=== PATIENT | female | born 1945 | race Caucasian/White ===

== ENCOUNTER 2016-07-23 21:48 | Observation (INO) | payer MEDICARE, MEDICAID ==
--- NOTE | 2016-07-23 22:38 | C.PDOC ---
History Of Present Illness 71F ted after her son called ems. he told them he was speaking with her on the phone and she seemed confused. the pt denies any complaints. Time Seen by Provider: 07/23/16 22:21 Chief Complaint (Nursing): Altered Mental Status Past Medical History Vital Signs: Last Vital Signs Temp 97.8 F 07/24/16 08:48 Pulse 115 H 07/24/16 08:48 Resp 20 07/24/16 08:48 BP 178/70 H 07/24/16 08:48 Pulse Ox 99 07/24/16 08:48 - Medical History PMH: Anxiety, Arthritis, Bronchitis, COPD, Depression, Diabetes, Emphysema, Gastritis, HTN, Hypercholesterolemia, Hypothyroidism, Peripheral Edema, Sleep Apnea Denies: Asthma, Atrial Fibrillation, Cardia Arrhythmia, CHF, Mitral Valve Prolapse, Chronic Kidney Disease Surgical History: Cholecystectomy Denies: Pacemaker - [facility] Procedures APPLIC OF EXTERNAL FIXATOR DEVICE, RADIUS AND ULNA (12/20/12) BELOW KNEE AMPUTAT NEC (06/30/14) CL FX REDUC-RADIUS/ULNA (12/20/12) CONTINUOUS INVASIVE MECHANICAL VENTILATION <96 CONSEC HRS (06/30/14) ENTERAL INFUSION OF CONCENTRATED NUT. SUBSTANCES (06/30/14) OTHER ENDOVASCULAR PROCEDURES ON OTHER VESSELS (06/30/14) OTHER LOCAL DESTRUC SKIN (07/11/13) OTHER MYECTOMY (09/15/14) PHYSICAL THERAPY NEC (02/15/13) Family History: States: Unknown Family Hx - Social History Hx Tobacco Use: Yes Hx Alcohol Use: Yes Hx Substance Use: No - Immunization History Hx Tetanus Toxoid Vaccination: No Hx Influenza Vaccination: Yes Hx Pneumococcal Vaccination: Yes Review Of Systems Review Of Systems: ROS cannot be obtained secondary to pt's inabilty to answer questions. Physical Exam - Physical Exam Appears: Non-toxic, No Acute Distress Skin: Warm, Dry Head: Atraumatic Eye(s): bilateral: PERRL, EOMI Oral Mucosa: Dry Tongue: No Swelling Lips: No Swelling Neck: Normal ROM, Supple Cardiovascular: Rhythm Regular, No Murmur Respiratory: No Decreased Breath Sounds, No Accessory Muscle Use, No Rales, No Rhonchi, No Stridor, No Wheezing Gastrointestinal/Abdominal: Soft, No Tenderness Pulses: Left Radial: Normal, Right Radial: Normal Neurological/Psych: No Oriented x3 (disoriented to time and place), Normal Motor , Normal Sensation, Other (no focal deficits) ED Course And Treatment - Laboratory Results Result Diagrams: 07/23/16 22:49 07/23/16 22:49 O2 Sat by Pulse Oximetry: 100 Medical Decision Making Medical Decision Making: ecg- sinus tach 102, nl axis, baseline artifact due to pt movement, no stemi placed several calls and left message w Dr Soriano without response for 1 hour- patient admitted to hospitalist. CT Head Impression EXAM: CT Head Without Intravenous Contrast. CLINICAL HISTORY: 71 years old, female; Signs and symptoms; Altered mental status/memory loss; Additional info: AMS TECHNIQUE: Axial computed tomography images of the head/brain without intravenous contrast. This CT exam was performed using one or more of the following dose reduction techniques: automated exposure control, adjustment of the mA and/or kV according to patient size, and/or use of iterative reconstruction technique. COMPARISON: CT - HEAD W/WO CONTRAST 07/10/2016 9:00:14 PM FINDINGS: Brain: Chronic small vessel ischemic changes. Motion artifact diminishes sensitivity and subtle subarachnoid hemorrhage could be obscured. Ventricles: Unremarkable. No ventriculomegaly. Bones/joints: Unremarkable. No acute fracture. Soft tissues: Unremarkable. Sinuses: Unremarkable as visualized. No acute sinusitis. Mastoid air cells: Unremarkable as visualized. No mastoid effusion. Other findings: Global involutional changes. IMPRESSION: Motion limits exam, but grossly no acute findings. Disposition - Disposition Disposition: HOME/ ROUTINE Disposition Time: 01:10 Condition: STABLE - Clinical Impression Clinical Impression: Altered mental status
[2016-07-23 22:52] LABS: BASO # 0.1 K/uL (0.0-0.2); BASO % 1.1 % (0.0-2.0); EOS # 0.2 K/uL (0.0-0.7); EOS % 2.2 % (0.0-4.0); HEMATOCRIT 41.1 % (34.0-47.0); LYMPH # 2.6 K/uL (1.0-4.3); LYMPH % 34.2 % (20.0-40.0); MEAN CELL VOLUME 96.3 fL (81.0-99.0); MEAN CORPUSCULAR HGB CONC 33.2 g/dL (33.0-37.0); MEAN PLATELET VOLUME 9.7 fL (7.2-11.7); MONO # 0.4 K/uL (0.0-0.8); MONO % 5.1 % (0.0-10.0); NRBC % 0.2 % (0.0-2.0); RED CELL DISTRIBUTION WIDTH 12.8 % (11.5-14.5); WHITE BLOOD COUNT 7.6 K/uL (4.8-10.8)
[2016-07-23 22:59] LABS: CHLORIDE 100 mmol/L (98-107)
[2016-07-23 23:00] LABS: POTASSIUM 4.5 mmol/L (3.6-5.2); SODIUM 139 mmol/L (132-148)
[2016-07-23 23:02] LABS: ALKALINE PHOSPHATASE 46 U/L (38-126); AST/SGOT 65 U/L (14-36); BILIRUBIN,TOTAL 0.4 mg/dL (0.2-1.3); CARBON DIOXIDE 26 mmol/L (22-30); GFR AFRICAN-AMERICAN > 60; TOTAL PROTEIN 6.7 g/dL (6.3-8.3)
[2016-07-23 23:03] LABS: ALT/SGPT 50 U/L (9-52); BLOOD UREA NITROGEN 9 mg/dL (7-17); CALCIUM 8.3 mg/dl (8.6-10.4); GLUCOSE,RANDOM 214 mg/dL (65-105)
[2016-07-23] MEDS ORDERED: Sodium Chloride 0.9% 1,000 ML IV ONE (23:16)
--- NOTE | 2016-07-24 01:25 | CP.PCM.HP ---
History of Present Illness - History of Present Illness History of Present Illness: HPI: Pt is a 71 year old [place] female with PMHx Alcoholism, DM, PVD, (more below) - brought in by ambulance after her son called ems. He told them he was speaking with her on the phone and she seemed confused. 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 She was recently admitted on 07/07 due to hyponatremia and alcoholism, and seems to be at her baseline since that admission. She complains of chronic SOB and intermittent non-productive cough, which her home nebulizer/albuterol help. She also c/o of chronic urinary frequency, urinating nearly 2x per hour. Otherwise she has no acute complaints. Patient appears mildly intoxicated, with an alcohol level of 129. Denies f/c, headache, dizziness, light headedness, change in vision, chest pain, palpitations, abdominal pain, n/v, hematemesis, constipation, dysuria, back pain , or any additional complaints. PMHx: Anxiety, Arthritis, Asthma, COPD, Depression, Diabetes, possible Gastritis , HTN, Hypercholesterolemia, Hypothyroidism, Edema, PVD PSHx: Cholecystectomy Meds: she is unsure, will see prior admission Allergies: Alexx Inhibitors FamHx: Mom - HTN, of PR SocHx: Tobacco 2PPD x 45yrs; 2-3 glasses of wine/day; Denies drugs; Lives in an apt, does not work. PMD: Dr. Soriano Present on Admission - Present on Admission Any Indicators Present on Admission: Yes History of DVT/PE: Yes Review of Systems - Review of Systems Systems not reviewed;Unavailable: Intoxicated - Constitutional Constitutional: absent: Chills, Fever, Headache, Weakness - EENT Eyes: absent: Blurred Vision, Change in Vision Nose/Mouth/Throat: Dry Mouth. absent: Nasal Congestion, Nasal Discharge - Cardiovascular Cardiovascular: Dyspnea, Leg Edema (mild). absent: Chest Pain - Respiratory Respiratory: Cough, Dyspnea. absent: Chest Congestion - Gastrointestinal Gastrointestinal: Diarrhea (chronic). absent: Abdominal Pain, Constipation, Nausea, Vomiting - Genitourinary Genitourinary: Urinary Frequency. absent: Dysuria - Musculoskeletal Musculoskeletal: absent: Arthralgias, Numbness, Tingling - Neurological Neurological: absent: Dizziness, Numbness, Weakness - Hematologic/Lymphatic Hematologic: absent: Easy Bleeding, Easy Bruising, Lymphadenopathy Past Patient History - Past Medical History & Family History Past Medical History?: Yes - Past Social History Smoking Status: Heavy Smoker > 10 Cigarettes Daily - CARDIAC Hx Atrial Fibrillation: No Hx Cardia Arrhythmia: No Hx Congestive Heart Failure: No Hx Hypercholesterolemia: Yes Hx Hypertension: Yes Hx Mitral Valve Prolapse: No Hx Pacemaker: No Hx Peripheral Edema: Yes - PULMONARY Hx Asthma: No Hx Bronchitis: Yes Hx Chronic Obstructive Pulmonary Disease (COPD): Yes Hx Emphysema: Yes Hx Sleep Apnea: Yes - RENAL Hx Chronic Kidney Disease: No - ENDOCRINE/METABOLIC Hx Hypothyroidism: Yes - HEMATOLOGICAL/ONCOLOGICAL Hx Blood Disorders: No Hx Blood Transfusions: Yes - INTEGUMENTARY Hx Dermatological Problems: Yes Hx Cellulitis: Yes (current) Hx Eczema: Yes - MUSCULOSKELETAL/RHEUMATOLOGICAL Hx Arthritis: Yes - GASTROINTESTINAL Hx Gastritis: Yes - GENITOURINARY/GYNECOLOGICAL Hx Genitourinary Disorders: No - PSYCHIATRIC Hx Anxiety: Yes Hx Depression: Yes Hx Substance Use: No - SURGICAL HISTORY Hx Cholecystectomy: Yes - ANESTHESIA Hx Anesthesia: Yes Hx Anesthesia Reactions: No Hx Malignant Hyperthermia: No Meds Allergies/Adverse Reactions: Allergies Allergy/AdvReac Type Severity Reaction Status Date / Time ALEXX Inhibitors Allergy COUGH Verified 07/08/16 04:57 Physical Exam - Constitutional Appears: Non-toxic, No Acute Distress, Cachectic, Chronically Ill - Head Exam Head Exam: ATRAUMATIC, NORMAL INSPECTION - Eye Exam Eye Exam: EOMI, PERRL - ENT Exam ENT Exam: Mucous Membranes Dry - Neck Exam Neck exam: Negative for: Lymphadenopathy - Respiratory Exam Respiratory Exam: Decreased Breath Sounds, Clear to Auscultation Bilateral. absent: Wheezes Additional comments: tachypnic - Cardiovascular Exam Cardiovascular Exam: REGULAR RHYTHM, +S1, +S2 - GI/Abdominal Exam GI & Abdominal Exam: Hypoactive Bowel Sounds, Soft. absent: Tenderness - Extremities Exam Extremities exam: Positive for: pedal edema (R LE, mild), pedal pulses present ( R LE). Negative for: tenderness Additional comments: Left BKA. b/l lower extremities cool to touch - Neurological Exam Neurological exam: Alert, CN II-XII Intact Additional comments: Oriented to self and place. Not oriented to time (thought it is 1997) - Psychiatric Exam Psychiatric exam: Flat Affect, Normal Mood - Skin Skin Exam: Dry, Normal Color Results - Vital Signs Recent Vital Signs: Last Vital Signs Temp 97.6 F 07/23/16 22:02 Pulse 101 H 07/23/16 22:02 Resp 17 07/23/16 22:02 BP 138/69 07/23/16 22:02 Pulse Ox 100 07/24/16 00:20 - Labs Result Diagrams: 07/23/16 22:49 07/23/16 22:49 Labs: Laboratory Results - last 24 hr 07/23/16 22:49 WBC 7.6 RBC 4.27 Hgb 13.6 Hct 41.1 MCV 96.3 MCH 32.0 H MCHC 33.2 RDW 12.8 Plt Count 282 MPV 9.7 Neut % (Auto) 57.4 Lymph % (Auto) 34.2 Bay % (Auto) 5.1 Eos % (Auto) 2.2 Baso % (Auto) 1.1 Neut # 4.4 Lymph # 2.6 Bay # 0.4 Eos # 0.2 Baso # 0.1 Sodium 139 Potassium 4.5 Chloride 100 Carbon Dioxide 26 Anion Gap 17 BUN 9 Creatinine 0.7 Est GFR ( Amer) > 60 Est GFR (Non-Af Amer) > 60 Random Glucose 214 H Calcium 8.3 L Total Bilirubin 0.4 AST 65 H D ALT 50 Alkaline Phosphatase 46 Troponin I 0.0130 Total Protein 6.7 Albumin 3.4 L Globulin 3.3 Albumin/Globulin Ratio 1.0 Digoxin 1.1 Assessment & Plan - Assessment and Plan (Free Text) Assessment: Alcoholism -seems chronically de-conditioned -CT Head Without Intravenous Contrast - Motion limits exam, but grossly no acute findings. -alcohol level 129 H AST 65 / ALT 56 Thiamine HCl (Vitamin B1 Tab) 100 mg PO DAILY [facility] Folic Acid (Folic Acid) 1 mg PO DAILY [facility] Chlordiazepoxide (Librium) 10 mg PO QID [facility] Neurochecks Atrial Fibrillation with RVR, chronic ecg- sinus tach 102, nl axis Digoxin 0.25mg PO daily Dig level 1.1 Rivaroxaban (Xarelto) 20 mg PO DAILY [facility] Asthma -Hold Albuterol due to elevated heart rate -monitor COPD -not currently treated -monitor PVD (peripheral vascular disease) monitor for complications Aspirin (Ecotrin) 81 mg PO Q24H [facility] Diabetic neuropathy Gabapentin (Neurontin) 800 mg PO Q8 [facility] Hypertension BP on admission 159/76 Losartan Potassium (Cozaar) 12.5 mg PO DAILY [facility] Depression Mirtazapine (Remeron) 15 mg PO HS [facility] Diabetes A1c 8.3 () Insulin Aspart (Novolog) 0 unit SC ACHS [facility] f/u bladder scan for possible urinary retention (c/o urinary freq) Prophylaxis SCDs contraindicated - LLE amputation + RLE edema Heart healthy diet, carb consist. - Date & Time Date: 07/24/16 Time: 01:30
[2016-07-24] MEDS ORDERED: Thiamine 100 mg/ml Inj IV ONE (03:00)
[2016-07-24] MEDS: (Novolog) Insulin Aspart, Recombinant 100 u/ml 10 ml vial SC SCH ×4 (08:34→21:35)
--- NOTE | 2016-07-24 09:09 | CT ---
PROCEDURE: CT HEAD WITHOUT CONTRAST. HISTORY: ams COMPARISON: 07/10/2016 TECHNIQUE: Axial computed tomography images were obtained through the head/brain without intravenous contrast. Radiation dose: Total exam DLP = 1812.77 mGy-cm. FINDINGS: Examination limited due to patient motion artifact. HEMORRHAGE: No intracranial hemorrhage. BRAIN: No mass effect or edema. Mild diffuse age-appropriate cerebral atrophy. Mild chronic periventricular white matter ischemic change. Small old bilateral basal ganglia lacunar infarcts and an old right thalamic lacunar infarct are noted. No evidence of acute infarct. VENTRICLES: Unremarkable. No hydrocephalus. CALVARIUM: Unremarkable. PARANASAL SINUSES: Unremarkable as visualized. No significant inflammatory changes. MASTOID AIR CELLS: Unremarkable as visualized. No inflammatory changes. OTHER FINDINGS: None. IMPRESSION: No intracranial mass, hemorrhage or evidence of acute infarct. 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 Age related atrophy and chronic microvascular white matter ischemic change. Preliminary interpretation of this examination was reported by [employer] at 12:15 a.m. on 07/24/2016.. There is concurrence of this report with the preliminary interpretation.
[2016-07-24] MEDS: Losartan 12.5 MG TAB PO SCH (11:25)
--- NOTE | 2016-07-24 13:44 | RAD ---
HISTORY: ams COMPARISON: 07/06/2016 FINDINGS: LUNGS: No active pulmonary disease. PLEURA: No significant pleural effusion identified, no pneumothorax apparent. CARDIOVASCULAR: Normal. OSSEOUS STRUCTURES: No significant abnormalities. VISUALIZED UPPER ABDOMEN: Normal. OTHER FINDINGS: Bilateral breast prostheses with capsular calcification. IMPRESSION: No active disease.
--- NOTE | 2016-07-24 16:01 | CP.PCM.PN ---
Subjective - Date & Time of Evaluation Date of Evaluation: 07/24/16 Time of Evaluation: 15:00 - Subjective Subjective: BRIEF NOTE, patient was admitted today this morning. We reached out to the patient's PMD however not available to see the patient today. Per review of the medical record the patient the has been to the hospital several times - usually due to extremely low Na levels. Perreview of notes there is concern that the patient was taking excessive amounts of free water. This time the patient was not even sure why she came to the hospital. The notes report that she was speaking with her son over the phone when the son was concerned about confusion and called the ambulance. A private caregiver was in the room with her today and explained she was just discharged from [facility] on Saturday 07/22 and she was walking. She is awake, and conversational - however slow affect. A head CT was done and it did not reveal any acute process at this time. She denied pain when I saw her. An alcohol level was done and it was elevated - the morning team placed patient on librium small doses. She did not appear to have any withdrawal symptoms when I saw and spoke and examined patient. So my suggestion to tomorrow's team is to stop the librium to see if this helps with her confusion. thank you Noel Stephenson Objective - Vital Signs/Intake and Output Vital Signs (last 24 hours): Temp Pulse Resp BP Pulse Ox 97.8 F 95 H 20 140/70 100 07/24/16 08:48 07/24/16 09:30 07/24/16 08:48 07/24/16 09:30 07/24/16 13:30 Intake and Output: 07/24/16 07/24/16 06:59 18:59 Intake Total 200 Balance 200 - Medications Medications: Current Medications Aspirin (Ecotrin) 81 mg PO Q24H [facility] Last Admin: 07/24/16 05:00 Dose: 81 mg Chlordiazepoxide (Librium) 10 mg PO QID [facility] Last Admin: 07/24/16 14:31 Dose: 10 mg Digoxin (Lanoxin) 0.25 mg PO DAILY@1800 [facility] Folic Acid (Folic Acid) 1 mg PO DAILY [facility] Last Admin: 07/24/16 11:22 Dose: 1 mg Gabapentin (Neurontin) 800 mg PO Q8 [facility] Last Admin: 07/24/16 14:31 Dose: 800 mg Insulin Aspart (Novolog) 0 unit SC ACHS [facility] PRN Reason: Protocol Last Admin: 07/24/16 12:34 Dose: 1 unit Losartan Potassium (Cozaar) 12.5 mg PO DAILY [facility] Last Admin: 07/24/16 11:25 Dose: 12.5 mg Mirtazapine (Remeron) 15 mg PO HS [facility] Rivaroxaban (Xarelto) 20 mg PO DAILY [facility] Last Admin: 07/24/16 11:24 Dose: 20 mg Thiamine HCl (Vitamin B1 Tab) 100 mg PO DAILY [facility] Last Admin: 07/24/16 11:22 Dose: 100 mg
[2016-07-24] MEDS: Digoxin 250 mcg (0.25 mg) Tab PO SCH (17:31)
[2016-07-24] MEDS: Albuterol-Ipratrop 3 mg / 0.5 (3 ml) UD INH PRN (20:10)
[2016-07-25 07:16] LABS: CHLORIDE 96 mmol/L (98-107)
[2016-07-25 07:17] LABS: POTASSIUM 4.2 mmol/L (3.6-5.2); SODIUM 137 mmol/L (132-148)
[2016-07-25 07:19] LABS: ALB/GLOB RATIO 1.1 (1.0-2.1); AST/SGOT 47 U/L (14-36); BILIRUBIN,TOTAL 0.3 mg/dL (0.2-1.3); BLOOD UREA NITROGEN 10 mg/dL (7-17); CARBON DIOXIDE 32 mmol/L (22-30); GFR AFRICAN-AMERICAN > 60; GLUCOSE,RANDOM 249 mg/dL (65-105); TOTAL PROTEIN 5.4 g/dL (6.3-8.3)
[2016-07-25 07:20] LABS: ALKALINE PHOSPHATASE 46 U/L (38-126); ALT/SGPT 35 U/L (9-52); CALCIUM 8.2 mg/dl (8.6-10.4)
[2016-07-25 07:22] LABS: BASO # 0.1 K/uL (0.0-0.2); BASO % 1.3 % (0.0-2.0); EOS # 0.3 K/uL (0.0-0.7); EOS % 4.8 % (0.0-4.0); HEMATOCRIT 38.2 % (34.0-47.0); LYMPH # 2.8 K/uL (1.0-4.3); MEAN CELL VOLUME 95.8 fL (81.0-99.0); MEAN CORPUSCULAR HEMOGLOBIN 32.1 pg (27.0-31.0); MEAN CORPUSCULAR HGB CONC 33.6 g/dL (33.0-37.0); MEAN PLATELET VOLUME 9.4 fL (7.2-11.7); MONO # 0.5 K/uL (0.0-0.8); MONO % 7.8 % (0.0-10.0); NRBC % 0.1 % (0.0-2.0); RED CELL DISTRIBUTION WIDTH 12.9 % (11.5-14.5); WHITE BLOOD COUNT 6.3 K/uL (4.8-10.8)
[2016-07-25] MEDS: (Novolog) Insulin Aspart, Recombinant 100 u/ml 10 ml vial SC SCH ×2 (07:59→11:50)
[2016-07-25] MEDS: Albuterol-Ipratrop 3 mg / 0.5 (3 ml) UD INH PRN ×2 (09:02→19:02)
[2016-07-25] MEDS: Losartan 12.5 MG TAB PO SCH (10:40)
[2016-07-25] MEDS ORDERED: (Lantus) Insulin Glargine, Recombinant SC SCH (11:45)
[2016-07-25] MEDS ORDERED: (Novolin 70/30) NPH/Regular 70/30 Units/ml 10 ml vial SC SCH (16:30)
[2016-07-25] MEDS: (Novolin R) Insulin Human Regular 100 units/ml vial SC SCH ×2 (17:00→21:33)
[2016-07-25] MEDS: Digoxin 250 mcg (0.25 mg) Tab PO SCH (18:22)
--- NOTE | 2016-07-25 20:50 | CP.PCM.PN ---
<OlgaNoel - Last Filed: 07/25/16 21:37> Subjective - Date & Time of Evaluation Date of Evaluation: 07/25/16 Time of Evaluation: 07:10 - Subjective Subjective: PGY1 Medicine Note. Patient seen and examined at bedside. No overnight events per nursing. Patient reports she is feeling mildly better, less confused today. She was AAOx3 today, previously she though it was 1997. She reports breathing treatment are helping her SOB. Tolerating diet. Denies f/c, headache, blurry vision, chest pain, palpitations, abdominal pain, n/v, d/c, dysuria, urinary frequency, or any other acute complaints. Objective - Vital Signs/Intake and Output Vital Signs (last 24 hours): Temp Pulse Resp BP Pulse Ox 98.6 F 92 H 20 124/62 96 07/25/16 16:00 07/25/16 16:00 07/25/16 16:00 07/25/16 16:00 07/25/16 16:00 Intake and Output: 07/25/16 07/26/16 18:59 06:59 Intake Total 720 Balance 720 - Medications Medications: Current Medications Albuterol/Ipratropium (Duoneb 3 Mg/0.5 Mg (3 Ml) Ud) 3 ml INH RQ6 PRN PRN Reason: Shortness of Breath Last Admin: 07/25/16 19:02 Dose: 3 ml Aspirin (Ecotrin) 81 mg PO Q24H [facility] Last Admin: 07/25/16 04:15 Dose: 81 mg Chlordiazepoxide (Librium) 10 mg PO QID [facility] Last Admin: 07/25/16 18:20 Dose: 10 mg Digoxin (Lanoxin) 0.25 mg PO DAILY@1800 [facility] Last Admin: 07/25/16 18:22 Dose: 0.25 mg Folic Acid (Folic Acid) 1 mg PO DAILY [facility] Last Admin: 07/25/16 10:40 Dose: 1 mg Gabapentin (Neurontin) 800 mg PO Q8 [facility] Last Admin: 07/25/16 13:09 Dose: 800 mg Insulin Detemir (Levemir) 10 unit SC HS [facility] Insulin Human Isoph/Insulin Regular (Novolin 70/30 (70/30 Units/Ml) 10 Ml) 24 units SC ACB [facility] Insulin Human Isoph/Insulin Regular (Novolin 70/30 (70/30 Units/Ml) 10 Ml) 16 units SC ACD [facility] Last Admin: 07/25/16 17:02 Dose: 16 units Insulin Human Regular (Novolin R) 0 unit SC ACHS [facility] PRN Reason: Protocol Last Admin: 07/25/16 17:00 Dose: 6 unit Losartan Potassium (Cozaar) 12.5 mg PO DAILY [facility] Last Admin: 07/25/16 10:40 Dose: 12.5 mg Mirtazapine (Remeron) 15 mg PO HS [facility] Last Admin: 07/24/16 21:31 Dose: 15 mg Rivaroxaban (Xarelto) 20 mg PO DAILY [facility] Last Admin: 07/25/16 10:40 Dose: 20 mg Thiamine HCl (Vitamin B1 Tab) 100 mg PO DAILY [facility] Last Admin: 07/25/16 10:40 Dose: 100 mg - Labs Labs: 07/25/16 06:56 07/25/16 06:56 - Additional Findings Additional findings: - Constitutional Appears: Non-toxic, No Acute Distress, Cachectic, Chronically Ill - Head Exam Head Exam: ATRAUMATIC, NORMAL INSPECTION - Eye Exam Eye Exam: EOMI, PERRL - ENT Exam ENT Exam: Mucous Membranes Dry - Neck Exam Neck exam: Negative for: Lymphadenopathy - Respiratory Exam Respiratory Exam: Decreased Breath Sounds, Clear to Auscultation Bilateral. absent: Wheezes Additional comments: -improving - Cardiovascular Exam Cardiovascular Exam: REGULAR RHYTHM, +S1, +S2 - GI/Abdominal Exam GI & Abdominal Exam: Hypoactive Bowel Sounds, Soft. absent: Tenderness - Extremities Exam Extremities exam: Positive for: pedal edema (R LE, mild), pedal pulses present ( R LE). Negative for: tenderness Additional comments: Left BKA. b/l lower extremities cool to touch - Neurological Exam Neurological exam: Alert, Oriented x3, CN II-XII Intact Additional comments: - Psychiatric Exam Psychiatric exam: Normal Affect, Normal Mood - Skin Skin Exam: Dry, Normal Color Assessment and Plan - Assessment and Plan (Free Text) Assessment: Alcoholism 07/25: consider decreasing or stopping Librium as patient does not have signs of withdrawal -seems chronically de-conditioned -CT Head Without Intravenous Contrast - Motion limits exam, but grossly no acute findings. -alcohol level 129 H AST 65 / ALT 56 Thiamine HCl (Vitamin B1 Tab) 100 mg PO DAILY [facility] Folic Acid (Folic Acid) 1 mg PO DAILY [facility] Chlordiazepoxide (Librium) 10 mg PO QID [facility] Neurochecks Atrial Fibrillation with RVR, chronic 07/25: vitals WNL ecg- sinus tach 102, nl axis Digoxin 0.25mg PO daily Dig level 1.1 Rivaroxaban (Xarelto) 20 mg PO DAILY [facility] Asthma 07/25: Continue albuterol -Hold Albuterol due to elevated heart rate -monitor COPD -not currently treated -monitor Diabetes 07/25: Glucose elevated - add Lantus 10u daily Endocrinology consult, Dr. Martinez - see patient as an outpatient. A1c 8.3 () Insulin Aspart (Novolog) 0 unit SC ACHS [facility] f/u bladder scan for possible urinary retention (c/o urinary freq) PVD (peripheral vascular disease) monitor for complications Aspirin (Ecotrin) 81 mg PO Q24H [facility] Diabetic neuropathy Gabapentin (Neurontin) 800 mg PO Q8 [facility] Hypertension BP on admission 159/76 Losartan Potassium (Cozaar) 12.5 mg PO DAILY [facility] Depression Mirtazapine (Remeron) 15 mg PO HS [facility] Prophylaxis SCDs contraindicated - LLE amputation + RLE edema Heart healthy diet, carb consist. <Benjamin Onofre - Last Filed: 07/26/16 14:04> Objective - Vital Signs/Intake and Output Vital Signs (last 24 hours): Temp Pulse Resp BP Pulse Ox 98 F 80 20 148/76 98 07/26/16 07:47 07/26/16 08:24 07/26/16 07:47 07/26/16 07:47 07/26/16 07:47 Intake and Output: 07/26/16 07/26/16 06:59 18:59 Intake Total 930 Balance 930 - Medications Medications: Current Medications Albuterol/Ipratropium (Duoneb 3 Mg/0.5 Mg (3 Ml) Ud) 3 ml INH RQ6 PRN PRN Reason: Shortness of Breath Last Admin: 07/26/16 13:23 Dose: 3 ml Aspirin (Ecotrin) 81 mg PO Q24H [facility] Last Admin: 07/26/16 05:00 Dose: 81 mg Chlordiazepoxide (Librium) 10 mg PO BID [facility] Digoxin (Lanoxin) 0.25 mg PO DAILY@1800 [facility] Last Admin: 07/25/16 18:22 Dose: 0.25 mg Docusate Sodium (Colace) 100 mg PO BID [facility] Last Admin: 07/26/16 10:38 Dose: 100 mg Folic Acid (Folic Acid) 1 mg PO DAILY [facility] Last Admin: 07/26/16 10:38 Dose: 1 mg Gabapentin (Neurontin) 800 mg PO Q8 [facility] Last Admin: 07/26/16 13:40 Dose: 800 mg Guaifenesin (Mucinex La) 600 mg PO BID [facility] Last Admin: 07/26/16 10:38 Dose: 600 mg Insulin Detemir (Levemir) 14 unit SC HS [facility] Insulin Human Isoph/Insulin Regular (Novolin 70/30 (70/30 Units/Ml) 10 Ml) 24 units SC ACB [facility] Last Admin: 07/26/16 08:10 Dose: 24 units Insulin Human Isoph/Insulin Regular (Novolin 70/30 (70/30 Units/Ml) 10 Ml) 16 units SC ACD [facility] Last Admin: 07/25/16 17:02 Dose: 16 units Insulin Human Regular (Novolin R) 0 unit SC ACHS [facility] PRN Reason: Protocol Last Admin: 07/26/16 12:06 Dose: Not Given Losartan Potassium (Cozaar) 12.5 mg PO DAILY [facility] Last Admin: 07/26/16 10:05 Dose: 12.5 mg Mirtazapine (Remeron) 15 mg PO HS [facility] Last Admin: 07/25/16 21:40 Dose: 15 mg Rivaroxaban (Xarelto) 20 mg PO DAILY [facility] Last Admin: 07/26/16 10:06 Dose: 20 mg Thiamine HCl (Vitamin B1 Tab) 100 mg PO DAILY [facility] Last Admin: 07/26/16 10:38 Dose: 100 mg - Labs Labs: 07/26/16 07:48 07/26/16 07:48 Attending/Attestation - Attestation I have personally seen and examined this patient.: Yes I have fully participated in the care of the patient.: Yes I have reviewed all pertinent clinical information, including history, physical exam and plan: Yes Notes (Text): 07/26/16 14:04 Patient was seen and examined at bedside Patient awake alert not in any acute distress Patient mental status is at baseline Patient's sugars are uncontrolled accident we will request endocrinology evaluation for the patient I agree with the assessment and plan but the rest
[2016-07-25] MEDS ORDERED: Insulin Detemir 100 units/ml Vial (Levemir) SC SCH (22:00)
[2016-07-26] MEDS: Albuterol-Ipratrop 3 mg / 0.5 (3 ml) UD INH PRN ×3 (01:13→13:23)
--- NOTE | 2016-07-26 05:34 | CON ---
DATE: 07/25/2016 Endocrinology consult. ROOM: 356 HISTORY OF PRESENT ILLNESS: This is a 71-year-old female, very well known to me from outpatient diab etic followup, although has not been seen since 2016 and has now been admitted to [facility] of recent changes in sensorium with confusion, disorientation, and generalized body weakness and was evaluated to have hypovolemic hyponatremia as noted thereof. She is being referred now for diab etic evaluation because of persistent hyperglycemic accelerations as noted thereof. She is currently on a sliding scale coverage with Levemir given as 10 units at bedtime as noted. PAST MEDICAL HISTORY: As mentioned above, history of type 2 insulin-requiring diabetes, currently on a premixed insulin regimen in combination with basal insulin given at bedtime, and she was actually on Novolin 70/30, at 26 units a.c. breakfast and 16 units a.c. dinner and with Levemir given as 12 un its subQ at bedtime daily. Because of financial constraints, she could not use the insulin analogs a nd was placed only on the more affordable Novolin 70/30 that was covered by her insurance. Her glyce torres levels have been fairly optimal in the outpatient as noted, and her A1c levels have been variable ranging from 8-9%. History of diabetic retinopathy and polyneuropathy with diabetic nephropathy and underlying proteinuria. History of coronary artery disease and peripheral arterial disease and vasc ulopathy with a previous left below-knee amputation. History of chronic obstructive lung disease fro m longstanding nicotine dependence with previous admissions for exacerbations of underlying emphysema . History of generalized anxiety and depression and has used alcohol as a coping mechanism and appar ently was admitted here with recent alcoholic intoxication. SOCIAL HISTORY: The patient is and lives alone, but has a home healthcare daily as noted. S he admits to nicotine dependence, consuming 2 packs of cigarettes daily for the last 45 years or more . History of chronic alcoholism and has had recent alcoholic intoxication as noted. No other illici t drug use. FAMILY HISTORY: Positive for hypertension and diabetes. REVIEW OF SYSTEMS: As mentioned above, admits to generalized body weakness with easy fatigability an d tiredness and suboptimal energy level. Also admits to dizziness and lightheadedness, worse on the day of admission. Also, admits to precordial chest pain with progressive shortness of breath, especi ally on exertion, and episodic paroxysmal nocturnal dyspnea. Also, admits to bronchorrhea and occasi onal pleuritic chest pain. Her oral intake has been variable and suboptimal with dyspepsia, nausea, and vague upper abdominal pains. Also, admits to persistent nocturia, polyuria, and habitual constip ation. History of chronic atrial fibrillation and previous admissions for paroxysmal atrial fibrilla tion and flutter. Also, previous history of electrolyte disturbances with hyponatremia and hyperkale cortney as noted. PHYSICAL EXAMINATION: GENERAL: This is a 71-year-old female in no apparent distress. VITAL SIGNS: Blood pressure of 160/100. Pulse of 80 beats per minute, regular. Temperature 99. Re spirations 20. Height is 5 feet 2. Weight is 140 pounds. HEENT: Head normocephalic. Eyes anicteric with pink conjunctivae. Fundoscopy not possible at this time. Ears, nose, and throat otherwise normal. NECK: Supple. Thyroid gland is normal size. No carotid bruits or any cervical adenopathy. CARDIOPULMONARY: Some adynamic precordium. S1, S2 is rapid and regular. LUNGS: Show scattered rhonchi. ABDOMEN: Flat, soft with positive bowel sounds. EXTREMITIES: The left below-knee amputation stump is healed with no active dermatosis or ulcerations . The right leg shows diminished pulses with +1 bipedal edema. LABORATORY DATA: Her chemistries today showed a BUN of 10, sodium 137, potassium 4.2, chloride 96, C O2 32, glucose 249, and creatinine 0.7. Her glucose levels have ranged from 274-283 mg/dL. ASSESSMENT: This is a 71-year-old female with uncontrolled and decompensated type 2 insulin-requirin g diabetes, presenting here with sudden onset of altered mental status and sensorium with behavioral disturbances and had euvolemic hyponatremia on admission. Moreover, she also uncontrolled type 2 ins ulin-requiring diabetes with recent hyperglycemic accelerations related to a subtherapeutic insulin r egimen as given and noted. Moreover, she also has diabetic microvascular complications of retinopath y, polyneuropathy, and nephropathy with overt proteinuria. She has diabetic macrovascular complicati ons of coronary artery disease and peripheral arterial disease and vasculopathy with previous left be low-knee amputation. She also has chronic obstructive lung disease related to nicotine dependence an d also concomitant chronic alcoholism with recent alcoholic intoxication with an underlying generaliz ed anxiety and depression. PLAN OF MANAGEMENT: As discussed with the patient and the staff, we will modify her current insulin regimen and switch her over to her home insulin regimen, whereupon she is using Novolin 70/30 given a s 24 units a.c. breakfast and 16 units a.c. dinner to start today. We will titrate incrementally as her oral intake improves and after glycemic levels continue to fluctuate thereof. We will modify the coverage scale to obviate hypoglycemia and detailed orders have been given. We will also add basal insulin with Levemir given as 10 units subQ at bedtime daily to start tonight. We will obtain a hemo globin A1c to confirm her prior glycemic control and baseline thyroid function studies and lipid pane l will be ordered. We will follow and advise accordingly. We will also recommend a psychiatric eval uation, not only for the polysubstance abuse, but also for the underlying generalized anxiety and dep ression, and she may need psychotropic medications at this time. Nohelia Martinez MD cc: [id number] TT: 07/26/2016 05:33:57 Confirmation # [id number] Dictation # [id number] tn
[2016-07-26] MEDS ORDERED: (Novolin 70/30) NPH/Regular 70/30 Units/ml 10 ml vial SC SCH ×2 (07:30→16:30)
[2016-07-26 07:52] VITALS: RESP 20
--- NOTE | 2016-07-26 07:54 | CP.PCM.PN ---
Subjective - Date & Time of Evaluation Date of Evaluation: 07/26/16 Time of Evaluation: 07:40 - Subjective Subjective: PGY1 Medicine Note. Patient seen and examined at bedside. No overnight events per nursing. Patient reports she is feeling mildly better, less confused today. She was AAOx3 today, previously she though it was 1997. She reports breathing treatment are helping her SOB. Tolerating diet. Denies f/c, headache, blurry vision, chest pain, palpitations, abdominal pain, n/v, d/c, dysuria, urinary frequency, or any other acute complaints. Objective - Vital Signs/Intake and Output Vital Signs (last 24 hours): Temp Pulse Resp BP Pulse Ox 98 F 80 20 148/76 98 07/26/16 07:47 07/26/16 07:47 07/26/16 07:47 07/26/16 07:47 07/26/16 07:47 Intake and Output: 07/26/16 07/26/16 06:59 18:59 Intake Total 930 Balance 930 - Medications Medications: Current Medications Albuterol/Ipratropium (Duoneb 3 Mg/0.5 Mg (3 Ml) Ud) 3 ml INH RQ6 PRN PRN Reason: Shortness of Breath Last Admin: 07/26/16 01:13 Dose: 3 ml Aspirin (Ecotrin) 81 mg PO Q24H [facility] Last Admin: 07/26/16 05:00 Dose: 81 mg Chlordiazepoxide (Librium) 10 mg PO QID [facility] Last Admin: 07/25/16 21:33 Dose: 10 mg Digoxin (Lanoxin) 0.25 mg PO DAILY@1800 [facility] Last Admin: 07/25/16 18:22 Dose: 0.25 mg Docusate Sodium (Colace) 100 mg PO BID [facility] Folic Acid (Folic Acid) 1 mg PO DAILY [facility] Last Admin: 07/25/16 10:40 Dose: 1 mg Gabapentin (Neurontin) 800 mg PO Q8 [facility] Last Admin: 07/26/16 05:42 Dose: 800 mg Guaifenesin (Mucinex La) 600 mg PO BID [facility] Insulin Detemir (Levemir) 10 unit SC HS [facility] Last Admin: 07/25/16 21:32 Dose: 10 unit Insulin Human Isoph/Insulin Regular (Novolin 70/30 (70/30 Units/Ml) 10 Ml) 24 units SC ACB [facility] Insulin Human Isoph/Insulin Regular (Novolin 70/30 (70/30 Units/Ml) 10 Ml) 16 units SC ACD [facility] Last Admin: 07/25/16 17:02 Dose: 16 units Insulin Human Regular (Novolin R) 0 unit SC ACHS [facility] PRN Reason: Protocol Last Admin: 07/25/16 21:33 Dose: Not Given Losartan Potassium (Cozaar) 12.5 mg PO DAILY [facility] Last Admin: 07/25/16 10:40 Dose: 12.5 mg Mirtazapine (Remeron) 15 mg PO HS [facility] Last Admin: 07/25/16 21:40 Dose: 15 mg Rivaroxaban (Xarelto) 20 mg PO DAILY [facility] Last Admin: 07/25/16 10:40 Dose: 20 mg Thiamine HCl (Vitamin B1 Tab) 100 mg PO DAILY [facility] Last Admin: 07/25/16 10:40 Dose: 100 mg - Labs Labs: 07/25/16 06:56 07/25/16 06:56 - Additional Findings Additional findings: - Constitutional Appears: Non-toxic, No Acute Distress, Cachectic, Chronically Ill - Head Exam Head Exam: ATRAUMATIC, NORMAL INSPECTION - Eye Exam Eye Exam: EOMI, PERRL - ENT Exam ENT Exam: Mucous Membranes Dry - Neck Exam Neck exam: Negative for: Lymphadenopathy - Respiratory Exam Respiratory Exam: Decreased Breath Sounds, Clear to Auscultation Bilateral. absent: Wheezes Additional comments: -improving - Cardiovascular Exam Cardiovascular Exam: REGULAR RHYTHM, +S1, +S2 - GI/Abdominal Exam GI & Abdominal Exam: Hypoactive Bowel Sounds, Soft. absent: Tenderness - Extremities Exam Extremities exam: Positive for: pedal edema (R LE, mild), pedal pulses present ( R LE). Negative for: tenderness Additional comments: Left BKA. b/l lower extremities cool to touch - Neurological Exam Neurological exam: Alert, Oriented x3, CN II-XII Intact Additional comments: - Psychiatric Exam Psychiatric exam: Normal Affect, Normal Mood - Skin Skin Exam: Dry, Normal Color Assessment and Plan - Assessment and Plan (Free Text) Assessment: Alcoholism 07/25: consider decreasing or stopping Librium as patient does not have signs of withdrawal -seems chronically de-conditioned -CT Head Without Intravenous Contrast - Motion limits exam, but grossly no acute findings. -alcohol level 129 H AST 65 / ALT 56 Thiamine HCl (Vitamin B1 Tab) 100 mg PO DAILY [facility] Folic Acid (Folic Acid) 1 mg PO DAILY [facility] Chlordiazepoxide (Librium) 10 mg PO QID [facility] Neurochecks Atrial Fibrillation with RVR, chronic 07/25: vitals WNL ecg- sinus tach 102, nl axis Digoxin 0.25mg PO daily Dig level 1.1 Rivaroxaban (Xarelto) 20 mg PO DAILY [facility] Asthma 07/25: Continue albuterol -Hold Albuterol due to elevated heart rate -monitor COPD -not currently treated -monitor Diabetes 07/25: Glucose elevated - add Lantus 10u daily Endocrinology consult, Dr. Martinez - see patient as an outpatient. A1c 8.3 () Insulin Aspart (Novolog) 0 unit SC ACHS [facility] f/u bladder scan for possible urinary retention (c/o urinary freq) PVD (peripheral vascular disease) monitor for complications Aspirin (Ecotrin) 81 mg PO Q24H [facility] Diabetic neuropathy Gabapentin (Neurontin) 800 mg PO Q8 [facility] Hypertension BP on admission 159/76 Losartan Potassium (Cozaar) 12.5 mg PO DAILY [facility] Depression Mirtazapine (Remeron) 15 mg PO HS [facility] Prophylaxis SCDs contraindicated - LLE amputation + RLE edema Heart healthy diet, carb consist.
[2016-07-26 07:58] LABS: BASO # 0.1 K/uL (0.0-0.2); EOS # 0.3 K/uL (0.0-0.7); EOS % 3.8 % (0.0-4.0); LYMPH % 42.2 % (20.0-40.0); MEAN CELL VOLUME 97.5 fL (81.0-99.0); MEAN CORPUSCULAR HEMOGLOBIN 31.7 pg (27.0-31.0); MEAN CORPUSCULAR HGB CONC 32.5 g/dL (33.0-37.0); MEAN PLATELET VOLUME 9.6 fL (7.2-11.7); MONO # 0.6 K/uL (0.0-0.8); MONO % 8.2 % (0.0-10.0); RED CELL DISTRIBUTION WIDTH 13.2 % (11.5-14.5); WHITE BLOOD COUNT 7.1 K/uL (4.8-10.8)
[2016-07-26] MEDS: (Novolin R) Insulin Human Regular 100 units/ml vial SC SCH ×3 (08:10→17:21)
[2016-07-26 08:14] LABS: CHLORIDE 96 mmol/L (98-107); POTASSIUM 4.6 mmol/L (3.6-5.2); SODIUM 139 mmol/L (132-148)
[2016-07-26 08:16] LABS: ALB/GLOB RATIO 1.1 (1.0-2.1); ALKALINE PHOSPHATASE 44 U/L (38-126); ALT/SGPT 32 U/L (9-52); AST/SGOT 32 U/L (14-36); BILIRUBIN,TOTAL 0.2 mg/dL (0.2-1.3); BLOOD UREA NITROGEN 17 mg/dL (7-17); CARBON DIOXIDE 33 mmol/L (22-30); GFR AFRICAN-AMERICAN > 60; TOTAL PROTEIN 5.7 g/dL (6.3-8.3)
[2016-07-26 08:17] LABS: CALCIUM 8.3 mg/dl (8.6-10.4); CHOLESTEROL 121 mg/dL (0-199); GLUCOSE,RANDOM 294 mg/dL (65-105); MAGNESIUM 1.4 mg/dL (1.6-2.3)
[2016-07-26 08:44] LABS: THYROID STIMULATING HORMONE 0.76 mIU/L (0.46-4.68)
[2016-07-26] MEDS: Losartan 12.5 MG TAB PO SCH (10:05)
[2016-07-26] MEDS: guaiFENesin 600 mg ER Tab PO SCH ×2 (10:38→17:24)
--- NOTE | 2016-07-26 14:59 | PN ---
DATE: 07/26/2016 ROOM: 356 This is a 71-year-old female with recent uncontrolled type 2 insulin-requiring diabetes, presenting h ere with altered sensorium and behavioral disturbances related to extremes of glycemic fluctuations a nd is now being followed closely for metabolic management. Her oral intake also remains quite variable at this time and the latest glucose levels have ranged fr om 244-292 mg/dL. Her latest chemistry showed a BUN of 17, sodium 139, potassium 4.6, chloride 96, C O2 33, glucose 294 and creatinine 0.8. Her hemoglobin A1c now is 90.6%, which is quite elevated and indicative of suboptimal metabolic control of her diabetic condition. Because of the variability of her oral intake. The patient has been adjusting and titrating her dose regimen at home even prior to this admission. So at this time, will modify her premixed and basal insulin regimen and increase the Novolin 70/30 to 28 units a.c. breakfast and 18 units a.c. dinner to start today. Will also increase the basal insul in with Levemir to be given as 14 units subQ at bedtime daily to start tonight. Will titrate increme ntally as indicated to optimize metabolic control. Will continue the low-dose correction scale using regular insulin as ordered. Will obtain serial chemistries and supplement accordingly as needed. W ill follow. Nohelia Martinez MD cc: [id number] TT: 07/26/2016 14:58:22 Confirmation # [id number] Dictation # [id number] julia
[2016-07-26 17:07] VITALS: BP 137/72; PULSE 93; TEMP 97.7; O2SAT 90
[2016-07-26] MEDS: Digoxin 250 mcg (0.25 mg) Tab PO SCH (17:24)
[2016-07-26 17:29] VITALS: PULSE 93
--- NOTE | 2016-07-26 21:19 | CP.PCM.DIS ---
<Noel Espinoza - Last Filed: 07/26/16 21:13> Provider - Provider Date of Admission: 07/24/16 01:10 Attending physician: John Romero MD Consults: Endocrinology: Dr. Jennifer Faith Time Spent in preparation of Discharge (in minutes): 40 Hospital Course - Lab Results Lab Results: Most Recent Lab Values WBC 7.1 K/uL (4.8-10.8) 07/26/16 07:48 RBC 3.90 Mil/uL (3.80-5.20) 07/26/16 07:48 Hgb 12.4 g/dL (11.0-16.0) 07/26/16 07:48 Hct 38.0 % (34.0-47.0) 07/26/16 07:48 MCV 97.5 fL (81.0-99.0) 07/26/16 07:48 MCH 31.7 pg (27.0-31.0) H 07/26/16 07:48 MCHC 32.5 g/dL (33.0-37.0) L 07/26/16 07:48 RDW 13.2 % (11.5-14.5) 07/26/16 07:48 Plt Count 248 K/uL (130-400) 07/26/16 07:48 MPV 9.6 fL (7.2-11.7) 07/26/16 07:48 Neut % (Auto) 44.8 % (50.0-75.0) L 07/26/16 07:48 Lymph % (Auto) 42.2 % (20.0-40.0) H 07/26/16 07:48 [place] % (Auto) 8.2 % (0.0-10.0) 07/26/16 07:48 Eos % (Auto) 3.8 % (0.0-4.0) 07/26/16 07:48 Baso % (Auto) 1.0 % (0.0-2.0) 07/26/16 07:48 Neut # 3.2 K/uL (1.8-7.0) 07/26/16 07:48 Lymph # 3.0 K/uL (1.0-4.3) 07/26/16 07:48 [place] # 0.6 K/uL (0.0-0.8) 07/26/16 07:48 Eos # 0.3 K/uL (0.0-0.7) 07/26/16 07:48 Baso # 0.1 K/uL (0.0-0.2) 07/26/16 07:48 Sodium 139 mmol/L (132-148) 07/26/16 07:48 Potassium 4.6 mmol/L (3.6-5.2) 07/26/16 07:48 Chloride 96 mmol/L (98-107) L 07/26/16 07:48 Carbon Dioxide 33 mmol/L (22-30) H 07/26/16 07:48 Anion Gap 15 (10-20) 07/26/16 07:48 BUN 17 mg/dL (7-17) 07/26/16 07:48 Creatinine 0.8 MG/DL (0.7-1.2) 07/26/16 07:48 Est GFR ( Amer) > 60 07/26/16 07:48 Est GFR (Non-Af Amer) > 60 07/26/16 07:48 POC Glucose (mg/dL) 72 mg/dL (65-110) 07/26/16 11:24 Random Glucose 294 mg/dL (65-105) H 07/26/16 07:48 Hemoglobin A1c 9.6 % (4.2-6.5) H 07/26/16 07:48 Calcium 8.3 mg/dl (8.6-10.4) L 07/26/16 07:48 Magnesium 1.4 mg/dL (1.6-2.3) L 07/26/16 07:48 Total Bilirubin 0.2 mg/dL (0.2-1.3) 07/26/16 07:48 AST 32 U/L (14-36) 07/26/16 07:48 ALT 32 U/L (9-52) 07/26/16 07:48 Alkaline Phosphatase 44 U/L (38-126) 07/26/16 07:48 Troponin I 0.0130 ng/mL (0.00-0.120) 07/23/16 22:49 Total Protein 5.7 g/dL (6.3-8.3) L 07/26/16 07:48 Albumin 3.1 g/dL (3.5-5.0) L 07/26/16 07:48 Globulin 2.7 gm/dL (2.2-3.9) 07/26/16 07:48 Albumin/Globulin Ratio 1.1 (1.0-2.1) 07/26/16 07:48 Triglycerides 140 mg/dL (0-149) D 07/26/16 07:48 Cholesterol 121 mg/dL (0-199) 07/26/16 07:48 LDL Cholesterol Direct 55 mg/dL (0-129) 07/26/16 07:48 HDL Cholesterol 49 mg/dL (30-70) 07/26/16 07:48 Lipase < 10 U/L (23-300) L 07/26/16 07:48 TSH 3rd Generation 0.76 mIU/L (0.46-4.68) 07/26/16 07:48 Digoxin 1.1 ng/mL (0.8-2.0) 07/23/16 22:49 Alcohol, Quantitative 129 mg/dl (0-10) H 07/24/16 01:00 - Hospital Course Hospital Course: Upon hospital admission: Pt is a 71 year old [facility] female with PMHx Alcoholism, DM, PVD, (more below) - brought in by ambulance after her son called ems. He told them he was speaking with her on the phone and she seemed confused. She has an extensive history of uncontrolled diabetes which contributed to lower extremity arterial thrombosis culminating in a BKA in 2014. She was recently admitted on 07/07 due to hyponatremia and alcoholism, and seems to be at her baseline since that admission. She complains of chronic SOB and intermittent non-productive cough, which her home nebulizer/albuterol help. She also c/o of chronic urinary frequency, urinating nearly 2x per hour. Otherwise she has no acute complaints. Patient appears mildly intoxicated, with an alcohol level of 129. Denies f/c, headache, dizziness, light headedness, change in vision, chest pain, palpitations, abdominal pain, n/v, hematemesis, constipation, dysuria, back pain, or any additional complaints. PMHx: Anxiety, Arthritis, Asthma, COPD, Depression, Diabetes, possible Gastritis , HTN, Hypercholesterolemia, Hypothyroidism, Edema, PVD PSHx: Cholecystectomy Meds: she is unsure, will see prior admission Allergies: Alexx Inhibitors FamHx: Mom - HTN, of [place] SocHx: Tobacco 2PPD x 45yrs; 2-3 glasses of wine/day; Denies drugs; Lives in an apt, does not work. PMD: Dr. Soriano During hospital course, the patient was evaluated and treated for the following : (1) Alcoholism patient seems chronically de-conditioned. CT Head Without Intravenous Contrast - Motion limits exam, but grossly no acute findings. Alcohol level 129 H. Patient tx with Thiamine HCl (Vitamin B1 Tab) 100 mg PO DAILY NITISH; Folic Acid (Folic Acid) 1 mg PO DAILY NITISH; Chlordiazepoxide (Librium ) 10 mg PO QID NITISH (tapered down). (2) Atrial Fibrillation with RVR, chronic for which ecg- sinus tach 102, nl axis; Tx with Digoxin 0.25mg PO daily; Dig level 1.1; Rivaroxaban (Xarelto) 20 mg PO DAILY NITISH. (3) Asthma tx with Albuterol (held initially due to elevated heart rate). (4) Diabetes for which her Endocrinology consult, Dr. Martinez - see patient as an outpatient. A1c 8.3 (). Insulin Aspart (Novolog) 0 unit SC ACHS NITISH. (5) PVD (peripheral vascular disease) tx with Aspirin (Ecotrin) 81 mg PO Q24H NITISH. Patient with L BKA due to PVD history. (6) Diabetic neuropathy tx with Gabapentin (Neurontin) 800 mg PO Q8 NITISH; (7) Hypertension BP on admission 159/76; treated with Losartan Potassium (Cozaar) 12.5 mg PO DAILY NITISH. (8) Depression tx with Mirtazapine ( Remeron) 15 mg PO HS NITISH. Upon hospital discharge, the patient was provided with the following instructions: Patient is stable for discharge per Dr. Onofre. Patient should resume all medications as outlined in this document. Additionally, patient should take the new medications listed below (scripts provided). 1. Please make an appointment and follow up with Primary Doctor- Dr. Soriano within one week of discharge. 2. Please make an appointment and follow up with Dr. Nohelia Faith (Endocrinology) within one week of discharge. She will work with you to adjust your diabetes medications. 3. You are recommended to receive home services for physical therapy. A script will be provided and case management will help establish this service. Patient should return to ED immediately if symptoms return or worsen. Instructions discussed with patient who understood and agreed. Newly prescribed medications: -Novolin 70/30 18units SC ACD (before dinner) -Novolin 70/30 28units SC ACB (before breakfast) -Mirtazapine 15mg PO HS #30 (at night) -Resume all other home medications as outlined in this document. This is a summary of the patient's hospital admission, see chart for comprehensive detail. - Date & Time of H&P Date of H&P: 07/24/16 Time of H&P: 01:20 Discharge Exam - Additional Findings Additional findings: - Constitutional Appears: Non-toxic, No Acute Distress, Cachectic, Chronically Ill - Head Exam Head Exam: ATRAUMATIC, NORMAL INSPECTION - Eye Exam Eye Exam: EOMI, PERRL - ENT Exam ENT Exam: Mucous Membranes Dry - Neck Exam Neck exam: Negative for: Lymphadenopathy - Respiratory Exam Respiratory Exam: Decreased Breath Sounds, Clear to Auscultation Bilateral. absent: Wheezes Additional comments: -Respiratory status improved with tx - Cardiovascular Exam Cardiovascular Exam: REGULAR RHYTHM, +S1, +S2 - GI/Abdominal Exam GI & Abdominal Exam: Normal Bowel Sounds (+BM), Soft. absent: Tenderness - Extremities Exam Extremities exam: Positive for: pedal edema (R LE, mild), pedal pulses present ( R LE). Negative for: tenderness Additional comments: Left BKA. b/l lower extremities cool to touch - Neurological Exam Neurological exam: Alert, Oriented x3, CN II-XII Intact Additional comments: - Psychiatric Exam Psychiatric exam: Normal Affect, Normal Mood - Skin Skin Exam: Dry, Normal Color Discharge Plan - Discharge Medications Prescriptions: Insulin Human (NPH)/Regular [Novolin 70/30 (70/30 units/ml) 10 ml] 18 units SC ACD 30 Days Insulin Human (NPH)/Regular [Novolin 70/30 (70/30 units/ml) 10 ml] 28 units SC ACB 30 Days Mirtazapine [Remeron] 15 mg PO HS 30 Days - Follow Up Plan Condition: STABLE Disposition: HOME/ ROUTINE Instructions: Mirtazapine (By mouth), Insulin NPH/Regular (By injection), Diabetic Foot Care (DC), Meal Planning with Diabetes Exchanges (DC), Altered Mental Status (GEN) Additional Instructions: Patient is stable for discharge per Dr. Onofre. Patient should resume all medications as outlined in this document. Additionally, patient should take the new medications listed below (scripts provided). 1. Please make an appointment and follow up with Primary Doctor- Dr. Soriano within one week of discharge. 2. Please make an appointment and follow up with Dr. Nohelia Faith (Endocrinology) within one week of discharge. She will work with you to adjust your diabetes medications. 3. You are recommended to receive home services for physical therapy. A script will be provided and case management will help establish this service. Patient should return to ED immediately if symptoms return or worsen. Instructions discussed with patient who understood and agreed. Newly prescribed medications: -Novolin 70/30 18units SC ACD (before dinner) -Novolin 70/30 28units SC ACB (before breakfast) -Mirtazapine 15mg PO HS #30 (at night) -Resume all other home medications as outlined in this document. Referrals: Nohelia Martinez MD [Medical Doctor] - Bo-Lillian Peters MD [Staff Provider] - <Benjamin Onofre - Last Filed: 07/27/16 15:03> Provider - Provider Date of Admission: 07/24/16 01:10 Attending physician: John Romero MD Hospital Course - Lab Results Lab Results: Most Recent Lab Values WBC 7.1 K/uL (4.8-10.8) 07/26/16 07:48 RBC 3.90 Mil/uL (3.80-5.20) 07/26/16 07:48 Hgb 12.4 g/dL (11.0-16.0) 07/26/16 07:48 Hct 38.0 % (34.0-47.0) 07/26/16 07:48 MCV 97.5 fL (81.0-99.0) 07/26/16 07:48 MCH 31.7 pg (27.0-31.0) H 07/26/16 07:48 MCHC 32.5 g/dL (33.0-37.0) L 07/26/16 07:48 RDW 13.2 % (11.5-14.5) 07/26/16 07:48 Plt Count 248 K/uL (130-400) 07/26/16 07:48 MPV 9.6 fL (7.2-11.7) 07/26/16 07:48 Neut % (Auto) 44.8 % (50.0-75.0) L 07/26/16 07:48 Lymph % (Auto) 42.2 % (20.0-40.0) H 07/26/16 07:48 [place] % (Auto) 8.2 % (0.0-10.0) 07/26/16 07:48 Eos % (Auto) 3.8 % (0.0-4.0) 07/26/16 07:48 Baso % (Auto) 1.0 % (0.0-2.0) 07/26/16 07:48 Neut # 3.2 K/uL (1.8-7.0) 07/26/16 07:48 Lymph # 3.0 K/uL (1.0-4.3) 07/26/16 07:48 [place] # 0.6 K/uL (0.0-0.8) 07/26/16 07:48 Eos # 0.3 K/uL (0.0-0.7) 07/26/16 07:48 Baso # 0.1 K/uL (0.0-0.2) 07/26/16 07:48 Sodium 139 mmol/L (132-148) 07/26/16 07:48 Potassium 4.6 mmol/L (3.6-5.2) 07/26/16 07:48 Chloride 96 mmol/L (98-107) L 07/26/16 07:48 Carbon Dioxide 33 mmol/L (22-30) H 07/26/16 07:48 Anion Gap 15 (10-20) 07/26/16 07:48 BUN 17 mg/dL (7-17) 07/26/16 07:48 Creatinine 0.8 MG/DL (0.7-1.2) 07/26/16 07:48 Est GFR ( Amer) > 60 07/26/16 07:48 Est GFR (Non-Af Amer) > 60 07/26/16 07:48 POC Glucose (mg/dL) 72 mg/dL (65-110) 07/26/16 11:24 Random Glucose 294 mg/dL (65-105) H 07/26/16 07:48 Hemoglobin A1c 9.6 % (4.2-6.5) H 07/26/16 07:48 Calcium 8.3 mg/dl (8.6-10.4) L 07/26/16 07:48 Magnesium 1.4 mg/dL (1.6-2.3) L 07/26/16 07:48 Total Bilirubin 0.2 mg/dL (0.2-1.3) 07/26/16 07:48 AST 32 U/L (14-36) 07/26/16 07:48 ALT 32 U/L (9-52) 07/26/16 07:48 Alkaline Phosphatase 44 U/L (38-126) 07/26/16 07:48 Troponin I 0.0130 ng/mL (0.00-0.120) 07/23/16 22:49 Total Protein 5.7 g/dL (6.3-8.3) L 07/26/16 07:48 Albumin 3.1 g/dL (3.5-5.0) L 07/26/16 07:48 Globulin 2.7 gm/dL (2.2-3.9) 07/26/16 07:48 Albumin/Globulin Ratio 1.1 (1.0-2.1) 07/26/16 07:48 Triglycerides 140 mg/dL (0-149) D 07/26/16 07:48 Cholesterol 121 mg/dL (0-199) 07/26/16 07:48 LDL Cholesterol Direct 55 mg/dL (0-129) 07/26/16 07:48 HDL Cholesterol 49 mg/dL (30-70) 07/26/16 07:48 Lipase < 10 U/L (23-300) L 07/26/16 07:48 TSH 3rd Generation 0.76 mIU/L (0.46-4.68) 07/26/16 07:48 Digoxin 1.1 ng/mL (0.8-2.0) 07/23/16 22:49 Alcohol, Quantitative 129 mg/dl (0-10) H 07/24/16 01:00 Attending/Attestation - Attestation I have personally seen and examined this patient.: Yes I have fully participated in the care of the patient.: Yes I have reviewed all pertinent clinical information, including history, physical exam and plan: Yes Notes (Text): 07/27/16 15:02 Patient was seen and examined at bedside with the resident Patient is comfortable with no acute distress Patient mental status is back to baseline Discussed with the patient and patient's aboriginal home school liaison officer who was present at bedside Patient wants to be discharged to home. I discussed the discharge plan in detail with the patient to and she verbalized understanding. I agree with the above discharge note by the resident
[2016-07-26] MEDS ORDERED: Insulin Detemir 100 units/ml Vial (Levemir) SC SCH (22:00)
[2016-07-27] MEDS ORDERED: (Novolin 70/30) NPH/Regular 70/30 Units/ml 10 ml vial SC SCH (07:30)
== END 2016-07-26 17:45 | disposition home or self-care (01) ==
LOC: C.ER 21:48 → C.9E 07-24 01:10 → C.3T 07-24 02:23
PROVIDERS: ADMIT Internal Medicine; ATTEND Internal Medicine
DX: E87.1 Hypo-osmolality and hyponatremia (principal); E11.69 Type 2 diabetes mellitus with other specified complication; Z79.4 Long term (current) use of insulin; I10 Essential (primary) hypertension; F10.229 Alcohol dependence with intoxication, unspecified; J44.9 Chronic obstructive pulmonary disease, unspecified; F17.210 Nicotine dependence, cigarettes, uncomplicated
CPT/HCPCS: 36415; 70450; 71010; 80053; 80061; 80162; 82948; 83036; 83690; 83735; 84311; 84443; 84484; 85025; 93005; 94640; 94760; 96360; 97162; 97530; 99285; G0378; G0480; G8978; G8979; J3411; J3475; J7040

== ENCOUNTER 2016-07-29 13:34 | Emergency (ER) | payer MEDICARE, MEDICAID ==
[2016-07-29 13:35] VITALS: PULSE 93
[2016-07-29 13:48] VITALS: BP 121/75; PULSE 74; RESP 20; TEMP 97.5; O2SAT 98
--- NOTE | 2016-07-29 14:51 | RAD ---
PROCEDURE: Right Ankle Radiographs. HISTORY: mild sprain this AM COMPARISON: None FINDINGS: BONES: There is diffuse bone demineralization. There is no acute fracture or bone destruction. Bone alignment is normal. JOINTS: Normal. Ankle mortise maintained. Talar dome intact SOFT TISSUES: Normal. OTHER FINDINGS: There atherosclerotic vascular calcifications. IMPRESSION: No acute fracture or bone destruction.
--- NOTE | 2016-07-29 15:15 | C.PDOC ---
History Of Present Illness 71 year old female presents to the ED with complaints of right ankle pain s/p twisting it while going to use the bathroom at 03:00. Patient states she did not apply ice or take anything for the pain and denies change in sensation or any other injury. Time Seen by Provider: 07/29/16 13:49 Chief Complaint (Nursing): Lower Extremity Problem/Injury History Per: Patient History/Exam Limitations: no limitations Onset/Duration Of Symptoms: Hrs Current Symptoms Are (Timing): Still Present Severity: Mild - Ankle/Foot Description Of Injury: Twisted Past Medical History Reviewed: Historical Data, Nursing Documentation, Vital Signs Vital Signs: Last Vital Signs Temp 97.5 F L 07/29/16 13:43 Pulse 74 07/29/16 13:43 Resp 20 07/29/16 13:43 BP 121/75 07/29/16 13:43 Pulse Ox 98 07/29/16 15:15 - Medical History PMH: Anxiety, Arthritis, Bronchitis, COPD, Depression, Diabetes, Emphysema, Gastritis, HTN, Hypercholesterolemia, Hypothyroidism, Peripheral Edema, Sleep Apnea Surgical History: Cholecystectomy - [facility] Procedures APPLIC OF EXTERNAL FIXATOR DEVICE, RADIUS AND ULNA (12/20/12) BELOW KNEE AMPUTAT NEC (06/30/14) CL FX REDUC-RADIUS/ULNA (12/20/12) CONTINUOUS INVASIVE MECHANICAL VENTILATION <96 CONSEC HRS (06/30/14) ENTERAL INFUSION OF CONCENTRATED NUT. SUBSTANCES (06/30/14) OTHER ENDOVASCULAR PROCEDURES ON OTHER VESSELS (06/30/14) OTHER LOCAL DESTRUC SKIN (07/11/13) OTHER MYECTOMY (09/15/14) PHYSICAL THERAPY NEC (02/15/13) Family History: States: Unknown Family Hx - Social History Hx Tobacco Use: Yes Hx Alcohol Use: Yes Hx Substance Use: No - Immunization History Hx Tetanus Toxoid Vaccination: No Hx Influenza Vaccination: Yes Hx Pneumococcal Vaccination: Yes Review Of Systems Except As Marked, All Systems Reviewed And Found Negative. Constitutional: Negative for: Fever, Chills Musculoskeletal: Positive for: Other (+right ankle pain) Neurological: Negative for: Weakness, Numbness Physical Exam - Physical Exam Appears: Non-toxic, No Acute Distress Skin: Normal Color, Warm, Dry Head: Atraumatic, Normacephalic Eye(s): bilateral: Normal Inspection Oral Mucosa: Moist Chest: Symmetrical Respiratory: No Accessory Muscle Use Extremity: Normal ROM, No Tenderness, No Calf Tenderness, Capillary Refill (< 2 seconds), No Deformity, No Swelling, Other (+Left leg BKA with titanium prosthesis) Pulses: Right Dorsalis Pedis: Normal Neurological/Psych: Oriented x3, Normal Speech, Normal Cognition ED Course And Treatment O2 Sat by Pulse Oximetry: 98 (Room air) Pulse Ox Interpretation: Normal - Other Rad R ankle X-Ray: Interpreted by Me (neg) Progress Note: Right Ankle X-ray ordered and reviewed. Patient treated with Motrin. Medical Decision Making Medical Decision Making: R ankle, mild ankle sprain, eval normal and x-ray neg L leg BKA Disposition Doctor Will See Patient In The: Office Counseled Patient/Family Regarding: Studies Performed, Diagnosis - Disposition Referrals: Homer Soriano MD [Staff Provider] - Disposition: HOME/ ROUTINE Disposition Time: 15:15 Condition: GOOD Additional Instructions: ice packs 1/2 hour per hour, nothing hot. Motrin 400-600 mg every 6 hours as needed Follow-up with Dr. Soriano as needed. Instructions: Ankle Sprain (ED) - Clinical Impression Clinical Impression: Ankle sprain - Scribe Statement The provider has reviewed the documentation as recorded by the Scribe Marian eLary. Provider Attestation: All medical record entries made by the Scribe were at my direction and personally dictated by me. I have reviewed the chart and agree that the record accurately reflects my personal performance of the history, physical exam, medical decision making, and the department course for this patient. I have also personally directed, reviewed, and agree with the discharge instructions and disposition.
== END 2016-07-29 15:30 | disposition home or self-care (01) ==
LOC: C.ER 13:34
DX: S93.401A Sprain of unspecified ligament of right ankle, initial encounter (principal); X50.9XXA Other and unspecified overexertion or strenuous movements or postures, initial encounter; Y92.008 Other place in unspecified non-institutional (private) residence as the place of occurrence of the external cause

== ENCOUNTER 2016-10-09 10:36 | Emergency (ER) | payer MEDICARE, MEDICAID ==
[2016-10-09 10:36] VITALS: PULSE 93
[2016-10-09 10:41] VITALS: RESP 20; O2SAT 95
[2016-10-09] MEDS ORDERED: Albuterol-Ipratrop 3 mg / 0.5 (3 ml) UD INH STA (10:55)
[2016-10-09] MEDS ORDERED: Albuterol-Ipratrop 3 mg / 0.5 (3 ml) UD ONE (11:01)
[2016-10-09 11:05] LABS: BASO # 0.1 K/uL (0.0-0.2); BASO % 0.7 % (0.0-2.0); EOS # 0.1 K/uL (0.0-0.7); EOS % 1.3 % (0.0-4.0); HEMATOCRIT 42.9 % (34.0-47.0); LYMPH # 4.1 K/uL (1.0-4.3); LYMPH % 45.6 % (20.0-40.0); MEAN CELL VOLUME 95.2 fL (81.0-99.0); MEAN CORPUSCULAR HEMOGLOBIN 31.6 pg (27.0-31.0); MEAN CORPUSCULAR HGB CONC 33.2 g/dL (33.0-37.0); MEAN PLATELET VOLUME 9.3 fL (7.2-11.7); MONO # 0.6 K/uL (0.0-0.8); MONO % 6.3 % (0.0-10.0); NRBC % 0.1 % (0.0-2.0); RED CELL DISTRIBUTION WIDTH 12.9 % (11.5-14.5); WHITE BLOOD COUNT 9.1 K/uL (4.8-10.8)
[2016-10-09 11:12] LABS: CHLORIDE 100 mmol/L (98-107); SODIUM 133 mmol/L (132-148)
[2016-10-09 11:14] LABS: GFR AFRICAN-AMERICAN > 60; POTASSIUM 5.6 mmol/L (3.6-5.2)
[2016-10-09 11:15] LABS: ALB/GLOB RATIO 1.2 (1.0-2.1); ALKALINE PHOSPHATASE 49 U/L (38-126); ALT/SGPT 21 U/L (9-52); AST/SGOT 34 U/L (14-36); BILIRUBIN,TOTAL 0.7 mg/dL (0.2-1.3); BLOOD UREA NITROGEN 21 mg/dL (7-17); CARBON DIOXIDE 26 mmol/L (22-30); GLUCOSE,RANDOM 200 mg/dL (65-105); TOTAL PROTEIN 7.2 g/dL (6.3-8.3)
[2016-10-09 11:17] LABS: CALCIUM 9.2 mg/dl (8.6-10.4)
--- NOTE | 2016-10-09 11:18 | C.PDOC ---
History Of Present Illness 71 yr old female with PMHx of asthma, brought in via BLS, presents to the ER with complaints of SOB and wheezing since morning. Patient states she used her albuterol at home with some relief. Denies fever, chest pain, cough, nausea, vomiting, abdominal pain, diarrhea, weakness or numbness. Time Seen by Provider: 10/09/16 10:38 Chief Complaint (Nursing): Shortness Of Breath History Per: Patient History/Exam Limitations: no limitations Onset/Duration Of Symptoms: Hrs (Since morning ) Initiating Event: Upper Respiratory Illness Current Respiratory Medications: See Home Med List Past Medical History Reviewed: Historical Data, Nursing Documentation, Vital Signs Vital Signs: Last Vital Signs Temp 97.6 F 10/09/16 10:37 Pulse 110 H 10/09/16 10:37 Resp 20 10/09/16 11:03 BP 133/34 L 10/09/16 10:37 Pulse Ox 95 10/09/16 12:53 - Medical History PMH: Anxiety, Arthritis, Asthma, Bronchitis, COPD, Depression, Diabetes, Emphysema, Gastritis, HTN, Hypercholesterolemia, Hypothyroidism, Peripheral Edema, Sleep Apnea Surgical History: Cholecystectomy - [facility] Procedures APPLIC OF EXTERNAL FIXATOR DEVICE, RADIUS AND ULNA (12/20/12) BELOW KNEE AMPUTAT NEC (06/30/14) CL FX REDUC-RADIUS/ULNA (12/20/12) CONTINUOUS INVASIVE MECHANICAL VENTILATION <96 CONSEC HRS (06/30/14) ENTERAL INFUSION OF CONCENTRATED NUT. SUBSTANCES (06/30/14) OTHER ENDOVASCULAR PROCEDURES ON OTHER VESSELS (06/30/14) OTHER LOCAL DESTRUC SKIN (07/11/13) OTHER MYECTOMY (09/15/14) PHYSICAL THERAPY NEC (02/15/13) Family History: States: No Known Family Hx - Social History Hx Tobacco Use: Yes Hx Alcohol Use: Yes Hx Substance Use: No - Immunization History Hx Tetanus Toxoid Vaccination: No Hx Influenza Vaccination: Yes Hx Pneumococcal Vaccination: Yes Review Of Systems Except As Marked, All Systems Reviewed And Found Negative. Constitutional: Negative for: Fever Cardiovascular: Negative for: Chest Pain Respiratory: Positive for: Shortness of Breath, Wheezing Gastrointestinal: Negative for: Nausea, Vomiting, Abdominal Pain, Diarrhea Neurological: Negative for: Weakness, Numbness Physical Exam - Physical Exam Appears: Well, Non-toxic, No Acute Distress Skin: Warm, Dry, No Rash Head: Atraumatic, Normacephalic Oral Mucosa: Moist Throat: Normal, No Erythema, No Exudate, No Drooling Chest: Symmetrical, No Tenderness Cardiovascular: Rhythm Regular, Other (Tachycardic) Respiratory: No Accessory Muscle Use, No Rales, No Rhonchi, Wheezing (Mild expiratory wheezing.) Gastrointestinal/Abdominal: Normal Exam, Soft, No Tenderness, No Guarding, No Rebound Extremity: No Calf Tenderness, Other (Left Leg - BKA. Right Leg - No edema. ) Neurological/Psych: Oriented x3, Normal Speech, Normal Motor ED Course And Treatment - Laboratory Results Result Diagrams: 10/09/16 10:59 10/09/16 10:59 ECG: Interpreted By Me, Viewed By Me ECG Rhythm: Sinus Tachycardia ECG Interpretation: No Acute Changes Interpretation Of ECG: Normal axis. ST depressions l, ll, V4-V6. Unchanged from prior EKG 07/23/2016. Rate From EC (BPM) O2 Sat by Pulse Oximetry: 95 (RA) Pulse Ox Interpretation: Normal - Radiology CXR: Interpreted by Me, Viewed By Me CXR Interpretation: Yes: Other (No Effusions. ). No: Infiltrates Medical Decision Making Medical Decision Making: PLAN: * CXR * EKG * CBC * CMP * Troponin * Albuterol INH * Solumedrol IVP Disposition Counseled Patient/Family Regarding: Studies Performed, Diagnosis, Need For Followup, Rx Given - Disposition Referrals: Homer Soriano MD [Staff Provider] - Disposition: HOME/ ROUTINE Disposition Time: 12:40 Condition: STABLE Additional Instructions: FOLLOW UP WITH DR SORIANO IN 1-2 DAYS USE MEDICATION DIRECTED RETURN TO ER IF SYMPTOMS WORSEN Prescriptions: predniSONE [predniSONE Tab] 40 mg PO DAILY #6 tab Instructions: COPD (Chronic Obstructive Pulmonary Disease) (ED) Print Language: YORUBA - POA Present On Arrival: None - Clinical Impression Clinical Impression: COPD exacerbation - Scribe Statement The provider has reviewed the documentation as recorded by the Tomasibbrianna Ward Provider Attestation: All medical record entries made by the Tomasibbrianna were at my direction and personally dictated by me. I have reviewed the chart and agree that the record accurately reflects my personal performance of the history, physical exam, medical decision making, and the department course for this patient. I have also personally directed, reviewed, and agree with the discharge instructions and disposition.
--- NOTE | 2016-10-09 11:57 | RAD ---
PROCEDURE: CHEST RADIOGRAPH, 1 VIEW HISTORY: SOB COMPARISON: 07/23/2016 FINDINGS: LUNGS: Bilateral breast prostheses. Mild venous congestion. Biapical pleural thickening with upper lobe granulomatous changes. PLEURA: As above. CARDIOVASCULAR: Calcification at the aortic knob. OSSEOUS STRUCTURES: No significant abnormalities. VISUALIZED UPPER ABDOMEN: Normal. OTHER FINDINGS: None. IMPRESSION: Bilateral breast prostheses. Mild venous congestion. Biapical pleural thickening with upper lobe granulomatous changes.
[2016-10-09 12:55] VITALS: BP 145/49; PULSE 115; TEMP 98.1
--- NOTE | 2016-10-10 18:30 | CARD ---
APPROVED REPORT EKG Measurement Heart [id number] <Conclusion> Sinus tachycardia Nonspecific ST abnormality Abnormal ECG
== END 2016-10-09 12:55 | disposition home or self-care (01) ==
LOC: C.ER 10:36
DX: J44.1 Chronic obstructive pulmonary disease with (acute) exacerbation (principal); Z72.0 Tobacco use
CPT/HCPCS: 71010; 80053; 82550; 82553; 82948; 83880; 84484; 85025; 93005; 96374; 99284; J2930

== ENCOUNTER 2016-12-13 05:18 | Emergency (ER) | payer MEDICARE, MEDICAID ==
[2016-12-13 05:18] VITALS: PULSE 93
[2016-12-13] MEDS ORDERED: Albuterol-Ipratrop 3 mg / 0.5 (3 ml) UD ONE (05:45)
[2016-12-13] MEDS ORDERED: Albuterol-Ipratrop 3 mg / 0.5 (3 ml) UD INH STA (05:48)
--- NOTE | 2016-12-13 05:56 | C.PDOC ---
History Of Present Illness <Dominic Miranda R - Last Filed: 12/13/16 05:56> <Miguel AFrancesco Ricarda - Last Filed: 12/13/16 11:32> 71 year old female with a Hx of COPD and cardiac arrhythmia who presents to the ER with a complaint of SOB that began today. Denies chest pain, nausea, or vomiting. (RubenDominic R) History Per: Patient History/Exam Limitations: no limitations Onset/Duration Of Symptoms: Hrs Current Symptoms Are (Timing): Still Present Initiating Event: Other (Not known) Current Respiratory Medications: None Associated Symptoms: denies: Fever, Chills, Chest Pain, Dizziness, Light- headedness Recent travel outside of the [place]: No <MirandaShannenDominic R - Last Filed: 12/13/16 05:56> <Francesco Grady - Last Filed: 12/13/16 11:32> Chief Complaint (Nursing): Shortness Of Breath Past Medical History Reviewed: Historical Data, Nursing Documentation, Vital Signs - Medical History PMH: Anxiety, Arthritis, Asthma, Bronchitis, COPD, Depression, Diabetes, Emphysema, Gastritis, HTN, Hypercholesterolemia, Hypothyroidism, Peripheral Edema, Sleep Apnea Surgical History: Cholecystectomy Family History: States: Unknown Family Hx - Social History Hx Tobacco Use: Yes Hx Alcohol Use: Yes Hx Substance Use: No - Immunization History Hx Tetanus Toxoid Vaccination: No Hx Influenza Vaccination: Yes Hx Pneumococcal Vaccination: Yes <Dominic Miranda - Last Filed: 12/13/16 05:56> Review Of Systems Constitutional: Negative for: Fever, Chills Cardiovascular: Negative for: Chest Pain, Palpitations Respiratory: Positive for: Shortness of Breath Gastrointestinal: Negative for: Nausea, Vomiting <MirandaDominic R - Last Filed: 12/13/16 05:56> Physical Exam - Physical Exam Appears: Non-toxic, Other (Dyspenic) Skin: Normal Color, Warm, Dry Head: Atraumatic, Normacephalic Oral Mucosa: Moist Chest: Symmetrical, No Tenderness Cardiovascular: Rhythm Regular, No Murmur Respiratory: No Rales, Rhonchi (Occasional), No Wheezing, Other (Diminished breath sounds) Gastrointestinal/Abdominal: Soft, No Tenderness Neurological/Psych: Oriented x3, Normal Speech, Normal Cognition <RubenDominic Trammell - Last Filed: 12/13/16 05:56> ED Course And Treatment O2 Sat by Pulse Oximetry: 100 (Room air) Pulse Ox Interpretation: Normal Progress Note: EKG, blood work, and CXR. Nebulizer treatment and solumedrol administered. <Dominic Miranda - Last Filed: 12/13/16 05:56> - Laboratory Results Result Diagrams: 12/13/16 06:50 12/13/16 06:50 <Miguel AFrancesco Ricarda - Last Filed: 12/13/16 11:32> Medical Decision Making <Dominic Miranda - Last Filed: 12/13/16 05:56> <Miguel AFrancesco Ricarda - Last Filed: 12/13/16 11:32> Medical Decision Makin71 y/o F signed out to me at change of shift pending EKG and labs. She present with dyspnea that she states is the same as her typical COPD exacerbations. CXR no active disease. EKG NSR 99 bpm, no ST/T wave changes. No peaked T waves. Normal intervals. ABG unable to be obtained after 2 attempts. Chemistry shows hyperkalemia, hyponatremia. Dr. Soriano recommends patient be trialed on room air as her dyspnea and wheezing have resolved and he will see her in the office tomorrow to further manage her COPD and eletrolyte abnormalities. Patient remained 96% on room air and in no respiratory distress. Will discharge home, f/u Dr. Soriano tomorrow, instructed to return to the ER for worsening dyspnea, altered mental status, vomiting, seizure , or any other problem. (Francesco Grady) Disposition <Dominic Miranda - Last Filed: 12/13/16 05:56> Discussed With : Homer Soriano Doctor Will See Patient In The: Office - Disposition Disposition Time: : <Francesco Grady - Last Filed: 12/13/16 11:32> - Disposition Referrals: Homer Soriano MD [Staff Provider] - Disposition: HOME/ ROUTINE Condition: STABLE Prescriptions: Prednisone [Deltasone] 3 tab PO DAILY #12 tablet Instructions: COPD (Chronic Obstructive Pulmonary Disease) (ED), Hyponatremia ( ED) Forms: [employer] [facility] ([place]) - Clinical Impression Clinical Impression: COPD exacerbation - Scribe Statement The provider has reviewed the documentation as recorded by the Scribe <Dominic Miranda - Last Filed: 12/13/16 05:56> <Francesco Grady - Last Filed: 12/13/16 11:32> - Scribe Statement Faraz Quezada All medical record entries made by the Scribe were at my direction and personally dictated by me. I have reviewed the chart and agree that the record accurately reflects my personal performance of the history, physical exam, medical decision making, and the department course for this patient. I have also personally directed, reviewed, and agree with the discharge instructions and disposition. (Dominic Miranda)
[2016-12-13 06:56] LABS: BASO # 0.1 K/uL (0.0-0.2); BASO % 0.7 % (0.0-2.0); EOS # 0.1 K/uL (0.0-0.7); EOS % 1.3 % (0.0-4.0); HEMATOCRIT 38.8 % (34.0-47.0); LYMPH # 2.3 K/uL (1.0-4.3); LYMPH % 29.7 % (20.0-40.0); MEAN CELL VOLUME 93.2 fL (81.0-99.0); MEAN CORPUSCULAR HEMOGLOBIN 31.5 pg (27.0-31.0); MEAN CORPUSCULAR HGB CONC 33.8 g/dL (33.0-37.0); MEAN PLATELET VOLUME 8.8 fL (7.2-11.7); MONO # 0.9 K/uL (0.0-0.8); MONO % 11.2 % (0.0-10.0); RED CELL DISTRIBUTION WIDTH 13.1 % (11.5-14.5); WHITE BLOOD COUNT 7.8 K/uL (4.8-10.8)
[2016-12-13 07:03] LABS: CHLORIDE 91 mmol/L (98-107)
[2016-12-13 07:04] LABS: POTASSIUM 5.8 mmol/L (3.6-5.2); SODIUM 123 mmol/L (132-148)
[2016-12-13 07:07] LABS: ALB/GLOB RATIO 1.3 (1.0-2.1); ALKALINE PHOSPHATASE 55 U/L (38-126); ALT/SGPT 30 U/L (9-52); AST/SGOT 38 U/L (14-36); BILIRUBIN,TOTAL 0.8 mg/dL (0.2-1.3); BLOOD UREA NITROGEN 14 mg/dL (7-17); CARBON DIOXIDE 24 mmol/L (22-30); GFR AFRICAN-AMERICAN > 60; GLUCOSE,RANDOM 214 mg/dL (65-105); TOTAL PROTEIN 6.6 g/dL (6.3-8.3)
--- NOTE | 2016-12-13 07:58 | RAD ---
PROCEDURE: CHEST RADIOGRAPH, 1 VIEW HISTORY: SOB COMPARISON: 10/09/2016 FINDINGS: LUNGS: Clear. PLEURA: No pneumothorax or pleural fluid seen. CARDIOVASCULAR: Normal heart size -atherosclerotic calcified aortic knob central pulmonary vasculature appears within normal limits OSSEOUS STRUCTURES: Inferior thoracic spondylosis VISUALIZED UPPER ABDOMEN: Normal. OTHER FINDINGS: Bilateral calcified breast implants IMPRESSION: No active disease.
[2016-12-13 11:26] VITALS: BP 119/68; PULSE 93; RESP 14; TEMP 97.8; O2SAT 95
--- NOTE | 2016-12-13 18:27 | CARD ---
APPROVED REPORT EKG Measurement Heart [id number] <Conclusion> Normal sinus rhythm Anteroseptal infarct, age undetermined Abnormal ECG
== END 2016-12-13 12:03 | disposition home or self-care (01) ==
LOC: C.ER 05:18
DX: J44.1 Chronic obstructive pulmonary disease with (acute) exacerbation (principal); Z72.0 Tobacco use
CPT/HCPCS: 71010; 80053; 83880; 84484; 85025; 93005; 96374; 99285; J2930

== ENCOUNTER 2017-02-07 02:06 | Inpatient (IN) | payer MEDICARE, MEDICAID ==
--- NOTE | 2017-02-07 02:27 | C.PDOC ---
History Of Present Illness Patient with PMHx of COPD and DM presents to ED with complaints of acid reflux for 2 days with associated abdominal pain and vomiting. Patient states she took Maalox with no relief which prompted visit to ED. Patient is a smoker and is compliant with Nebulizer at home. No other complaints at this time. Time Seen by Provider: 02/07/17 02:27 Chief Complaint (Nursing): GI Problem History Per: Patient History/Exam Limitations: no limitations Onset/Duration Of Symptoms: Days Current Symptoms Are (Timing): Still Present Severity: None Location Of Pain/Discomfort: Epigastric Radiation Of Pain To:: None Quality Of Discomfort: "Pain" Associated Symptoms: Vomiting. denies: Fever, Chills Exacerbating Factors: None Alleviating Factors: None Past Medical History Reviewed: Historical Data, Nursing Documentation, Vital Signs Vital Signs: Last Vital Signs Temp 98 F 02/07/17 02:23 Pulse 94 H 02/07/17 02:23 Resp 22 02/07/17 02:23 BP 100/68 02/07/17 02:23 Pulse Ox 96 02/07/17 03:17 - Medical History PMH: Anxiety, Arthritis, Asthma, Bronchitis, COPD, Depression, Diabetes, Emphysema, Gastritis, HTN, Hypercholesterolemia, Hyperthyroidism, Hypothyroidism , Peripheral Edema, Sleep Apnea Surgical History: Cholecystectomy - [facility] Procedures APPLIC OF EXTERNAL FIXATOR DEVICE, RADIUS AND ULNA (12/20/12) BELOW KNEE AMPUTAT NEC (06/30/14) CL FX REDUC-RADIUS/ULNA (12/20/12) CONTINUOUS INVASIVE MECHANICAL VENTILATION <96 CONSEC HRS (06/30/14) ENTERAL INFUSION OF CONCENTRATED NUT. SUBSTANCES (06/30/14) OTHER ENDOVASCULAR PROCEDURES ON OTHER VESSELS (06/30/14) OTHER LOCAL DESTRUC SKIN (07/11/13) OTHER MYECTOMY (09/15/14) PHYSICAL THERAPY NEC (02/15/13) Family History: States: No Known Family Hx - Social History Hx Tobacco Use: Yes Hx Alcohol Use: Yes Hx Substance Use: No - Immunization History Hx Tetanus Toxoid Vaccination: No Hx Influenza Vaccination: Yes Hx Pneumococcal Vaccination: Yes Review Of Systems Constitutional: Negative for: Fever, Chills Cardiovascular: Negative for: Chest Pain Respiratory: Negative for: Shortness of Breath Gastrointestinal: Positive for: Vomiting, Abdominal Pain. Negative for: Diarrhea, Constipation Genitourinary: Negative for: Dysuria Musculoskeletal: Negative for: Back Pain Skin: Negative for: Rash Neurological: Negative for: Weakness Psych: Negative for: Anxiety Physical Exam - Physical Exam Appears: Non-toxic Skin: Warm, Dry, No Rash Head: Normacephalic Eye(s): bilateral: Normal Inspection Oral Mucosa: Moist Neck: Supple Cardiovascular: Rhythm Regular Respiratory: No Rales, No Rhonchi, Wheezing (at bases bilaterally) Gastrointestinal/Abdominal: Soft, Tenderness (Mid epigastric), No Guarding, No Rebound Back: No CVA Tenderness Extremity: No Pedal Edema, Other (Left leg BKA) Pulses: Right Dorsalis Pedis: Normal Neurological/Psych: Oriented x3, Normal Speech, Normal Cognition Gait: Steady ED Course And Treatment - Laboratory Results Result Diagrams: 02/07/17 02:51 02/07/17 02:51 ECG: Interpreted By Me, Viewed By Me ECG Rhythm: Sinus Rhythm (91), Nonspecific Changes O2 Sat by Pulse Oximetry: 96 (RA) Pulse Ox Interpretation: Normal - Radiology CXR: Interpreted by Me, Viewed By Me Disposition Discussed With Dr.: Homer Soriano Comment: accepted the pt on his service and took over the care at 4 AM Doctor Will See Patient In The: Hospital Counseled Patient/Family Regarding: Studies Performed, Diagnosis - Disposition Referrals: Homer Soriano MD [Primary Care Provider] - Disposition: HOSPITALIZED Disposition Time: 02:27 Condition: FAIR Forms: [facility] (Greek) - POA Present On Arrival: Poor Glycemic Control - Clinical Impression Clinical Impression: COPD exacerbation, Hyponatremia, Alcohol abuse - Scribe Statement The provider has reviewed the documentation as recorded by the Megha Glaser All medical record entries made by the Tomasibbrianna were at my direction and personally dictated by me. I have reviewed the chart and agree that the record accurately reflects my personal performance of the history, physical exam, medical decision making, and the department course for this patient. I have also personally directed, reviewed, and agree with the discharge instructions and disposition. Decision To Admit - Pt Status Changed To: Hospital Disposition Of: Inpatient - Admit Certification Admit to Inpatient:: After my assessment, the patient will require hospitalization for at least two midnights. This is because of the severity of symptoms shown, intensity of services needed, and/or the medical risk in this patient being treated as an outpatient. - InPatient: Physician Admission Certification:: After my assessment, the patient will require hospitalization for at least two midnights. This is because of the severity of symptoms shown, intensity of services needed, and/or the medical risk in this patient being treated as an outpatient. - . Bed Request Type: Regular Admitting Physician: Homer Soriano Patient Diagnosis: COPD exacerbation, Hyponatremia, Alcohol abuse
[2017-02-07 02:56] LABS: BASO # 0.1 K/uL (0.0-0.2); BASO % 1.3 % (0.0-2.0); EOS % 0.6 % (0.0-4.0); LYMPH # 2.3 K/uL (1.0-4.3); LYMPH % 37.8 % (20.0-40.0); MEAN CELL VOLUME 94.3 fL (81.0-99.0); MEAN CORPUSCULAR HEMOGLOBIN 32.8 pg (27.0-31.0); MEAN CORPUSCULAR HGB CONC 34.8 g/dL (33.0-37.0); MEAN PLATELET VOLUME 8.8 fL (7.2-11.7); MONO # 0.4 K/uL (0.0-0.8); MONO % 6.9 % (0.0-10.0); RED CELL DISTRIBUTION WIDTH 13.3 % (11.5-14.5); WHITE BLOOD COUNT 6.1 K/uL (4.8-10.8)
[2017-02-07 03:01] LABS: INR 1.1
[2017-02-07 03:11] LABS: CHLORIDE 84 mmol/L (98-107)
[2017-02-07 03:12] LABS: POTASSIUM 5.1 mmol/L (3.6-5.2)
[2017-02-07 03:15] LABS: ALB/GLOB RATIO 1.4 (1.0-2.1); ALKALINE PHOSPHATASE 61 U/L (38-126); ALT/SGPT 33 U/L (9-52); AST/SGOT 31 U/L (14-36); BILIRUBIN,TOTAL 0.5 mg/dL (0.2-1.3); BLOOD UREA NITROGEN 9 mg/dL (7-17); CALCIUM 9.4 mg/dl (8.6-10.4); CARBON DIOXIDE 25 mmol/L (22-30); GFR AFRICAN-AMERICAN > 60; GLUCOSE,RANDOM 272 mg/dL (65-105); TOTAL PROTEIN 7.6 g/dL (6.3-8.3)
[2017-02-07 03:16] LABS: ALCOHOL SERUM 101 mg/dl (0-10)
[2017-02-07 03:31] LABS: SODIUM 120 mmol/L (132-148)
[2017-02-07] MEDS ORDERED: Sodium Chloride 0.9% 1,000 ML ONE (03:35)
[2017-02-07] MEDS: Sodium Chloride 0.9% 1,000 ML IV ONE ×2 (03:36→04:39)
[2017-02-07] MEDS ORDERED: Sodium Chloride 0.9% 1,000 ML IV ONE (03:38)
[2017-02-07 04:00] LABS: RBC URINE 1 /hpf (0-3); URINE BACTERIA RARE (<OCC); URINE BILIRUBIN NEGATIVE (NEGATIVE); URINE BLOOD NEGATIVE (NEGATIVE); URINE COLOR Yellow (YELLOW); URINE GLUCOSE (UA) 3+ mg/dL (Normal); URINE KETONE NEGATIVE (NEGATIVE); URINE LEUKOCYTE ESTERASE NEG Leu/uL (Negative); URINE PROTEIN 1+ mg/dL (NEGATIVE); URINE UROBILINOGEN NORMAL mg/dL (0.2-1.0); WBC URINE < 1 /hpf (0-5)
[2017-02-07] MEDS: Albuterol-Ipratrop 3 mg / 0.5 (3 ml) UD IH SCH ×3 (04:15→04:40)
[2017-02-07] MEDS ORDERED: Albuterol-Ipratrop 3 mg / 0.5 (3 ml) UD ONE ×3 (04:34→04:35)
[2017-02-07 06:12] VITALS: RESP 20
[2017-02-07] MEDS: Budesonide 0.25 mg/2 ml Inhal Susp UD INH SCH ×2 (07:53→20:00)
[2017-02-07] MEDS: Albuterol 0.083% Inhal Sol (2.5 mg/3 mL) UD INH SCH ×3 (07:53→20:00)
[2017-02-07] MEDS: (Novolin 70/30) NPH/Regular 70/30 Units/ml 10 ml vial SC SCH ×2 (08:07→12:01)
--- NOTE | 2017-02-07 08:14 | RAD ---
PROCEDURE: CHEST RADIOGRAPH, 1 VIEW HISTORY: abd pain COMPARISON: 12/13/2016 FINDINGS: LUNGS: No cough Perihilar faint radiolucencies possibly emphysematous changes PLEURA: No pneumothorax or pleural fluid seen. CARDIOVASCULAR: Normal heart size -atherosclerotic calcified aortic knob central pulmonary vasculature appears within normal limits OSSEOUS STRUCTURES: No significant abnormalities. VISUALIZED UPPER ABDOMEN: Normal. OTHER FINDINGS: Bilateral calcified breast implants IMPRESSION: No active disease.
[2017-02-07] MEDS ORDERED: FENOFIBRATE 160 MG PO SCH (10:00)
[2017-02-07] MEDS ORDERED: buPROPion 150 mg/24 Hours XL Tab PO SCH (10:00)
[2017-02-07] MEDS: Magnesium Oxide 400 mg Tab UD PO SCH ×2 (10:10→18:17)
[2017-02-07] MEDS: buPROPion 150 mg/24 Hours XL Tab PO SCH (13:33)
[2017-02-07] MEDS ORDERED: (Novolin 70/30) NPH/Regular 70/30 Units/ml 10 ml vial SC SCH (18:00)
[2017-02-07] MEDS: Digoxin 250 mcg (0.25 mg) Tab PO SCH (18:17)
--- NOTE | 2017-02-07 18:34 | CP.PCM.HP ---
History of Present Illness - History of Present Illness History of Present Illness: cc: abdominal pain HPI: Pt is a 71 yo female of [facility] descent, who went to the ER early this morning after she developed abdominal pain. Pt had just been seen at the office last week and had no stomach related symptoms. Pt admits that she didn't eat for 2 days, and considering her blood alcohol level, apparently had been "drinking her meals" the preceding 2 days. This AM, she developed the severe abdominal pain mentioned previously and took a cab to the hospital because she couldn't stand the pain anymore. > Evaluation at the ER also revealed hyponatremia at 120, alcohol intoxication with a BAL of 101 mg/dL. Pt was also having difficulty breathing, and displayed intractable coughing.. Becuase of the preceding problems, ER doctor recommended admission for acute inpatient management and possible detoxification. Present on Admission - Present on Admission Any Indicators Present on Admission: Yes History of DVT/PE: Yes History of Uncontrolled Diabetes: Yes Urinary Catheter: No Decubitus Ulcer Present: Yes Decubitus Ulcer Stage: II History Surgical Site Infection Following: Orthopedic Procedures (lumbar fusion) Review of Systems - Review of Systems All systems: reviewed and no additional remarkable complaints except - Constitutional Constitutional: Anorexia, Fatigue, Headache, Weight Loss, Weakness - EENT Eyes: As Per HPI, Other Ears: Decreased Hearing. absent: As Per HPI, Ear Discharge, Ear Pain, Tinnitus , Abnormal Hearing, Disequilibrium, Dizziness, Other Nose/Mouth/Throat: As Per HPI. absent: Epistaxis, Nasal Congestion, Nasal Discharge, Nasal Obstruction, Nasal Trauma, Nose Pain, Post Nasal Drip, Sinus Pain, Sinus Pressure, Bleeding Gums, Change in Voice, Dental Pain, Dry Mouth, Dysphagia, Halitosis, Hoarsness, Lip Swelling, Mouth Lesions, Mouth Pain, Odynophagia, Sore Throat, Throat Swelling, Tongue Swelling, Facial Pain, Neck Pain, Neck Mass, Other - Breasts Breasts: absent: As Per HPI, Change in Shape, Mass, Pain, Nipple Discharge, Nipple Inversion, Skin Changes, Swelling, Other - Cardiovascular Cardiovascular: absent: As Per HPI, Acrocyanosis, Chest Pain, Chest Pain at Rest , Chest Pain with Activity, Claudication, Diaphoresis, Dyspnea, Dyspnea on Exertion, Edema, Irregular Heart Rhythm, Pain Radiating to Arm/Neck/Jaw, Leg Edema, Leg Ulcers, Lightheadedness, Orthopnea, Palpitations, Paroxysmal Nocturnal Dyspnea, Pedal Edema, Radiating Pain, Rapid Heart Rate, Slow Heart Rate, Syncope, Other - Respiratory Respiratory: absent: As Per HPI, Cough, Dyspnea, Hemoptysis, Dyspnea on Exertion , Wheezing, Snoring, Stridor, Pain on Inspiration, Chest Congestion, Excessive Mucous Production, Change in Mucous Color, Pain with Coughing, Other - Gastrointestinal Gastrointestinal: absent: As Per HPI, Abdominal Pain, Belching, Bloating, Change in Bowel Habits, Change in Stool Character, Coffee Ground Emesis, Constipation, Cramping, Diarrhea, Dyspepsia, Dysphagia, Early Satiety, Excessive Flatus, Fecal Incontinence, Heartburn, Hematemesis, Hematochezia, Loose Stools, Melena, Nausea, Odynophagia, Temesmus, Vomiting, Other - Musculoskeletal Musculoskeletal: Muscle Weakness - Integumentary Integumentary: absent: As Per HPI, Acne, Alopecia, Bleeding Lesions, Change in Hair, Change in Nails, Change in Pigmentation, Changing Lesions, Dry Skin, Erythema, Furuncle, Hirsutism, Lesions, New Lesions, Non-Healing Lesions, Photosensitivity, Pruritus, Rash, Skin Pain, Skin Ulcer, Sores, Striae, Swelling , Unusual Bruising, Wounds, Jaundice, Other - Neurological Additional comments: paresthesia and paraplegia 2ndry to MS - Psychiatric Psychiatric: Depression - Endocrine Endocrine: absent: As Per HPI, Change in Body Appearance, Change in Libido, Cold Intolorance, Deepening of Voice, Excessive Sweating, Fatigue, Flushing, Heat Intolorance, Increase in Ring/Shoe/Hat Size, Palpitations, Polydipsia, Polyphagia, Polyuria, Other - Hematologic/Lymphatic Additional comments: + GI bleeding Past Patient History - Infectious Disease Hx of Infectious Diseases: None - Past Medical History & Family History Past Medical History?: Yes - Past Social History Smoking Status: Heavy Smoker > 10 Cigarettes Daily Chewing Tobacco Use: No Cigar Use: No Occupation: disabled Alcohol: > 2 Drinks/Day Drugs: Denies Home Situation {Lives}: Alone Domestic Violence: Negative - CARDIAC Hx Cardiac Disorders: No Hx Angina: No Hx Atrial Fibrillation: Yes Hx Cardia Arrhythmia: Yes Hx Circulatory Problems: Yes (+ dry gangrene of L leg) Hx Congestive Heart Failure: No Hx Heart Attack: No Hx Heart Murmur: No Hx Heart Transplant: No Hx Hypercholesterolemia: Yes Hx Hypertension: Yes Hx Peripheral Edema: Yes - PULMONARY Hx Asthma: Yes Hx Bronchitis: Yes Hx Chronic Obstructive Pulmonary Disease (COPD): Yes Hx Emphysema: Yes Hx Sleep Apnea: Yes - NEUROLOGICAL Hx Alzheimer's Disease: Yes Hx Vertigo: Yes - HEENT Hx Difficulty Chewing: Yes - RENAL Hx Chronic Kidney Disease: No - ENDOCRINE/METABOLIC Hx Hyperthyroidism: Yes Hx Hypothyroidism: Yes - HEMATOLOGICAL/ONCOLOGICAL Hx Blood Disorders: No Hx Blood Transfusions: Yes - INTEGUMENTARY Hx Dermatological Problems: Yes Hx Cellulitis: Yes (current) Hx Eczema: Yes - MUSCULOSKELETAL/RHEUMATOLOGICAL Hx Arthritis: Yes Hx Falls: Yes - GASTROINTESTINAL Hx Gastritis: Yes - GENITOURINARY/GYNECOLOGICAL Hx Genitourinary Disorders: No - PSYCHIATRIC Hx Anxiety: Yes Hx Depression: Yes Hx Substance Use: No - SURGICAL HISTORY Hx Cholecystectomy: Yes - ANESTHESIA Hx Anesthesia: Yes Hx Anesthesia Reactions: No Hx Malignant Hyperthermia: No Meds Allergies/Adverse Reactions: Allergies Allergy/AdvReac Type Severity Reaction Status Date / Time MIRIAM Inhibitors Allergy COUGH Verified 02/07/17 02:17 Physical Exam - Constitutional Appears: No Acute Distress Additional comments: attempting to eat dinner - Head Exam Head Exam: ATRAUMATIC, NORMAL INSPECTION, NORMOCEPHALIC - Eye Exam Eye Exam: Normal appearance, PERRL Pupil Exam: NORMAL ACCOMODATION - ENT Exam ENT Exam: Mucous Membranes Moist, Normal Exam - Neck Exam Neck exam: Positive for: Normal Inspection - Respiratory Exam Respiratory Exam: Decreased Breath Sounds, NORMAL BREATHING PATTERN - Cardiovascular Exam Cardiovascular Exam: REGULAR RHYTHM - GI/Abdominal Exam GI & Abdominal Exam: Hyperactive Bowel Sounds, Tenderness Additional comments: at epigastric area from LUQ to RUQ Results - Vital Signs Recent Vital Signs: Last Vital Signs Temp 97.1 F L 02/07/17 15:00 Pulse 89 02/07/17 15:00 Resp 20 02/07/17 15:00 BP 125/62 02/07/17 15:00 Pulse Ox 98 02/07/17 15:00 - Labs Result Diagrams: 02/07/17 02:51 02/07/17 02:51 Labs: Laboratory Results - last 24 hr 02/07/17 02/07/17 02/07/17 02:28 02:51 02:51 WBC 6.1 RBC 4.35 Hgb 14.3 Hct 41.0 MCV 94.3 MCH 32.8 H MCHC 34.8 RDW 13.3 Plt Count 276 MPV 8.8 Neut % (Auto) 53.4 Lymph % (Auto) 37.8 [place] % (Auto) 6.9 Eos % (Auto) 0.6 Baso % (Auto) 1.3 Neut # 3.3 Lymph # 2.3 [place] # 0.4 Eos # 0.0 Baso # 0.1 PT INR APTT Sodium 120 L* Potassium 5.1 Chloride 84 L Carbon Dioxide 25 Anion Gap 16 BUN 9 Creatinine 0.8 Est GFR ( Amer) > 60 Est GFR (Non-Af Amer) > 60 POC Glucose (mg/dL) 253 H Random Glucose 272 H Calcium 9.4 Total Bilirubin 0.5 AST 31 ALT 33 Alkaline Phosphatase 61 Troponin I Total Protein 7.6 Albumin 4.4 Globulin 3.2 Albumin/Globulin Ratio 1.4 Lipase < 10 L Urine Color Urine Clarity Urine pH Ur Specific [place] Urine Protein Urine Glucose (UA) Urine Ketones Urine Blood Urine Nitrate Urine Bilirubin Urine Urobilinogen Ur Leukocyte Esterase Urine WBC (Auto) Urine RBC (Auto) Ur Squamous Epith Cells Urine Bacteria Alcohol, Quantitative 101 H 02/07/17 02/07/17 02/07/17 02:51 03:51 05:03 WBC RBC Hgb Hct MCV MCH MCHC RDW Plt Count MPV Neut % (Auto) Lymph % (Auto) [place] % (Auto) Eos % (Auto) Baso % (Auto) Neut # Lymph # [place] # Eos # Baso # PT 12.8 H INR 1.1 APTT 39 H Sodium Potassium Chloride Carbon Dioxide Anion Gap BUN Creatinine Est GFR ( Amer) Est GFR (Non-Af Amer) POC Glucose (mg/dL) Random Glucose Calcium Total Bilirubin AST ALT Alkaline Phosphatase Troponin I < 0.0120 Total Protein Albumin Globulin Albumin/Globulin Ratio Lipase Urine Color Yellow Urine Clarity Clear Urine pH 7.0 Ur Specific [place] 1.012 Urine Protein 1+ H Urine Glucose (UA) 3+ H Urine Ketones Negative Urine Blood Negative Urine Nitrate Negative Urine Bilirubin Negative Urine Urobilinogen Normal Ur Leukocyte Esterase Neg Urine WBC (Auto) < 1 Urine RBC (Auto) 1 Ur Squamous Epith Cells < 1 Urine Bacteria Rare Alcohol, Quantitative 02/07/17 02/07/17 02/07/17 06:01 10:00 11:28 WBC RBC Hgb Hct MCV MCH MCHC RDW Plt Count MPV Neut % (Auto) Lymph % (Auto) [place] % (Auto) Eos % (Auto) Baso % (Auto) Neut # Lymph # [place] # Eos # Baso # PT INR APTT Sodium Potassium Chloride Carbon Dioxide Anion Gap BUN Creatinine Est GFR ( Amer) Est GFR (Non-Af Amer) POC Glucose (mg/dL) 288 H 306 H 315 H Random Glucose Calcium Total Bilirubin AST ALT Alkaline Phosphatase Troponin I Total Protein Albumin Globulin Albumin/Globulin Ratio Lipase Urine Color Urine Clarity Urine pH Ur Specific [place] Urine Protein Urine Glucose (UA) Urine Ketones Urine Blood Urine Nitrate Urine Bilirubin Urine Urobilinogen Ur Leukocyte Esterase Urine WBC (Auto) Urine RBC (Auto) Ur Squamous Epith Cells Urine Bacteria Alcohol, Quantitative 02/07/17 16:33 WBC RBC Hgb Hct MCV MCH MCHC RDW Plt Count MPV Neut % (Auto) Lymph % (Auto) [place] % (Auto) Eos % (Auto) Baso % (Auto) Neut # Lymph # [place] # Eos # Baso # PT INR APTT Sodium Potassium Chloride Carbon Dioxide Anion Gap BUN Creatinine Est GFR ( Amer) Est GFR (Non-Af Amer) POC Glucose (mg/dL) 298 H Random Glucose Calcium Total Bilirubin AST ALT Alkaline Phosphatase Troponin I Total Protein Albumin Globulin Albumin/Globulin Ratio Lipase Urine Color Urine Clarity Urine pH Ur Specific [place] Urine Protein Urine Glucose (UA) Urine Ketones Urine Blood Urine Nitrate Urine Bilirubin Urine Urobilinogen Ur Leukocyte Esterase Urine WBC (Auto) Urine RBC (Auto) Ur Squamous Epith Cells Urine Bacteria Alcohol, Quantitative Assessment & Plan (1) Acute epigastric pain Assessment and Plan: + pain, started with borborygmi, then pain relieved by food, thenno relief even with food; pt has irregular meals and oftend drinks alcohol instead Status: Acute (2) GERD (gastroesophageal reflux disease) Assessment and Plan: intermittent gastric outlet obstrction produces intermittent GERD bec of relative GOO weeee;;;;;;;;;;;;;;;;;;;;;;;;;;;;;;;;;;;;;;;;;;;;;;;;;;;;;;;;;;;;;; ;;;;;;;;;;;;;;;;;;;;;;;;;;;;;;;;;;;;;;;;;;;;;;;;;;;;;;;;;;;;;;;;;;;;;;;;;;;;;;;; ;;;;;;;;;;;;;;;;;;;;;;;;;;;;;;;;;;;;;;;;;;;;;;;;;;;;;;;;;;;;;;;;;;;;;;;;;;;;;;;; ;;;;;;;;;;;;;;;;;;;;;;;;;;;;;;;;;;;;;;;;;;;;;;;;;;;;;;;;;;;;;;;;;;;;;;;;;;;;;;;; ;;;;;;;;;;;;;;;;;;;;;;;;;;;;;;;;;;;;;;;;;;;;;;;;;;;;;;;;;;;;;;;;;;;;;;;;;;;;;;;; ;;;;;;;;;;;;;;;;;;;;;;;;;;;;;;;;;;;;;;;;;;;;;;;;;;;;;;;;;;;;;;;;;;;;;;;;;;;;;;;; ;;;;;;;;;;;;;;;;;;;;;;;;;;;;;;;;;;;;;;;;;;;;;;;;;;;;;;;;;;;;;;;;;;;;;;;;;;;;;;;; ;;;;;;;;;;;;;;;;;;;;;;;;;;;;;;;;;;;;;;;;;;;;;;;;;;;;;;;;;;;;;;;;;;;;;;;;;;;;;;;; ;;;;;;;;;;;;;;;;;;;;;;;;;;;;;;;;;;;;;;;;;;;;;;;;;;;;;;;;;;;;;;;;;;;;;;;;;;;;;;;; ;;;;;;;;;;;;;;;;;;;;;;;;;;;;;;;;;;;;;;;;;;;;;;;;;;;;;;;;;;;;;;;;;;;;;;;;;;;;;;;; ;;;;;;;;;;;;;;;;;;;;;;;;;;;;;;;;;;;;;;;;;;;;;;;;;;;;;;;;;;;;;;;;;;;;;;;;;;;;;;;; ;;;;;;;;;;;;;;;;;;;;;;;;;;;;;;;;;;;;;;;;;;;;;;;;;;;;;;;;;;;;;;;;;;;;;;;;;;;;;;;; ;;;;;;;;;;;;;;;;;;;;;;;;;;;;;;;;;;;;;;;;;;;;;;;;;;;;;;;;;;;;;;;;;;;;;;;;;;;;;;;; ;;;;;;;;;;;;;;;;;;; Status: Acute (3) Anxiety disorder Status: Acute (4) Hyponatremia Assessment and Plan: electrolyte imabalance 2ndry excessive alcohol intake Status: Chronic Priority: High (5) Diabetes mellitus type 2, uncontrolled Assessment and Plan: adjust longacting and combination intermaite and raoud actubg ubsykub oer custom sliding scale. Status: Chronic Priority: Medium (6) Diabetic neuropathy Assessment and Plan: on gabapentin Status: Chronic Priority: High (7) Depression Assessment and Plan: together with anxeity disorder, causing pt fear and driving her to drink. 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 This is because of the severity of symptoms shown, intensity of services needed, and/or the medical risk in this patient being treated as an outpatient. - InPatient: Physician Admission Certification:: After my assessment, the patient will require hospitalization for at least two midnights. This is because of the severity of symptoms shown, intensity of services needed, and/or the medical risk in this patient being treated as an outpatient. - . Bed Request Type: Regular
[2017-02-07] MEDS ORDERED: Sodium Chloride 3% 500 ML IV ONE ×2 (20:00→20:15)
[2017-02-07] MEDS: Pantoprazole 80 MG in Sodium Chloride 0.9% 100 ML IVP SCH (20:42)
[2017-02-07] MEDS ORDERED: Insulin Detemir 100 units/ml Vial (Levemir) SC SCH ×2 (22:00)
[2017-02-07] MEDS: Sucralfate 1 gm/10 ml Oral Susp UD PO SCH (22:59)
--- NOTE | 2017-02-07 23:12 | CARD ---
APPROVED REPORT EKG Measurement Heart [id number] <Conclusion> Normal sinus rhythm Normal ECG
[2017-02-08] MEDS: Albuterol 0.083% Inhal Sol (2.5 mg/3 mL) UD INH SCH ×3 (01:12→13:36)
[2017-02-08] MEDS: Pantoprazole 80 MG in Sodium Chloride 0.9% 100 ML IVP SCH ×2 (06:58→14:48)
[2017-02-08] MEDS: Sucralfate 1 gm/10 ml Oral Susp UD PO SCH ×4 (06:58→21:32)
[2017-02-08] MEDS: Tiotropium 18 mcg Cap For Inhalation INH SCH (08:08)
[2017-02-08] MEDS: Budesonide 0.25 mg/2 ml Inhal Susp UD INH SCH ×2 (08:09→20:52)
[2017-02-08 08:47] LABS: BASO % 0.8 % (0.0-2.0); EOS # 0.1 K/uL (0.0-0.7); EOS % 1.6 % (0.0-4.0); HEMATOCRIT 39.2 % (34.0-47.0); MEAN CELL VOLUME 94.6 fL (81.0-99.0); MEAN CORPUSCULAR HEMOGLOBIN 32.7 pg (27.0-31.0); MEAN CORPUSCULAR HGB CONC 34.6 g/dL (33.0-37.0); MEAN PLATELET VOLUME 8.7 fL (7.2-11.7); MONO # 0.7 K/uL (0.0-0.8); MONO % 10.7 % (0.0-10.0); RED CELL DISTRIBUTION WIDTH 13.1 % (11.5-14.5); WHITE BLOOD COUNT 6.2 K/uL (4.8-10.8)
[2017-02-08 09:06] LABS: CHLORIDE 95 mmol/L (98-107); POTASSIUM 5.5 mmol/L (3.6-5.2); SODIUM 131 mmol/L (132-148)
[2017-02-08 09:08] LABS: CARBON DIOXIDE 28 mmol/L (22-30); GFR AFRICAN-AMERICAN > 60
[2017-02-08 09:09] LABS: ALKALINE PHOSPHATASE 49 U/L (38-126); ALT/SGPT 27 U/L (9-52); AST/SGOT 24 U/L (14-36); BILIRUBIN,DIRECT 0.3 mg/dL (0.0-0.4); BILIRUBIN,TOTAL 0.5 mg/dL (0.2-1.3); BLOOD UREA NITROGEN 9 mg/dL (7-17); CALCIUM 9.6 mg/dl (8.6-10.4); GLUCOSE,RANDOM 77 mg/dL (65-105); TOTAL PROTEIN 6.9 g/dL (6.3-8.3)
[2017-02-08] MEDS: (Novolin 70/30) NPH/Regular 70/30 Units/ml 10 ml vial SC SCH ×2 (09:09→17:57)
[2017-02-08] MEDS: Magnesium Oxide 400 mg Tab UD PO SCH ×2 (11:00→17:58)
--- NOTE | 2017-02-08 11:06 | US ---
HISTORY: abdominal pain, chronic alcoho use, t/c fatty >> COMPARISON: None available. TECHNIQUE: Sonographic evaluation of the abdomen. FINDINGS: LIVER: Measures 11.8 cm in sagittal dimension. Echogenic liver may be seen in setting of hepatic parenchymal disease or fatty infiltration. No focal hepatic mass identified. The main portal vein appears patent with normal directional flow. No intrahepatic bile duct dilatation. GALLBLADDER: Cholecystectomy. COMMON BILE DUCT: Measures 6 mm. PANCREAS: Not well visualized. RIGHT KIDNEY: Measures 11.1 x 4.7 x 5.3cm. No obstructing calculus or hydronephrosis identified. LEFT KIDNEY: Measures 10.1 x 5.5 x 4.6cm. No obstructing calculus or hydronephrosis identified. SPLEEN: Measures approximately 7.0 cm. AORTA: Limited views appear unremarkable. IVC: Limited views appear unremarkable. OTHER FINDINGS: None. IMPRESSION: Echogenic liver may be seen in setting of hepatic parenchymal disease or fatty infiltration. Cholecystectomy.
[2017-02-08] MEDS: buPROPion 150 mg/24 Hours XL Tab PO SCH (14:48)
--- NOTE | 2017-02-08 15:27 | CON ---
ADDENDUM: The patient's last sodium level is 131, the level on admission was 120; potassium level is elevated at 5.5. Her last blood sugar is 142. The liver function test, AST and ALT were within normal limits. The UA, the patient is +1 for protein and +3 for glucose. The patient's blood alcohol level on admission was 101. Mika Cobb MD MTDD
[2017-02-08] MEDS: Digoxin 250 mcg (0.25 mg) Tab PO SCH (17:58)
[2017-02-08] MEDS: Albuterol-Ipratrop 3 mg / 0.5 (3 ml) UD INH PRN (20:52)
[2017-02-08] MEDS: Insulin Detemir 100 units/ml Vial (Levemir) SC SCH (21:33)
--- NOTE | 2017-02-08 21:41 | CON ---
PSYCHIATRY CONSULTATION DATE: 02/08/2017 CHIEF COMPLAINT AND REASON FOR CONSULTATION: The patient is referred by Dr. Homer Soriano for evaluation, co-management of the patient's history of alcohol dependence, anxiety, and the patient continues to drink despite having medical problems. HISTORY OF PRESENT ILLNESS: The patient is a 71-year-old female of [place] descent, who is well known to me from previous consult here in the hospital as well as in the prison. The patient has history of anxiety as well as history of alcohol dependence. The patient was admitted here complaining of abdominal pain. The patient is a patient of Dr. Soriano. The patient has been bleeding for the last 2 days, but continues to drink 1-2 glasses of red wine stating that she has anxiety and she needs something to sleep apparently. She developed abdominal pain and came to the hospital for treatment. In the ER, she was noted to be hyponatremic and her blood alcohol level was elevated to 101. The patient also was exhibiting some respiratory problems and admitted for exacerbation of COPD and kindly referred for co-management. The patient was last seen by me in 06/2016 for similar complaints. She continues to drink alcohol at night about 1 to 2 glasses of red wine stating that she is anxious and she cannot sleep. She said she was offered by Dr. Bo Aranda but she states she does not take it because she drinks alcohol. She also is an active smoker and was given Wellbutrin by Dr. Soriano for anxiety as well as to hopefully curb her smoking. The patient states that she will try to stop drinking but states that she will not mix her psych medication with alcohol. Today, when seen, she was complaining about her fluctuation of her blood sugars. She said she was hypoglycemic earlier, but now her last blood sugar was 142. PAST PSYCHIATRIC HISTORY: History of depression and anxiety secondary to her medical problems as well as history of alcohol dependence. MEDICAL HISTORY: The patient has history of COPD, diabetes, history of hypertension, PVD status post left BKA, UTI, history of generalized weakness, history of GERD, history of anxiety, hiatal hernia. DRUG AND ALCOHOL HISTORY: The patient has history of alcohol dependence. No illicit drug use. ALLERGIES: THE PATIENT IS ALLERGIC TO [employer]. PSYCHOSOCIAL HISTORY: The patient lives alone. She is disabled. 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 CURRENT MEDICATIONS: List of current medications includes albuterol, Carafate, Cozaar, Duoneb, Lanoxin, mag oxide, Neurontin 800 mg 3 times a day p.r.n. and Neurontin 300 mg q.i.d., Spiriva, Tapazole, Wellbutrin 150 mg daily, Xarelto. PHYSICAL EXAMINATION: VITAL SIGNS: Temperature is 98, pulse is 90, blood pressure is 116/66, respiration is 20, oxygen saturation is 98%. REVIEW OF SYSTEMS: GENERAL: The patient is alert and oriented x3, conversing with this MD in [facility]. The patient states that she continues to drink despite advise. The patient was advised to stop drinking, but the patient has not maintained any long period sobriety. I did discuss with her about taking her medications to stop her cravings for alcohol, but the patient is still actively drinking. The patient is still also medically stable at this time. SKIN: No diaphoresis. HEENT: No headache or dizziness. NECK: Supple. RESPIRATORY: No dyspnea. CARDIOVASCULAR: No chest pain. GASTROINTESTINAL: No nausea. No vomiting. No abdominal pain. EXTREMITIES: Complaining of pain, but is status post left BKA. MUSCULOSKELETAL: Feels weak. NEUROLOGIC: Alert and oriented x3. GENITOURINARY: No dysuria. MENTAL STATUS EXAMINATION: Elderly female of [place] descent, is about 5 feet and 4 inches, 106 pounds, alert and oriented x3. Mood is anxious at times. Affect is reactive. Speech is spontaneous. Thought process coherent. Thought content, no psychosis. No suicidal ideations. The patient reports she has anxiety all the time. Attention and memory seems to be fair. Insight and judgment limited. Impulse control is fair at this time. IMPRESSION: History of depression and anxiety as well as history of alcohol dependence as well as nicotine dependence, the patient is a smoker, exacerbation of chronic obstructive pulmonary disease, diabetes, hypertension. PLAN AND RECOMMENDATIONS: The patient is seen. Medications reviewed. Continue present management. The patient is currently on Wellbutrin 150 mg daily. We will add Ativan 1 mg q. 6 hours p.r.n. for anxiety as well as possible alcohol withdrawal as the patient has been drinking alcohol. We will give thiamine 100 mg daily as well as MVI one tablet daily. The patient advised to stop drinking alcohol, especially since she is taking multiple psych meds. The patient also states that she is willing to go for subacute rehab at [facility] which she was at before. I did tell her that if she is able to maintain at least adequate days of being sober, we will try to give her Revia hopefully to curb her craving for alcohol and also help her with anxiety, but for now, the patient is actively drinking, we will hold off addition of Revia at this time and she may continue the Wellbutrin, which is for depression, anxiety as well as to help her with her nicotine dependence. Mika Cobb MD MTDAme
[2017-02-09] MEDS: Sucralfate 1 gm/10 ml Oral Susp UD PO SCH ×4 (08:30→21:56)
[2017-02-09] MEDS: (Novolin 70/30) NPH/Regular 70/30 Units/ml 10 ml vial SC SCH ×2 (08:41→18:25)
[2017-02-09] MEDS: Tiotropium 18 mcg Cap For Inhalation INH SCH (10:07)
[2017-02-09] MEDS: Budesonide 0.25 mg/2 ml Inhal Susp UD INH SCH ×2 (10:08→20:19)
[2017-02-09] MEDS: Multiple Vitamins Tab PO SCH (10:50)
[2017-02-09] MEDS: Magnesium Oxide 400 mg Tab UD PO SCH ×2 (12:10→18:28)
[2017-02-09] MEDS: buPROPion 150 mg/24 Hours XL Tab PO SCH (14:28)
[2017-02-09] MEDS: Digoxin 250 mcg (0.25 mg) Tab PO SCH (18:28)
--- NOTE | 2017-02-09 20:36 | PN ---
SUBJECTIVE: The patient is seen. The patient took Ativan last night for anxiety and slept well. The patient is doing much better. She states she will be going for subacute rehab in the morning. The patient states she will go over to Dr. Soriano and her choice would be either [facility] or [facility]. The patient has been cooperative with staff. PHYSICAL EXAMINATION: VITAL SIGNS: Temperature is 98.5, pulse rate is 80, blood pressure 120/68, respiration is 20, oxygen sat is 98. The patient is not exhibiting any symptoms of withdrawal. REVIEW OF SYSTEMS: GENERAL: The patient is alert and oriented x3, sitting in her room, conversing with a girl. SKIN: No diaphoresis. HEENT: No headaches, no dizziness. NECK: Supple. RESPIRATORY: No dyspnea. CARDIOVASCULAR: No chest pain. GASTROINTESTINAL: She is eating well. EXTREMITIES: Complaining of pain, the patient is status post left BKA. MUSCULOSKELETAL: Feels weak. NEUROLOGIC: Alert and oriented x3. MENTAL STATUS EXAMINATION: Elderly female looks her stated age, alert and oriented x3. Mood is calmer, affect is reactive, speech is spontaneous. Thought process coherent. Thought content, no overt psychosis. No suicidal or homicidal ideations. Attention and memory seems to be fair. Insight and judgment limited. Impulse control is fair at this time. IMPRESSION: History of alcohol dependence and anxiety disorder, exacerbation of chronic obstructive pulmonary disease. PLAN AND RECOMMENDATIONS: The patient is seen. Medications reviewed. Continue Ativan p.r.n. as ordered. Continue treatment plan as outlined. The patient to go for subacute rehab once medically cleared. Mika Cobb MD MTDD
--- NOTE | 2017-02-09 21:00 | CP.PCM.PN ---
Subjective - Date & Time of Evaluation Date of Evaluation: 02/08/17 Time of Evaluation: 17:15 - Subjective Subjective: LATE ENTRY FOR 02/08/2017 VISIT: > Pt seen and examined at bedside while son and daughter in law at bedside. Had been informed by nurse that the patient was contesting the BS readings obtained by the floor, since pt had brought her own glucometer and was testing her sugar as frequently as she desired. There was a discrepancy of about 90 units between hospital's and her machine. Inquired with patient when she had last calibrated her machine, and pt did not know that she had to calibrate her instrument. Instructed pt on proper maintenance of her machine so that she will get accurate results. Also informed her that she should check her BS at the same time as the nurses, that way she can add or subtract # units as appropriate. > Discussed with pt also her need to go to [facility] to allow her to regain her strength and get away from her alcohol. Pt will call the [employer] store for deliveries, and this starts the vicious cycle of her decline. Pt's family agrees with [facility] placement. Though pt really wants to go home, she did not put up too much of a fight since she was overruled by both her family and doctors. Objective - Vital Signs/Intake and Output Vital Signs (last 24 hours): Temp Pulse Resp BP Pulse Ox 97.9 F 85 20 159/77 H 98 02/09/17 15:00 02/09/17 20:42 02/09/17 15:00 02/09/17 20:42 02/09/17 20:42 Intake and Output: 02/09/17 02/10/17 18:59 06:59 Intake Total 450 Balance 450 - Medications Medications: Current Medications Albuterol/Ipratropium (Duoneb 3 Mg/0.5 Mg (3 Ml) Ud) 3 ml INH RQ6 PRN PRN Reason: Shortness of Breath Last Admin: 02/08/17 20:52 Dose: 3 ml Budesonide (Pulmicort Respules) 0.25 mg INH RQ12 [facility] Last Admin: 02/09/17 20:19 Dose: 0.25 mg Bupropion HCl (Wellbutrin Xl) 150 mg PO DAILY@1400 [facility] Last Admin: 02/09/17 14:28 Dose: 150 mg Digoxin (Lanoxin) 0.25 mg PO DAILY@1800 [facility] Last Admin: 02/09/17 18:28 Dose: 0.25 mg Famotidine (Pepcid) 20 mg PO DAILY [facility] Last Admin: 02/09/17 10:50 Dose: 20 mg Fenofibrate (Tricor) 145 mg PO DAILY [facility] Last Admin: 02/09/17 12:10 Dose: 145 mg Gabapentin (Neurontin) 800 mg PO TID [facility] Last Admin: 02/09/17 18:28 Dose: 800 mg Ibuprofen (Motrin Tab) 400 mg PO Q6H PRN PRN Reason: Pain, Mild (1-3) Last Admin: 02/08/17 22:56 Dose: 400 mg Insulin Detemir (Levemir) 8 unit SC HS [facility] Last Admin: 02/08/17 21:33 Dose: 8 unit Insulin Human Isoph/Insulin Regular (Novolin 70/30 (70/30 Units/Ml) 10 Ml) 0 units SC BIDPC [facility] PRN Reason: Protocol Last Admin: 02/09/17 18:25 Dose: 3 units Lorazepam (Ativan) 1 mg PO Q6H PRN PRN Reason: Anxiety Last Admin: 02/09/17 01:49 Dose: 1 mg Losartan Potassium (Cozaar) 50 mg PO DAILY [facility] Last Admin: 02/09/17 10:50 Dose: 50 mg Magnesium Oxide (Mag-Ox) 400 mg PO BID [facility] Last Admin: 02/09/17 18:28 Dose: 400 mg Methimazole (Tapazole) 10 mg PO BID [facility] Last Admin: 02/09/17 18:28 Dose: 10 mg Metoclopramide HCl (Reglan) 5 mg IVP ACLD [facility] Last Admin: 02/09/17 16:31 Dose: 5 mg Multivitamins (Hexavitamin) 1 tab PO DAILY [facility] Last Admin: 02/09/17 10:50 Dose: 1 tab Rivaroxaban (Xarelto) 20 mg PO DAILY [facility] Last Admin: 02/09/17 12:11 Dose: 20 mg Sucralfate (Carafate Oral Susp) 1 gm PO ACHS [facility] Last Admin: 02/09/17 16:32 Dose: 1 gm Thiamine HCl (Vitamin B1 Tab) 100 mg PO DAILY [facility] Last Admin: 02/09/17 10:50 Dose: 100 mg Tiotropium Eastern (Spiriva) 18 mcg INH RQ24 [facility] Last Admin: 02/09/17 10:07 Dose: Not Given - Labs Labs: 02/08/17 08:31 02/08/17 08:31 PT 12.8 SECONDS (9.7-12.2) H 02/07/17 02:51 INR 1.1 02/07/17 02:51 APTT 39 SECONDS (21-34) H 02/07/17 02:51 - Constitutional Appears: In Acute Distress (though mild only, 2ndry to diaper NOT being charnged quickly enough and thus sitting on her own liquid waste. ) - Head Exam Head Exam: ATRAUMATIC, NORMAL INSPECTION, NORMOCEPHALIC - Eye Exam Eye Exam: Conjunctival injection, EOMI, Normal appearance, Nystagmus - ENT Exam ENT Exam: Mucous Membranes Dry, Mucous Membranes Moist, Normal Exam, Normal External Ear Exam, Normal Oropharynx, TM's Normal Bilaterally - Respiratory Exam Respiratory Exam: Decreased Breath Sounds, Rales, Rhonchi Additional comments: present in between - Cardiovascular Exam Cardiovascular Exam: REGULAR RHYTHM - GI/Abdominal Exam GI & Abdominal Exam: Hypoactive Bowel Sounds - Rectal Exam Rectal Exam: Deferred - Exam Speculum exam: NORMAL SPECULUM EXAM - Extremities Exam Extremities Exam: Normal Inspection - Back Exam Back Exam: NORMAL INSPECTION Additional comments: + stage III pressure ulcer at buttocks - Neurological Exam Neuro motor strength exam: Left Upper Extremity: 3, Right Upper Extremity: 3, Left Lower Extremity: 2/1, Right Lower Extremity: 2/1 - Psychiatric Exam Psychiatric exam: Anxious, Normal Affect, Normal Mood Additional comments: headed towards depression and despair, hence the anxiety - Skin Skin Exam: Dry, Intact, Pallor, Warm Assessment and Plan (1) Acute epigastric pain Assessment & Plan: angel for pt has not yet become an ulcer and eroded over a blood vessel. finished 3 day course of high dose PPI. Will continue at max strength (4o mg daily) , then decrease to 20 mg in 1 week if pain resolves. Status: Acute (2) GERD (gastroesophageal reflux disease) Assessment & Plan: goes with 1, started on metoclopramide; observe if phlegm production decreases as well. Status: Acute (3) Anxiety disorder Assessment & Plan: started pt on Wellbutrin so encompass depression, anxiety, and stabilize mood Status: Acute (4) Hyponatremia Assessment & Plan: 2ndry to excessive alcohol intake and not enough real food Status: Chronic (5) Diabetes mellitus type 2, uncontrolled Assessment & Plan: new regimen of long-acting and combo insulin appears to be working. 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
[2017-02-09] MEDS: Insulin Detemir 100 units/ml Vial (Levemir) SC SCH (21:58)
--- NOTE | 2017-02-10 00:02 | CP.PCM.PN ---
Subjective - Date & Time of Evaluation Date of Evaluation: 02/09/17 Time of Evaluation: 17:10 - Subjective Subjective: Pt transferred to [facility] overnight. Doing ok and no complaints compared to the previoius day. Pt more drowsy and shaky today as well. Had started eating yesterday though intake less so in the morning than in the evening. Pt on high dose PPI as danger of PUD and GI bleeding very real. Pt on Xarelto as well. Objective - Vital Signs/Intake and Output Vital Signs (last 24 hours): Temp Pulse Resp BP Pulse Ox 97.9 F 85 20 159/77 H 98 02/09/17 15:00 02/09/17 20:42 02/09/17 15:00 02/09/17 20:42 02/09/17 20:42 Intake and Output: 02/09/17 02/10/17 18:59 06:59 Intake Total 450 Balance 450 - Medications Medications: Current Medications Albuterol/Ipratropium (Duoneb 3 Mg/0.5 Mg (3 Ml) Ud) 3 ml INH RQ6 PRN PRN Reason: Shortness of Breath Last Admin: 02/08/17 20:52 Dose: 3 ml Budesonide (Pulmicort Respules) 0.25 mg INH RQ12 [facility] Last Admin: 02/09/17 20:19 Dose: 0.25 mg Bupropion HCl (Wellbutrin Xl) 150 mg PO DAILY@1400 [facility] Last Admin: 02/09/17 14:28 Dose: 150 mg Digoxin (Lanoxin) 0.25 mg PO DAILY@1800 [facility] Last Admin: 02/09/17 18:28 Dose: 0.25 mg Docusate Sodium (Colace) 200 mg PO BID [facility] Last Admin: 02/09/17 21:51 Dose: 200 mg Famotidine (Pepcid) 20 mg PO DAILY [facility] Last Admin: 02/09/17 10:50 Dose: 20 mg Fenofibrate (Tricor) 145 mg PO DAILY [facility] Last Admin: 02/09/17 12:10 Dose: 145 mg Gabapentin (Neurontin) 800 mg PO TID [facility] Last Admin: 02/09/17 18:28 Dose: 800 mg Ibuprofen (Motrin Tab) 400 mg PO Q6H PRN PRN Reason: Pain, Mild (1-3) Last Admin: 02/08/17 22:56 Dose: 400 mg Insulin Detemir (Levemir) 8 unit SC HS [facility] Last Admin: 02/09/17 21:58 Dose: 8 unit Insulin Human Isoph/Insulin Regular (Novolin 70/30 (70/30 Units/Ml) 10 Ml) 0 units SC BIDPC [facility] PRN Reason: Protocol Last Admin: 02/09/17 18:25 Dose: 3 units Lorazepam (Ativan) 1 mg PO Q6H PRN PRN Reason: Anxiety Last Admin: 02/09/17 21:50 Dose: 1 mg Losartan Potassium (Cozaar) 50 mg PO DAILY [facility] Last Admin: 02/09/17 10:50 Dose: 50 mg Magnesium Oxide (Mag-Ox) 400 mg PO BID [facility] Last Admin: 02/09/17 18:28 Dose: 400 mg Methimazole (Tapazole) 10 mg PO BID [facility] Last Admin: 02/09/17 18:28 Dose: 10 mg Metoclopramide HCl (Reglan) 5 mg IVP ACLD [facility] Last Admin: 02/09/17 16:31 Dose: 5 mg Multivitamins (Hexavitamin) 1 tab PO DAILY [facility] Last Admin: 02/09/17 10:50 Dose: 1 tab Rivaroxaban (Xarelto) 20 mg PO DAILY [facility] Last Admin: 02/09/17 12:11 Dose: 20 mg Sucralfate (Carafate Oral Susp) 1 gm PO ACHS [facility] Last Admin: 02/09/17 21:56 Dose: 1 gm Thiamine HCl (Vitamin B1 Tab) 100 mg PO DAILY [facility] Last Admin: 02/09/17 10:50 Dose: 100 mg Tiotropium Melvin (Spiriva) 18 mcg INH RQ24 [facility] Last Admin: 02/09/17 10:07 Dose: Not Given - Labs Labs: 02/08/17 08:31 02/08/17 08:31 PT 12.8 SECONDS (9.7-12.2) H 02/07/17 02:51 INR 1.1 02/07/17 02:51 APTT 39 SECONDS (21-34) H 02/07/17 02:51 - Constitutional Appears: No Acute Distress - Head Exam Head Exam: NORMAL INSPECTION - Eye Exam Eye Exam: Normal appearance Pupil Exam: NORMAL ACCOMODATION - ENT Exam ENT Exam: Normal Exam - Neck Exam Neck Exam: Normal Inspection - Respiratory Exam Respiratory Exam: Clear to Ausculation Bilateral, NORMAL BREATHING PATTERN Additional comments: + cough with prolonged speech or deep breaths - Cardiovascular Exam Cardiovascular Exam: REGULAR RHYTHM - GI/Abdominal Exam GI & Abdominal Exam: Soft, Tenderness (largely decreased pain at the epigastric area unlike on admission), Normal Bowel Sounds - Rectal Exam Rectal Exam: Deferred - Extremities Exam Extremities Exam: Normal Inspection (+ stage III pressure ulcers on buttocks) - Back Exam Back Exam: NORMAL INSPECTION - Neurological Exam Neurological Exam: Alert, Awake, CN II-XII Intact Neuro motor strength exam: Left Upper Extremity: 3, Right Upper Extremity: 3, Left Lower Extremity: 2/1, Right Lower Extremity: 2/1 - Psychiatric Exam Psychiatric exam: Depressed, Normal Affect, Normal Mood - Skin Skin Exam: Dry, Intact Assessment and Plan (1) Acute epigastric pain Assessment & Plan: improved. 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
[2017-02-10] MEDS: Tiotropium 18 mcg Cap For Inhalation INH SCH (07:42)
[2017-02-10] MEDS: Budesonide 0.25 mg/2 ml Inhal Susp UD INH SCH ×2 (07:43→20:00)
[2017-02-10] MEDS: (Novolin 70/30) NPH/Regular 70/30 Units/ml 10 ml vial SC SCH ×2 (08:02→17:50)
[2017-02-10] MEDS: Sucralfate 1 gm/10 ml Oral Susp UD PO SCH ×4 (08:15→21:48)
[2017-02-10 08:35] LABS: BASO # 0.1 K/uL (0.0-0.2); EOS # 0.1 K/uL (0.0-0.7); HEMATOCRIT 41.4 % (34.0-47.0); LYMPH # 2.3 K/uL (1.0-4.3); LYMPH % 31.9 % (20.0-40.0); MEAN CELL VOLUME 94.5 fL (81.0-99.0); MEAN CORPUSCULAR HGB CONC 33.8 g/dL (33.0-37.0); MEAN PLATELET VOLUME 8.8 fL (7.2-11.7); MONO # 0.8 K/uL (0.0-0.8); RED CELL DISTRIBUTION WIDTH 13.1 % (11.5-14.5); WHITE BLOOD COUNT 7.3 K/uL (4.8-10.8)
[2017-02-10 08:50] LABS: CHLORIDE 89 mmol/L (98-107); SODIUM 125 mmol/L (132-148)
[2017-02-10 08:51] LABS: POTASSIUM 4.4 mmol/L (3.6-5.2)
[2017-02-10 08:53] LABS: CARBON DIOXIDE 29 mmol/L (22-30); GFR AFRICAN-AMERICAN > 60
[2017-02-10 08:54] LABS: BLOOD UREA NITROGEN 13 mg/dL (7-17); CALCIUM 9.1 mg/dl (8.6-10.4); GLUCOSE,RANDOM 167 mg/dL (65-105)
[2017-02-10] MEDS: Multiple Vitamins Tab PO SCH (09:49)
[2017-02-10] MEDS: Magnesium Oxide 400 mg Tab UD PO SCH ×3 (09:50→17:44)
[2017-02-10 11:47] LABS: MAGNESIUM 1.4 mg/dL (1.6-2.3)
--- NOTE | 2017-02-10 11:47 | CP.PCM.PN ---
Subjective - Date & Time of Evaluation Date of Evaluation: 02/10/17 Time of Evaluation: 11:47 - Subjective Subjective: PATIENT AAO IN BED DENIES ANY PAIN, OR HEADACHE; Objective - Vital Signs/Intake and Output Vital Signs (last 24 hours): Temp Pulse Resp BP Pulse Ox 98.1 F 102 H 20 138/74 96 02/10/17 07:37 02/10/17 07:37 02/10/17 07:37 02/10/17 07:37 02/10/17 07:37 Intake and Output: 02/10/17 02/10/17 06:59 18:59 Intake Total 360 Balance 360 - Medications Medications: Current Medications Albuterol/Ipratropium (Duoneb 3 Mg/0.5 Mg (3 Ml) Ud) 3 ml INH RQ6 PRN PRN Reason: Shortness of Breath Last Admin: 02/08/17 20:52 Dose: 3 ml Budesonide (Pulmicort Respules) 0.25 mg INH RQ12 [facility] Last Admin: 02/10/17 07:43 Dose: 0.25 mg Bupropion HCl (Wellbutrin Xl) 150 mg PO DAILY@1400 [facility] Last Admin: 02/09/17 14:28 Dose: 150 mg Digoxin (Lanoxin) 0.25 mg PO DAILY@1800 [facility] Last Admin: 02/09/17 18:28 Dose: 0.25 mg Docusate Sodium (Colace) 200 mg PO BID [facility] Last Admin: 02/10/17 09:49 Dose: 200 mg Famotidine (Pepcid) 20 mg PO DAILY [facility] Last Admin: 02/10/17 09:49 Dose: 20 mg Fenofibrate (Tricor) 145 mg PO DAILY [facility] Last Admin: 02/10/17 09:50 Dose: 145 mg Gabapentin (Neurontin) 800 mg PO TID [facility] Last Admin: 02/10/17 09:53 Dose: 800 mg Ibuprofen (Motrin Tab) 400 mg PO Q6H PRN PRN Reason: Pain, Mild (1-3) Last Admin: 02/08/17 22:56 Dose: 400 mg Insulin Detemir (Levemir) 8 unit SC HS [facility] Last Admin: 02/09/17 21:58 Dose: 8 unit Insulin Human Isoph/Insulin Regular (Novolin 70/30 (70/30 Units/Ml) 10 Ml) 0 units SC BIDPC [facility] PRN Reason: Protocol Last Admin: 02/10/17 08:02 Dose: Not Given Lorazepam (Ativan) 1 mg PO Q6H PRN PRN Reason: Anxiety Last Admin: 02/09/17 21:50 Dose: 1 mg Losartan Potassium (Cozaar) 50 mg PO DAILY [facility] Last Admin: 02/10/17 09:50 Dose: 50 mg Magnesium Oxide (Mag-Ox) 400 mg PO BID [facility] Last Admin: 02/10/17 09:50 Dose: 400 mg Methimazole (Tapazole) 10 mg PO BID [facility] Last Admin: 02/10/17 09:50 Dose: 10 mg Metoclopramide HCl (Reglan) 5 mg IVP ACLD [facility] Last Admin: 02/09/17 16:31 Dose: 5 mg Multivitamins (Hexavitamin) 1 tab PO DAILY [facility] Last Admin: 02/10/17 09:49 Dose: 1 tab Rivaroxaban (Xarelto) 20 mg PO DAILY [facility] Last Admin: 02/10/17 09:49 Dose: 20 mg Sucralfate (Carafate Oral Susp) 1 gm PO ACHS [facility] Last Admin: 02/10/17 08:15 Dose: 1 gm Thiamine HCl (Vitamin B1 Tab) 100 mg PO DAILY [facility] Last Admin: 02/10/17 09:49 Dose: 100 mg Tiotropium [place] (Spiriva) 18 mcg INH RQ24 [facility] Last Admin: 02/10/17 07:42 Dose: Not Given - Labs Labs: 02/10/17 08:29 02/10/17 08:29 PT 12.8 SECONDS (9.7-12.2) H 02/07/17 02:51 INR 1.1 02/07/17 02:51 APTT 39 SECONDS (21-34) H 02/07/17 02:51 Assessment and Plan - Assessment and Plan (Free Text) Assessment: DISCHARGE PLAN DISCUSS WITH DR PETERSON ---CLEARED FOR DC IN [facility] ---DR PARSON WAS NOTIFIED OF THE LASTEST TSH LEVEL IN THE CHART AND RECENT BLOOD WORK WAS DRAWN TODAY AND TSH WAS 15.8 ----DR PARSON MADE AWARE ON THE PATIENT MED : METHIMAZOLE 10 MG PO BID --MAG WAS 1.4 AND 1 G MG SULFATE GIVEN ---DC PLANNING FOR TOMORROW PER DR RICHMOND
[2017-02-10] MEDS ORDERED: Magnesium Sulfate 1 gm in D5W 1 GM/100 ML BAG IVPB ONE (12:15)
[2017-02-10] MEDS: buPROPion 150 mg/24 Hours XL Tab PO SCH (15:00)
[2017-02-10] MEDS ORDERED: Sodium Chloride 3% 250 ML IV SCH (16:00)
[2017-02-10 16:42] LABS: CHLORIDE 86 mmol/L (98-107); POTASSIUM 5.3 mmol/L (3.6-5.2)
[2017-02-10 16:44] LABS: GFR AFRICAN-AMERICAN > 60
[2017-02-10 16:45] LABS: BLOOD UREA NITROGEN 16 mg/dL (7-17); CARBON DIOXIDE 26 mmol/L (22-30)
[2017-02-10 16:47] LABS: SODIUM 119 mmol/L (132-148)
[2017-02-10 16:48] LABS: GLUCOSE,RANDOM 405 mg/dL (65-105)
--- NOTE | 2017-02-10 16:53 | PN ---
DATE: 02/10/2017 SUBJECTIVE: Patient is seen. Patient is alert, verbal and exhibiting signs and symptoms of alcohol withdrawal, but states that she has been taking Ativan at night. The patient also noted her last sodium level went down again, it is 125, but the patient report she has been going to the bathroom 10 times a day and was noted also to be drinking a lot of water and she has some regular soda at bedside. The patient advised to limit drinking of coke, especially the patient is diabetic. PHYSICAL EXAMINATION: VITAL SIGNS: Temperature is 98.1, pulse is 102, blood pressure is 138/74, respiration 20, oxygen sat is 96. REVIEW OF SYSTEMS: GENERAL: The patient is alert and oriented x3, conversing in Tagalog with this MD in her room. SKIN: No diaphoresis. HEENT: No headaches, no dizziness. NECK: Supple. RESPIRATORY: No dyspnea. CARDIOVASCULAR: No chest pain. GASTROINTESTINAL: The patient is eating well. EXTREMITIES: The patient is status post left BKA. Not complaining of pain. MUSCULOSKELETAL: Feels weak. NEUROLOGIC: Alert and oriented x3. GENITOURINARY: The patient complaining of polyuria. MENTAL STATUS EXAMINATION: Elderly female, [place] descent, oriented x3. Speech is spontaneous, conversing in Tagalog. Her affect is reactive, mood is calm. Thought process coherent. Thought content, no overt psychosis. No suicidal or homicidal ideations. The patient has agreed to go for subacute rehab. Attention and memory seems to be fair. Insight and judgement is fair. Impulse control is fair. LABORATORY DATA: Lab fong, her last blood sugar is 167. Patient's TSH 3rd generation is a little elevated, it is 8.99. The patient is currently on methimazole 10 mg b.i.d. but her dose may need to be readjusted as the patient's TSH is elevated. We will discuss with Dr. Soriano. IMPRESSION: History of anxiety as well as alcohol dependence, exacerbation of chronic obstructive pulmonary disease. PLAN AND RECOMMENDATIONS: The patient is seen. Medications reviewed. Continue Ativan p.r.n. The patient is stable to go for subacute rehab. The patient will be going possibly to [facility] for subacute rehab once medically cleared by Dr. Homer Soriano. Also monitor her electrolytes, especially her sodium. MTDD
[2017-02-10] MEDS: Digoxin 250 mcg (0.25 mg) Tab PO SCH (17:46)
--- NOTE | 2017-02-10 18:56 | CP.PCM.PN ---
Subjective - Date & Time of Evaluation Date of Evaluation: 02/10/17 Time of Evaluation: 13:15 - Subjective Subjective: Was preparing to discharge pt to [facility] today and did last minute checking of electrolytes. Pt found to have Na 125 at the time, with 14+ TSH. Advised nursing to hold d/c and started repleting Na with pharmacy help. Asked to schedule for transfer tomorrow late afternoon after infusion s are completed. Fluid restriction also put in place. Objective - Vital Signs/Intake and Output Vital Signs (last 24 hours): Temp Pulse Resp BP Pulse Ox 98.3 F 94 H 20 121/66 99 02/10/17 16:00 02/10/17 16:00 02/10/17 16:00 02/10/17 16:00 02/10/17 16:00 Intake and Output: 02/10/17 02/10/17 06:59 18:59 Intake Total 360 500 Balance 360 500 - Medications Medications: Current Medications Albuterol/Ipratropium (Duoneb 3 Mg/0.5 Mg (3 Ml) Ud) 3 ml INH RQ6 PRN PRN Reason: Shortness of Breath Last Admin: 02/08/17 20:52 Dose: 3 ml Budesonide (Pulmicort Respules) 0.25 mg INH RQ12 [facility] Last Admin: 02/10/17 07:43 Dose: 0.25 mg Bupropion HCl (Wellbutrin Xl) 150 mg PO DAILY@1400 [facility] Last Admin: 02/10/17 15:00 Dose: 150 mg Digoxin (Lanoxin) 0.25 mg PO DAILY@1800 [facility] Last Admin: 02/10/17 17:46 Dose: 0.25 mg Docusate Sodium (Colace) 200 mg PO BID [facility] Last Admin: 02/10/17 17:44 Dose: 200 mg Famotidine (Pepcid) 20 mg PO DAILY [facility] Last Admin: 02/10/17 09:49 Dose: 20 mg Fenofibrate (Tricor) 145 mg PO DAILY [facility] Last Admin: 02/10/17 09:50 Dose: 145 mg Gabapentin (Neurontin) 800 mg PO TID [facility] Last Admin: 02/10/17 17:47 Dose: 800 mg Sodium Chloride (Hypertonic Saline 3%) 250 mls @ 23.5 mls/hr IV .[id number] [facility] Stop: 02/11/17 02:38 Ibuprofen (Motrin Tab) 400 mg PO Q6H PRN PRN Reason: Pain, Mild (1-3) Last Admin: 02/08/17 22:56 Dose: 400 mg Insulin Detemir (Levemir) 8 unit SC HS [facility] Last Admin: 02/09/17 21:58 Dose: 8 unit Insulin Human Isoph/Insulin Regular (Novolin 70/30 (70/30 Units/Ml) 10 Ml) 0 units SC BIDPC [facility] PRN Reason: Protocol Last Admin: 02/10/17 17:50 Dose: 4 units Lorazepam (Ativan) 1 mg PO Q6H PRN PRN Reason: Anxiety Last Admin: 02/09/17 21:50 Dose: 1 mg Losartan Potassium (Cozaar) 50 mg PO DAILY [facility] Last Admin: 02/10/17 09:50 Dose: 50 mg Magnesium Oxide (Mag-Ox) 400 mg PO TID [facility] Last Admin: 02/10/17 17:44 Dose: 400 mg Metoclopramide HCl (Reglan) 5 mg IVP ACLD [facility] Last Admin: 02/10/17 16:40 Dose: 5 mg Multivitamins (Hexavitamin) 1 tab PO DAILY [facility] Last Admin: 02/10/17 09:49 Dose: 1 tab Pantoprazole Sodium (Protonix Ec Tab) 40 mg PO DAILY [facility] Rivaroxaban (Xarelto) 20 mg PO DAILY [facility] Last Admin: 02/10/17 09:49 Dose: 20 mg Sucralfate (Carafate Oral Susp) 1 gm PO ACHS [facility] Last Admin: 02/10/17 16:40 Dose: 1 gm Thiamine HCl (Vitamin B1 Tab) 100 mg PO DAILY [facility] Last Admin: 02/10/17 09:49 Dose: 100 mg Tiotropium [place] (Spiriva) 18 mcg INH RQ24 [facility] Last Admin: 02/10/17 07:42 Dose: Not Given - Labs Labs: 02/10/17 08:29 02/10/17 16:30 PT 12.8 SECONDS (9.7-12.2) H 02/07/17 02:51 INR 1.1 02/07/17 02:51 APTT 39 SECONDS (21-34) H 02/07/17 02:51 - Constitutional Appears: No Acute Distress - Head Exam Head Exam: ATRAUMATIC, NORMAL INSPECTION, NORMOCEPHALIC - Eye Exam Eye Exam: Normal appearance Pupil Exam: NORMAL ACCOMODATION - ENT Exam ENT Exam: Mucous Membranes Moist, Normal Exam - Neck Exam Neck Exam: Full ROM, Normal Inspection - Respiratory Exam Respiratory Exam: Clear to Ausculation Bilateral, Prolonged Expiratory Phase Additional comments: 2ndry to copd - Cardiovascular Exam Cardiovascular Exam: RRR - GI/Abdominal Exam GI & Abdominal Exam: Diminished Bowel Sounds - Rectal Exam Rectal Exam: Deferred - Extremities Exam Extremities Exam: Full ROM, Normal Inspection - Back Exam Back Exam: vertebral tenderness - Neurological Exam Neurological Exam: Alert, Awake Neuro motor strength exam: Left Upper Extremity: 3, Right Upper Extremity: 3, Left Lower Extremity: 2/1, Right Lower Extremity: 2/1 - Psychiatric Exam Psychiatric exam: Depressed, Normal Affect - Skin Skin Exam: Dry, Intact, Normal Color, Warm Assessment and Plan (1) Acute epigastric pain Assessment & Plan: on PPI and [id number] for faster resolution of symptoms Status: Acute (2) GERD (gastroesophageal reflux disease) Assessment & Plan: started on metoclopramide as promotility agentto prevent reflux Status: Acute (3) Anxiety disorder Assessment & Plan: on lorazepam and started on SSRI wellbutrin Status: Acute (4) Hyponatremia Assessment & Plan: heretofore to be called electrolyte imbalance; may be hallmark of pancreatic insufficiency in this patient with malabsorption and deranged production of pancreatic enzymes, primariily insulin Status: Chronic (5) Diabetes mellitus type 2, uncontrolled Assessment & Plan: pt's diet changed to regular diet when pt was supposed to be diabetic diet. Status: Chronic (6) Diabetic neuropathy Assessment & Plan: for surgery in the next few weeks Status: Chronic (7) Depression Assessment & Plan: pt becoming depressed and grasping at straws, so to speak. 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
[2017-02-10] MEDS: Insulin Detemir 100 units/ml Vial (Levemir) SC SCH (21:49)
[2017-02-11 07:12] LABS: CHLORIDE 96 mmol/L (98-107)
[2017-02-11 07:13] LABS: POTASSIUM 4.7 mmol/L (3.6-5.2); SODIUM 130 mmol/L (132-148)
[2017-02-11 07:15] LABS: ALB/GLOB RATIO 1.1 (1.0-2.1); AST/SGOT 15 U/L (14-36); BILIRUBIN,TOTAL 0.3 mg/dL (0.2-1.3); BLOOD UREA NITROGEN 18 mg/dL (7-17); CARBON DIOXIDE 26 mmol/L (22-30); GFR AFRICAN-AMERICAN > 60; TOTAL PROTEIN 6.2 g/dL (6.3-8.3)
[2017-02-11 07:16] LABS: ALKALINE PHOSPHATASE 48 U/L (38-126); ALT/SGPT 31 U/L (9-52); CALCIUM 9.2 mg/dl (8.6-10.4); GLUCOSE,RANDOM 360 mg/dL (65-105); MAGNESIUM 1.6 mg/dL (1.6-2.3); PHOSPHOROUS 3.7 mg/dL (2.5-4.5)
[2017-02-11] MEDS: Albuterol-Ipratrop 3 mg / 0.5 (3 ml) UD INH PRN ×2 (07:30→13:33)
[2017-02-11] MEDS: Budesonide 0.25 mg/2 ml Inhal Susp UD INH SCH ×2 (07:30→19:43)
[2017-02-11] MEDS: Tiotropium 18 mcg Cap For Inhalation INH SCH (07:42)
[2017-02-11] MEDS: Sucralfate 1 gm/10 ml Oral Susp UD PO SCH ×4 (08:11→22:25)
[2017-02-11] MEDS: Multiple Vitamins Tab PO SCH (11:01)
[2017-02-11] MEDS: Pantoprazole 40 mg EC Tab PO SCH (11:07)
[2017-02-11] MEDS: Magnesium Oxide 400 mg Tab UD PO SCH ×3 (11:12→18:00)
[2017-02-11] MEDS: (Novolin 70/30) NPH/Regular 70/30 Units/ml 10 ml vial SC SCH ×2 (11:15→17:56)
[2017-02-11] MEDS: buPROPion 150 mg/24 Hours XL Tab PO SCH (13:14)
--- NOTE | 2017-02-11 15:07 | CP.PCM.PN ---
Subjective - Date & Time of Evaluation Date of Evaluation: 02/11/17 Time of Evaluation: 15:05 - Subjective Subjective: Pt examined and pt responded well to repletion of sodium overenight. However, her sugar started running in the high 300s to 400s whereas in the previous days , her sugar would come down nicely after her meals. Suspecting occult infection , UA and culture ordered for pt via straight cath. In the meantime, quizzed pt on the presence of carbonated sharla at her bedside. Pt denied it was hers, that it was her home health aide's drinks. Pt's [employer] not present on weekends though, but I let it pass. Reiterated to pt that I am watching everything, and if she wants to continue living, she should follow my advice. Objective - Vital Signs/Intake and Output Vital Signs (last 24 hours): Temp Pulse Resp BP Pulse Ox 98.3 F 94 H 20 124/72 100 02/11/17 08:06 02/11/17 08:06 02/11/17 08:06 02/11/17 08:06 02/11/17 08:06 Intake and Output: 02/11/17 02/11/17 06:59 18:59 Intake Total 350 Balance 350 - Medications Medications: Current Medications Albuterol/Ipratropium (Duoneb 3 Mg/0.5 Mg (3 Ml) Ud) 3 ml INH RQ6 PRN PRN Reason: Shortness of Breath Last Admin: 02/11/17 13:33 Dose: 3 ml Budesonide (Pulmicort Respules) 0.25 mg INH RQ12 [facility] Last Admin: 02/11/17 07:30 Dose: 0.25 mg Bupropion HCl (Wellbutrin Xl) 150 mg PO DAILY@1400 [facility] Last Admin: 02/11/17 13:14 Dose: 150 mg Digoxin (Lanoxin) 0.25 mg PO DAILY@1800 [facility] Last Admin: 02/10/17 17:46 Dose: 0.25 mg Docusate Sodium (Colace) 200 mg PO BID [facility] Last Admin: 02/11/17 11:11 Dose: 200 mg Famotidine (Pepcid) 20 mg PO DAILY [facility] Last Admin: 02/11/17 11:01 Dose: 20 mg Fenofibrate (Tricor) 145 mg PO DAILY [facility] Last Admin: 02/11/17 11:05 Dose: 145 mg Gabapentin (Neurontin) 800 mg PO TID [facility] Last Admin: 02/11/17 13:35 Dose: 800 mg Ibuprofen (Motrin Tab) 400 mg PO Q6H PRN PRN Reason: Pain, Mild (1-3) Last Admin: 02/11/17 11:01 Dose: 400 mg Insulin Detemir (Levemir) 8 unit SC HS [facility] Last Admin: 02/10/17 21:49 Dose: 8 unit Insulin Human Isoph/Insulin Regular (Novolin 70/30 (70/30 Units/Ml) 10 Ml) 0 units SC BIDPC [facility] PRN Reason: Protocol Last Admin: 02/11/17 11:15 Dose: 3 units Lorazepam (Ativan) 1 mg PO Q6H PRN PRN Reason: Anxiety Last Admin: 02/10/17 22:29 Dose: 1 mg Losartan Potassium (Cozaar) 50 mg PO DAILY [facility] Last Admin: 02/11/17 11:01 Dose: 50 mg Magnesium Oxide (Mag-Ox) 400 mg PO TID [facility] Last Admin: 02/11/17 13:14 Dose: 400 mg Metoclopramide HCl (Reglan) 5 mg IVP ACLD [facility] Last Admin: 02/11/17 12:35 Dose: 5 mg Multivitamins (Hexavitamin) 1 tab PO DAILY [facility] Last Admin: 02/11/17 11:01 Dose: 1 tab Pantoprazole Sodium (Protonix Ec Tab) 40 mg PO DAILY [facility] Last Admin: 02/11/17 11:07 Dose: 40 mg Rivaroxaban (Xarelto) 20 mg PO DAILY [facility] Last Admin: 02/11/17 11:05 Dose: 20 mg Sucralfate (Carafate Oral Susp) 1 gm PO ACHS [facility] Last Admin: 02/11/17 12:35 Dose: 1 gm Thiamine HCl (Vitamin B1 Tab) 100 mg PO DAILY [facility] Last Admin: 02/11/17 11:01 Dose: 100 mg Tiotropium [place] (Spiriva) 18 mcg INH RQ24 [facility] Last Admin: 02/10/17 07:42 Dose: Not Given - Labs Labs: 02/10/17 08:29 02/11/17 06:55 PT 12.8 SECONDS (9.7-12.2) H 02/07/17 02:51 INR 1.1 02/07/17 02:51 APTT 39 SECONDS (21-34) H 02/07/17 02:51 - Constitutional Appears: No Acute Distress - Head Exam Head Exam: NORMAL INSPECTION, NORMOCEPHALIC - Eye Exam Eye Exam: Normal appearance Pupil Exam: NORMAL ACCOMODATION - ENT Exam ENT Exam: Mucous Membranes Moist, Normal Exam - Neck Exam Neck Exam: Full ROM, Normal Inspection - Respiratory Exam Respiratory Exam: Clear to Ausculation Bilateral, NORMAL BREATHING PATTERN - Cardiovascular Exam Cardiovascular Exam: REGULAR RHYTHM - GI/Abdominal Exam GI & Abdominal Exam: Soft, Normal Bowel Sounds - Rectal Exam Rectal Exam: Deferred - Extremities Exam Extremities Exam: Normal Inspection Additional comments: L: BKA - Back Exam Back Exam: NORMAL INSPECTION - Neurological Exam Neurological Exam: Alert, Awake, CN II-XII Intact, Normal Gait, Oriented x3 Neuro motor strength exam: Left Upper Extremity: 3, Right Upper Extremity: 3, Left Lower Extremity: 3, Right Lower Extremity: 3 - Psychiatric Exam Psychiatric exam: Anxious, Normal Affect - Skin Skin Exam: Dry, Intact, Normal Color, Warm Assessment and Plan (1) Acute epigastric pain Assessment & Plan: improving, no more wincing with epigastric palpation Status: Acute (2) GERD (gastroesophageal reflux disease) Assessment & Plan: promotility agent in place. will add regiment to prevent tardive dyskinesia Status: Acute (3) Anxiety disorder Assessment & Plan: on losartan and wellbutrin Status: Acute (4) Hyponatremia Assessment & Plan: repleted calcium as well as magnesium and phosphorous. 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 Pt has scheduled nuclear stress test and pts wants tstay.
[2017-02-11 16:31] LABS: RBC URINE 11 /hpf (0-3); URINE BACTERIA OCC (<OCC); URINE BILIRUBIN NEGATIVE (NEGATIVE); URINE BLOOD 2+ (NEGATIVE); URINE COLOR Yellow (YELLOW); URINE GLUCOSE (UA) 3+ mg/dL (Normal); URINE KETONE NEGATIVE (NEGATIVE); URINE LEUKOCYTE ESTERASE NEG Leu/uL (Negative); URINE PROTEIN NEGATIVE (NEGATIVE); URINE UROBILINOGEN NORMAL mg/dL (0.2-1.0); WBC URINE 5 /hpf (0-5)
[2017-02-11 16:36] LABS: CHLORIDE 95 mmol/L (98-107); POTASSIUM 5.2 mmol/L (3.6-5.2); SODIUM 131 mmol/L (132-148)
[2017-02-11 16:38] LABS: GFR AFRICAN-AMERICAN > 60
[2017-02-11 16:39] LABS: BLOOD UREA NITROGEN 20 mg/dL (7-17); CALCIUM 9.5 mg/dl (8.6-10.4); CARBON DIOXIDE 29 mmol/L (22-30)
[2017-02-11 16:44] LABS: GLUCOSE,RANDOM 414 mg/dL (65-105)
[2017-02-11] MEDS: Digoxin 250 mcg (0.25 mg) Tab PO SCH (17:53)
[2017-02-11] MEDS: Insulin Detemir 100 units/ml Vial (Levemir) SC SCH (22:00)
[2017-02-12] MEDS: Tiotropium 18 mcg Cap For Inhalation INH SCH (07:41)
[2017-02-12] MEDS: Albuterol-Ipratrop 3 mg / 0.5 (3 ml) UD INH PRN ×2 (07:41→13:32)
[2017-02-12] MEDS: Budesonide 0.25 mg/2 ml Inhal Susp UD INH SCH ×2 (07:41→19:30)
[2017-02-12] MEDS: Sucralfate 1 gm/10 ml Oral Susp UD PO SCH ×4 (07:57→21:27)
[2017-02-12] MEDS: (Novolin 70/30) NPH/Regular 70/30 Units/ml 10 ml vial SC SCH ×2 (09:29→17:53)
[2017-02-12] MEDS: Pantoprazole 40 mg EC Tab PO SCH (09:32)
[2017-02-12] MEDS: Multiple Vitamins Tab PO SCH (09:32)
[2017-02-12] MEDS: Magnesium Oxide 400 mg Tab UD PO SCH ×3 (09:34→17:54)
[2017-02-12] MEDS: buPROPion 150 mg/24 Hours XL Tab PO SCH (13:53)
[2017-02-12] MEDS: Digoxin 250 mcg (0.25 mg) Tab PO SCH (17:54)
[2017-02-12] MEDS ORDERED: cefTRIAXone (Rocephin) 500 mg Inj IVPB SCH (21:00)
[2017-02-12] MEDS ORDERED: Insulin Detemir 100 units/ml Vial (Levemir) SC ONE (21:29)
[2017-02-12] MEDS: Insulin Detemir 100 units/ml Vial (Levemir) SC SCH (21:30)
[2017-02-12] MEDS ORDERED: SODIUM CHLORIDE 0.9% IVPB SCH (22:00)
[2017-02-12] MEDS ORDERED: CEFTRIAXONE IVPB SCH (22:00)
--- NOTE | 2017-02-12 22:04 | CP.PCM.PN ---
Subjective - Date & Time of Evaluation Date of Evaluation: 02/12/17 Time of Evaluation: 18:10 - Subjective Subjective: Pt had been doing well today, and blood sugars had stabilized since last night. Per our conversation yesterday, pt said that she was undergoing treatment for UTI initiated by me at the office after her urinalysis came back + for UTI. Treatment was aborted on day 7 since she had to go to the hospital for her abdominal pain. Pt did not mention about the abx that needed to be continued until almost 1 week later. > UA and ctx came back + for G (-) rods, which would mostly likely be E. coli with some resistance pattern bec of pt's frequency in getting UTI. Hence, empiric treatment for MDR E. coli will be initiated, with culture results to determine final abx to complete the treatment. This hopefully, will prevent deterioration of pt's medical condition, and stabilize her blood sugar readings. Objective - Vital Signs/Intake and Output Vital Signs (last 24 hours): Temp Pulse Resp BP Pulse Ox 98.1 F 93 H 20 123/64 99 02/12/17 15:05 02/12/17 15:05 02/12/17 15:05 02/12/17 15:05 02/12/17 15:05 Intake and Output: 02/12/17 02/13/17 18:59 06:59 Intake Total 300 Balance 300 - Medications Medications: Current Medications Bisacodyl (Dulcolax) 10 mg ME HS PRN PRN Reason: Constipation Last Admin: 02/11/17 21:30 Dose: 10 mg Budesonide (Pulmicort Respules) 0.25 mg INH RQ12 [facility] Last Admin: 02/12/17 19:30 Dose: 0.25 mg Bupropion HCl (Wellbutrin Xl) 150 mg PO DAILY@1400 [facility] Last Admin: 02/12/17 13:53 Dose: 150 mg Digoxin (Lanoxin) 0.25 mg PO DAILY@1800 [facility] Last Admin: 02/12/17 17:54 Dose: 0.25 mg Docusate Sodium (Colace) 200 mg PO BID [facility] Last Admin: 02/12/17 17:56 Dose: 200 mg Famotidine (Pepcid) 20 mg PO DAILY [facility] Last Admin: 02/12/17 09:33 Dose: 20 mg Fenofibrate (Tricor) 145 mg PO DAILY [facility] Last Admin: 02/12/17 09:34 Dose: 145 mg Gabapentin (Neurontin) 800 mg PO TID [facility] Last Admin: 02/12/17 17:55 Dose: 800 mg Ceftriaxone Sodium 2.4 gm/ (Sodium Chloride) 100 mls @ 100 mls/hr IVPB Q24H [facility] Last Admin: 02/12/17 21:44 Dose: 100 mls/hr Insulin Detemir (Levemir) 8 unit SC HS [facility] Last Admin: 02/12/17 21:30 Dose: Not Given Insulin Human Isoph/Insulin Regular (Novolin 70/30 (70/30 Units/Ml) 10 Ml) 0 units SC BIDPC [facility] PRN Reason: Protocol Last Admin: 02/12/17 17:53 Dose: 3 units Lorazepam (Ativan) 1 mg PO Q6H PRN PRN Reason: Anxiety Last Admin: 02/12/17 11:39 Dose: 1 mg Losartan Potassium (Cozaar) 50 mg PO DAILY [facility] Last Admin: 02/12/17 09:32 Dose: 50 mg Magnesium Oxide (Mag-Ox) 400 mg PO TID [facility] Last Admin: 02/12/17 17:54 Dose: 400 mg Metoclopramide HCl (Reglan) 5 mg IVP ACLD [facility] Last Admin: 02/12/17 16:30 Dose: 5 mg Multivitamins (Hexavitamin) 1 tab PO DAILY [facility] Last Admin: 02/12/17 09:32 Dose: 1 tab Pantoprazole Sodium (Protonix Ec Tab) 40 mg PO DAILY [facility] Last Admin: 02/12/17 09:32 Dose: 40 mg Rivaroxaban (Xarelto) 20 mg PO DAILY [facility] Last Admin: 02/12/17 09:35 Dose: 20 mg Sucralfate (Carafate Oral Susp) 1 gm PO ACHS [facility] Last Admin: 02/12/17 21:27 Dose: 1 gm Thiamine HCl (Vitamin B1 Tab) 100 mg PO DAILY [facility] Last Admin: 02/12/17 09:33 Dose: 100 mg Tiotropium [place] (Spiriva) 18 mcg INH RQ24 [facility] Last Admin: 02/12/17 07:41 Dose: 18 mcg - Labs Labs: 02/10/17 08:29 02/11/17 16:19 PT 12.8 SECONDS (9.7-12.2) H 02/07/17 02:51 INR 1.1 02/07/17 02:51 APTT 39 SECONDS (21-34) H 02/07/17 02:51 - Constitutional Appears: No Acute Distress - Head Exam Head Exam: NORMAL INSPECTION, NORMOCEPHALIC - Eye Exam Eye Exam: Normal appearance Pupil Exam: NORMAL ACCOMODATION - ENT Exam ENT Exam: Mucous Membranes Moist, Normal Exam - Neck Exam Neck Exam: Normal Inspection - Respiratory Exam Respiratory Exam: Clear to Ausculation Bilateral, NORMAL BREATHING PATTERN - Cardiovascular Exam Cardiovascular Exam: REGULAR RHYTHM - GI/Abdominal Exam GI & Abdominal Exam: Normal Bowel Sounds Additional comments: no epigastric tenderness - Rectal Exam Rectal Exam: Deferred - Extremities Exam Extremities Exam: Full ROM, Normal Inspection - Neurological Exam Neurological Exam: Alert, Awake, CN II-XII Intact Neuro motor strength exam: Left Upper Extremity: 4, Right Upper Extremity: 4, Left Lower Extremity: 3, Right Lower Extremity: 3 - Psychiatric Exam Psychiatric exam: Anxious, Normal Affect, Normal Mood - Skin Skin Exam: Dry, Intact, Normal Color, Warm Assessment and Plan (1) Acute epigastric pain Assessment & Plan: no more pain when she eats, able to eat a good meal. Status: Resolved (2) GERD (gastroesophageal reflux disease) Assessment & Plan: explained to patient that part of her coughing and throat burning is from GERD and how this happens. Status: Acute (3) Hyponatremia Assessment & Plan: improved with hypertonic saline repletion. will check aldosterone and cortisol levels for the am Status: Chronic (4) Diabetes mellitus type 2, uncontrolled Assessment & Plan: will remain uncontrolled if pt's diet continues to be non-compliant. Was advised by NOD that pt just had sushi and rice for dinner. 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 Lillian Soriano on Feb 14. Will check with cardio
[2017-02-13] MEDS: Sucralfate 1 gm/10 ml Oral Susp UD PO SCH ×5 (06:36→22:07)
[2017-02-13 07:17] LABS: BASO # 0.1 K/uL (0.0-0.2); BASO % 0.6 % (0.0-2.0); EOS # 0.2 K/uL (0.0-0.7); EOS % 1.6 % (0.0-4.0); HEMATOCRIT 37.4 % (34.0-47.0); LYMPH # 2.4 K/uL (1.0-4.3); LYMPH % 21.8 % (20.0-40.0); MEAN CORPUSCULAR HEMOGLOBIN 32.5 pg (27.0-31.0); MEAN CORPUSCULAR HGB CONC 33.7 g/dL (33.0-37.0); MEAN PLATELET VOLUME 9.2 fL (7.2-11.7); MONO # 1.2 K/uL (0.0-0.8); MONO % 10.8 % (0.0-10.0); NRBC % 0.1 % (0.0-2.0); RED CELL DISTRIBUTION WIDTH 13.3 % (11.5-14.5)
[2017-02-13 07:28] LABS: MEAN CELL VOLUME 95.9 fL (81.0-99.0); WHITE BLOOD COUNT 11.1 K/uL (4.8-10.8)
[2017-02-13 07:54] LABS: POTASSIUM 4.6 mmol/L (3.6-5.2)
[2017-02-13 07:56] LABS: ALB/GLOB RATIO 1.2 (1.0-2.1); BILIRUBIN,TOTAL 0.5 mg/dL (0.2-1.3); TOTAL PROTEIN 6.5 g/dL (6.3-8.3)
[2017-02-13 07:57] LABS: CALCIUM 9.2 mg/dl (8.6-10.4); MAGNESIUM 1.2 mg/dL (1.6-2.3); PHOSPHOROUS 3.2 mg/dL (2.5-4.5)
[2017-02-13] MEDS: Budesonide 0.25 mg/2 ml Inhal Susp UD INH SCH ×2 (08:14→19:42)
[2017-02-13] MEDS: Tiotropium 18 mcg Cap For Inhalation INH SCH (08:15)
[2017-02-13] MEDS: (Novolin 70/30) NPH/Regular 70/30 Units/ml 10 ml vial SC SCH ×2 (09:00→17:12)
[2017-02-13] MEDS: Multiple Vitamins Tab PO SCH (09:16)
[2017-02-13] MEDS: Magnesium Oxide 400 mg Tab UD PO SCH ×3 (09:16→17:12)
[2017-02-13] MEDS: Pantoprazole 40 mg EC Tab PO SCH (09:21)
[2017-02-13] MEDS: buPROPion 150 mg/24 Hours XL Tab PO SCH (13:32)
[2017-02-13] MEDS: Digoxin 250 mcg (0.25 mg) Tab PO SCH (17:10)
[2017-02-13 17:13] VITALS: PULSE 94
--- NOTE | 2017-02-13 18:27 | CP.PCM.PN ---
Subjective - Date & Time of Evaluation Date of Evaluation: 02/13/17 Time of Evaluation: 18:19 - Subjective Subjective: Pt donig ok, and sugars are good when she behaves and watches her diet. Patient has been afebrile, with no shortness of breath, and cough has disappeared. Pt started on IV abx after pt noted to have spiking BS readings, and suspected a new UTI bec pt had no other symptoms. Culture results back today with + Klebsiella in urine and sensitive to various classes of abx. > Discussed outcome of tests, and pt much more wlling to go to [facility] now than before. Objective - Vital Signs/Intake and Output Vital Signs (last 24 hours): Temp Pulse Resp BP Pulse Ox 98.3 F 106 H 20 172/74 H 96 02/13/17 15:00 02/13/17 15:00 02/13/17 15:00 02/13/17 15:00 02/13/17 15:00 Intake and Output: 02/13/17 02/13/17 06:59 18:59 Intake Total 740 680 Output Total 0 Balance 740 680 - Medications Medications: Current Medications Bisacodyl (Dulcolax) 10 mg MT HS PRN PRN Reason: Constipation Last Admin: 02/11/17 21:30 Dose: 10 mg Budesonide (Pulmicort Respules) 0.25 mg INH RQ12 [facility] Last Admin: 02/13/17 08:14 Dose: 0.25 mg Bupropion HCl (Wellbutrin Xl) 150 mg PO DAILY@1400 [facility] Last Admin: 02/13/17 13:32 Dose: 150 mg Digoxin (Lanoxin) 0.25 mg PO DAILY@1800 [facility] Last Admin: 02/13/17 17:10 Dose: 0.25 mg Docusate Sodium (Colace) 200 mg PO BID [facility] Last Admin: 02/13/17 17:15 Dose: Not Given Famotidine (Pepcid) 20 mg PO DAILY [facility] Last Admin: 02/13/17 09:21 Dose: 20 mg Fenofibrate (Tricor) 145 mg PO DAILY [facility] Last Admin: 02/13/17 09:22 Dose: 145 mg Gabapentin (Neurontin) 800 mg PO TID [facility] Last Admin: 02/13/17 17:10 Dose: 800 mg Ceftriaxone Sodium 2.4 gm/ (Sodium Chloride) 100 mls @ 100 mls/hr IVPB Q24H [facility] Last Admin: 02/12/17 21:44 Dose: 100 mls/hr Insulin Detemir (Levemir) 8 unit SC HS [facility] Last Admin: 02/12/17 21:30 Dose: Not Given Insulin Human Isoph/Insulin Regular (Novolin 70/30 (70/30 Units/Ml) 10 Ml) 0 units SC BIDPC NITISH PRN Reason: Protocol Last Admin: 02/13/17 17:12 Dose: 4 units Lorazepam (Ativan) 1 mg PO Q6H PRN PRN Reason: Anxiety Last Admin: 02/13/17 13:35 Dose: 1 mg Losartan Potassium (Cozaar) 50 mg PO DAILY [facility] Last Admin: 02/13/17 09:15 Dose: 50 mg Magnesium Oxide (Mag-Ox) 400 mg PO TID [facility] Last Admin: 02/13/17 17:12 Dose: 400 mg Metoclopramide HCl (Reglan) 5 mg IVP ACLD [facility] Last Admin: 02/13/17 17:15 Dose: 5 mg Multivitamins (Hexavitamin) 1 tab PO DAILY [facility] Last Admin: 02/13/17 09:16 Dose: 1 tab Pantoprazole Sodium (Protonix Ec Tab) 40 mg PO DAILY [facility] Last Admin: 02/13/17 09:21 Dose: 40 mg Rivaroxaban (Xarelto) 20 mg PO DAILY [facility] Last Admin: 02/13/17 09:23 Dose: 20 mg Sucralfate (Carafate Oral Susp) 1 gm PO ACHS [facility] Last Admin: 02/13/17 17:15 Dose: Not Given Thiamine HCl (Vitamin B1 Tab) 100 mg PO DAILY [facility] Last Admin: 02/13/17 09:22 Dose: 100 mg Tiotropium [place] (Spiriva) 18 mcg INH RQ24 [facility] Last Admin: 02/13/17 08:15 Dose: Not Given - Labs Labs: 02/13/17 07:04 02/13/17 07:04 PT 12.8 SECONDS (9.7-12.2) H 02/07/17 02:51 INR 1.1 02/07/17 02:51 APTT 39 SECONDS (21-34) H 02/07/17 02:51 - Constitutional Appears: No Acute Distress, In Acute Distress - Head Exam Head Exam: NORMAL INSPECTION, NORMOCEPHALIC - Eye Exam Eye Exam: EOMI, Normal appearance - ENT Exam ENT Exam: Mucous Membranes Moist, Normal Exam - Neck Exam Neck Exam: Lymphadenopathy - Respiratory Exam Respiratory Exam: Chest Wall Tenderness, NORMAL BREATHING PATTERN - Cardiovascular Exam Cardiovascular Exam: REGULAR RHYTHM - GI/Abdominal Exam GI & Abdominal Exam: Hypoactive Bowel Sounds - Rectal Exam Rectal Exam: Deferred - Extremities Exam Additional comments: s/p L bka - Back Exam Back Exam: tenderness Additional comments: + gluteal pressure ulcers - Neurological Exam Neuro motor strength exam: Left Upper Extremity: 3, Right Upper Extremity: 3, Left Lower Extremity: 2/1, Right Lower Extremity: 2/1 - Skin Skin Exam: Mottled, Normal Color Assessment and Plan (1) Acute epigastric pain Status: Resolved (2) GERD (gastroesophageal reflux disease) Assessment & Plan: will put on regular regimen of GI prophylaxis Status: Chronic (3) Hyponatremia Status: Chronic (4) Diabetes mellitus type 2, uncontrolled Status: Chronic (5) Diabetic neuropathy Status: Chronic (6) Depression Status: Chronic (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
[2017-02-13] MEDS: Tmp-Smz 800 mg-160 mg DS Tab PO SCH (19:30)
[2017-02-13] MEDS: Insulin Detemir 100 units/ml Vial (Levemir) SC SCH (22:06)
[2017-02-13] MEDS: Saccharomyces Boulardi 250 mg Cap PO SCH (22:06)
[2017-02-14] MEDS: Tmp-Smz 800 mg-160 mg DS Tab PO SCH ×2 (05:47→17:45)
[2017-02-14] MEDS: Sucralfate 1 gm/10 ml Oral Susp UD PO SCH ×3 (06:44→16:30)
[2017-02-14] MEDS: Budesonide 0.25 mg/2 ml Inhal Susp UD INH SCH (07:46)
[2017-02-14] MEDS: Tiotropium 18 mcg Cap For Inhalation INH SCH (07:46)
[2017-02-14] MEDS: Pantoprazole 40 mg EC Tab PO SCH (09:19)
[2017-02-14] MEDS: Saccharomyces Boulardi 250 mg Cap PO SCH (09:20)
[2017-02-14] MEDS: Multiple Vitamins Tab PO SCH (09:20)
[2017-02-14] MEDS: (Novolin 70/30) NPH/Regular 70/30 Units/ml 10 ml vial SC SCH ×2 (09:21→17:47)
[2017-02-14] MEDS: Magnesium Oxide 400 mg Tab UD PO SCH ×3 (09:21→17:46)
--- NOTE | 2017-02-14 15:15 | CP.PCM.PN ---
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 , states feels better, denies any chest pain, sob, abdominal pain , N/V/D , dysuria, hematuria tolerating diet BS - better between 200- 300 Objective - Vital Signs/Intake and Output Vital Signs (last 24 hours): Temp Pulse Resp BP Pulse Ox 98.2 F 80 20 125/71 96 02/14/17 07:45 02/14/17 09:58 02/14/17 07:45 02/14/17 07:45 02/14/17 09:58 Intake and Output: 02/14/17 02/14/17 06:59 18:59 Intake Total 600 Balance 600 - Medications Medications: Current Medications Bisacodyl (Dulcolax) 10 mg MA HS PRN PRN Reason: Constipation Last Admin: 02/11/17 21:30 Dose: 10 mg Budesonide (Pulmicort Respules) 0.25 mg INH RQ12 [facility] Last Admin: 02/14/17 07:46 Dose: 0.25 mg Bupropion HCl (Wellbutrin) 100 mg PO Q12 [facility] Last Admin: 02/14/17 09:20 Dose: 100 mg Digoxin (Lanoxin) 0.25 mg PO DAILY@1800 [facility] Last Admin: 02/13/17 17:10 Dose: 0.25 mg Docusate Sodium (Colace) 200 mg PO HS PRN PRN Reason: Constipation Famotidine (Pepcid) 20 mg PO DAILY [facility] Last Admin: 02/14/17 09:19 Dose: 20 mg Fenofibrate (Tricor) 145 mg PO DAILY [facility] Last Admin: 02/14/17 09:20 Dose: 145 mg Gabapentin (Neurontin) 800 mg PO TID [facility] Last Admin: 02/14/17 13:26 Dose: 800 mg Insulin Detemir (Levemir) 8 unit SC HS [facility] Last Admin: 02/13/17 22:06 Dose: 8 unit Insulin Human Isoph/Insulin Regular (Novolin 70/30 (70/30 Units/Ml) 10 Ml) 0 units SC BIDPC NITISH PRN Reason: Protocol Last Admin: 02/14/17 09:21 Dose: 3 units Lorazepam (Ativan) 1 mg PO Q6H PRN PRN Reason: Anxiety Last Admin: 02/13/17 22:35 Dose: 1 mg Losartan Potassium (Cozaar) 50 mg PO DAILY [facility] Last Admin: 02/14/17 09:19 Dose: 50 mg Magnesium Oxide (Mag-Ox) 400 mg PO TID [facility] Last Admin: 02/14/17 13:26 Dose: 400 mg Multivitamins (Hexavitamin) 1 tab PO DAILY [facility] Last Admin: 02/14/17 09:20 Dose: 1 tab Pantoprazole Sodium (Protonix Ec Tab) 40 mg PO DAILY [facility] Last Admin: 02/14/17 09:19 Dose: 40 mg Rivaroxaban (Xarelto) 20 mg PO DAILY [facility] Last Admin: 02/14/17 09:20 Dose: 20 mg Saccharomyces Boulardii (Florastor) 250 mg PO Q12 [facility] Last Admin: 02/14/17 09:20 Dose: 250 mg Sucralfate (Carafate Oral Susp) 1 gm PO ACHS [facility] Last Admin: 02/14/17 11:38 Dose: 1 gm Thiamine HCl (Vitamin B1 Tab) 100 mg PO DAILY [facility] Last Admin: 02/14/17 09:20 Dose: 100 mg Tiotropium [place] (Spiriva) 18 mcg INH RQ24 [facility] Last Admin: 02/14/17 07:46 Dose: 18 mcg Trimethoprim/Sulfamethoxazole (Bactrim Ds Tab) 1 tab PO Q12H [facility] Last Admin: 02/14/17 05:47 Dose: 1 tab - Labs Labs: 02/13/17 07:04 02/13/17 07:04 PT 12.8 SECONDS (9.7-12.2) H 02/07/17 02:51 INR 1.1 02/07/17 02:51 APTT 39 SECONDS (21-34) H 02/07/17 02:51 - Constitutional Appears: Well, No Acute Distress - Respiratory Exam Respiratory Exam: Decreased Breath Sounds, Rhonchi, NORMAL BREATHING PATTERN - Cardiovascular Exam Cardiovascular Exam: REGULAR RHYTHM, +S1, +S2 - GI/Abdominal Exam GI & Abdominal Exam: Soft, Normal Bowel Sounds Assessment and Plan - Assessment and Plan (Free Text) Assessment: A/P 71 yr old female admitted for hyponatremia / UTI na- improved AND STABLE - 133> 131> 130>119 Patient accepted at [facility] for PRINCESS D/W deborah Higginbotham for discharge to [facility] today and Dr. Soriano will follow the patient at [facility] discharge plan discussed with patient, who understand and agrees with plan
[2017-02-14 16:18] VITALS: BP 156/71; PULSE 91; TEMP 98; O2SAT 98
--- NOTE | 2017-02-14 18:23 | CP.PCM.DIS ---
Provider - Provider Date of Admission: 02/07/17 03:51 Attending physician: Homer Soriano MD Primary care physician: Homer Soriano MD Consults: none Time Spent in preparation of Discharge (in minutes): 60 Diagnosis - Discharge Diagnosis (1) Acute epigastric pain Status: Resolved Comment: This issue appears to be mainly solved and explained the pathogenesis of the disease to pt multiple times. Linked pt's behavor (alcohol intoxication) with her diabetes as well as electrolyte abnormalities. Though explained to pt multiple times, pt is in denial about her drinking problem and keeps trying to steer away conversation from the actual problem. (2) GERD (gastroesophageal reflux disease) Status: Chronic Priority: Medium Comment: improved with PPI and H2 jazlyn (3) Hyponatremia Status: Acute Priority: High Comment: pptd by excessive alcohol drinking when unsupervised (4) Diabetes mellitus type 2, uncontrolled Status: Chronic Priority: Medium Comment: has little self control with her diet and continues to eat heavily carb laden foods (5) Diabetic neuropathy Status: Chronic Priority: High Comment: manifests as burning and pain of feet and of amputated L leg, yet continues to smoke (6) Depression Status: Chronic Priority: Medium Comment: started pt on bupropion and appears to be doing better, no adverse effects noted (7) 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 Comment: bupropion appears to be effective in controlling her anxiety; appears more reasonable and malleable to intervention (8) UTI (urinary tract infection) Status: Acute Comment: recent discovery 2ndry to high , started on BActrim DS Hospital Course - Lab Results Lab Results: Micro Results 02/11/17 15:01 Urine,Catheterized Urine Culture - Final Klebsiella Pneumoniae Ssp Pneu 02/08/17 Unknown Urine Urine Culture - Final No Growth (<1,000 CFU/ML) Most Recent Lab Values WBC 11.1 K/uL (4.8-10.8) H D 02/13/17 07:04 RBC 3.87 Mil/uL (3.80-5.20) 02/13/17 07:04 Hgb 12.6 g/dL (11.0-16.0) 02/13/17 07:04 Hct 37.4 % (34.0-47.0) 02/13/17 07:04 MCV 95.9 fL (81.0-99.0) 02/13/17 07:04 MCH 32.5 pg (27.0-31.0) H 02/13/17 07:04 MCHC 33.7 g/dL (33.0-37.0) 02/13/17 07:04 RDW 13.3 % (11.5-14.5) 02/13/17 07:04 Plt Count 246 K/uL (130-400) 02/13/17 07:04 MPV 9.2 fL (7.2-11.7) 02/13/17 07:04 Neut % (Auto) 65.2 % (50.0-75.0) 02/13/17 07:04 Lymph % (Auto) 21.8 % (20.0-40.0) 02/13/17 07:04 [place] % (Auto) 10.8 % (0.0-10.0) H 02/13/17 07:04 Eos % (Auto) 1.6 % (0.0-4.0) 02/13/17 07:04 Baso % (Auto) 0.6 % (0.0-2.0) 02/13/17 07:04 Neut # 7.2 K/uL (1.8-7.0) H 02/13/17 07:04 Lymph # 2.4 K/uL (1.0-4.3) 02/13/17 07:04 [place] # 1.2 K/uL (0.0-0.8) H 02/13/17 07:04 Eos # 0.2 K/uL (0.0-0.7) 02/13/17 07:04 Baso # 0.1 K/uL (0.0-0.2) 02/13/17 07:04 PT 12.8 SECONDS (9.7-12.2) H 02/07/17 02:51 INR 1.1 02/07/17 02:51 APTT 39 SECONDS (21-34) H 02/07/17 02:51 Sodium 133 mmol/L (132-148) 02/13/17 07:04 Potassium 4.6 mmol/L (3.6-5.2) 02/13/17 07:04 Chloride 98 mmol/L (98-107) 02/13/17 07:04 Carbon Dioxide 28 mmol/L (22-30) 02/13/17 07:04 Anion Gap 12 (10-20) 02/13/17 07:04 BUN 20 mg/dL (7-17) H 02/13/17 07:04 Creatinine 1.1 mg/dL (0.7-1.2) 02/13/17 07:04 Est GFR ( Amer) 60 02/13/17 07:04 Est GFR (Non-Af Amer) 49 02/13/17 07:04 POC Glucose (mg/dL) 260 mg/dL (65-110) H 02/14/17 16:23 Random Glucose 170 mg/dL (65-105) H 02/13/17 07:04 Calcium 9.2 mg/dl (8.6-10.4) 02/13/17 07:04 Phosphorus 3.2 mg/dL (2.5-4.5) 02/13/17 07:04 Magnesium 1.2 mg/dL (1.6-2.3) L 02/13/17 07:04 Total Bilirubin 0.5 mg/dL (0.2-1.3) 02/13/17 07:04 Direct Bilirubin 0.3 mg/dL (0.0-0.4) 02/08/17 08:31 AST 17 U/L (14-36) 02/13/17 07:04 ALT 28 U/L (9-52) 02/13/17 07:04 Alkaline Phosphatase 45 U/L (38-126) 02/13/17 07:04 Troponin I < 0.0120 ng/mL (0.00-0.120) 02/07/17 05:03 Total Protein 6.5 g/dL (6.3-8.3) 02/13/17 07:04 Albumin 3.5 g/dL (3.5-5.0) 02/13/17 07:04 Globulin 3.0 gm/dL (2.2-3.9) 02/13/17 07:04 Albumin/Globulin Ratio 1.2 (1.0-2.1) 02/13/17 07:04 Lipase < 10 U/L (23-300) L 02/07/17 02:51 Free T4 1.11 ng/dL (0.78-2.19) 10/13/17 12:17 TSH 3rd Generation 15.80 mIU/L (0.46-4.68) H 02/10/17 08:29 Urine Color Yellow (YELLOW) 02/11/17 16:19 Urine Clarity Hazy (Clear) 02/11/17 16:19 Urine pH 5.0 (5.0-8.0) 02/11/17 16:19 Ur Specific [place] 1.023 (1.003-1.030) 02/11/17 16:19 Urine Protein Negative mg/dL (NEGATIVE) 02/11/17 16:19 Urine Glucose (UA) 3+ mg/dL (Normal) H 02/11/17 16:19 Urine Ketones Negative mg/dL (NEGATIVE) 02/11/17 16:19 Urine Blood 2+ (NEGATIVE) H 02/11/17 16:19 Urine Nitrate Positive (NEGATIVE) H 02/11/17 16:19 Urine Bilirubin Negative (NEGATIVE) 02/11/17 16:19 Urine Urobilinogen Normal mg/dL (0.2-1.0) 02/11/17 16:19 Ur Leukocyte Esterase Neg [place]/uL (Negative) 02/11/17 16:19 Urine WBC (Auto) 5 /hpf (0-5) 02/11/17 16:19 Urine RBC (Auto) 11 /hpf (0-3) H 02/11/17 16:19 Ur Squamous Epith Cells < 1 /hpf (0-5) 02/11/17 16:19 Urine Bacteria Occ (<OCC) H 02/11/17 16:19 Digoxin 0.9 ng/mL (0.8-2.0) 02/10/17 08:29 Alcohol, Quantitative 101 mg/dl (0-10) H 02/07/17 02:51 - Hospital Course Hospital Course: Pt admitted for severe epigastric pain per ER complaint Incidental finding of moderately severe hyponatremia with sodium of 120. Pt says she stopped eating because every time she ate, her stomach hurt even mor until she landed at the ER that night. During the hospitalization, pt was stabilized on high dose PPI + H2 jazlyn. Pt's BS which was being managed at the office with the protocol i assinned to pts, were able to approximate dose ranges for DM depending on how much she eats. Pt also noted to be drinking alcohol excessively , whch played a big role in starting and or exacerbating pt's medical conditions. Pt continuedher recovery and bec she needs about 4-6 weeks of iv. pt was transferred to [facility] to allow her to recuperate without the worries of running a household. llllllllllllllllllllllllllllllllllllllllllllllllllllllllllllllllllllllllllllllll llllllllllllllllllllllllllllllllllllllllllllllllllllllllllllllllllllllllllllllll llllllllllllllllllllllllllllllllllllllllllllllllllllllllllll llllllllllllllllllllllllllllllllllllllllllllllllllllllllllllllllllllllllllllllll llllllllllllllllllllllllllllllllllllllllllllllllllllllllllllllllllllllllllllllll llllllllllllllllllllllllllllllllllllllll llllllllllllllllllllllllllllllllllllllllllllllllllllllllllllllllllllllllllllllll llllllllllllllllllllllllllllllllllllllllllllllllllllllllllllllllllllllllllllllll llllllllllllllllllllllllllllllllllllllll llllllllllllllllllllllllllllllllllllllllllllllllllllllllllllllllllllllllllllllll llllllllllllllllllllllllllllllllllllllllllllllllllllp ;;' Discharge Exam - Head Exam Head Exam: NORMAL INSPECTION, NORMOCEPHALIC - Eye Exam Eye Exam: Normal appearance Pupil Exam: NORMAL ACCOMODATION - ENT Exam ENT Exam: Normal Exam - Neck Exam Neck exam: Normal Inspection - Respiratory Exam Respiratory Exam: UNREMARKABLE - Cardiovascular Exam Cardiovascular Exam: REGULAR RHYTHM - GI/Abdominal Exam GI & Abdominal Exam: Normal Bowel Sounds - Rectal Exam Rectal Exam: Deferred - Extremities Exam Extremities exam: normal inspection - Back Exam Back exam: NORMAL INSPECTION - Neurological Exam Neurological exam: Alert, CN II-XII Intact, Oriented x3 - Psychiatric Exam Psychiatric exam: Normal Affect, Normal Mood - Skin Skin Exam: Dry, Intact, Normal Color, Warm Discharge Plan - Follow Up Plan Condition: FAIR Disposition: REHAB FACILITY/REHAB UNIT Instructions: Hyponatremia (DC), COPD (Chronic Obstructive Pulmonary Disease) ( DC), Gastroesophageal Reflux Disease (DC), Abuse of Alcohol (DC) Additional Instructions: PLEASE ADMIT PATIENT UNDER DR. SORIANO SERVICE- CALL DR. SORIANO UPON PATIENT ARRIVAL TO THE FACILITY CONTINUE MEDICATION PER MED. REC. PLEASE CALL DR. FONTANEZ FOR PSYCHE CONSULT Referrals: Homer Soriano MD [Primary Care Provider] -
== END 2017-02-14 18:54 | DRG 391 ==
LOC: SUPCPDRO 02:06 → C.ER 02:06 → C.9E 03:51 → C.5S 04:58 → C.3T 02-09 06:26
PROVIDERS: ADMIT Family Medicine; ATTEND Family Medicine
DX: R10.13 Epigastric pain (principal); L89.303 Pressure ulcer of unspecified buttock, stage 3; K31.1 Adult hypertrophic pyloric stenosis; G82.20 Paraplegia, unspecified; E11.40 Type 2 diabetes mellitus with diabetic neuropathy, unspecified; G30.9 Alzheimer's disease, unspecified; F02.80 Dementia in other diseases classified elsewhere, unspecified severity, without behavioral disturbance, psychotic disturbance, mood disturbance, and anxiety; E87.1 Hypo-osmolality and hyponatremia; J44.1 Chronic obstructive pulmonary disease with (acute) exacerbation; N39.0 Urinary tract infection, site not specified; F10.230 Alcohol dependence with withdrawal, uncomplicated; E11.65 Type 2 diabetes mellitus with hyperglycemia; I10 Essential (primary) hypertension; B96.1 Klebsiella pneumoniae [K. pneumoniae] as the cause of diseases classified elsewhere; G35 Multiple sclerosis; I48.91 Unspecified atrial fibrillation; F32.9 Major depressive disorder, single episode, unspecified; K21.9 Gastro-esophageal reflux disease without esophagitis; E03.9 Hypothyroidism, unspecified; F17.210 Nicotine dependence, cigarettes, uncomplicated; E78.00 Pure hypercholesterolemia, unspecified; G47.30 Sleep apnea, unspecified; Y90.5 Blood alcohol level of 100-119 mg/100 ml; F06.4 Anxiety disorder due to known physiological condition; Z89.612 Acquired absence of left leg above knee; Z91.11 Patient's noncompliance with dietary regimen; Z79.4 Long term (current) use of insulin

== ENCOUNTER 2017-06-25 03:37 | Inpatient (IN) | payer MEDICARE, MEDICAID ==
--- NOTE | 2017-06-25 04:28 | C.PDOC ---
History Of Present Illness 72 year old female with hx of COPD presents to the ED [facility] for evaluation of shortness of breath. Patient speaking in 4-5 word sentences. She complains of 4/ 10 discomfort. Patient had 1 duoneb and solumedrol en route. Patient is an active smoker. Time Seen by Provider: 06/25/17 04:28 Chief Complaint (Nursing): Shortness Of Breath History Per: Patient History/Exam Limitations: no limitations Onset/Duration Of Symptoms: Hrs Current Symptoms Are (Timing): Still Present Initiating Event: Upper Respiratory Illness Exacerbating Factor(s): Coughing Current Respiratory Medications: See Home Med List Severity: Moderate Pain Scale Rating Of: 5 Associated Symptoms: denies: Fever Reports Recently: Treated By A Physician Recent travel outside of the [place]: No Additional History Per: EMS Past Medical History Reviewed: Historical Data, Nursing Documentation, Vital Signs Vital Signs: Last Vital Signs Temp 98.9 F 06/25/17 04:03 Pulse 102 H 06/25/17 04:03 Resp 28 H 06/25/17 04:34 BP 163/79 H 06/25/17 04:03 Pulse Ox 100 06/25/17 05:40 - Medical History PMH: Alzheimer's Disease, Anxiety, Arthritis, Asthma, Atrial Fibrillation, Bronchitis, Cardia Arrhythmia, COPD, Depression, Diabetes, Emphysema, Gastritis , HTN, Hypercholesterolemia, Hyperthyroidism, Hypothyroidism, Peripheral Edema, Sleep Apnea Denies: CHF, Mitral Valve Prolapse, Chronic Kidney Disease Surgical History: Cholecystectomy Denies: Pacemaker - [facility] Procedures APPLIC OF EXTERNAL FIXATOR DEVICE, RADIUS AND ULNA (12/20/12) BELOW KNEE AMPUTAT NEC (06/30/14) CL FX REDUC-RADIUS/ULNA (12/20/12) CONTINUOUS INVASIVE MECHANICAL VENTILATION <96 CONSEC HRS (06/30/14) ENTERAL INFUSION OF CONCENTRATED NUT. SUBSTANCES (06/30/14) OTHER ENDOVASCULAR PROCEDURES ON OTHER VESSELS (06/30/14) OTHER LOCAL DESTRUC SKIN (07/11/13) OTHER MYECTOMY (09/15/14) PHYSICAL THERAPY NEC (02/15/13) Family History: States: Unknown Family Hx - Social History Hx Tobacco Use: Yes Hx Alcohol Use: Yes Hx Substance Use: No - Immunization History Hx Tetanus Toxoid Vaccination: No Hx Influenza Vaccination: Yes Hx Pneumococcal Vaccination: Yes Review Of Systems Constitutional: Negative for: Fever, Chills ENT: Negative for: Ear Pain, Throat Pain Cardiovascular: Negative for: Chest Pain Respiratory: Positive for: Cough, Shortness of Breath, Pleuritic Pain Gastrointestinal: Negative for: Nausea, Vomiting, Abdominal Pain, Diarrhea Skin: Negative for: Rash Neurological: Negative for: Headache Physical Exam - Physical Exam Appears: Non-toxic Skin: Warm, Dry Head: Normacephalic Eye(s): bilateral: Normal Inspection Oral Mucosa: Moist Throat: No Erythema Neck: Trachea Midline, Supple Chest: Symmetrical Cardiovascular: Rhythm Regular Respiratory: Decreased Breath Sounds, No Rales, Rhonchi (scattered rhonchi), Wheezing Gastrointestinal/Abdominal: Soft, No Tenderness, No Distention Back: Normal Inspection Extremity: No Tenderness, Other (Left BKA) Extremity: Left: Other (bka), Right: Normal Color And Temperature Neurological/Psych: Oriented x3 Gait: Unsteady ED Course And Treatment - Laboratory Results Result Diagrams: 06/25/17 05:18 06/25/17 05:18 ECG: Interpreted By Me, Viewed By Me ECG Rhythm: Sinus Rhythm (103), Nonspecific Changes O2 Sat by Pulse Oximetry: 100 Pulse Ox Interpretation: Normal - Radiology CXR: Interpreted by Me, Viewed By Me CXR Interpretation: No: Infiltrates, Fracture, Pnemothorax Critical Care Time - Critical Care Note Total Time (in mins): 30 Documented critical care: time excludes all time spent performing seperately billable procedures. Disposition Discussed With : Homer Soriano Comment: accepted the pt on his service and took over the care at 6 AM Doctor Will See Patient In The: Hospital Counseled Patient/Family Regarding: Studies Performed, Diagnosis - Disposition Disposition: HOSPITALIZED Disposition Time: 04:28 Condition: FAIR Forms: [facility] (Maori) - POA Present On Arrival: Poor Glycemic Control - Clinical Impression Clinical Impression: Dyspnea, Respiratory distress, COPD exacerbation - Scribe Statement The provider has reviewed the documentation as recorded by the Scribe (Abdulkadir Melvin) Provider Attestation: All medical record entries made by the Scribe were at my direction and personally dictated by me. I have reviewed the chart and agree that the record accurately reflects my personal performance of the history, physical exam, medical decision making, and the department course for this patient. I have also personally directed, reviewed, and agree with the discharge instructions and disposition. Decision To Admit - Pt Status Changed To: Hospital Disposition Of: Inpatient - Admit Certification Admit to Inpatient:: After my assessment, the patient will require hospitalization for at least two midnights. This is because of the severity of symptoms shown, intensity of services needed, and/or the medical risk in this patient being treated as an outpatient. - InPatient: Physician Admission Certification: I certify that this patient requires 2 or more midnights of care for the following reason:: After my assessment, the patient will require hospitalization for at least two midnights. This is because of the severity of symptoms shown, intensity of services needed, and/or the medical risk in this patient being treated as an outpatient. - . Bed Request Type: Regular Admitting Physician: Homer Soriano Patient Diagnosis: Dyspnea, Respiratory distress, COPD exacerbation
[2017-06-25] MEDS ORDERED: Albuterol-Ipratrop 3 mg / 0.5 (3 ml) UD ONE ×3 (04:48→16:11)
[2017-06-25 05:22] LABS: BASO # 0.1 K/uL (0.0-0.2); BASO % 0.7 % (0.0-2.0); EOS % 0.5 % (0.0-4.0); HEMOGLOBIN 13.3 g/dL (11.0-16.0); LYMPH # 0.9 K/uL (1.0-4.3); LYMPH % 8.5 % (20.0-40.0); MEAN CORPUSCULAR HEMOGLOBIN 31.6 pg (27.0-31.0); MEAN CORPUSCULAR HGB CONC 34.6 g/dL (33.0-37.0); MEAN PLATELET VOLUME 7.9 fL (7.2-11.7); MONO # 0.4 K/uL (0.0-0.8); MONO % 3.7 % (0.0-10.0); NEUT # 9.4 K/uL (1.8-7.0); NEUT % 86.6 % (50.0-75.0); RED CELL DISTRIBUTION WIDTH 13.4 % (11.5-14.5); WHITE BLOOD COUNT 10.8 K/uL (4.8-10.8)
[2017-06-25 05:23] LABS: MEAN CELL VOLUME 91.5 fL (81.0-99.0)
[2017-06-25 05:24] LABS: PLATELET COUNT 396 K/uL (130-400)
[2017-06-25 05:27] LABS: INR 1.2; PROTHROMBIN TIME 13.5 SECONDS (9.7-12.2)
[2017-06-25] MEDS: Albuterol-Ipratrop 3 mg / 0.5 (3 ml) UD IH SCH (05:27)
[2017-06-25 05:35] LABS: ALB/GLOB RATIO 0.8 (1.0-2.1); ALT/SGPT 28 U/L (9-52); AST/SGOT 32 U/L (14-36); BLOOD UREA NITROGEN 9 mg/dL (7-17); CALCIUM 8.5 mg/dl (8.6-10.4); GFR AFRICAN-AMERICAN > 60; GFR NON-AFRICAN AMERICAN > 60; MAGNESIUM 1.3 mg/dL (1.6-2.3)
[2017-06-25 05:38] LABS: ABG ALLEN TEST POS; ARTERIAL BLOOD GAS HCO3 26.3 mmol/L (21-28); ARTERIAL BLOOD GAS O2 SAT 97.9 % (95-98); ARTERIAL BLOOD GAS PCO2 53 mm/Hg (35-45); ARTERIAL BLOOD GAS PH 7.34 (7.35-7.45); ARTERIAL BLOOD GAS PO2 95 mm/Hg (80-100); ARTERIAL BLOOD GAS TCO2 30.2 mmol/L (22-28)
[2017-06-25 05:57] LABS: EOSINOPHIL 2 % (0-4); LYMPHOCYTE 5 % (20-40); MONOCYTE 2 % (0-10); NEUTROPHIL 91 % (50-75); TOTAL CELLS COUNTED 100
[2017-06-25 05:58] LABS: PLATELET ESTIMATE NORMAL (NORMAL)
[2017-06-25 05:59] LABS: ANISOCYTOSIS SLIGHT; OVALOCYTES SLIGHT; POIKILOCYTOSIS SLIGHT
--- NOTE | 2017-06-25 07:48 | RAD ---
Chest x-ray single frontal view History: Shortness of breath. Comparison: 02/07/2017 Findings: Bibasilar breast prostheses noted. Capsular calcifications as well as soft tissue lobulations seen the level of the left breast. Correlation with mammography is recommended. Biapical pleural thickening with upper lobe granulomatous changes. Mild venous congestion. Calcification at the aortic knob. Mild cardiomegaly. Degenerative changes in the spine and shoulders. Impression: Bibasilar breast prostheses noted. Capsular calcifications as well as soft tissue lobulations seen the level of the left breast. Correlation with mammography is recommended. Biapical pleural thickening with upper lobe granulomatous changes. Mild venous congestion. Calcification at the aortic knob. Mild cardiomegaly.
[2017-06-25] MEDS ORDERED: FENOFIBRATE 160 MG PO SCH (10:00)
[2017-06-25] MEDS ORDERED: Ergocalciferol 400 INTLU/0.05 ML PO SCH (10:00)
[2017-06-25] MEDS: buPROPion SR 150 MG TABLET PO SCH ×2 (10:02→19:43)
[2017-06-25] MEDS: Verapamil 180 mg ER Tab PO SCH (10:03)
[2017-06-25] MEDS: Tiotropium 18 mcg Cap For Inhalation INH SCH (10:20)
[2017-06-25] MEDS: Albuterol-Ipratrop 3 mg / 0.5 (3 ml) UD INH SCH ×2 (11:23→19:34)
[2017-06-25] MEDS ORDERED: Insulin Detemir 100 units/ml Vial (Levemir) SC SCH (13:00)
[2017-06-25 13:16] VITALS: RESP 20
[2017-06-25] MEDS ORDERED: Pantoprazole 40 mg EC Tab PO ONE (17:05)
[2017-06-25] MEDS: Pantoprazole 40 mg EC Tab PO SCH (17:07)
[2017-06-25] MEDS ORDERED: (Novolog Mix 70/30) Insulin Aspart/Insulin Aspar 100 units/ml SC SCH ×2 (22:07→22:45)
[2017-06-25] MEDS: (Novolog Mix 70/30) Insulin Aspart/Insulin Aspar 100 units/ml SC SCH (23:25)
--- NOTE | 2017-06-26 00:05 | CP.PCM.HP ---
History of Present Illness - History of Present Illness History of Present Illness: cc: Shortness of breath HPI: patient is a 72-year-old female s/p left BKA approximately three years ago and also suffers from diabetes, hypertension, hyperlipidemia, anxiety disorder, depression, as well as most recently alcohol use disorder. Patients most recent hospitalizations related to hyponatremia, hypomagnesemia, and other electrolyte disturbances secondary to excessive alcohol use. Patient claims to have stepped using alcohol and is supposed to be abstaining from alcohol completely. Patient was last seen at the office June 14 of this year where she complained of increased shortness of breath but appeared to be within normal limits when she was seen. Reviewed patient's medications with her including the proper use of inhaled steroids as well as short acting beta agonists. Prior to this time patient had not been using her inhaled steroids. Regarding her diabetes, we had increased her love acting insulin at a prior visit and discontinued her combination insulin ORVV or only to use it beyond a certain blood sugar reading. Patient reports that her sugar now goes rarely above 200 when fasting. Her most recent bloodwork though showed a hemoglobin A1c of 11.5 as with improvement in her blood sugar patient had been taking certain liberties with her diet. Patient admitted today with an elevated PCO2 as well as hyponatremia. Present on Admission - Present on Admission Any Indicators Present on Admission: No History of DVT/PE: No History of Uncontrolled Diabetes: Yes Urinary Catheter: No Decubitus Ulcer Present: Yes Decubitus Ulcer Stage: II History Surgical Site Infection Following: Orthopedic Procedures (Status post left BKA) Review of Systems - Review of Systems Systems not reviewed;Unavailable: Respiratory Distress - Constitutional Constitutional: Anorexia - EENT Nose/Mouth/Throat: Nasal Congestion, Nasal Discharge Past Patient History - Infectious Disease Hx of Infectious Diseases: None - Past Medical History & Family History Past Medical History?: Yes - Past Social History Smoking Status: Light Smoker < 10 Cigarettes Daily Chewing Tobacco Use: No Cigar Use: No Occupation: retired Alcohol: None (recently quit) Drugs: Denies Home Situation {Lives}: Alone - CARDIAC Hx Atrial Fibrillation: Yes (back in NSR) Hx Cardia Arrhythmia: Yes (back in NSR) Hx Congestive Heart Failure: No Hx Hypercholesterolemia: Yes Hx Hypertension: Yes Hx Mitral Valve Prolapse: No Hx Pacemaker: No Hx Peripheral Edema: Yes - PULMONARY Hx Asthma: Yes Hx Bronchitis: Yes Hx Chronic Obstructive Pulmonary Disease (COPD): Yes Hx Emphysema: Yes Hx Sleep Apnea: Yes - NEUROLOGICAL Hx Alzheimer's Disease: No - HEENT Hx Difficulty Chewing: Yes - RENAL Hx Chronic Kidney Disease: No - ENDOCRINE/METABOLIC Hx Hyperthyroidism: Yes Hx Hypothyroidism: Yes - HEMATOLOGICAL/ONCOLOGICAL Hx Blood Disorders: No Hx Blood Transfusions: Yes - INTEGUMENTARY Hx Dermatological Problems: Yes Hx Cellulitis: Yes (current) Hx Eczema: Yes - MUSCULOSKELETAL/RHEUMATOLOGICAL Hx Arthritis: Yes - GASTROINTESTINAL Hx Gastritis: Yes - GENITOURINARY/GYNECOLOGICAL Hx Genitourinary Disorders: No - PSYCHIATRIC Hx Anxiety: Yes Hx Depression: Yes Hx Substance Use: No - SURGICAL HISTORY Hx Cholecystectomy: Yes Other/Comment: s/p L BKA - ANESTHESIA Hx Anesthesia: Yes Hx Anesthesia Reactions: No Hx Malignant Hyperthermia: No Meds Allergies/Adverse Reactions: Allergies Allergy/AdvReac Type Severity Reaction Status Date / Time MIRIAM Inhibitors Allergy COUGH Verified 02/07/17 02:17 Physical Exam - Constitutional Appears: No Acute Distress - Head Exam Head Exam: NORMAL INSPECTION - Eye Exam Eye Exam: Normal appearance Pupil Exam: NORMAL ACCOMODATION - ENT Exam ENT Exam: Normal Exam - Neck Exam Neck exam: Positive for: Normal Inspection - Respiratory Exam Respiratory Exam: Decreased Breath Sounds - Cardiovascular Exam Cardiovascular Exam: REGULAR RHYTHM - GI/Abdominal Exam GI & Abdominal Exam: Normal Bowel Sounds - Rectal Exam Rectal Exam: Deferred - Exam Exam: NORMAL INSPECTION External exam: NORMAL EXTERNAL EXAM - Back Exam Back exam: NORMAL INSPECTION Additional comments: stage II ulcer, L buttocks - Neurological Exam Neurological exam: Alert, CN II-XII Intact, Oriented x3, Reflexes Normal - Psychiatric Exam Psychiatric exam: Anxious Additional comments: evaluate if still with depression or more anxiety - Skin Skin Exam: Dry, Intact, Normal Color Results - Vital Signs Recent Vital Signs: Last Vital Signs Temp 97.6 F 06/25/17 19:44 Pulse 85 06/25/17 19:44 Resp 20 06/25/17 19:44 BP 147/67 06/25/17 19:44 Pulse Ox 100 06/25/17 19:44 - Labs Result Diagrams: 06/25/17 05:18 06/25/17 05:18 Labs: Laboratory Results - last 24 hr 06/25/17 06/25/17 06/25/17 05:18 05:18 05:18 WBC 10.8 RBC 4.20 Hgb 13.3 Hct 38.4 MCV 91.5 D MCH 31.6 H MCHC 34.6 RDW 13.4 Plt Count 396 D MPV 7.9 Neut % (Auto) 86.6 H Lymph % (Auto) 8.5 L [place] % (Auto) 3.7 Eos % (Auto) 0.5 Baso % (Auto) 0.7 Neut # (Auto) 9.4 H Lymph # (Auto) 0.9 L [place] # (Auto) 0.4 Eos # (Auto) 0.0 Baso # (Auto) 0.1 Neutrophils % (Manual) 91 H Lymphocytes % (Manual) 5 L Monocytes % (Manual) 2 Eosinophils % (Manual) 2 Platelet Estimate Normal Poikilocytosis (manual Slight Anisocytosis (manual) Slight Ovalocytes Slight PT 13.5 H INR 1.2 Puncture Site pCO2 pO2 HCO3 ABG pH ABG Total CO2 ABG O2 Saturation ABG Base Excess Reyes Test ABG Potassium A-a O2 Difference Respiratory Index Glucose Lactate Liter Flow FiO2 Sodium 123 L Potassium 4.8 Chloride 87 L Carbon Dioxide 30 Anion Gap 11 BUN 9 Creatinine 0.8 Est GFR ( Amer) > 60 Est GFR (Non-Af Amer) > 60 POC Glucose (mg/dL) Random Glucose 193 H Calcium 8.5 L Magnesium 1.3 L Total Bilirubin 0.5 AST 32 ALT 28 Alkaline Phosphatase 86 Total Protein 6.8 Albumin 3.0 L Globulin 3.8 Albumin/Globulin Ratio 0.8 L Arterial Blood Potassium Influenza Typ A,B (EIA) 06/25/17 06/25/17 06/25/17 05:35 07:26 08:43 WBC RBC Hgb Hct MCV MCH MCHC RDW Plt Count MPV Neut % (Auto) Lymph % (Auto) [place] % (Auto) Eos % (Auto) Baso % (Auto) Neut # (Auto) Lymph # (Auto) [place] # (Auto) Eos # (Auto) Baso # (Auto) Neutrophils % (Manual) Lymphocytes % (Manual) Monocytes % (Manual) Eosinophils % (Manual) Platelet Estimate Poikilocytosis (manual Anisocytosis (manual) Ovalocytes PT INR Puncture Site Rr pCO2 53 H pO2 95 HCO3 26.3 ABG pH 7.34 L ABG Total CO2 30.2 H ABG O2 Saturation 97.9 ABG Base Excess 1.8 Reyes Test Pos ABG Potassium 4.3 A-a O2 Difference 38.0 Respiratory Index 0.4 Glucose 198 H Lactate 0.6 L Liter Flow 2.0 FiO2 28.0 Sodium 127.0 L Potassium Chloride 97.0 L Carbon Dioxide Anion Gap BUN Creatinine Est GFR ( Amer) Est GFR (Non-Af Amer) POC Glucose (mg/dL) 248 H Random Glucose Calcium Magnesium Total Bilirubin AST ALT Alkaline Phosphatase Total Protein Albumin Globulin Albumin/Globulin Ratio Arterial Blood Potassium 4.3 Influenza Typ A,B (EIA) Negative for flu a/b 06/25/17 06/25/17 06/25/17 15:20 19:27 19:29 WBC RBC Hgb Hct MCV MCH MCHC RDW Plt Count MPV Neut % (Auto) Lymph % (Auto) [place] % (Auto) Eos % (Auto) Baso % (Auto) Neut # (Auto) Lymph # (Auto) [place] # (Auto) Eos # (Auto) Baso # (Auto) Neutrophils % (Manual) Lymphocytes % (Manual) Monocytes % (Manual) Eosinophils % (Manual) Platelet Estimate Poikilocytosis (manual Anisocytosis (manual) Ovalocytes PT INR Puncture Site pCO2 pO2 HCO3 ABG pH ABG Total CO2 ABG O2 Saturation ABG Base Excess Reyes Test ABG Potassium A-a O2 Difference Respiratory Index Glucose Lactate Liter Flow FiO2 Sodium Potassium Chloride Carbon Dioxide Anion Gap BUN Creatinine Est GFR ( Amer) Est GFR (Non-Af Amer) POC Glucose (mg/dL) 335 H 463 H* 425 H* Random Glucose Calcium Magnesium Total Bilirubin AST ALT Alkaline Phosphatase Total Protein Albumin Globulin Albumin/Globulin Ratio Arterial Blood Potassium Influenza Typ A,B (EIA) 06/25/17 21:07 WBC RBC Hgb Hct MCV MCH MCHC RDW Plt Count MPV Neut % (Auto) Lymph % (Auto) [place] % (Auto) Eos % (Auto) Baso % (Auto) Neut # (Auto) Lymph # (Auto) [place] # (Auto) Eos # (Auto) Baso # (Auto) Neutrophils % (Manual) Lymphocytes % (Manual) Monocytes % (Manual) Eosinophils % (Manual) Platelet Estimate Poikilocytosis (manual Anisocytosis (manual) Ovalocytes PT INR Puncture Site pCO2 pO2 HCO3 ABG pH ABG Total CO2 ABG O2 Saturation ABG Base Excess Reyes Test ABG Potassium A-a O2 Difference Respiratory Index Glucose Lactate Liter Flow FiO2 Sodium Potassium Chloride Carbon Dioxide Anion Gap BUN Creatinine Est GFR ( Amer) Est GFR (Non-Af Amer) POC Glucose (mg/dL) 376 H Random Glucose Calcium Magnesium Total Bilirubin AST ALT Alkaline Phosphatase Total Protein Albumin Globulin Albumin/Globulin Ratio Arterial Blood Potassium Influenza Typ A,B (EIA) Assessment & Plan (1) COPD exacerbation Status: Acute Priority: High Comment: acute on chronic (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 Assessment and Plan: unsure if pt taking her SSRI. Will obtain psych consult Status: Chronic (3) Diabetes mellitus type 2, uncontrolled Status: Chronic Priority: Medium Comment: pt on new protocol i am using on my patients and outpatient, appears to be effective in controlling pt's sugars. still in process of customizing for this pt
[2017-06-26] MEDS ORDERED: Influenza Vaccine 60 mcg/0.5 mL SYR (4YR UP) IM ONE (01:35)
[2017-06-26] MEDS ORDERED: Pneumococcal 23-Valent Vaccine IM ONE (01:36)
[2017-06-26] MEDS: Albuterol-Ipratrop 3 mg / 0.5 (3 ml) UD INH SCH ×4 (01:40→19:43)
[2017-06-26] MEDS: Tiotropium 18 mcg Cap For Inhalation INH SCH (07:33)
[2017-06-26 07:42] LABS: BLOOD UREA NITROGEN 19 mg/dL (7-17); CALCIUM 8.6 mg/dl (8.6-10.4); GFR AFRICAN-AMERICAN 49; GFR NON-AFRICAN AMERICAN 40; MAGNESIUM 1.6 mg/dL (1.6-2.3)
[2017-06-26] MEDS ORDERED: Sodium Chloride 0.9% 1,000 ML IV SCH (08:30)
[2017-06-26] MEDS ORDERED: (Novolog Mix 70/30) Insulin Aspart/Insulin Aspar 100 units/ml SC SCH ×2 (10:00)
[2017-06-26] MEDS: Verapamil 180 mg ER Tab PO SCH (10:21)
[2017-06-26] MEDS: (Novolog Mix 70/30) Insulin Aspart/Insulin Aspar 100 units/ml SC SCH ×2 (10:22→18:02)
[2017-06-26] MEDS: methIMAzole 5 MG TAB PO SCH ×2 (10:27→21:31)
[2017-06-26] MEDS: buPROPion SR 150 MG TABLET PO SCH ×2 (10:27→17:50)
[2017-06-26] MEDS: Insulin Detemir 100 units/ml Vial (Levemir) SC SCH (13:17)
[2017-06-26] MEDS: Ergocalciferol 50,000 Intl Units Cap PO SCH (13:38)
[2017-06-26] MEDS: Pantoprazole 40 mg EC Tab PO SCH (17:49)
[2017-06-26] MEDS ORDERED: SODIUM CHLORIDE 3% IV ONE (20:28)
[2017-06-26] MEDS ORDERED: SODIUM BICARBONATE IV ONE (20:28)
--- NOTE | 2017-06-26 20:37 | CP.PCM.PN ---
Subjective - Date & Time of Evaluation Date of Evaluation: 06/26/17 Time of Evaluation: 20:34 - Subjective Subjective: Pt sleeping soundly but awakened readily when i arrived at bedside. Pt said that her copd had been acting up, and pt seen on the and reinforced how to use her nebulizer medications. Pt had not been using her nebulized steroids, nor her inhaled steroids and relying mainly on her beta agonist meds. Most important of all, she has not quit smoking. Objective - Vital Signs/Intake and Output Vital Signs (last 24 hours): Temp Pulse Resp BP Pulse Ox 98.3 F 97 H 20 127/62 95 06/26/17 00:00 06/26/17 13:15 06/26/17 00:00 06/26/17 13:15 06/26/17 13:15 Intake and Output: 06/26/17 06/27/17 18:59 06:59 Intake Total 1000 Balance 1000 - Medications Medications: Current Medications Acetaminophen (Tylenol 325mg Tab) 650 mg PO Q6 PRN PRN Reason: Pain, moderate (4-7) Last Admin: 06/26/17 13:32 Dose: 650 mg Albuterol/Ipratropium (Duoneb 3 Mg/0.5 Mg (3 Ml) Ud) 3 ml INH RQ6 [facility] Last Admin: 06/26/17 19:43 Dose: 3 ml Alprazolam (Xanax) 0.5 mg PO Q12 [facility] Last Admin: 06/26/17 10:27 Dose: 0.5 mg Bupropion HCl (Wellbutrin Sr 150 Mg) 150 mg PO BID [facility] Last Admin: 06/26/17 17:50 Dose: 150 mg Ergocalciferol (Drisdol 50,000 Intl Units Cap) 1 cap PO QWK [facility] Last Admin: 06/26/17 13:38 Dose: 1 cap Fenofibrate (Tricor) 145 mg PO HS [facility] Last Admin: 06/25/17 23:20 Dose: 145 mg Gabapentin (Neurontin) 800 mg PO TID [facility] Last Admin: 06/26/17 13:34 Dose: 800 mg Sodium Bicarbonate 50 meq/ (Sodium Chloride) 550 mls @ 25 mls/hr IV .Q22H ONE Stop: 06/27/17 18:27 Insulin Aspart (Novolog Mix 70/30 (70/30 Units/Ml)) 0 units SC AMPM [facility] Last Admin: 06/26/17 18:02 Dose: 3 units Insulin Detemir (Levemir) 14 unit SC PCL [facility] Last Admin: 06/26/17 13:17 Dose: 14 unit Losartan Potassium (Cozaar) 50 mg PO DAILY [facility] Last Admin: 06/26/17 10:22 Dose: 50 mg Methimazole (Tapazole) 5 mg PO BID [facility] Last Admin: 06/26/17 10:27 Dose: 5 mg Methylprednisolone (Solu-Medrol) 30 mg IV PCL [facility] Stop: 06/27/17 13:01 Pantoprazole Sodium (Protonix Ec Tab) 40 mg PO ACD [facility] Last Admin: 06/26/17 17:49 Dose: 40 mg Rivaroxaban (Xarelto) 20 mg PO DAILY [facility] Last Admin: 06/26/17 10:28 Dose: 20 mg Tiotropium [place] (Spiriva) 18 mcg INH RQ24 [facility] Last Admin: 06/26/17 07:33 Dose: Not Given Verapamil HCl (Calan Sr Tab) 180 mg PO DAILY [facility] Last Admin: 06/26/17 10:21 Dose: 180 mg - Labs Labs: 06/25/17 05:18 06/26/17 07:09 PT 13.5 SECONDS (9.7-12.2) H 06/25/17 05:18 INR 1.2 06/25/17 05:18 - Constitutional Appears: No Acute Distress, Other (says she feels very weak) - Head Exam Head Exam: NORMAL INSPECTION, NORMOCEPHALIC - Eye Exam Eye Exam: Normal appearance Pupil Exam: NORMAL ACCOMODATION - ENT Exam ENT Exam: Normal Exam - Neck Exam Neck Exam: Normal Inspection - Respiratory Exam Respiratory Exam: Prolonged Expiratory Phase Additional comments: + rhonchi and phlegm when coughing - Cardiovascular Exam Cardiovascular Exam: REGULAR RHYTHM - GI/Abdominal Exam GI & Abdominal Exam: Normal Bowel Sounds - Rectal Exam Rectal Exam: Deferred, NORMAL INSPECTION - Exam Exam: NORMAL INSPECTION - Back Exam Additional comments: + stage II pressure ulcer on L buttock with pressure dressing - Neurological Exam Neurological Exam: Abnormal Gait Neuro motor strength exam: Left Upper Extremity: 4, Right Upper Extremity: 4, Left Lower Extremity: 4, Right Lower Extremity: 4 - Psychiatric Exam Psychiatric exam: Depressed, Normal Affect, Normal Mood - Skin Skin Exam: Dry, Intact, Normal Color, Warm Assessment and Plan (1) COPD exacerbation Assessment & Plan: improving, tapering down on her steroid to 30 mg IV methylprednisolone Status: Acute (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 Assessment & Plan: on xanax and wellbutrin. psych on board. agre with mgt Status: Chronic (3) Diabetes mellitus type 2, uncontrolled Assessment & Plan: pt on levemir and novolog 70/30. Instructed nursing staff on testing and coverage. If pt compliant with diet, BS will come down and avoid hypoglycemia. If pt sneaks in food not on diet plan, will be spiking up and need adjusting. Status: Chronic
--- NOTE | 2017-06-27 00:19 | CON ---
DATE: 06/26/2017. CHIEF COMPLAINT AND REASON FOR CONSULTATION: The patient is referred by Dr. Homer Soriano for evaluation and comanagement of depression and anxiety as well as patient has history of nicotine dependence and alcohol dependence. HISTORY OF PRESENT ILLNESS: This is a case of a 72-year-old female of [place] descent with history of COPD and depression, anxiety. Patient came to the emergency room complaining of shortness of breath. Patient stated she had been having increasing anxiety attack. Patient had history of COPD but continues to smoke. Patient reported she started smoking since she was 17 years old and consumes a pack a day. On her last admission on 01/2017, she was admitted here for similar reasons when the patient was actively drinking. She states she has not been drinking and the alcohol level was negative. Today, she reports she has been taking Xanax at home 0.5 mg twice a day and Wellbutrin 150 mg twice a day for her depression, anxiety as well as to curve her nicotine dependence. Patient advised to stop smoking as she has COPD and smoking will exacerbate COPD, which she will try to do. Patient also would try to stay sober from alcohol. PAST PSYCHIATRIC HISTORY: Patient had history of depression, anxiety. PAST MEDICAL HISTORY: Atrial fibrillation, COPD, diabetes, gastritis, hypercholesteremia, thyroid problems. SURGICAL HISTORY: The patient had history of left BKA. DRUG AND ALCOHOL HISTORY: The patient actively smoking and used to drink. ALLERGIES: SHE IS ALLERGIC TO MIRIAM [employer]HIB[employer]. PSYCHOSOCIAL HISTORY: The patient lives alone, but has some homemaker services. MEDICATIONS: The patient is taking verapamil, Cozaar, Levemir, DuoNeb, Protonix, Solu-Medrol, Spiriva, Tapazole, TriCor, Wellbutrin SR 150 mg twice a day, Xanax 0.5 mg q. 12 hours as well as taking Xarelto. PHYSICAL EXAMINATION: VITAL SIGNS: Temperature is 98.3, pulse 97, blood pressure 127/62, respirations 20, oxygen saturation 95%. REVIEW OF SYSTEMS: GENERAL: The patient is alert and oriented x3, seen in her room eating her lunch she said the food has no taste . Patient seen with her home service advisor, she saying she is feeling little better. Patient advised to stop smoking and she has COPD which she would try to do. SKIN: No diaphoresis. HEENT: No headache, no dizziness. NECK: Supple. RESPIRATORY: No dyspnea. CARDIOVASCULAR: No chest pain. GASTROINTESTINAL: Appetite is poor. No nausea, no vomiting. EXTREMITIES: Status post left BKA not complaining of pain. MUSCULOSKELETAL: Feels weak. NEUROLOGIC: Alert and oriented x3. GENITOURINARY: No urinary problems. MENTAL STATUS EXAMINATION: An elderly female [place] descent oriented x2, mood is less anxious, not depressed. Affect is reactive. Speech is spontaneous. Thought process, patient is coherent. Thought content, no hallucinations, no suicidal or homicidal ideation. Patient made aware that she should stop smoking cigarette which she started smoking since she was 17 years old and also to continue to stop drinking. LABORATORY DATA: Review of her labs; patients alcohol was negative, her blood sugar was little bit elevated when she came in was 335, but now 277. Patient had history of noncompliance to her treatment plan. Creatinine is 1.3. IMPRESSION: History of recurrent depression, anxiety, history of nicotine dependence, history of alcohol dependence, history of diabetes, excerebration of chronic obstructive pulmonary disease. PLAN AND RECOMMENDATIONS: The patient meds reviewed. Continue the current medications as ordered Wellbutrin SR 150 mg b.i.d., for depression as well for nicotine craving, as well as Xanax 0.5 mg twice a day. Patient is advised to be more complaint with treatment plan as well as to stop drinking, patient used to drink 1-2 glass of wine before to help her anxiety. Continue treatment plan as outlined. Patient needs to improve her compliance to improve her medical problem but she needs to stop smoking as patient smokes a pack a day causing her to have exacerbation of COPD as well as to stop drinking. Mika Cobb MD RAMAN
[2017-06-27] MEDS: Albuterol-Ipratrop 3 mg / 0.5 (3 ml) UD INH SCH ×4 (02:17→20:13)
[2017-06-27 06:24] LABS: BASO # 0.1 K/uL (0.0-0.2); BASO % 0.5 % (0.0-2.0); EOS % 0.3 % (0.0-4.0); HEMOGLOBIN 11.5 g/dL (11.0-16.0); LYMPH # 2.6 K/uL (1.0-4.3); LYMPH % 25.1 % (20.0-40.0); MEAN CELL VOLUME 92.5 fL (81.0-99.0); MEAN CORPUSCULAR HEMOGLOBIN 31.5 pg (27.0-31.0); MEAN CORPUSCULAR HGB CONC 34.1 g/dL (33.0-37.0); MEAN PLATELET VOLUME 7.8 fL (7.2-11.7); MONO % 9.3 % (0.0-10.0); NEUT # 6.6 K/uL (1.8-7.0); NEUT % 64.8 % (50.0-75.0); NRBC % 0.1 % (0.0-2.0); RBC 3.64 Mil/uL (3.80-5.20); RED CELL DISTRIBUTION WIDTH 13.5 % (11.5-14.5); WHITE BLOOD COUNT 10.2 K/uL (4.8-10.8)
[2017-06-27 06:41] LABS: CALCIUM 7.9 mg/dl (8.6-10.4); MAGNESIUM 1.6 mg/dL (1.6-2.3)
[2017-06-27] MEDS: Tiotropium 18 mcg Cap For Inhalation INH SCH (09:29)
[2017-06-27] MEDS: Verapamil 180 mg ER Tab PO SCH (11:00)
[2017-06-27] MEDS: buPROPion SR 150 MG TABLET PO SCH (11:01)
[2017-06-27] MEDS: (Novolog Mix 70/30) Insulin Aspart/Insulin Aspar 100 units/ml SC SCH ×2 (11:03→18:46)
[2017-06-27] MEDS: methIMAzole 5 MG TAB PO SCH ×3 (12:24→18:49)
[2017-06-27] MEDS ORDERED: MethylPREDNISolone 40 mg Vial IV SCH (13:00)
--- NOTE | 2017-06-27 13:56 | CARD ---
APPROVED REPORT EKG Measurement Heart [id number] <Conclusion> Sinus tachycardia Anteroseptal infarct, age undetermined Abnormal ECG
[2017-06-27] MEDS: Insulin Detemir 100 units/ml Vial (Levemir) SC SCH (14:04)
--- NOTE | 2017-06-27 14:11 | RAD ---
PROCEDURE: HISTORY: pain even at rest; tc occult fracture COMPARISON: None TECHNIQUE: AP view of the pelvis and applicable frog leg views obtained. FINDINGS: Lumbar spondylosis. Arterial vascular calcifications left aunt at atrial stent. Bilateral superolateral hip joint space narrowing with acetabular spurring. No post fracture either hip appreciated. IMPRESSION: No gross fracture appreciated. If further evaluation needed consider CT and/or of the left hip Lumbar spondylosis and bilateral hip arthrosis. Arterial vascular disease
--- NOTE | 2017-06-27 15:30 | PN ---
DATE: 06/27/2017 SUBJECTIVE: The patient is seen for followup. Today, she was upset because she said that they gave her the wrong food for breakfast. The patient was asking for scrambled eggs, she said they gave her hard boiled eggs. The patient states she does not like the food in the hospital. Other than that, she has no signs and symptoms of alcohol withdrawal. Her anxiety seems to be controlled with current doses of Xanax and Wellbutrin. She states that she is having no cravings for cigarettes and also reported that she has not been drinking recently. PHYSICAL EXAMINATION: VITAL SIGNS: Temperature 97.9, pulse 110, blood pressure 138/78, respirations 20, oxygen saturation 100%. REVIEW OF SYSTEMS: GENERAL: The patient is alert and oriented x3, seen in the room conversing in [employer]. SKIN: No diaphoresis. HEENT: No headache. No dizziness. RESPIRATORY: No dyspnea. CARDIOPULMONARY: No chest pain. GASTROINTESTINAL: The patient is complaining about breakfast she is having. Other than that, appetite seems to be fair. EXTREMITIES: Complaining of pain, but patient is status post left BKA. NEUROLOGIC: Alert and oriented x3. GENITOURINARY: No urinary problems. The patient is awaiting for her homemaker to come so she can him ask to buy some food from the [employer] as she did not like her breakfast. MENTAL STATUS EXAMINATION: Elderly female [place] descent oriented x3, conversant in [employer]. Due to pain, mood is irritable at times. Affect is reactive. Thought process coherent. Thought content no psychosis. No suicidal ideation. Attention and memory seems to be fair. Insight and judgment fair. Impulse control is fair. IMPRESSION: History of anxiety disorder, depression, nicotine dependence as well as alcohol dependence. PLAN AND RECOMMENDATION: The patient is seen and meds reviewed. Continue for some management. Continue treatment plan as outlined. There is no need to change her psych meds for now. Mika Cobb MD
--- NOTE | 2017-06-27 16:46 | CP.PCM.PN ---
Subjective - Date & Time of Evaluation Date of Evaluation: 06/27/17 Time of Evaluation: 16:45 - Subjective Subjective: Pt awake in bed, with an ice pack on her head. Says she has a headache. Pt refused her lunch today because she was nauseous. Ordered ondansetron for patient, and added nicotine patch for possible nicotine withdrawal. > Had noted IVF started on pt that i discontinued with the drop in pt's sodium level. Pt's sodium had climbed back up today to 130. Objective - Vital Signs/Intake and Output Vital Signs (last 24 hours): Temp Pulse Resp BP Pulse Ox 98.0 F 111 H 20 164/77 H 97 06/27/17 16:03 06/27/17 16:03 06/27/17 16:03 06/27/17 16:03 06/27/17 16:03 Intake and Output: 06/27/17 06/27/17 06:59 18:59 Intake Total 600 Balance 600 - Medications Medications: Current Medications Acetaminophen (Tylenol 325mg Tab) 650 mg PO Q6 PRN PRN Reason: Pain, moderate (4-7) Last Admin: 06/27/17 02:05 Dose: 650 mg Albuterol/Ipratropium (Duoneb 3 Mg/0.5 Mg (3 Ml) Ud) 3 ml INH RQ6 [facility] Last Admin: 06/27/17 13:30 Dose: 3 ml Alprazolam (Xanax) 0.5 mg PO Q12 [facility] Last Admin: 06/27/17 11:59 Dose: 0.5 mg Bupropion HCl (Wellbutrin) 200 mg PO Q12 [facility] Digoxin (Digoxin) 0.125 mg PO DAILY@1800 [facility] Ergocalciferol (Drisdol 50,000 Intl Units Cap) 1 cap PO QWK [facility] Last Admin: 06/26/17 13:38 Dose: 1 cap Fenofibrate (Tricor) 145 mg PO HS [facility] Last Admin: 06/26/17 21:32 Dose: 145 mg Gabapentin (Neurontin) 800 mg PO TID [facility] Last Admin: 06/27/17 14:10 Dose: 800 mg Insulin Aspart (Novolog Mix 70/30 (70/30 Units/Ml)) 0 units SC AMPM [facility] Last Admin: 06/27/17 11:03 Dose: 2 units Insulin Detemir (Levemir) 14 unit SC PCL [facility] Last Admin: 06/27/17 14:04 Dose: Not Given Losartan Potassium (Cozaar) 50 mg PO DAILY [facility] Last Admin: 06/27/17 11:00 Dose: 50 mg Methimazole (Tapazole) 5 mg PO BID [facility] Last Admin: 06/27/17 12:24 Dose: 5 mg Nicotine (Nicoderm Cq) 1 patch TD DAILY [facility] Stop: 06/29/17 10:01 Nicotine (Nicoderm Cq) 1 patch TD DAILY [facility] Ondansetron HCl (Zofran Inj) 4 mg IVP Q4 PRN PRN Reason: nausea/vomiting Pantoprazole Sodium (Protonix Ec Tab) 40 mg PO ACD [facility] Last Admin: 06/26/17 17:49 Dose: 40 mg Rivaroxaban (Xarelto) 20 mg PO DAILY [facility] Last Admin: 06/27/17 11:01 Dose: 20 mg Sucralfate (Carafate Tab) 1 gm PO TID [facility] Tiotropium [place] (Spiriva) 18 mcg INH RQ24 [facility] Last Admin: 06/27/17 09:29 Dose: Not Given Verapamil HCl (Calan Sr Tab) 180 mg PO DAILY [facility] Last Admin: 06/27/17 11:00 Dose: 180 mg - Labs Labs: 06/27/17 06:12 06/27/17 06:12 PT 13.5 SECONDS (9.7-12.2) H 06/25/17 05:18 INR 1.2 06/25/17 05:18 - Constitutional Appears: No Acute Distress - Head Exam Head Exam: NORMAL INSPECTION, NORMOCEPHALIC - Eye Exam Eye Exam: Normal appearance - ENT Exam ENT Exam: Normal Exam - Neck Exam Neck Exam: Normal Inspection - Respiratory Exam Respiratory Exam: Prolonged Expiratory Phase (no respiratory distress, no wheezing noted) - Cardiovascular Exam Cardiovascular Exam: REGULAR RHYTHM - GI/Abdominal Exam GI & Abdominal Exam: Normal Bowel Sounds - Neurological Exam Neuro motor strength exam: Left Upper Extremity: 4, Right Upper Extremity: 4, Left Lower Extremity: 4, Right Lower Extremity: 4 - Psychiatric Exam Psychiatric exam: Agitated Additional comments: mood fluctuates between agitated with anger or being somnolent pt's lack of insight as to her situation causing her to be in the hsopital i.e., smoking, producing COPD exacerbations, i suppose is typical of those who seek to put blame on others without looking at one's behavior(?) - Skin Skin Exam: Dry, Intact, Warm Assessment and Plan (1) COPD exacerbation Assessment & Plan: tapering her IV steroids to minimize impact on pt's diabetes as much as she can tolerate Status: Acute (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
[2017-06-27] MEDS: Pantoprazole 40 mg EC Tab PO SCH (17:13)
[2017-06-27] MEDS: Digoxin 125 mcg (0.125 mg) Tab PO SCH (17:16)
[2017-06-28] MEDS: Albuterol-Ipratrop 3 mg / 0.5 (3 ml) UD INH SCH ×4 (01:24→20:41)
--- NOTE | 2017-06-28 07:02 | RAD ---
HISTORY: occult lung infection vs copd exacerbation COMPARISON: Portable chest 06/25/2017 TECHNIQUE: Chest PA and lateral FINDINGS: LUNGS: No interval infiltrate bilaterally. Hyperinflation again evident is representing COPD. PLEURA: No significant pleural effusion identified. No pneumothorax apparent. CARDIOVASCULAR: Normal. OSSEOUS STRUCTURES: No significant abnormalities. VISUALIZED UPPER ABDOMEN: Normal. OTHER FINDINGS: Bilateral breast implant silicone injections reiterated. IMPRESSION: COPD changes reiterated without interval acute infiltrate or pleural effusion identified. No pneumothorax bilaterally.
[2017-06-28] MEDS: Tiotropium 18 mcg Cap For Inhalation INH SCH (07:30)
[2017-06-28 08:48] LABS: BASO # 0.1 K/uL (0.0-0.2); BASO % 0.9 % (0.0-2.0); EOS # 0.1 K/uL (0.0-0.7); EOS % 1.9 % (0.0-4.0); HEMOGLOBIN 11.7 g/dL (11.0-16.0); LYMPH # 1.9 K/uL (1.0-4.3); LYMPH % 24.5 % (20.0-40.0); MEAN CELL VOLUME 94.1 fL (81.0-99.0); MEAN CORPUSCULAR HEMOGLOBIN 31.7 pg (27.0-31.0); MEAN CORPUSCULAR HGB CONC 33.7 g/dL (33.0-37.0); MEAN PLATELET VOLUME 8.6 fL (7.2-11.7); MONO # 0.7 K/uL (0.0-0.8); NEUT # 4.9 K/uL (1.8-7.0); NEUT % 63.7 % (50.0-75.0); NRBC % 0.1 % (0.0-2.0); RBC 3.69 Mil/uL (3.80-5.20); RED CELL DISTRIBUTION WIDTH 13.7 % (11.5-14.5); WHITE BLOOD COUNT 7.7 K/uL (4.8-10.8)
[2017-06-28] MEDS: methIMAzole 5 MG TAB PO SCH ×2 (11:00→17:19)
[2017-06-28] MEDS: (Novolog Mix 70/30) Insulin Aspart/Insulin Aspar 100 units/ml SC SCH ×2 (11:00→19:50)
[2017-06-28] MEDS: Verapamil 180 mg ER Tab PO SCH (11:00)
[2017-06-28] MEDS: Insulin Detemir 100 units/ml Vial (Levemir) SC SCH (14:00)
[2017-06-28] MEDS ORDERED: Acetaminophen-Codeine 300/30 mg Tab PO PRN (14:20)
--- NOTE | 2017-06-28 14:47 | NM ---
COMPARISON: June 27, 2017. TECHNIQUE: 10.3 mCi technetium 99-m Xe-133 Gas. 4.0 mCI technetium 99-m MAA administered intravenously. FINDINGS: VENTILATION COMPONENT: Normal. PERFUSION COMPONENT: Heterogeneous distribution of radionuclide. No geographic, segmental, lobar abnormalities apparent on the present examination. IMPRESSION: Low probability ventilation perfusion scan for pulmonary embolism.
[2017-06-28] MEDS ORDERED: Albuterol 0.083% Inhal Sol (2.5 mg/3 mL) UD INH PRN (16:00)
[2017-06-28] MEDS: Pantoprazole 40 mg EC Tab PO SCH (17:19)
--- NOTE | 2017-06-28 17:30 | PN ---
DATE: 06/28/2017 SUBJECTIVE: The patient seen today, complaining shortness of breath. The patient states that she may be going for subacute rehab or wants to go home when she is medically clear. Today she was asking for nebulizer to be given every four hours instead of 6 hours. Other than that the patient is compliant with care and meds. PHYSICAL EXAMINATION: VITAL SIGNS: Temperature 98.7, pulse 101, blood pressure 133/66, respirations 20, and oxygen saturation is 100%. On view of her labs, her blood sugar today, last one was 296. The patient seems to have spikes of elevated blood sugar. Her hemoglobin A1C is markedly elevated, this is 11.1. The patient has history of noncompliance with diet restriction with her diabetes. REVIEW OF SYSTEMS: GENERAL: The patient is alert, verbal with complaining shortness of breath. SKIN: No diaphoresis. HEENT: No headache, or dizziness. RESPIRATORY: Complaining of shortness of breath, she wants nebulizer treatment. CARDIOVASCULAR: No palpitation. GASTROINTESTINAL: The patient's appetite is variable. EXTREMITIES: The patient is status post left BKA. y. NEUROLOGIC: Alert, oriented x3. The patient is conversing in Tagalog. MUSCULOSKELETAL: Generalized weakness. MENTAL STATUS EXAMINATION: An elderly female who looks stated age, oriented x3, speech spontaneous, affect is reactive and anxious. She was on nebulizer treatment. She said she might have been going for subacute rehab. Thought process is coherent. Thought content no paranoia, no suicidal ideation. The patient is not complaining of nicotine withdrawal as well as alcohol withdrawal. Attention and memory seems to be fair. Insight and judgment is fair. Impulse control is fair. IMPRESSION: History of depression and anxiety, history of alcohol dependence partial remission as well as nicotine dependence partial remission. PLAN AND RECOMMENDATIONS: The patient was seen. Medications to be continued, present management. The patient is currently on Xanax and Wellbutrin. We will keep the patient on current medications for now. The patient counseled to stay sober from alcohol as well as stops smoking. The patient is asking nebulizer treatment. The patient also needs to improve her compliance with her treatment of diabetes as her hemoglobin A1c is still elevated to 11.1. The patient needs to watch her diet. Mika Cobb MD [facility] # [id number] RAMAN
[2017-06-28] MEDS: Digoxin 125 mcg (0.125 mg) Tab PO SCH (18:30)
[2017-06-28] MEDS: Budesonide 0.5 mg/2 ml Inhal Susp UD INH SCH (20:42)
--- NOTE | 2017-06-28 23:59 | CP.PCM.PN ---
Subjective - Date & Time of Evaluation Date of Evaluation: 06/28/17 Time of Evaluation: 23:55 - Subjective Subjective: Pt continues to be short of breath despite increasing her neb treatments and tapering of her COPD meds. . Pt appears to have 2 personalities when not with me , her pleasant personality with me, and the ones she has with the nursing staff. Withdrawal or initiation of glucocorticoids may cause behavioral changes as well with pt not knowing it. In the meantime, analzyed pt's medications and she was not on IV steroids since 06/25/17 initial dose (?), per medication history. hence the shortness of breath. Restarted pt on inhaled steroids today on order given to nursing and followed up with oral steroids for systemic anti- inflammatory treatment. Will monitor . Objective - Vital Signs/Intake and Output Vital Signs (last 24 hours): Temp Pulse Resp BP Pulse Ox 99.3 F 103 H 20 133/65 96 06/28/17 16:00 06/28/17 16:00 06/28/17 16:00 06/28/17 16:00 06/28/17 16:00 Intake and Output: 06/28/17 06/29/17 18:59 06:59 Intake Total 400 Balance 400 - Medications Medications: Current Medications Acetaminophen (Tylenol 325mg Tab) 650 mg PO Q6 PRN PRN Reason: Pain, moderate (4-7) Last Admin: 06/27/17 02:05 Dose: 650 mg Acetaminophen/Codeine Phosphate (Tylenol/Codeine 300 Mg/30 Mg) 1 ea PO Q4 PRN PRN Reason: pain Albuterol Sulfate (Albuterol 0.083% Inhal Deirdre (2.5 Mg/3 Ml) Ud) 2.5 mg INH RQ4 PRN PRN Reason: SOB/wheezing Last Admin: 06/28/17 15:28 Dose: 2.5 mg Albuterol/Ipratropium (Duoneb 3 Mg/0.5 Mg (3 Ml) Ud) 3 ml INH RQ6 [facility] Last Admin: 06/28/17 20:41 Dose: 3 ml Alprazolam (Xanax) 0.5 mg PO Q12 [facility] Last Admin: 06/28/17 21:18 Dose: 0.5 mg Budesonide (Pulmicort Respules) 0.5 mg INH RQ12 [facility] Last Admin: 06/28/17 20:42 Dose: Not Given Bupropion HCl (Wellbutrin) 200 mg PO Q12 [facility] Last Admin: 06/28/17 21:19 Dose: 200 mg Digoxin (Digoxin) 0.125 mg PO DAILY@1800 [facility] Last Admin: 06/28/17 18:30 Dose: 0.125 mg Ergocalciferol (Drisdol 50,000 Intl Units Cap) 1 cap PO QWK [facility] Last Admin: 06/26/17 13:38 Dose: 1 cap Fenofibrate (Tricor) 145 mg PO HS [facility] Last Admin: 06/28/17 21:19 Dose: 145 mg Gabapentin (Neurontin) 800 mg PO TID [facility] Last Admin: 06/28/17 17:20 Dose: 800 mg Insulin Aspart (Novolog Mix 70/30 (70/30 Units/Ml)) 0 units SC AMPM [facility] Last Admin: 06/28/17 19:50 Dose: 4 units Insulin Detemir (Levemir) 14 unit SC PCL [facility] Last Admin: 06/28/17 14:00 Dose: Not Given Losartan Potassium (Cozaar) 50 mg PO DAILY [facility] Last Admin: 06/28/17 11:00 Dose: 50 mg Methimazole (Tapazole) 5 mg PO BID [facility] Last Admin: 06/28/17 17:19 Dose: 5 mg Nicotine (Nicoderm Cq) 1 patch TD DAILY [facility] Stop: 06/29/17 10:01 Last Admin: 06/28/17 11:00 Dose: 1 patch Nicotine (Nicoderm Cq) 1 patch TD DAILY [facility] Ondansetron HCl (Zofran Inj) 4 mg IVP Q4 PRN PRN Reason: nausea/vomiting Pantoprazole Sodium (Protonix Ec Tab) 40 mg PO ACD [facility] Last Admin: 06/28/17 17:19 Dose: 40 mg Rivaroxaban (Xarelto) 20 mg PO DAILY [facility] Last Admin: 06/28/17 11:00 Dose: 20 mg Sucralfate (Carafate Tab) 1 gm PO TID [facility] Last Admin: 06/28/17 17:21 Dose: 1 gm Tiotropium [place] (Spiriva) 18 mcg INH RQ24 [facility] Last Admin: 06/28/17 07:30 Dose: Not Given Verapamil HCl (Calan Sr Tab) 180 mg PO DAILY [facility] Last Admin: 06/28/17 11:00 Dose: 180 mg - Labs Labs: 06/28/17 08:35 06/27/17 06:12 PT 13.5 SECONDS (9.7-12.2) H 06/25/17 05:18 INR 1.2 06/25/17 05:18 - Constitutional Appears: No Acute Distress - Head Exam Head Exam: NORMOCEPHALIC - Eye Exam Eye Exam: Normal appearance - ENT Exam ENT Exam: Normal Exam - Neck Exam Neck Exam: Normal Inspection - Respiratory Exam Respiratory Exam: Clear to Ausculation Bilateral Additional comments: desaturates to 80s when with activity on Oxygen - Cardiovascular Exam Cardiovascular Exam: REGULAR RHYTHM - GI/Abdominal Exam GI & Abdominal Exam: Normal Bowel Sounds - Rectal Exam Rectal Exam: Deferred - Extremities Exam Extremities Exam: Normal Inspection - Back Exam Back Exam: NORMAL INSPECTION - Neurological Exam Neuro motor strength exam: Left Upper Extremity: 4, Right Upper Extremity: 4, Left Lower Extremity: 4, Right Lower Extremity: 4 - Psychiatric Exam Psychiatric exam: Normal Affect Additional comments: mood variable Assessment and Plan (1) COPD exacerbation Assessment & Plan: restart po steroids and inhaled steroids for COPD Status: Acute (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 adjusted pt's accuchecks to get better feel of how her sugar runs. Status: Chronic
[2017-06-29] MEDS: Albuterol-Ipratrop 3 mg / 0.5 (3 ml) UD INH SCH (02:06)
[2017-06-29] MEDS: Budesonide 0.5 mg/2 ml Inhal Susp UD INH SCH ×2 (07:20→20:56)
[2017-06-29] MEDS: Albuterol 0.083% Inhal Sol (2.5 mg/3 mL) UD INH SCH ×3 (07:22→20:55)
[2017-06-29 09:36] LABS: FREE T4 0.9 ng/dL (0.78-2.19)
[2017-06-29] MEDS: (Novolog Mix 70/30) Insulin Aspart/Insulin Aspar 100 units/ml SC SCH ×2 (10:21→19:18)
[2017-06-29] MEDS: Verapamil 180 mg ER Tab PO SCH (10:25)
[2017-06-29] MEDS: methIMAzole 5 MG TAB PO SCH ×2 (10:28→17:43)
[2017-06-29] MEDS: Insulin Detemir 100 units/ml Vial (Levemir) SC SCH ×2 (13:57→14:36)
[2017-06-29] MEDS: Pantoprazole 40 mg EC Tab PO SCH (17:30)
[2017-06-29] MEDS: Digoxin 125 mcg (0.125 mg) Tab PO SCH (17:42)
--- NOTE | 2017-06-29 20:57 | CP.PCM.PN ---
Subjective - Date & Time of Evaluation Date of Evaluation: 06/29/17 Time of Evaluation: 20:56 - Subjective Subjective: Pt seen and examined at bedside. Pt had refused 14 units of Levemir after lunch and would only take units for fear of getting hypoglycemic. Turns out that her glucometer that she uses at home is faulty and giving her erroneous readings. Also noted was that pt was snacking on a bread roll apparently left over from dinner. Discussed with pt her refusal to have the 14 units of Levemir but she clarifies that she didn't refuse the 14 units but that because she hadn't eaten yet, she would only take 8. Explained to her that whether she took 14 or 8, effect wouldn't be felt until much later. >With resumption of pt's oral steroids, albeit, orally, pt says that she feels a little better today than yesterday. Smith paid for this is the worsening of pt 's BS status but that is being managed concurrently. As long as pt is feeling better and feels less short of breath, I would be more confident sending her home. Repeat ambulatory O2 sat without desaturation during PT would be a good estimate if pt is able to be discharged or not. Will also get AM ABG. Objective - Vital Signs/Intake and Output Vital Signs (last 24 hours): Temp Pulse Resp BP Pulse Ox 98.9 F 100 H 20 138/62 95 06/29/17 16:00 06/29/17 16:00 06/29/17 16:00 06/29/17 16:00 06/29/17 16:00 Intake and Output: 06/29/17 06/30/17 18:59 06:59 Intake Total 400 Balance 400 - Medications Medications: Current Medications Acetaminophen (Tylenol 325mg Tab) 650 mg PO Q6 PRN PRN Reason: Pain, moderate (4-7) Last Admin: 06/27/17 02:05 Dose: 650 mg Acetaminophen/Codeine Phosphate (Tylenol/Codeine 300 Mg/30 Mg) 1 ea PO Q4 PRN PRN Reason: pain Albuterol Sulfate (Albuterol 0.083% Inhal Deirdre (2.5 Mg/3 Ml) Ud) 2.5 mg INH RQ4 [facility] Last Admin: 06/29/17 20:55 Dose: 2.5 mg Albuterol/Ipratropium (Duoneb 3 Mg/0.5 Mg (3 Ml) Ud) 3 ml INH RQ6 [facility] Last Admin: 06/29/17 02:06 Dose: 3 ml Alprazolam (Xanax) 0.5 mg PO Q12 [facility] Last Admin: 06/29/17 10:24 Dose: 0.5 mg Budesonide (Pulmicort Respules) 0.5 mg INH RQ12 [facility] Last Admin: 06/29/17 20:56 Dose: 0.5 mg Bupropion HCl (Wellbutrin) 200 mg PO Q12 [facility] Last Admin: 06/29/17 10:28 Dose: 200 mg Digoxin (Digoxin) 0.125 mg PO DAILY@1800 [facility] Last Admin: 06/29/17 17:42 Dose: 0.125 mg Ergocalciferol (Drisdol 50,000 Intl Units Cap) 1 cap PO QWK [facility] Last Admin: 06/26/17 13:38 Dose: 1 cap Fenofibrate (Tricor) 145 mg PO HS [facility] Last Admin: 06/28/17 21:19 Dose: 145 mg Gabapentin (Neurontin) 800 mg PO TID [facility] Last Admin: 06/29/17 17:44 Dose: 800 mg Insulin Aspart (Novolog Mix 70/30 (70/30 Units/Ml)) 0 units SC AMPM [facility] Last Admin: 06/29/17 19:18 Dose: 4 units Insulin Detemir (Levemir) 14 unit SC PCL [facility] Last Admin: 06/29/17 14:36 Dose: 14 unit Losartan Potassium (Cozaar) 50 mg PO DAILY [facility] Last Admin: 06/29/17 10:24 Dose: 50 mg Methimazole (Tapazole) 5 mg PO DAILY [facility] Nicotine (Nicoderm Cq) 1 patch TD DAILY [facility] Ondansetron HCl (Zofran Inj) 4 mg IVP Q4 PRN PRN Reason: nausea/vomiting Pantoprazole Sodium (Protonix Ec Tab) 40 mg PO ACD [facility] Last Admin: 06/29/17 17:30 Dose: 40 mg Prednisone (Prednisone Tab) 20 mg PO BID [facility] Last Admin: 06/29/17 17:42 Dose: 20 mg Rivaroxaban (Xarelto) 20 mg PO DAILY [facility] Last Admin: 06/29/17 10:29 Dose: 20 mg Sucralfate (Carafate Tab) 1 gm PO TID [facility] Last Admin: 06/29/17 17:41 Dose: 1 gm Tiotropium [place] (Spiriva) 18 mcg INH RQ24 [facility] Last Admin: 06/28/17 07:30 Dose: Not Given Verapamil HCl (Calan Sr Tab) 180 mg PO DAILY [facility] Last Admin: 06/29/17 10:25 Dose: 180 mg - Labs Labs: 06/28/17 08:35 06/27/17 06:12 PT 13.5 SECONDS (9.7-12.2) H 06/25/17 05:18 INR 1.2 06/25/17 05:18 - Constitutional Appears: No Acute Distress - Head Exam Head Exam: NORMAL INSPECTION - Eye Exam Eye Exam: Normal appearance Pupil Exam: NORMAL ACCOMODATION - ENT Exam ENT Exam: Normal Exam - Neck Exam Neck Exam: Normal Inspection - Respiratory Exam Respiratory Exam: Clear to Ausculation Bilateral, NORMAL BREATHING PATTERN - Cardiovascular Exam Cardiovascular Exam: REGULAR RHYTHM - GI/Abdominal Exam GI & Abdominal Exam: Normal Bowel Sounds - Rectal Exam Rectal Exam: Deferred - Extremities Exam Extremities Exam: Normal Inspection (s/p L BKA) - Back Exam Back Exam: NORMAL INSPECTION (+ left stage II decub) - Neurological Exam Neurological Exam: Alert, Awake, CN II-XII Intact, Oriented x3 Neuro motor strength exam: Left Upper Extremity: 4, Right Upper Extremity: 4, Left Lower Extremity: 4, Right Lower Extremity: 4 - Psychiatric Exam Psychiatric exam: Normal Affect, Normal Mood - Skin Skin Exam: Dry, Intact, Normal Color, Warm Assessment and Plan (1) COPD exacerbation Assessment & Plan: improved with restart of steroids, subjectively feels a little better but not enough energy to walk yet Status: Acute (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
--- NOTE | 2017-06-29 23:15 | PN ---
DATE: SUBJECTIVE: The patient is seen. The patient noted to be very anxious. Today, she said her sugar is 24, which she was using an old Glucometer, but according to the regular staff checking her blood sugar, her blood sugar was 236. The patient advised not to use her own and to follow the one in the hospital. She drank some soda and worried about her blood sugar. Other than that, she is still hoping to be discharged soon. The patient is complaining about her blood sugar control, although hemoglobin A1c is 11.1, showing poor control in the last 3 months. PHYSICAL EXAMINATION VITAL SIGNS: Temperature 98.9, pulse 100, blood pressure 138/62, respirations 20, and oxygen saturation is 95% on nasal cannula. REVIEW OF SYSTEMS: GENERAL: The patient is alert and verbal. Feeling anxious in her room. Feeling apprehensive about her so called reading of her blood sugar at 24. If the patient had blood sugar of 24, she would have been lethargic by now. The patient is alert at this time. SKIN: No diaphoresis. HEENT: No headache, no dizziness. NECK: Supple. RESPIRATORY: No dyspnea. CARDIOVASCULAR: No chest pain. GASTROINTESTINAL: The patient is still complaining about her food. EXTREMITIES: The patient is status post left BKA, not complaining of pain. MUSCULOSKELETAL: Feels weak. NEUROLOGIC: Alert and oriented x3 despite stating that her blood sugar was 24. I told her blood sugar readings are not correct. MENTAL STATUS EXAMINATION: An elderly female, who looks stated age, oriented x3, feeling anxious, and conversing in Tagalog. Affect is reactive. Speech is spontaneous. Thought process, coherent. Thought content, no psychosis. No change in mental status. No suicidal or homicidal ideation. No hallucinations. Attention and memory seem to be fair. Insight and judgment fair. Impulse control is fair. IMPRESSION: History of depression, anxiety; history of nicotine and alcohol dependent; also diabetes and history of chronic obstructive pulmonary disease. PLAN AND RECOMMENDATIONS: The patient is seen, meds reviewed. Continue present management. The patient needs to be more compliant with diet restriction. Psychwise, the patient can continue her psych meds as ordered. There is no need to change her psych medications for now. The patient also was given by Dr. Soriano nicotine patch for her nicotine dependence. Continue treatment plan as planned. The patient states she will be going home after med service admission, she might be going to subacute rehab. Mika Cobb MD
[2017-06-30] MEDS: Albuterol 0.083% Inhal Sol (2.5 mg/3 mL) UD INH SCH ×7 (00:13→23:59)
[2017-06-30] MEDS: Budesonide 0.5 mg/2 ml Inhal Susp UD INH SCH ×2 (08:44→19:39)
[2017-06-30 10:07] LABS: ARTERIAL BLOOD GAS HCO3 28.9 mmol/L (21-28); ARTERIAL BLOOD GAS HEMOGLOBIN 11.7 g/dL (11.7-17.4); ARTERIAL BLOOD GAS O2 SAT 87.3 % (95-98); ARTERIAL BLOOD GAS PCO2 46 mm/Hg (35-45); ARTERIAL BLOOD GAS PH 7.43 (7.35-7.45); ARTERIAL BLOOD GAS PO2 45 mm/Hg (80-100); ARTERIAL BLOOD GAS TCO2 31.9 mmol/L (22-28)
[2017-06-30] MEDS: Verapamil 180 mg ER Tab PO SCH (10:20)
[2017-06-30] MEDS: methIMAzole 5 MG TAB PO SCH (10:20)
[2017-06-30] MEDS: (Novolog Mix 70/30) Insulin Aspart/Insulin Aspar 100 units/ml SC SCH ×2 (10:36→19:54)
[2017-06-30] MEDS ORDERED: MethylPREDNISolone 40 mg Vial IVP ONE (12:39)
[2017-06-30] MEDS: Insulin Detemir 100 units/ml Vial (Levemir) SC SCH (14:03)
--- NOTE | 2017-06-30 15:17 | PN ---
DATE: 06/30/2017 SUBJECTIVE: The patient was seen in her room. Noted periods of confusion and trying to remove her oxygen cannula. The patient had recent ABG and noted that her PO2 was very low, was 45. Her PCO2 was 46, which is high. Dr. Homer Soriano is away and the patient referred for evaluation by Dr. Martino. Her last glucose is 313. The patient had periods of confusion, but not so confused at this time. The patient advised to not to remove her oxygen cannula. She is not agitated. PHYSICAL EXAMINATION: VITAL SIGNS: Temperature is 98.2, pulse 101, blood pressure 163/70, respirations 20, and her oxygen saturation with nasal cannula is 90; however her ABG is 45. REVIEW OF SYSTEMS: GENERAL: The patient is alert and verbal with limited periods of confusion, seen in her room trying to remove her nasal cannula. SKIN: No diaphoresis. HEENT: No headache or dizziness. NECK: Supple. RESPIRATORY: The patient states that she is having shortness of breath, but the patient has no cough. CARDIOVASCULAR: No chest pain. GASTROINTESTINAL: Her appetite is variable. The patient states she does not like the food in the hospital. EXTREMITIES: The patient is status post left BKA, not complaining of pain. GENITOURINARY: No dysuria. NEUROLOGIC: Alert with waxing and waning pattern of her mental status. MENTAL STATUS EXAMINATION: An elderly female, who looks stated age, oriented to place, person. She has periods of confusion. Speech is spontaneous. Affect is reactive. Mood is dysphoric. Thought process, confused off and on. Thought content, no hallucinations. No suicidal or homicidal ideation. Attention and memory seemed to be limited. Insight and judgment is limited. Impulse control is fair at this time. IMPRESSION: History of recurrent depression, anxiety as well as history of nicotine and alcohol dependence, delirium, metabolic encephalopathy, hypoxia. PLAN AND RECOMMENDATIONS: Continue her psych meds as ordered. We will monitor her PCO2 as well as PO2 level. The patient is referred to be seen by Dr. Martino for pulmonary problems. We will also monitor her blood sugar levels. Mika Cobb MD [facility] # [id number] MTDD
--- NOTE | 2017-06-30 16:18 | RAD ---
Chest x-ray two views History: COPD exacerbation. Comparison: 06/27/2017 Findings: Bilateral breast prostheses in place. Calcification and/or radiopaque density in the inferior left breast prosthesis. Correlation with mammogram may be helpful. Diffuse increased interstitial markings. Blunted left costophrenic angle which may represent a small pleural effusion. Right infrahilar prominence. Patchy increased markings at the left lung base. Few scattered nodular densities at the left lung base. Biapical pleural thickening with upper lobe granulomatous changes. Calcification at the aortic knob. Degenerative changes in the spine. Surgical clips in the upper abdomen. Impression: Diffuse increased interstitial markings. Blunted left costophrenic angle which may represent a small pleural effusion. Right infrahilar prominence. Patchy increased markings at the left lung base. Few scattered nodular densities at the left lung base. Biapical pleural thickening with upper lobe granulomatous changes. Calcification at the aortic knob.
[2017-06-30] MEDS: Digoxin 125 mcg (0.125 mg) Tab PO SCH (17:04)
[2017-06-30] MEDS: Pantoprazole 40 mg EC Tab PO SCH (17:04)
--- NOTE | 2017-06-30 23:26 | CT ---
EXAM: CT Chest Without Intravenous Contrast CLINICAL HISTORY: 72 years old, female; Signs and symptoms; Other: Nodule; Additional info: Nodular densities left lung base TECHNIQUE: Axial computed tomography images of the chest without intravenous contrast. All CT scans at this facility use one or more dose reduction techniques, viz.: automated exposure control; ma/kV adjustment per patient size (including targeted exams where dose is matched to indication; i.e. head); or iterative reconstruction technique. Coronal and sagittal reformatted images were created and reviewed. COMPARISON: No relevant prior studies available. FINDINGS: Lungs: Moderate centrilobular emphysema. Segmental atelectasis and at lung bases. 6 mm nodule anteriorly in the right lung series 4 image #70. No appreciable left basilar nodules. Pleural space: Trace bilateral pleural fluid. No pneumothorax. Heart: Coronary artery calcifications. Mild cardiomegaly. No significant pericardial effusion. Thyroid: Calcified left thyroid lobe nodule. Bones/joints: Diffuse spinal degenerative changes. No acute fracture. No dislocation. Soft tissues: Bilateral breast implants with capsular calcifications. Vasculature: Atherosclerotic vascular disease. No thoracic aortic aneurysm. Lymph nodes: Unremarkable. No enlarged lymph nodes. Gallbladder and bile ducts: Cholecystectomy. IMPRESSION: 1. 6 mm right lung nodule. For low-risk patients recommend follow-up chest CT at 6-12 months. If unchanged consider an additional follow-up CT at 18-24 months. For high-risk patients (smoking history or other known risk factors) initial follow-up chest CT at 6-12 months and if unchanged, 18-24 months. 2. Moderate centrilobular emphysema. 3. Remainder of findings as above.
--- NOTE | 2017-06-30 23:58 | CP.PCM.PN ---
Subjective - Date & Time of Evaluation Date of Evaluation: 06/30/17 Time of Evaluation: 18:40 - Subjective Subjective: Noted events of the day, beginning with the decrease pO2 and almost similar pCO2 obtained from ABG ordered this AM pre-neb treatment. Pt's HR, RR and Pox at rest on 2L NC remained at 97-98%, and yet the ABG reading was so different. Is there anything wrong with this picture? > Pt also seemed to have more energy today from PT notes, and yet shortly after lunch, pt had episode of apparent confusion and delirium, although short-lived. On the whole, the day was filled with contradictory events. > Decided to obtain a pulmonary consult prior to my planned CT chest in order to get the service's input on this complex patient--complex partly from her own headstrong ways. CXR was obtained which raised the possiblity of pleural effusion, but in light of patient's condition, I suspected more to be atelectasis. The possibility of pneumonia developing in this pt is very real and the "patchy interstitial" findings did not mally well for her. But pt had not developed any leukocytosis nor fever, despite the prolonged stay and long- term diabetes with emphysema. > Pt had mentioned yesterday that when at home, she had used Medi-honey for 3 months at least, with scabbing over of her L buttock ulcer. And yet, when bumped , the area continues to pain her. I ordered the wound culture and gram stain hope against hope that it wouldn't give positive results---but it did on GS. We will see what the culture brings. Objective - Vital Signs/Intake and Output Vital Signs (last 24 hours): Temp Pulse Resp BP Pulse Ox 97.7 F 106 H 20 168/67 H 97 06/30/17 16:00 06/30/17 16:00 06/30/17 16:00 06/30/17 18:44 06/30/17 16:00 Intake and Output: 06/30/17 07/01/17 18:59 06:59 Intake Total 650 360 Balance 650 360 - Medications Medications: Current Medications Acetaminophen (Tylenol 325mg Tab) 650 mg PO Q6 PRN PRN Reason: Pain, moderate (4-7) Last Admin: 06/27/17 02:05 Dose: 650 mg Acetaminophen/Codeine Phosphate (Tylenol/Codeine 300 Mg/30 Mg) 1 ea PO Q4 PRN PRN Reason: pain Albuterol Sulfate (Albuterol 0.083% Inhal Deirdre (2.5 Mg/3 Ml) Ud) 2.5 mg INH RQ4 [facility] Last Admin: 06/30/17 19:39 Dose: 2.5 mg Alprazolam (Xanax) 0.5 mg PO Q12 [facility] Last Admin: 06/30/17 22:08 Dose: 0.5 mg Budesonide (Pulmicort Respules) 0.5 mg INH RQ12 [facility] Last Admin: 06/30/17 19:39 Dose: 0.5 mg Bupropion HCl (Wellbutrin) 200 mg PO Q12 [facility] Last Admin: 06/30/17 22:08 Dose: 200 mg Digoxin (Digoxin) 0.125 mg PO DAILY@1800 [facility] Last Admin: 06/30/17 17:04 Dose: 0.125 mg Ergocalciferol (Drisdol 50,000 Intl Units Cap) 1 cap PO QWK [facility] Last Admin: 06/26/17 13:38 Dose: 1 cap Fenofibrate (Tricor) 145 mg PO HS [facility] Last Admin: 06/30/17 22:09 Dose: 145 mg Gabapentin (Neurontin) 800 mg PO TID [facility] Last Admin: 06/30/17 17:04 Dose: 800 mg Insulin Aspart (Novolog Mix 70/30 (70/30 Units/Ml)) 0 units SC BID [facility] Last Admin: 06/30/17 19:54 Dose: 8 units Insulin Detemir (Levemir) 14 unit SC PCL [facility] Last Admin: 06/30/17 14:03 Dose: 14 unit Losartan Potassium (Cozaar) 50 mg PO DAILY [facility] Last Admin: 06/30/17 10:19 Dose: 50 mg Methimazole (Tapazole) 5 mg PO DAILY [facility] Last Admin: 06/30/17 10:20 Dose: 5 mg Nicotine (Nicoderm Cq) 1 patch TD DAILY [facility] Last Admin: 06/30/17 10:21 Dose: 1 patch Ondansetron HCl (Zofran Inj) 4 mg IVP Q4 PRN PRN Reason: nausea/vomiting Pantoprazole Sodium (Protonix Ec Tab) 40 mg PO ACD [facility] Last Admin: 06/30/17 17:04 Dose: 40 mg Prednisone (Prednisone Tab) 20 mg PO BID [facility] Last Admin: 06/30/17 17:04 Dose: 20 mg Rivaroxaban (Xarelto) 20 mg PO DAILY [facility] Last Admin: 06/30/17 10:22 Dose: 20 mg Sucralfate (Carafate Tab) 1 gm PO TID [facility] Last Admin: 06/30/17 17:04 Dose: 1 gm Tiotropium [place] (Spiriva) 18 mcg INH RQ24 [facility] Last Admin: 06/28/17 07:30 Dose: Not Given Verapamil HCl (Calan Sr Tab) 180 mg PO DAILY [facility] Last Admin: 06/30/17 10:20 Dose: 180 mg - Labs Labs: 06/28/17 08:35 06/27/17 06:12 PT 13.5 SECONDS (9.7-12.2) H 06/25/17 05:18 INR 1.2 06/25/17 05:18 - Constitutional Appears: No Acute Distress - Head Exam Head Exam: NORMAL INSPECTION - Eye Exam Eye Exam: Normal appearance Pupil Exam: NORMAL ACCOMODATION - ENT Exam ENT Exam: Mucous Membranes Dry, Normal Exam - Neck Exam Neck Exam: Full ROM, Normal Inspection - Respiratory Exam Respiratory Exam: Decreased Breath Sounds (shallow breaths), Clear to Ausculation Bilateral, Prolonged Expiratory Phase - Cardiovascular Exam Cardiovascular Exam: REGULAR RHYTHM - GI/Abdominal Exam GI & Abdominal Exam: Soft, Diminished Bowel Sounds - Rectal Exam Rectal Exam: Deferred - Extremities Exam Extremities Exam: Normal Inspection, Pedal Edema - Back Exam Additional comments: + Stage II ulcer at buttocks - Neurological Exam Neuro motor strength exam: Left Upper Extremity: 3, Right Upper Extremity: 3, Left Lower Extremity: 3, Right Lower Extremity: 3 - Psychiatric Exam Psychiatric exam: Agitated, Anxious, Depressed, Manic, Normal Affect, Normal Mood - Skin Skin Exam: Dry, Intact, Normal Color, Warm Assessment and Plan (1) COPD exacerbation Assessment & Plan: does not appear to be improving quickly enough, and may have other complicating factors just found on CT chest such as the 6 mm anterior L lung base nodule Status: Acute (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 Assessment & Plan: psych following Status: Chronic (3) Diabetes mellitus type 2, uncontrolled Assessment & Plan: exacerbated by necessary steroid use to calm down pt's COPD exacerbation; will concurrently manage Status: Chronic (4) Generalized muscle weakness Assessment & Plan: multifactorial but a lot stems from pt's anxiety and fears of falling which are real; willl encourage to fight and keep ambulating Status: Acute (5) Decubitus ulcer of left buttock, stage 2 Assessment & Plan: wound care following; today + gram neg bacilli, many, on GS; start vancomycin and obtain ID consult for mgt as well as to rule out osteomyelitis of hip Status: Acute
[2017-07-01] MEDS: Vancomycin 1 gm/NS 200 ml 1 GM/200 ML BAG IVPB SCH ×2 (02:31→14:11)
[2017-07-01] MEDS: Albuterol 0.083% Inhal Sol (2.5 mg/3 mL) UD INH SCH ×5 (03:16→19:14)
[2017-07-01 07:38] LABS: BASO % 0.1 % (0.0-2.0); HEMOGLOBIN 11.7 g/dL (11.0-16.0); LYMPH # 0.6 K/uL (1.0-4.3); MEAN CELL VOLUME 92.8 fL (81.0-99.0); MEAN CORPUSCULAR HEMOGLOBIN 31.6 pg (27.0-31.0); MEAN CORPUSCULAR HGB CONC 34.1 g/dL (33.0-37.0); MEAN PLATELET VOLUME 8.8 fL (7.2-11.7); MONO # 0.4 K/uL (0.0-0.8); MONO % 9.3 % (0.0-10.0); NEUT # 2.8 K/uL (1.8-7.0); NEUT % 73.6 % (50.0-75.0); RBC 3.7 Mil/uL (3.80-5.20); RED CELL DISTRIBUTION WIDTH 13.4 % (11.5-14.5); WHITE BLOOD COUNT 3.8 K/uL (4.8-10.8)
[2017-07-01 08:00] LABS: ALB/GLOB RATIO 0.9 (1.0-2.1); ALBUMIN 2.7 g/dL (3.5-5.0); ALT/SGPT 25 U/L (9-52); AST/SGOT 16 U/L (14-36); BLOOD UREA NITROGEN 20 mg/dL (7-17); GFR AFRICAN-AMERICAN > 60; GFR NON-AFRICAN AMERICAN > 60
[2017-07-01 08:07] LABS: B-TYPE NATRIURETIC PEPTIDE 1190 pg/mL (0-900)
[2017-07-01] MEDS: Budesonide 0.5 mg/2 ml Inhal Susp UD INH SCH ×2 (09:15→19:14)
[2017-07-01] MEDS: methIMAzole 5 MG TAB PO SCH (10:27)
[2017-07-01] MEDS: Verapamil 180 mg ER Tab PO SCH (10:28)
[2017-07-01] MEDS: (Novolog Mix 70/30) Insulin Aspart/Insulin Aspar 100 units/ml SC SCH ×2 (10:35→18:57)
[2017-07-01] MEDS: Insulin Detemir 100 units/ml Vial (Levemir) SC SCH (13:17)
--- NOTE | 2017-07-01 15:42 | CP.PCM.PN ---
Subjective - Date & Time of Evaluation Date of Evaluation: 07/01/17 Time of Evaluation: 15:43 - Subjective Subjective: Apprised pt of developments since I started working her up and the specialist consultations I had requested on her behalf. Pt sounds much better today and clinically looks better than her last ABG suggests. Had also cultured pt's wound and initial Gram's stain results showed many G+ cocci. Will get Surgery opinion to see if pt needs surgical debridement. > At the same time, pt 's CT chest done with a rather disturbing finding of a 6 mm nodule on the anterior L lung lobe, prob too small to biopsy at this time. PUlmonary consulted for COPD exacerbation and this was incidental finding on CT. Objective - Vital Signs/Intake and Output Vital Signs (last 24 hours): Temp Pulse Resp BP Pulse Ox 97.7 F 102 H 20 163/77 H 93 L 07/01/17 07:28 07/01/17 07:28 07/01/17 07:28 07/01/17 07:28 07/01/17 07:28 Intake and Output: 07/01/17 07/01/17 06:59 18:59 Intake Total 810 700 Balance 810 700 - Medications Medications: Current Medications Acetaminophen (Tylenol 325mg Tab) 650 mg PO Q6 PRN PRN Reason: Pain, moderate (4-7) Last Admin: 06/27/17 02:05 Dose: 650 mg Acetaminophen/Codeine Phosphate (Tylenol/Codeine 300 Mg/30 Mg) 1 ea PO Q4 PRN PRN Reason: pain Albuterol Sulfate (Albuterol 0.083% Inhal Deirdre (2.5 Mg/3 Ml) Ud) 2.5 mg INH RQ4 [facility] Last Admin: 07/01/17 12:50 Dose: 2.5 mg Alprazolam (Xanax) 0.5 mg PO Q12 [facility] Last Admin: 07/01/17 10:27 Dose: 0.5 mg Budesonide (Pulmicort Respules) 0.5 mg INH RQ12 [facility] Last Admin: 07/01/17 09:15 Dose: 0.5 mg Bupropion HCl (Wellbutrin) 200 mg PO Q12 [facility] Last Admin: 07/01/17 10:27 Dose: 200 mg Digoxin (Digoxin) 0.125 mg PO DAILY@1800 [facility] Last Admin: 06/30/17 17:04 Dose: 0.125 mg Ergocalciferol (Drisdol 50,000 Intl Units Cap) 1 cap PO QWK [facility] Last Admin: 06/26/17 13:38 Dose: 1 cap Fenofibrate (Tricor) 145 mg PO HS [facility] Last Admin: 06/30/17 22:09 Dose: 145 mg Gabapentin (Neurontin) 800 mg PO TID [facility] Last Admin: 07/01/17 13:19 Dose: 800 mg Vancomycin/Sodium Chloride (Vancomycin 1 Gm/Ns 200 Ml) 1 gm in 200 mls @ 133.333 mls/hr IVPB Q12H [facility] Stop: 07/06/17 03:01 Last Admin: 07/01/17 14:11 Dose: 133.333 mls/hr Insulin Aspart (Novolog Mix 70/30 (70/30 Units/Ml)) 0 units SC BID [facility] Last Admin: 07/01/17 10:35 Dose: 10 units Insulin Detemir (Levemir) 14 unit SC PCL [facility] Last Admin: 07/01/17 13:17 Dose: 14 unit Losartan Potassium (Cozaar) 100 mg PO DAILY [facility] Methimazole (Tapazole) 5 mg PO DAILY [facility] Last Admin: 07/01/17 10:27 Dose: 5 mg Nicotine (Nicoderm Cq) 1 patch TD DAILY [facility] Last Admin: 07/01/17 10:28 Dose: 1 patch Ondansetron HCl (Zofran Inj) 4 mg IVP Q4 PRN PRN Reason: nausea/vomiting Pantoprazole Sodium (Protonix Ec Tab) 40 mg PO ACD [facility] Last Admin: 06/30/17 17:04 Dose: 40 mg Prednisone (Prednisone Tab) 20 mg PO BID [facility] Last Admin: 07/01/17 10:27 Dose: 20 mg Rivaroxaban (Xarelto) 20 mg PO DAILY [facility] Last Admin: 07/01/17 10:27 Dose: 20 mg Sucralfate (Carafate Tab) 1 gm PO TID [facility] Last Admin: 07/01/17 13:18 Dose: 1 gm Tiotropium [place] (Spiriva) 18 mcg INH RQ24 [facility] Last Admin: 06/28/17 07:30 Dose: Not Given Verapamil HCl (Calan Sr Tab) 180 mg PO DAILY [facility] Last Admin: 07/01/17 10:28 Dose: 180 mg - Labs Labs: 07/01/17 07:26 07/01/17 07:26 PT 13.5 SECONDS (9.7-12.2) H 06/25/17 05:18 INR 1.2 06/25/17 05:18 - Constitutional Appears: No Acute Distress - Head Exam Head Exam: NORMAL INSPECTION - Eye Exam Eye Exam: Normal appearance Pupil Exam: NORMAL ACCOMODATION - ENT Exam ENT Exam: Normal Exam - Neck Exam Neck Exam: Normal Inspection - Respiratory Exam Respiratory Exam: Decreased Breath Sounds - Cardiovascular Exam Cardiovascular Exam: REGULAR RHYTHM - GI/Abdominal Exam GI & Abdominal Exam: Soft, Normal Bowel Sounds - Rectal Exam Rectal Exam: Deferred - Extremities Exam Extremities Exam: Normal Capillary Refill, Normal Inspection - Back Exam Back Exam: NORMAL INSPECTION Additional comments: + L buttock pressure ulcer stage II - Neurological Exam Neurological Exam: Alert, Awake, CN II-XII Intact, Normal Gait, Oriented x3 Neuro motor strength exam: Left Upper Extremity: 4, Right Upper Extremity: 4, Left Lower Extremity: 3, Right Lower Extremity: 3 - Psychiatric Exam Psychiatric exam: Normal Affect, Normal Mood - Skin Skin Exam: Dry, Intact, Normal Color, Warm Assessment and Plan (1) COPD exacerbation Assessment & Plan: slightly improved but only clinically and by impression; will plan on repeat workup Monday or prior to discharge Status: Acute (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 DEspite this, she needs self-control as it plays havoc with trying to fix her diabetes Status: Chronic (4) Generalized muscle weakness Assessment & Plan: stable, no decompensation at this time. Status: Acute (5) Decubitus ulcer of left buttock, stage 2 Assessment & Plan: consult surgery for possible debridement Status: Acute
[2017-07-01] MEDS: Pantoprazole 40 mg EC Tab PO SCH (17:20)
[2017-07-01] MEDS: Digoxin 125 mcg (0.125 mg) Tab PO SCH (18:21)
--- NOTE | 2017-07-01 18:28 | CP.PCM.CON ---
History of Present Illness - History of Present Illness History of Present Illness: Pulmonary consult; covering Dr Martino The Patient was seen and examined at the bedside, Medical records reviewed, and management issues were discussed and formulated with the house staff. Mrs Radford is 72 years old ( active tobacco smoker, former alcohol use disorder female with PMHx of HTN, Hypercholesterolemia, diabetes, anxiety/depression and s/p left BKA approximately three years The patient initially presented to the ED on 06/25 for evaluation of Shortness of breath, admitted to the medical herrera for further managements of COPD exacerbation. Patients with recent hospitalizations for management of hyponatremia, hypomagnesemia and other electrolyte disturbances Hospital course noted for some improvement of respiratory status with restart of steroids, she felt better but not enough energy to walk, yesterday she complaint of worsening of SOB while walking with physical therapy, and was desaturating Stat ABG and CXR done Patient placed on suplemental oxygen, received one dose of IV Steroids additional to the usual dose of Prednisone 20 mg PO BID ABG on RA: 7.43/46/45/28/87%, she was placed on 3L nasal cannula with improved saturation to 97% CXR revealed diffuse increased interstitial markings, small pleural effusion with Blunted left costophrenic angle, Left lung Few scattered nodular densities , Biapical pleural thickening and Right infrahilar prominence. She received one dose of IV Lasix for possible fluid overload and chest CT scan ordered. Patient feeling better today, reports less shortness of breath and improved cough Denies fever/chills, chest pain or palpitations. Patient afebrile and hemodynamically stable (except for mild tachycardia) CT chest done revealed evidence of emphysema, incidental finding of 6 mm nodule on the anterior L lung lobe (too small to biopsy at this time) Will recommend repeat chest Ct scan in 3-6 month in high risk patient. Review of Systems - Constitutional Constitutional: As Per HPI, Fatigue. absent: Chills, Excessive Sweating, Fever , Lethargy - Cardiovascular Cardiovascular: absent: Chest Pain, Chest Pain at Rest, Chest Pain with Activity , Diaphoresis, Edema, Leg Edema - Respiratory Respiratory: Cough, Dyspnea, Dyspnea on Exertion, Excessive Mucous Production. absent: Hemoptysis, Wheezing, Chest Congestion, Change in Mucous Color - Gastrointestinal Gastrointestinal: absent: Abdominal Pain, Melena, Nausea, Vomiting - Musculoskeletal Musculoskeletal: absent: Arthralgias, Atrophy, Back Pain, Joint Swelling Past Patient History - Infectious Disease Hx of Infectious Diseases: None - Past Medical History & Family History Past Medical History?: Yes - Past Social History Smoking Status: Light Smoker < 10 Cigarettes Daily Chewing Tobacco Use: No Cigar Use: No Occupation: retired Alcohol: None (recently quit) Drugs: Denies Home Situation {Lives}: Alone - CARDIAC Hx Congestive Heart Failure: No Hx Hypercholesterolemia: Yes Hx Hypertension: Yes - PULMONARY Hx Chronic Obstructive Pulmonary Disease (COPD): Yes - NEUROLOGICAL Hx Alzheimer's Disease: No - HEENT Hx Difficulty Chewing: Yes - RENAL Hx Chronic Kidney Disease: No - ENDOCRINE/METABOLIC Hx Hypothyroidism: Yes - HEMATOLOGICAL/ONCOLOGICAL Hx Blood Disorders: No Hx Blood Transfusions: Yes - INTEGUMENTARY Hx Dermatological Problems: Yes Hx Cellulitis: Yes (current) Hx Eczema: Yes - MUSCULOSKELETAL/RHEUMATOLOGICAL Hx Arthritis: Yes - GASTROINTESTINAL Hx Gastritis: Yes - GENITOURINARY/GYNECOLOGICAL Hx Genitourinary Disorders: No - PSYCHIATRIC Hx Anxiety: Yes Hx Depression: Yes Hx Substance Use: No - SURGICAL HISTORY Hx Cholecystectomy: Yes Other/Comment: s/p L BKA - ANESTHESIA Hx Anesthesia: Yes Hx Anesthesia Reactions: No Hx Malignant Hyperthermia: No Meds Allergies/Adverse Reactions: Allergies Allergy/AdvReac Type Severity Reaction Status Date / Time MIRIAM Inhibitors Allergy Severe COUGH Verified 07/01/17 01:41 Thiazides Allergy RASH Verified 07/01/17 01:44 - Medications Medications: Current Medications Acetaminophen (Tylenol 325mg Tab) 650 mg PO Q6 PRN PRN Reason: Pain, moderate (4-7) Last Admin: 06/27/17 02:05 Dose: 650 mg Acetaminophen/Codeine Phosphate (Tylenol/Codeine 300 Mg/30 Mg) 1 ea PO Q4 PRN PRN Reason: pain Albuterol Sulfate (Albuterol 0.083% Inhal Deirdre (2.5 Mg/3 Ml) Ud) 2.5 mg INH RQ4 [facility] Last Admin: 07/01/17 15:56 Dose: 2.5 mg Alprazolam (Xanax) 0.5 mg PO Q12 [facility] Last Admin: 07/01/17 10:27 Dose: 0.5 mg Budesonide (Pulmicort Respules) 0.5 mg INH RQ12 [facility] Last Admin: 07/01/17 09:15 Dose: 0.5 mg Bupropion HCl (Wellbutrin) 200 mg PO Q12 [facility] Last Admin: 07/01/17 10:27 Dose: 200 mg Digoxin (Digoxin) 0.125 mg PO DAILY@1800 [facility] Last Admin: 07/01/17 18:21 Dose: 0.125 mg Ergocalciferol (Drisdol 50,000 Intl Units Cap) 1 cap PO QWK [facility] Last Admin: 06/26/17 13:38 Dose: 1 cap Fenofibrate (Tricor) 145 mg PO HS [facility] Last Admin: 06/30/17 22:09 Dose: 145 mg Gabapentin (Neurontin) 800 mg PO TID [facility] Last Admin: 07/01/17 13:19 Dose: 800 mg Vancomycin/Sodium Chloride (Vancomycin 1 Gm/Ns 200 Ml) 1 gm in 200 mls @ 133.333 mls/hr IVPB Q12H [facility] Stop: 07/06/17 03:01 Last Admin: 07/01/17 14:11 Dose: 133.333 mls/hr Insulin Aspart (Novolog Mix 70/30 (70/30 Units/Ml)) 0 units SC BID [facility] Last Admin: 07/01/17 10:35 Dose: 10 units Insulin Detemir (Levemir) 14 unit SC PCL [facility] Last Admin: 07/01/17 13:17 Dose: 14 unit Methimazole (Tapazole) 5 mg PO DAILY [facility] Last Admin: 07/01/17 10:27 Dose: 5 mg Nicotine (Nicoderm Cq) 1 patch TD DAILY [facility] Last Admin: 07/01/17 10:28 Dose: 1 patch Ondansetron HCl (Zofran Inj) 4 mg IVP Q4 PRN PRN Reason: nausea/vomiting Pantoprazole Sodium (Protonix Ec Tab) 40 mg PO ACD [facility] Last Admin: 07/01/17 17:20 Dose: 40 mg Prednisone (Prednisone Tab) 20 mg PO BID [facility] Last Admin: 07/01/17 18:16 Dose: 20 mg Rivaroxaban (Xarelto) 20 mg PO DAILY [facility] Last Admin: 07/01/17 10:27 Dose: 20 mg Sucralfate (Carafate Tab) 1 gm PO TID [facility] Last Admin: 07/01/17 18:16 Dose: 1 gm Tiotropium [place] (Spiriva) 18 mcg INH RQ24 [facility] Last Admin: 06/28/17 07:30 Dose: Not Given Verapamil HCl (Calan Sr Tab) 180 mg PO DAILY [facility] Last Admin: 07/01/17 10:28 Dose: 180 mg Physical Exam - Constitutional Appears: Well, Non-toxic, No Acute Distress - Head Exam Head Exam: ATRAUMATIC, NORMAL INSPECTION, NORMOCEPHALIC - Eye Exam Eye Exam: EOMI. absent: Conjunctival injection - ENT Exam ENT Exam: Mucous Membranes Moist, Normal Exam - Neck Exam Neck exam: Positive for: Full Rom, Normal Inspection. Negative for: Lymphadenopathy, Tenderness, Thyromegaly - Respiratory Exam Respiratory Exam: Decreased Breath Sounds, Prolonged Expiratory Phase, Rhonchi. absent: Accessory Muscle Use, Chest Wall Tenderness, Rales, Wheezes, Respiratory Distress, Stridor - Cardiovascular Exam Cardiovascular Exam: REGULAR RHYTHM, RRR, +S1, +S2. absent: Diastolic murmur, Irregular Rhythm, JVD, Systolic Murmur - GI/Abdominal Exam GI & Abdominal Exam: Normal Bowel Sounds. absent: Diminished Bowel Sounds, Distended, Firm, Guarding, Hernia - Expanded Lower Extremities Exam Left Lower Leg Exam: absent: abrasion, crepitus - Back Exam Back exam: absent: CVA tenderness (L), CVA tenderness (R) - Expanded Neurological Exam Expanded Patient oriented to: person, place, time Results - Vital Signs Recent Vital Signs: Last Vital Signs Temp 98.3 F 07/01/17 16:55 Pulse 104 H 07/01/17 16:55 Resp 20 07/01/17 16:55 BP 154/73 H 07/01/17 16:55 Pulse Ox 98 07/01/17 16:55 - Labs Result Diagrams: 07/01/17 07:26 07/01/17 07:26 Labs: Laboratory Results - last 24 hr 06/30/17 06/30/17 07/01/17 19:47 21:52 07:07 WBC RBC Hgb Hct MCV MCH MCHC RDW Plt Count MPV Neut % (Auto) Lymph % (Auto) [place] % (Auto) Eos % (Auto) Baso % (Auto) Neut # (Auto) Lymph # (Auto) [place] # (Auto) Eos # (Auto) Baso # (Auto) Sodium Potassium Chloride Carbon Dioxide Anion Gap BUN Creatinine Est GFR ( Amer) Est GFR (Non-Af Amer) POC Glucose (mg/dL) 420 H* 345 H 390 H Random Glucose Serum Osmolality Lactic Acid Calcium Total Bilirubin AST ALT Alkaline Phosphatase NT-Pro-B Natriuret Pep Total Protein Albumin Globulin Albumin/Globulin Ratio Digoxin 07/01/17 07/01/17 07/01/17 07:26 07:26 07:26 WBC 3.8 L D RBC 3.70 L Hgb 11.7 Hct 34.4 MCV 92.8 MCH 31.6 H MCHC 34.1 RDW 13.4 Plt Count 319 MPV 8.8 Neut % (Auto) 73.6 Lymph % (Auto) 17.0 L [place] % (Auto) 9.3 Eos % (Auto) 0.0 Baso % (Auto) 0.1 Neut # (Auto) 2.8 Lymph # (Auto) 0.6 L [place] # (Auto) 0.4 Eos # (Auto) 0.0 Baso # (Auto) 0.0 Sodium 134 Potassium 4.0 Chloride 98 Carbon Dioxide 33 H Anion Gap 8 L BUN 20 H Creatinine 0.7 Est GFR ( Amer) > 60 Est GFR (Non-Af Amer) > 60 POC Glucose (mg/dL) Random Glucose 474 H* D Serum Osmolality 318 H Lactic Acid Calcium 9.0 Total Bilirubin 0.2 AST 16 ALT 25 Alkaline Phosphatase 58 NT-Pro-B Natriuret Pep 1190 H Total Protein 5.5 L Albumin 2.7 L Globulin 2.9 Albumin/Globulin Ratio 0.9 L Digoxin 07/01/17 07/01/17 07/01/17 07:26 10:27 13:05 WBC RBC Hgb Hct MCV MCH MCHC RDW Plt Count MPV Neut % (Auto) Lymph % (Auto) [place] % (Auto) Eos % (Auto) Baso % (Auto) Neut # (Auto) Lymph # (Auto) [place] # (Auto) Eos # (Auto) Baso # (Auto) Sodium Potassium Chloride Carbon Dioxide Anion Gap BUN Creatinine Est GFR ( Amer) Est GFR (Non-Af Amer) POC Glucose (mg/dL) 462 H* Random Glucose Serum Osmolality Lactic Acid 0.7 Calcium Total Bilirubin AST ALT Alkaline Phosphatase NT-Pro-B Natriuret Pep Total Protein Albumin Globulin Albumin/Globulin Ratio Digoxin 0.5 L 07/01/17 16:51 WBC RBC Hgb Hct MCV MCH MCHC RDW Plt Count MPV Neut % (Auto) Lymph % (Auto) [place] % (Auto) Eos % (Auto) Baso % (Auto) Neut # (Auto) Lymph # (Auto) [place] # (Auto) Eos # (Auto) Baso # (Auto) Sodium Potassium Chloride Carbon Dioxide Anion Gap BUN Creatinine Est GFR ( Amer) Est GFR (Non-Af Amer) POC Glucose (mg/dL) 301 H Random Glucose Serum Osmolality Lactic Acid Calcium Total Bilirubin AST ALT Alkaline Phosphatase NT-Pro-B Natriuret Pep Total Protein Albumin Globulin Albumin/Globulin Ratio Digoxin Assessment & Plan (1) Pulmonary nodule Status: Acute Priority: High Comment: CT chest done revealed evidence of emphysema, incidental finding of 6 mm nodule on the anterior L lung lobe (too small to biopsy at this time). Will recommend repeat chest Ct scan in 3-6 month in high risk patient. (2) COPD exacerbation Status: Acute Priority: High Comment: Supplemental Oxygen to keep saturation >92%. Keep 2L nasal cannula. Improved respiratory status. Continue PO steroids same dose. BD nebs q 6h prn (3) Tobacco abuse disorder Status: Acute Priority: High Comment: Patient using nicotine patch now and promised to quit smoking (4) Dyspnea Status: Acute Priority: High
--- NOTE | 2017-07-01 19:04 | CP.PCM.CON ---
History of Present Illness - History of Present Illness History of Present Illness: General Surgery: Dr Wheeler Re: Decubitus ulcer Pt is a 72F w/ PMH of DM, HLD, HTN, JUANY, depression, and left BKA. Pt currently admitted for COPD exacerbation, which she reports has significantly improved since admission. General surgery was consulted for evaluation of a left hip pressure ulcer. Pt reports the area is only mildly tender but she is worried about it. Pt reports she is constantly laying/sleeping on that left side because it is the only position she can see her TV. Otherwise denies fevers, chills, nausea or vomiting. Denies any discharge of foul smelling odors form the wound. Reports she and her care takers keep the area clean. PMH: PMH, DM, HLD, HTN, JUANY, Depression PSH: left BKA Allergies: ACEi, Thiazides Review of Systems - Review of Systems All systems: reviewed and no additional remarkable complaints except (as per hpi ) Past Patient History - Infectious Disease Hx of Infectious Diseases: None - Past Medical History & Family History Past Medical History?: Yes - Past Social History Smoking Status: Light Smoker < 10 Cigarettes Daily Chewing Tobacco Use: No Cigar Use: No Occupation: retired Alcohol: None (recently quit) Drugs: Denies Home Situation {Lives}: Alone - CARDIAC Hx Congestive Heart Failure: No Hx Hypercholesterolemia: Yes Hx Hypertension: Yes - PULMONARY Hx Chronic Obstructive Pulmonary Disease (COPD): Yes - NEUROLOGICAL Hx Alzheimer's Disease: No - HEENT Hx Difficulty Chewing: Yes - RENAL Hx Chronic Kidney Disease: No - ENDOCRINE/METABOLIC Hx Hypothyroidism: Yes - HEMATOLOGICAL/ONCOLOGICAL Hx Blood Disorders: No Hx Blood Transfusions: Yes - INTEGUMENTARY Hx Dermatological Problems: Yes Hx Cellulitis: Yes (current) Hx Eczema: Yes - MUSCULOSKELETAL/RHEUMATOLOGICAL Hx Arthritis: Yes - GASTROINTESTINAL Hx Gastritis: Yes - GENITOURINARY/GYNECOLOGICAL Hx Genitourinary Disorders: No - PSYCHIATRIC Hx Anxiety: Yes Hx Depression: Yes Hx Substance Use: No - SURGICAL HISTORY Hx Cholecystectomy: Yes Other/Comment: s/p L BKA - ANESTHESIA Hx Anesthesia: Yes Hx Anesthesia Reactions: No Hx Malignant Hyperthermia: No Meds Allergies/Adverse Reactions: Allergies Allergy/AdvReac Type Severity Reaction Status Date / Time MIRIAM Inhibitors Allergy Severe COUGH Verified 07/01/17 01:41 Thiazides Allergy RASH Verified 07/01/17 01:44 - Medications Medications: Current Medications Acetaminophen (Tylenol 325mg Tab) 650 mg PO Q6 PRN PRN Reason: Pain, moderate (4-7) Last Admin: 06/27/17 02:05 Dose: 650 mg Acetaminophen/Codeine Phosphate (Tylenol/Codeine 300 Mg/30 Mg) 1 ea PO Q4 PRN PRN Reason: pain Albuterol Sulfate (Albuterol 0.083% Inhal Deirdre (2.5 Mg/3 Ml) Ud) 2.5 mg INH RQ4 [facility] Last Admin: 07/01/17 15:56 Dose: 2.5 mg Alprazolam (Xanax) 0.5 mg PO Q12 [facility] Last Admin: 07/01/17 10:27 Dose: 0.5 mg Budesonide (Pulmicort Respules) 0.5 mg INH RQ12 [facility] Last Admin: 07/01/17 09:15 Dose: 0.5 mg Bupropion HCl (Wellbutrin) 200 mg PO Q12 [facility] Last Admin: 07/01/17 10:27 Dose: 200 mg Digoxin (Digoxin) 0.125 mg PO DAILY@1800 [facility] Last Admin: 07/01/17 18:21 Dose: 0.125 mg Ergocalciferol (Drisdol 50,000 Intl Units Cap) 1 cap PO QWK [facility] Last Admin: 06/26/17 13:38 Dose: 1 cap Fenofibrate (Tricor) 145 mg PO HS [facility] Last Admin: 06/30/17 22:09 Dose: 145 mg Gabapentin (Neurontin) 800 mg PO TID [facility] Last Admin: 07/01/17 18:29 Dose: 800 mg Vancomycin/Sodium Chloride (Vancomycin 1 Gm/Ns 200 Ml) 1 gm in 200 mls @ 133.333 mls/hr IVPB Q12H [facility] Stop: 07/06/17 03:01 Last Admin: 07/01/17 14:11 Dose: 133.333 mls/hr Insulin Aspart (Novolog Mix 70/30 (70/30 Units/Ml)) 0 units SC BID [facility] Last Admin: 07/01/17 10:35 Dose: 10 units Insulin Detemir (Levemir) 14 unit SC PCL [facility] Last Admin: 07/01/17 13:17 Dose: 14 unit Methimazole (Tapazole) 5 mg PO DAILY [facility] Last Admin: 07/01/17 10:27 Dose: 5 mg Nicotine (Nicoderm Cq) 1 patch TD DAILY [facility] Last Admin: 07/01/17 10:28 Dose: 1 patch Ondansetron HCl (Zofran Inj) 4 mg IVP Q4 PRN PRN Reason: nausea/vomiting Pantoprazole Sodium (Protonix Ec Tab) 40 mg PO ACD [facility] Last Admin: 07/01/17 17:20 Dose: 40 mg Prednisone (Prednisone Tab) 20 mg PO BID [facility] Last Admin: 07/01/17 18:16 Dose: 20 mg Rivaroxaban (Xarelto) 20 mg PO DAILY [facility] Last Admin: 07/01/17 10:27 Dose: 20 mg Sucralfate (Carafate Tab) 1 gm PO TID [facility] Last Admin: 07/01/17 18:16 Dose: 1 gm Tiotropium [place] (Spiriva) 18 mcg INH RQ24 [facility] Last Admin: 06/28/17 07:30 Dose: Not Given Verapamil HCl (Calan Sr Tab) 180 mg PO DAILY [facility] Last Admin: 07/01/17 10:28 Dose: 180 mg Physical Exam - Constitutional Appears: Non-toxic, No Acute Distress - Head Exam Head Exam: NORMOCEPHALIC - Eye Exam Eye Exam: Normal appearance - ENT Exam ENT Exam: Mucous Membranes Moist, Normal Exam - Respiratory Exam Respiratory Exam: NORMAL BREATHING PATTERN. absent: Accessory Muscle Use, Respiratory Distress Additional comments: on nasal cannula - Cardiovascular Exam Cardiovascular Exam: absent: Tachycardia - GI/Abdominal Exam GI & Abdominal Exam: Soft. absent: Tenderness - Exam Additional comments: stage 1 1x1 cm pressure ulcer on left hip with no surrounding erythema, fluctuance or induration - Neurological Exam Neurological exam: Alert, Oriented x3 - Psychiatric Exam Psychiatric exam: Normal Affect, Normal Mood - Skin Skin Exam: Normal Color, Warm Results - Vital Signs Recent Vital Signs: Last Vital Signs Temp 98.3 F 07/01/17 16:55 Pulse 104 H 07/01/17 16:55 Resp 20 07/01/17 16:55 BP 154/73 H 07/01/17 16:55 Pulse Ox 98 07/01/17 16:55 - Labs Result Diagrams: 07/01/17 07:26 07/01/17 07:26 Labs: Laboratory Results - last 24 hr 06/30/17 06/30/17 07/01/17 19:47 21:52 07:07 WBC RBC Hgb Hct MCV MCH MCHC RDW Plt Count MPV Neut % (Auto) Lymph % (Auto) [place] % (Auto) Eos % (Auto) Baso % (Auto) Neut # (Auto) Lymph # (Auto) [place] # (Auto) Eos # (Auto) Baso # (Auto) Sodium Potassium Chloride Carbon Dioxide Anion Gap BUN Creatinine Est GFR ( Amer) Est GFR (Non-Af Amer) POC Glucose (mg/dL) 420 H* 345 H 390 H Random Glucose Serum Osmolality Lactic Acid Calcium Total Bilirubin AST ALT Alkaline Phosphatase NT-Pro-B Natriuret Pep Total Protein Albumin Globulin Albumin/Globulin Ratio Digoxin 07/01/17 07/01/17 07/01/17 07:26 07:26 07:26 WBC 3.8 L D RBC 3.70 L Hgb 11.7 Hct 34.4 MCV 92.8 MCH 31.6 H MCHC 34.1 RDW 13.4 Plt Count 319 MPV 8.8 Neut % (Auto) 73.6 Lymph % (Auto) 17.0 L [place] % (Auto) 9.3 Eos % (Auto) 0.0 Baso % (Auto) 0.1 Neut # (Auto) 2.8 Lymph # (Auto) 0.6 L [place] # (Auto) 0.4 Eos # (Auto) 0.0 Baso # (Auto) 0.0 Sodium 134 Potassium 4.0 Chloride 98 Carbon Dioxide 33 H Anion Gap 8 L BUN 20 H Creatinine 0.7 Est GFR ( Amer) > 60 Est GFR (Non-Af Amer) > 60 POC Glucose (mg/dL) Random Glucose 474 H* D Serum Osmolality 318 H Lactic Acid Calcium 9.0 Total Bilirubin 0.2 AST 16 ALT 25 Alkaline Phosphatase 58 NT-Pro-B Natriuret Pep 1190 H Total Protein 5.5 L Albumin 2.7 L Globulin 2.9 Albumin/Globulin Ratio 0.9 L Digoxin 07/01/17 07/01/17 07/01/17 07:26 10:27 13:05 WBC RBC Hgb Hct MCV MCH MCHC RDW Plt Count MPV Neut % (Auto) Lymph % (Auto) [place] % (Auto) Eos % (Auto) Baso % (Auto) Neut # (Auto) Lymph # (Auto) [place] # (Auto) Eos # (Auto) Baso # (Auto) Sodium Potassium Chloride Carbon Dioxide Anion Gap BUN Creatinine Est GFR ( Amer) Est GFR (Non-Af Amer) POC Glucose (mg/dL) 462 H* Random Glucose Serum Osmolality Lactic Acid 0.7 Calcium Total Bilirubin AST ALT Alkaline Phosphatase NT-Pro-B Natriuret Pep Total Protein Albumin Globulin Albumin/Globulin Ratio Digoxin 0.5 L 07/01/17 07/01/17 16:51 18:53 WBC RBC Hgb Hct MCV MCH MCHC RDW Plt Count MPV Neut % (Auto) Lymph % (Auto) [place] % (Auto) Eos % (Auto) Baso % (Auto) Neut # (Auto) Lymph # (Auto) [place] # (Auto) Eos # (Auto) Baso # (Auto) Sodium Potassium Chloride Carbon Dioxide Anion Gap BUN Creatinine Est GFR ( Amer) Est GFR (Non-Af Amer) POC Glucose (mg/dL) 301 H 310 H Random Glucose Serum Osmolality Lactic Acid Calcium Total Bilirubin AST ALT Alkaline Phosphatase NT-Pro-B Natriuret Pep Total Protein Albumin Globulin Albumin/Globulin Ratio Digoxin Assessment & Plan - Assessment and Plan (Free Text) Assessment: 72F w. left hip ulcer Plan: pressure ulcer is stage 1 no sign of infection or wound that needs to be drained culture will likely demonstrate skin marlin as skin is not broken no intervention needed just continue to offload pressure would recommend air mattress at home will d/w Dr Liam Michaels PGY3
--- NOTE | 2017-07-01 22:38 | PN ---
DATE: SUBJECTIVE: The patient is seen. The patient is alert, verbal, seen with her homemaker. Her blood sugar was noted by the nurse to be elevated at 462. However, her oxygen level seems to be much better. Her O2 saturation is 96% on nasal cannula. The patient is not removing her nasal cannula at this time, but reports she is compliant with her dietary restriction in the hospital.. PHYSICAL EXAMINATION VITAL SIGNS: Temperature is 97.7, pulse 102, blood pressure is 163/77, respirations 20, and oxygen saturation is 93%. REVIEW OF SYSTEMS: The patient is alert, verbal, conversing with her doctor in [facility]. The patient reports that she [place] this doctor [place] [facility] [place] the [place] is conversing with his doctor in [facility]. The patient states that she is not ready to go back home yet because she is concerned about her fluctuating blood sugar, and oxygen O2. 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 SKIN: No diaphoresis. HEENT: No headaches, no dizziness. NECK: Supple. RESPIRATORY: No dyspnea. CARDIOVASCULAR: No chest pain. GASTROINTESTINAL: Appetite is variable. EXTREMITIES: The patient is complaining of pain, but the patient is status post left BKA. MUSCULOSKELETAL: Feels weak. NEUROLOGIC: Alert and oriented x3. GENITOURINARY: No urinary problems. MENTAL STATUS EXAMINATION: Elderly female of Citizen Of [place] descent, oriented x3, conversing in [facility]. Speech spontaneous. Affect is reactive. Mood is anxious. Thought process coherent. Thought content, no overt psychosis. No suicidal or homicidal ideations. Attention and memory seems to be fair. Insight and judgement is fair. Impulse control is fair. IMPRESSION: History of recurrent depression and anxiety, with possible delirium, history of nicotine and alcohol dependence. PLAN AND RECOMMENDATIONS: The patient is seen, meds reviewed. Continue present management. Continue present psych meds and monitor her blood sugar as well as O2 level. The patient has been compliant with her care. She also reports she has glucometer at home. Mika Cobb MD [facility]
[2017-07-02] MEDS: Albuterol 0.083% Inhal Sol (2.5 mg/3 mL) UD INH SCH ×6 (00:15→19:43)
[2017-07-02] MEDS: Vancomycin 1 gm/NS 200 ml 1 GM/200 ML BAG IVPB SCH ×2 (02:17→14:01)
--- NOTE | 2017-07-02 06:25 | CP.PCM.PN ---
Subjective - Date & Time of Evaluation Date of Evaluation: 07/02/17 Time of Evaluation: 06:25 - Subjective Subjective: General Surgery: Dr Wheeler Pt S&E. NAEO. Condition remains unchanged. Denies further sob or chest pain, denies n/v, f/c. Wound dressing c/d/i Objective - Vital Signs/Intake and Output Vital Signs (last 24 hours): Temp Pulse Resp BP Pulse Ox 97.9 F 102 H 20 157/76 H 95 07/02/17 00:00 07/02/17 00:00 07/02/17 00:00 07/02/17 00:00 07/02/17 00:00 Intake and Output: 07/01/17 07/02/17 18:59 06:59 Intake Total 700 600 Balance 700 600 - Medications Medications: Current Medications Acetaminophen (Tylenol 325mg Tab) 650 mg PO Q6 PRN PRN Reason: Pain, moderate (4-7) Last Admin: 06/27/17 02:05 Dose: 650 mg Acetaminophen/Codeine Phosphate (Tylenol/Codeine 300 Mg/30 Mg) 1 ea PO Q4 PRN PRN Reason: pain Albuterol Sulfate (Albuterol 0.083% Inhal Deirdre (2.5 Mg/3 Ml) Ud) 2.5 mg INH RQ4 [facility] Last Admin: 07/02/17 03:17 Dose: 2.5 mg Alprazolam (Xanax) 0.5 mg PO Q12 [facility] Last Admin: 07/01/17 21:56 Dose: 0.5 mg Budesonide (Pulmicort Respules) 0.5 mg INH RQ12 [facility] Last Admin: 07/01/17 19:14 Dose: 0.5 mg Bupropion HCl (Wellbutrin) 200 mg PO Q12 [facility] Last Admin: 07/01/17 21:56 Dose: 200 mg Digoxin (Digoxin) 0.125 mg PO DAILY@1800 [facility] Last Admin: 07/01/17 18:21 Dose: 0.125 mg Ergocalciferol (Drisdol 50,000 Intl Units Cap) 1 cap PO QWK [facility] Last Admin: 06/26/17 13:38 Dose: 1 cap Fenofibrate (Tricor) 145 mg PO HS [facility] Last Admin: 07/01/17 21:56 Dose: 145 mg Gabapentin (Neurontin) 800 mg PO TID [facility] Last Admin: 07/01/17 18:29 Dose: 800 mg Vancomycin/Sodium Chloride (Vancomycin 1 Gm/Ns 200 Ml) 1 gm in 200 mls @ 133.333 mls/hr IVPB Q12H [facility] Stop: 07/06/17 03:01 Last Admin: 07/02/17 02:17 Dose: 133.333 mls/hr Insulin Aspart (Novolog Mix 70/30 (70/30 Units/Ml)) 0 units SC BID [facility] Last Admin: 07/01/17 18:57 Dose: 4 units Insulin Detemir (Levemir) 14 unit SC PCL [facility] Last Admin: 07/01/17 13:17 Dose: 14 unit Methimazole (Tapazole) 5 mg PO DAILY [facility] Last Admin: 07/01/17 10:27 Dose: 5 mg Nicotine (Nicoderm Cq) 1 patch TD DAILY [facility] Last Admin: 07/01/17 10:28 Dose: 1 patch Ondansetron HCl (Zofran Inj) 4 mg IVP Q4 PRN PRN Reason: nausea/vomiting Pantoprazole Sodium (Protonix Ec Tab) 40 mg PO ACD [facility] Last Admin: 07/01/17 17:20 Dose: 40 mg Prednisone (Prednisone Tab) 20 mg PO BID [facility] Last Admin: 07/01/17 18:16 Dose: 20 mg Rivaroxaban (Xarelto) 20 mg PO DAILY [facility] Last Admin: 07/01/17 10:27 Dose: 20 mg Sucralfate (Carafate Tab) 1 gm PO TID [facility] Last Admin: 07/01/17 18:16 Dose: 1 gm Tiotropium [place] (Spiriva) 18 mcg INH RQ24 [facility] Last Admin: 06/28/17 07:30 Dose: Not Given Verapamil HCl (Calan Sr Tab) 180 mg PO DAILY [facility] Last Admin: 07/01/17 10:28 Dose: 180 mg - Labs Labs: 07/01/17 07:26 07/01/17 07:26 PT 13.5 SECONDS (9.7-12.2) H 06/25/17 05:18 INR 1.2 06/25/17 05:18 - Constitutional Appears: Non-toxic, No Acute Distress - Head Exam Head Exam: NORMAL INSPECTION - ENT Exam ENT Exam: Mucous Membranes Moist - Respiratory Exam Respiratory Exam: absent: Accessory Muscle Use, Respiratory Distress - Cardiovascular Exam Cardiovascular Exam: REGULAR RHYTHM - Neurological Exam Neurological Exam: Alert, Awake, Oriented x3 - Psychiatric Exam Psychiatric exam: Normal Affect, Normal Mood Assessment and Plan - Assessment and Plan (Free Text) Assessment: 72F with stage 1 pressure ulcer on left hip Plan: cont local wound care pressure off loading arm mattress at home no surgical intervention planned d/w Dr Liam Michaels, PGY3
[2017-07-02] MEDS: Budesonide 0.5 mg/2 ml Inhal Susp UD INH SCH (07:14)
[2017-07-02 09:05] LABS: BASO % 0.7 % (0.0-2.0); HEMOGLOBIN 12.4 g/dL (11.0-16.0); LYMPH # 1.1 K/uL (1.0-4.3); LYMPH % 17.5 % (20.0-40.0); MEAN CELL VOLUME 93.4 fL (81.0-99.0); MEAN CORPUSCULAR HEMOGLOBIN 31.7 pg (27.0-31.0); MEAN CORPUSCULAR HGB CONC 33.9 g/dL (33.0-37.0); MEAN PLATELET VOLUME 8.6 fL (7.2-11.7); MONO # 0.5 K/uL (0.0-0.8); MONO % 7.7 % (0.0-10.0); NEUT # 4.7 K/uL (1.8-7.0); NEUT % 74.1 % (50.0-75.0); RBC 3.9 Mil/uL (3.80-5.20); RED CELL DISTRIBUTION WIDTH 13.4 % (11.5-14.5); WHITE BLOOD COUNT 6.4 K/uL (4.8-10.8)
[2017-07-02 09:24] LABS: BLOOD UREA NITROGEN 24 mg/dL (7-17); CALCIUM 9.1 mg/dl (8.6-10.4); GFR AFRICAN-AMERICAN > 60; GFR NON-AFRICAN AMERICAN > 60
[2017-07-02] MEDS: (Novolog Mix 70/30) Insulin Aspart/Insulin Aspar 100 units/ml SC SCH ×2 (10:29→18:55)
[2017-07-02] MEDS: methIMAzole 5 MG TAB PO SCH (10:30)
[2017-07-02] MEDS: Verapamil 180 mg ER Tab PO SCH (10:30)
[2017-07-02] MEDS: Insulin Detemir 100 units/ml Vial (Levemir) SC SCH (13:18)
--- NOTE | 2017-07-02 13:52 | CP.PCM.CON ---
History of Present Illness - History of Present Illness History of Present Illness: 72 YO FEMALE ADMITTED WITH EXAC COPD AND INFECTED LEFT HIP WOUND S/P LEFT BKA 2 YRS AGO ID CONSULTED TO R/ O OM STARTED ON EMPIRIC IV ANTIBIOTICS WOUND CARE IN PROGRESS 72F w/ PMH of DM, HLD, HTN, JUANY, depression, and left BKA. Pt currently admitted for COPD exacerbation, which she reports has significantly improved since admission. General surgery was consulted for evaluation of a left hip pressure ulcer. Pt reports the area is only mildly tender but she is worried about it. Pt reports she is constantly laying/sleeping on that left side because it is the only position she can see her TV. Otherwise denies fevers, chills, nausea or vomiting. Denies any discharge of foul smelling odors form the wound. Reports she and her care takers keep the area clean. PMH: PMH, DM, HLD, HTN, JUANY, Depression PSH: left BKA Allergies: ACEi, Thiazides Review of Systems - Review of Systems All systems: reviewed and no additional remarkable complaints except - Constitutional Constitutional: As Per HPI - EENT Eyes: As Per HPI. absent: Change in Vision Ears: As Per HPI Nose/Mouth/Throat: As Per HPI. absent: Epistaxis, Nasal Congestion, Nasal Discharge, Nasal Obstruction, Nasal Trauma, Nose Pain, Post Nasal Drip, Sinus Pain, Sinus Pressure, Bleeding Gums, Change in Voice, Dental Pain, Dry Mouth, Dysphagia, Halitosis, Hoarsness, Lip Swelling, Mouth Lesions, Mouth Pain, Odynophagia, Sore Throat, Throat Swelling, Tongue Swelling, Facial Pain, Neck Pain, Neck Mass, Other - Breasts Breasts: As Per HPI. absent: Change in Shape, Mass, Pain, Nipple Discharge, Nipple Inversion, Skin Changes, Swelling, Other - Cardiovascular Cardiovascular: As Per HPI. absent: Acrocyanosis, Chest Pain, Chest Pain at Rest, Chest Pain with Activity, Claudication, Diaphoresis, Dyspnea, Dyspnea on Exertion, Edema, Irregular Heart Rhythm, Pain Radiating to Arm/Neck/Jaw, Leg Edema, Leg Ulcers, Lightheadedness, Orthopnea, Palpitations, Paroxysmal Nocturnal Dyspnea, Pedal Edema, Radiating Pain, Rapid Heart Rate, Slow Heart Rate, Syncope, Other - Respiratory Respiratory: As Per HPI - Gastrointestinal Gastrointestinal: As Per HPI - Genitourinary Genitourinary: As Per HPI. absent: Change in Urinary Stream, Difficulty Urinating, Dysuria, Flank Pain, Hematuria, Pyuria, Nocturia, Urinary Incontinence, Urinary Frequency, Urinary Hesitance, Urinary Urgency, Voiding Freq/Small Amts, Freq UTI, Hx Renal/Bladder Calculi, Hx /Renal Surgery, Bladder Distension, Other - Reproductive: Female Reproductive:Female: As Per HPI. absent: Amenorrhea, Amenorrhea/ Control, Currently Menstual, Cycle <21 Days, Cycle >35 Days, Cycle Variable, Menses 1-7 Days, Menses >/= 8 Days, Menses Variable, Cycle > 4 Weeks Between, No Menses for 6 Months, Heavy Menses, Light Menses, Normal Menses, Spotting Between Cycles , S/P Hysterectomy, Menopausal, Post Menopausal, Premenarche, Abnormal Vaginal Bleeding, Dysmenorrhea, Dyspareunia, Genital Lesions, Genital Pruritis, Pelvic Pain, Prolapse Symptoms, Sexual Dysfunction, Vaginal Discharge, Vaginal Dryness , Vaginal Odor, Vaginal Pruritis, Other - Menstruation Menstruation: As Per HPI. absent: Amenorrhea, Amenorrhea/ Control, Currently Menstual, Cycle <21 Days, Cycle >35 Days, Cycle Variable, Menses 1-7 Days, Menses >/= 8 Days, Menses Variable, Cycle > 4 Weeks Between, No Menses for 6 Months, Heavy Menses, Light Menses, Normal Menses, Spotting Between Cycles , S/P Hysterectomy, Menopausal, Post Menopausal, Premenarche, Abnormal Vaginal Bleeding, Dysmenorrhea, Other - Musculoskeletal Musculoskeletal: As Per HPI - Integumentary Integumentary: Skin Pain, Wounds - Neurological Neurological: As Per HPI - Psychiatric Psychiatric: As Per HPI. absent: Abnormal Sleep Pattern, Anhedonia, Anxiety, Auditory Hallucinations, Behavioral Changes, Change in Appetite, Change in Libido, Confusion, Depression, Difficulty Concentrating, Hallucinations, Homicidal Ideation, Hopelessness, Irritability, Memory Loss, Mood Swings, Panic Attacks, Paranoia, Suicidal Ideation, Visual Hallucinations, Tactile Hallucinations, Other - Endocrine Endocrine: absent: As Per HPI, Change in Body Appearance, Change in Libido, Cold Intolorance, Deepening of Voice, Excessive Sweating, Fatigue, Flushing, Heat Intolorance, Increase in Ring/Shoe/Hat Size, Palpitations, Polydipsia, Polyphagia, Polyuria, Other - Hematologic/Lymphatic Hematologic: absent: As Per HPI, Easy Bleeding, Easy Bruising, Lymphadenopathy, Other Past Patient History - Infectious Disease Hx of Infectious Diseases: None - Past Medical History & Family History Past Medical History?: Yes - Past Social History Smoking Status: Light Smoker < 10 Cigarettes Daily Chewing Tobacco Use: No Cigar Use: No Occupation: retired Alcohol: None (recently quit) Drugs: Denies Home Situation {Lives}: Alone - CARDIAC Hx Congestive Heart Failure: No Hx Hypercholesterolemia: Yes Hx Hypertension: Yes - PULMONARY Hx Chronic Obstructive Pulmonary Disease (COPD): Yes - NEUROLOGICAL Hx Alzheimer's Disease: No - HEENT Hx Difficulty Chewing: Yes - RENAL Hx Chronic Kidney Disease: No - ENDOCRINE/METABOLIC Hx Hypothyroidism: Yes - HEMATOLOGICAL/ONCOLOGICAL Hx Blood Disorders: No Hx Blood Transfusions: Yes - INTEGUMENTARY Hx Dermatological Problems: Yes Hx Cellulitis: Yes (current) Hx Eczema: Yes - MUSCULOSKELETAL/RHEUMATOLOGICAL Hx Arthritis: Yes - GASTROINTESTINAL Hx Gastritis: Yes - GENITOURINARY/GYNECOLOGICAL Hx Genitourinary Disorders: No - PSYCHIATRIC Hx Anxiety: Yes Hx Depression: Yes Hx Substance Use: No - SURGICAL HISTORY Hx Cholecystectomy: Yes Other/Comment: s/p L BKA - ANESTHESIA Hx Anesthesia: Yes Hx Anesthesia Reactions: No Hx Malignant Hyperthermia: No Meds Allergies/Adverse Reactions: Allergies Allergy/AdvReac Type Severity Reaction Status Date / Time MIRIAM Inhibitors Allergy Severe COUGH Verified 07/01/17 01:41 Thiazides Allergy RASH Verified 07/01/17 01:44 - Medications Medications: Current Medications Acetaminophen (Tylenol 325mg Tab) 650 mg PO Q6 PRN PRN Reason: Pain, moderate (4-7) Last Admin: 06/27/17 02:05 Dose: 650 mg Acetaminophen/Codeine Phosphate (Tylenol/Codeine 300 Mg/30 Mg) 1 ea PO Q4 PRN PRN Reason: pain Albuterol Sulfate (Albuterol 0.083% Inhal Deirdre (2.5 Mg/3 Ml) Ud) 2.5 mg INH RQ4 [facility] Last Admin: 07/02/17 11:08 Dose: 2.5 mg Alprazolam (Xanax) 0.5 mg PO Q12 [facility] Last Admin: 07/02/17 10:30 Dose: 0.5 mg Budesonide (Pulmicort Respules) 0.5 mg INH RQ12 [facility] Bupropion HCl (Wellbutrin) 200 mg PO Q12 [facility] Last Admin: 07/02/17 10:31 Dose: 200 mg Digoxin (Digoxin) 0.125 mg PO DAILY@1800 [facility] Last Admin: 07/01/17 18:21 Dose: 0.125 mg Ergocalciferol (Drisdol 50,000 Intl Units Cap) 1 cap PO QWK [facility] Last Admin: 06/26/17 13:38 Dose: 1 cap Fenofibrate (Tricor) 145 mg PO HS [facility] Last Admin: 07/01/17 21:56 Dose: 145 mg Gabapentin (Neurontin) 800 mg PO TID [facility] Last Admin: 07/02/17 13:18 Dose: 800 mg Vancomycin/Sodium Chloride (Vancomycin 1 Gm/Ns 200 Ml) 1 gm in 200 mls @ 133.333 mls/hr IVPB Q12H [facility] Stop: 07/06/17 03:01 Last Admin: 07/02/17 02:17 Dose: 133.333 mls/hr Insulin Aspart (Novolog Mix 70/30 (70/30 Units/Ml)) 0 units SC BID [facility] Last Admin: 07/02/17 10:29 Dose: 6 units Insulin Detemir (Levemir) 14 unit SC PCL [facility] Last Admin: 07/02/17 13:18 Dose: 14 unit Methimazole (Tapazole) 5 mg PO DAILY [facility] Last Admin: 07/02/17 10:30 Dose: 5 mg Nicotine (Nicoderm Cq) 1 patch TD DAILY [facility] Last Admin: 07/02/17 10:31 Dose: 1 patch Ondansetron HCl (Zofran Inj) 4 mg IVP Q4 PRN PRN Reason: nausea/vomiting Pantoprazole Sodium (Protonix Ec Tab) 40 mg PO ACD [facility] Last Admin: 07/01/17 17:20 Dose: 40 mg Prednisone (Prednisone Tab) 20 mg PO BID [facility] Last Admin: 07/02/17 10:30 Dose: 20 mg Rivaroxaban (Xarelto) 20 mg PO DAILY [facility] Last Admin: 07/02/17 10:30 Dose: 20 mg Sucralfate (Carafate Tab) 1 gm PO TID [facility] Last Admin: 07/02/17 13:18 Dose: 1 gm Tiotropium [place] (Spiriva) 18 mcg INH RQ24 [facility] Last Admin: 06/28/17 07:30 Dose: Not Given Verapamil HCl (Calan Sr Tab) 180 mg PO DAILY [facility] Last Admin: 07/02/17 10:30 Dose: 180 mg Physical Exam - Constitutional Appears: Non-toxic, Chronically Ill - Head Exam Head Exam: NORMOCEPHALIC - Eye Exam Eye Exam: PERRL. absent: Scleral icterus - ENT Exam ENT Exam: Mucous Membranes Dry, Normal External Ear Exam - Neck Exam Neck exam: Negative for: Lymphadenopathy - Respiratory Exam Respiratory Exam: Decreased Breath Sounds - Cardiovascular Exam Cardiovascular Exam: REGULAR RHYTHM, +S1, +S2 - GI/Abdominal Exam GI & Abdominal Exam: Diminished Bowel Sounds, Soft. absent: Tenderness - Rectal Exam Rectal Exam: Deferred - Exam Exam: NORMAL INSPECTION - Extremities Exam Extremities exam: Negative for: pedal edema, tenderness Additional comments: LEFT HIP WITH 2 PRESSURE SORES STAGE II NO FOUL SMELL OR NECROSIS MIN DRAINAGE LEFT BKA SITE OK - Back Exam Back exam: absent: CVA tenderness (L), CVA tenderness (R), paraspinal tenderness - Neurological Exam Neurological exam: Alert, CN II-XII Intact, Oriented x3, Reflexes Normal - Psychiatric Exam Psychiatric exam: Normal Mood - Skin Skin Exam: Dry Results - Vital Signs Recent Vital Signs: Last Vital Signs Temp 97.9 F 07/02/17 00:00 Pulse 102 H 07/02/17 00:00 Resp 20 07/02/17 00:00 BP 157/76 H 07/02/17 00:00 Pulse Ox 95 07/02/17 00:00 - Labs Result Diagrams: 07/02/17 08:42 07/02/17 08:42 Labs: Laboratory Results - last 24 hr 07/01/17 07/01/17 07/01/17 16:51 18:53 21:25 WBC RBC Hgb Hct MCV MCH MCHC RDW Plt Count MPV Neut % (Auto) Lymph % (Auto) [place] % (Auto) Eos % (Auto) Baso % (Auto) Neut # (Auto) Lymph # (Auto) [place] # (Auto) Eos # (Auto) Baso # (Auto) Sodium Potassium Chloride Carbon Dioxide Anion Gap BUN Creatinine Est GFR ( Amer) Est GFR (Non-Af Amer) POC Glucose (mg/dL) 301 H 310 H Random Glucose Calcium Urine Osmolality 650 07/01/17 07/02/17 07/02/17 21:47 02:16 07:36 WBC RBC Hgb Hct MCV MCH MCHC RDW Plt Count MPV Neut % (Auto) Lymph % (Auto) [place] % (Auto) Eos % (Auto) Baso % (Auto) Neut # (Auto) Lymph # (Auto) [place] # (Auto) Eos # (Auto) Baso # (Auto) Sodium Potassium Chloride Carbon Dioxide Anion Gap BUN Creatinine Est GFR ( Amer) Est GFR (Non-Af Amer) POC Glucose (mg/dL) 324 H 396 H 401 H* Random Glucose Calcium Urine Osmolality 07/02/17 07/02/17 07/02/17 08:42 08:42 10:22 WBC 6.4 D RBC 3.90 Hgb 12.4 Hct 36.4 MCV 93.4 MCH 31.7 H MCHC 33.9 RDW 13.4 Plt Count 321 MPV 8.6 Neut % (Auto) 74.1 Lymph % (Auto) 17.5 L [place] % (Auto) 7.7 Eos % (Auto) 0.0 Baso % (Auto) 0.7 Neut # (Auto) 4.7 Lymph # (Auto) 1.1 [place] # (Auto) 0.5 Eos # (Auto) 0.0 Baso # (Auto) 0.0 Sodium 135 Potassium 4.8 Chloride 99 Carbon Dioxide 32 H Anion Gap 9 L BUN 24 H Creatinine 0.9 Est GFR ( Amer) > 60 Est GFR (Non-Af Amer) > 60 POC Glucose (mg/dL) 391 H Random Glucose 495 H* Calcium 9.1 Urine Osmolality 07/02/17 11:37 WBC RBC Hgb Hct MCV MCH MCHC RDW Plt Count MPV Neut % (Auto) Lymph % (Auto) [place] % (Auto) Eos % (Auto) Baso % (Auto) Neut # (Auto) Lymph # (Auto) [place] # (Auto) Eos # (Auto) Baso # (Auto) Sodium Potassium Chloride Carbon Dioxide Anion Gap BUN Creatinine Est GFR ( Amer) Est GFR (Non-Af Amer) POC Glucose (mg/dL) 394 H Random Glucose Calcium Urine Osmolality Assessment & Plan (1) COPD exacerbation Status: Acute Priority: High (2) Decubitus ulcer of left buttock, stage 2 Status: Acute (3) Dyspnea Status: Acute Priority: High (4) Tobacco abuse disorder Status: Acute Priority: High - Assessment and Plan (Free Text) Assessment: CONT IV ANTIBIOTICS AND WOUND CARE CHECK CRP/ ESR CONSIDER CT LEFT HIP WOUND CARE EVAL OFF LOADING WILL FOLLOW
--- NOTE | 2017-07-02 15:58 | CP.PCM.PN ---
Subjective - Date & Time of Evaluation Date of Evaluation: 07/02/17 Time of Evaluation: 15:56 - Subjective Subjective: Pulmonary consult; covering Dr Martino The Patient was seen and examined at the bedside, Medical records reviewed, and management issues were discussed and formulated with the house staff. Mrs Radford is 72 years old ( active tobacco smoker, former alcohol use disorder female with PMHx of HTN, Hypercholesterolemia, diabetes, anxiety/depression and s/p left BKA approximately three years The patient initially presented to the ED on 06/25 for evaluation of Shortness of breath, admitted to the medical herrera for further managements of COPD exacerbation. CT chest done revealed evidence of emphysema, incidental finding of 6 mm nodule on the anterior L lung lobe (too small to biopsy at this time) Will recommend repeat chest Ct scan in 3-6 month in high risk patient. Patient feeling better today, reports less shortness of breath and improved productive cough Denies fever/chills, chest pain or palpitations. Patient afebrile and hemodynamically stable (except for mild tachycardia) CHEST W/O CONTRAST Exam Date: 06/30/17 FINDINGS: Lungs: Moderate centrilobular emphysema. Segmental atelectasis and at lung bases. 6 mm nodule anteriorly in the right lung series 4 image #70. No appreciable left basilar nodules. Pleural space: Trace bilateral pleural fluid. No pneumothorax. Heart: Coronary artery calcifications. Mild cardiomegaly. No significant pericardial effusion. Thyroid: Calcified left thyroid lobe nodule. Bones/joints: Diffuse spinal degenerative changes. No acute fracture. No dislocation. Soft tissues: Bilateral breast implants with capsular calcifications. Vasculature: Atherosclerotic vascular disease. No thoracic aortic aneurysm. Lymph nodes: Unremarkable. No enlarged lymph nodes. Gallbladder and bile ducts: Cholecystectomy. IMPRESSION: 1. 6 mm right lung nodule. For low-risk patients recommend follow-up chest CT at 6-12 months. If unchanged consider an additional follow-up CT at 18-24 months. For high-risk patients (smoking history or other known risk factors) initial follow-up chest CT at 6-12 months and if unchanged, 18-24 months. 2. Moderate centrilobular emphysema. Fleischner society pulmonary nodule 2017 recommendations Solitary nodule size: 6-8 mm high risk patients: initial follow-up CT at 6-12 months and then at 18-24 months if no change Objective - Vital Signs/Intake and Output Vital Signs (last 24 hours): Temp Pulse Resp BP Pulse Ox 97.9 F 102 H 20 164/72 H 95 07/02/17 08:00 07/02/17 08:00 07/02/17 08:00 07/02/17 08:00 07/02/17 08:00 Intake and Output: 07/02/17 07/02/17 06:59 18:59 Intake Total 600 1300 Balance 600 1300 - Medications Medications: Current Medications Acetaminophen (Tylenol 325mg Tab) 650 mg PO Q6 PRN PRN Reason: Pain, moderate (4-7) Last Admin: 06/27/17 02:05 Dose: 650 mg Acetaminophen/Codeine Phosphate (Tylenol/Codeine 300 Mg/30 Mg) 1 ea PO Q4 PRN PRN Reason: pain Albuterol Sulfate (Albuterol 0.083% Inhal Deirdre (2.5 Mg/3 Ml) Ud) 2.5 mg INH RQ4 [facility] Last Admin: 07/02/17 11:08 Dose: 2.5 mg Alprazolam (Xanax) 0.5 mg PO Q12 [facility] Last Admin: 07/02/17 10:30 Dose: 0.5 mg Ascorbic Acid (Vitamin C 500 Mg Tab) 500 mg PO DAILY [facility] Last Admin: 07/02/17 14:29 Dose: 500 mg Budesonide (Pulmicort Respules) 0.5 mg INH RQ12 [facility] Bupropion HCl (Wellbutrin) 200 mg PO Q12 [facility] Last Admin: 07/02/17 10:31 Dose: 200 mg Digoxin (Digoxin) 0.125 mg PO DAILY@1800 [facility] Last Admin: 07/01/17 18:21 Dose: 0.125 mg Ergocalciferol (Drisdol 50,000 Intl Units Cap) 1 cap PO QWK [facility] Last Admin: 06/26/17 13:38 Dose: 1 cap Fenofibrate (Tricor) 145 mg PO HS [facility] Last Admin: 07/01/17 21:56 Dose: 145 mg Gabapentin (Neurontin) 800 mg PO TID [facility] Last Admin: 07/02/17 13:18 Dose: 800 mg Vancomycin/Sodium Chloride (Vancomycin 1 Gm/Ns 200 Ml) 1 gm in 200 mls @ 133.333 mls/hr IVPB Q12H [facility] Stop: 07/06/17 03:01 Last Admin: 07/02/17 14:01 Dose: 133.333 mls/hr Insulin Aspart (Novolog Mix 70/30 (70/30 Units/Ml)) 0 units SC BID [facility] Last Admin: 07/02/17 10:29 Dose: 6 units Insulin Detemir (Levemir) 14 unit SC PCL [facility] Last Admin: 07/02/17 13:18 Dose: 14 unit Methimazole (Tapazole) 5 mg PO DAILY [facility] Last Admin: 07/02/17 10:30 Dose: 5 mg Nicotine (Nicoderm Cq) 1 patch TD DAILY [facility] Last Admin: 07/02/17 10:31 Dose: 1 patch Ondansetron HCl (Zofran Inj) 4 mg IVP Q4 PRN PRN Reason: nausea/vomiting Pantoprazole Sodium (Protonix Ec Tab) 40 mg PO ACD [facility] Last Admin: 07/01/17 17:20 Dose: 40 mg Prednisone (Prednisone Tab) 20 mg PO BID [facility] Last Admin: 07/02/17 10:30 Dose: 20 mg Rivaroxaban (Xarelto) 20 mg PO DAILY [facility] Last Admin: 07/02/17 10:30 Dose: 20 mg Sucralfate (Carafate Tab) 1 gm PO TID [facility] Last Admin: 07/02/17 13:18 Dose: 1 gm Tiotropium [place] (Spiriva) 18 mcg INH RQ24 [facility] Last Admin: 06/28/17 07:30 Dose: Not Given Verapamil HCl (Calan Sr Tab) 180 mg PO DAILY [facility] Last Admin: 07/02/17 10:30 Dose: 180 mg - Labs Labs: 07/02/17 08:42 07/02/17 08:42 PT 13.5 SECONDS (9.7-12.2) H 06/25/17 05:18 INR 1.2 06/25/17 05:18 - Constitutional Appears: Well, Non-toxic, In Acute Distress (mild distress with minimal Exertion ) - Head Exam Head Exam: ATRAUMATIC, NORMAL INSPECTION, NORMOCEPHALIC - Eye Exam Eye Exam: EOMI, Normal appearance. absent: Conjunctival injection Pupil Exam: NORMAL ACCOMODATION - ENT Exam ENT Exam: Mucous Membranes Moist - Neck Exam Neck Exam: Full ROM, Normal Inspection. absent: Lymphadenopathy, Meningismus, Tenderness, Thyromegaly - Respiratory Exam Respiratory Exam: Decreased Breath Sounds, Prolonged Expiratory Phase. absent: Accessory Muscle Use, Chest Wall Tenderness, Rales, Rhonchi, Wheezes - Cardiovascular Exam Cardiovascular Exam: Tachycardia, REGULAR RHYTHM, RRR, +S1, +S2. absent: Diastolic murmur, JVD, Murmur - GI/Abdominal Exam GI & Abdominal Exam: Firm, Soft, Normal Bowel Sounds. absent: Distended, Guarding, Rigid, Tenderness - Extremities Exam Extremities Exam: Full ROM, Normal Capillary Refill, Normal Inspection. absent : Calf Tenderness, Joint Swelling, Pedal Edema, Tenderness - Back Exam Back Exam: absent: CVA tenderness (L), CVA tenderness (R) Assessment and Plan (1) Pulmonary nodule Assessment & Plan: Fleischner society pulmonary nodule 2017 recommendations Solitary nodule size: 6-8 mm high risk patients: initial follow-up CT at 6-12 months and then at 18-24 months if no change Status: Acute (2) COPD exacerbation Assessment & Plan: Slight Improved respiratory status. - The severity of COPD should eventually be confirmed by PFT's when patient is more stable before discharge or on outpatient basis. - Supplemental Oxygen to keep saturation >92%. - Keep 2L nasal cannula. - Continue PO steroids same dose (20 mg PO BID), will require very slow taper. - Continue Tiotropium [place] (Spiriva) 18 mcg INH RQ24 [facility] - Continue Pulmicort Respules 0.5 mg INH RQ12 - BD nebs q 6h prn Status: Acute (3) Tobacco abuse disorder Assessment & Plan: Smoking cessation counselling performed, pt currently interested. On Nicotine (Nicoderm Cq) 1 patch TD DAILY Status: Acute (4) Dyspnea Assessment & Plan: - Other adjunctive therapies to consider in an effort to reduce frequency of COPD Roflumilast and low dose theophyllin. - Pulmonary rehab should also be considered Status: Acute
[2017-07-02] MEDS: Pantoprazole 40 mg EC Tab PO SCH (17:18)
[2017-07-02] MEDS: Digoxin 125 mcg (0.125 mg) Tab PO SCH (18:19)
--- NOTE | 2017-07-02 18:45 | PN ---
DATE: 07/02/2017 SUBJECTIVE: The patient is seen. The patient is complaining of anxiety. The patient is alarmed that her blood sugars have been running high, above 400. She claims she has been compliant with her diet; although I see some regular coke as well as diet coke at her bedside. She states she takes the regular coke if she feels that her sugar is running down. She has been compliant with meds. Today, she mentioned that her content assistant is Dr. Martinez and she said that she may ask the doctor to be seen by her. She will discuss with the Dr. Homer Soriano as her blood sugar levels seems to be flying off the handle. Review of her meds, the patient is on Wellbutrin 200 mg q.12 hours, Xanax is 0.5 mg q.12 hours. The patient is on methimazole. The patient; however, is on a high dose of prednisone which is 20 mg b.i.d. which can contribute to her high sugar as prednisone affects the control of blood sugar. The patient is on insulin. She is still having nicotine patch. VITAL SIGNS: Temperature is 97.9, pulse is 102, blood pressure is 157/76, respirations 20, and oxygen saturation is 95%. REVIEW OF SYSTEMS: GENERAL: The patient is alert, oriented x3, seen in her room. Alarmed about her blood sugar elevation, her blood sugar has been running over 400; but she says she has been compliant with her diet. SKIN: No diaphoresis. HEENT: No headache. No dizziness. NECK: Supple. RESPIRATORY: No dyspnea. CARDIOVASCULAR: No chest pain. GASTROINTESTINAL: She is eating. Appetite is poor. The patient ate less than 50% of her lunch today. MUSCULOSKELETAL: Feels weak. EXTREMITIES: The patient is status post left BKA but not complaining of pain. NEUROLOGIC: Alert and oriented x3. GENITOURINARY: No dysuria. MENTAL STATUS EXAMINATION: An elderly female, [place] descent, is about 5 feet 4 inches, weighs 125 pounds. The patient is alert, oriented x3, conversing in [employer]. Mood is anxious. Affect is reactive. Speech is spontaneous. Thought process, coherent. Thought content, preoccupied about her uncontrolled blood sugar. She states she has been compliant with diet in hospital. No psychosis. No suicidal or homicidal ideation. Attention and memory seem to be fair. Insight and judgment limited. Impulse control is fair at this time. IMPRESSION: History of recurrent depression, anxiety, history of alcohol dependence, history of nicotine dependence, uncontrolled diabetes. PLAN AND RECOMMENDATIONS: The patient is seen, medications reviewed. Continue present management. Continue present psych meds; however, we will recommend as the patient has uncontrolled blood sugar, may benefit from endocrinology consult with Dr. Barnhart and also as the patient is taking high dose of prednisone, the prednisone may be slowly tapered off, as prednisone can cause her blood sugar to rise, and the patient is currently taking 20 mg b.i.d. of prednisone which was started on 06/29/2017. The patient's breathing is much improved at this time, I suggested the prednisone can be slowly tapered as it is affecting her blood sugar. Mika Cobb MD RAMAN
[2017-07-02] MEDS: Budesonide 0.25 mg/2 ml Inhal Susp UD INH SCH (19:44)
[2017-07-03] MEDS: Albuterol 0.083% Inhal Sol (2.5 mg/3 mL) UD INH SCH ×6 (00:48→19:09)
[2017-07-03] MEDS: Vancomycin 1 gm/NS 200 ml 1 GM/200 ML BAG IVPB SCH (02:14)
[2017-07-03 07:32] VITALS: TEMP 97.9
[2017-07-03] MEDS: Budesonide 0.25 mg/2 ml Inhal Susp UD INH SCH (07:35)
[2017-07-03] MEDS: (Novolog Mix 70/30) Insulin Aspart/Insulin Aspar 100 units/ml SC SCH ×2 (10:20→18:55)
[2017-07-03] MEDS: methIMAzole 5 MG TAB PO SCH (10:21)
[2017-07-03] MEDS: Verapamil 180 mg ER Tab PO SCH (10:21)
[2017-07-03] MEDS: Ergocalciferol 50,000 Intl Units Cap PO SCH (11:44)
--- NOTE | 2017-07-03 12:34 | CP.PCM.PN ---
Subjective - Date & Time of Evaluation Date of Evaluation: 07/03/17 Time of Evaluation: 07:00 - Subjective Subjective: wound c/s MSSA wound is superficial ok to switch to PO Augmentin on d/c cont wound care - ortho /surg follow up Objective - Vital Signs/Intake and Output Vital Signs (last 24 hours): Temp Pulse Resp BP Pulse Ox 97.9 F 88 20 153/65 H 100 07/03/17 07:27 07/03/17 07:27 07/03/17 07:27 07/03/17 07:27 07/03/17 07:27 Intake and Output: 07/03/17 07/03/17 06:59 18:59 Intake Total 1050 Balance 1050 - Medications Medications: Current Medications Acetaminophen (Tylenol 325mg Tab) 650 mg PO Q6 PRN PRN Reason: Pain, moderate (4-7) Last Admin: 06/27/17 02:05 Dose: 650 mg Acetaminophen/Codeine Phosphate (Tylenol/Codeine 300 Mg/30 Mg) 1 ea PO Q4 PRN PRN Reason: pain Albuterol Sulfate (Albuterol 0.083% Inhal Deirdre (2.5 Mg/3 Ml) Ud) 2.5 mg INH RQ4 [facility] Last Admin: 07/03/17 11:12 Dose: 2.5 mg Ascorbic Acid (Vitamin C 500 Mg Tab) 500 mg PO DAILY [facility] Last Admin: 07/03/17 10:39 Dose: 500 mg Budesonide (Pulmicort Respules) 0.5 mg INH RQ12 [facility] Last Admin: 07/03/17 07:35 Dose: Not Given Bupropion HCl (Wellbutrin) 200 mg PO Q12 [facility] Last Admin: 07/03/17 10:22 Dose: 200 mg Digoxin (Digoxin) 0.125 mg PO DAILY@1800 [facility] Last Admin: 07/02/17 18:19 Dose: 0.125 mg Ergocalciferol (Drisdol 50,000 Intl Units Cap) 1 cap PO QWK [facility] Last Admin: 07/03/17 11:44 Dose: 1 cap Fenofibrate (Tricor) 145 mg PO HS [facility] Last Admin: 07/02/17 21:53 Dose: 145 mg Gabapentin (Neurontin) 800 mg PO TID [facility] Last Admin: 07/03/17 10:21 Dose: 800 mg Vancomycin/Sodium Chloride (Vancomycin 1 Gm/Ns 200 Ml) 1 gm in 200 mls @ 133.333 mls/hr IVPB Q12H [facility] Stop: 07/06/17 03:01 Last Admin: 07/03/17 02:14 Dose: 133.333 mls/hr Insulin Aspart (Novolog Mix 70/30 (70/30 Units/Ml)) 0 units SC BID [facility] Last Admin: 07/03/17 10:20 Dose: 1 units Insulin Detemir (Levemir) 14 unit SC PCL [facility] Last Admin: 07/02/17 13:18 Dose: 14 unit Methimazole (Tapazole) 5 mg PO DAILY [facility] Last Admin: 07/03/17 10:21 Dose: 5 mg Nicotine (Nicoderm Cq) 1 patch TD DAILY [facility] Last Admin: 07/03/17 10:33 Dose: 1 patch Ondansetron HCl (Zofran Inj) 4 mg IVP Q4 PRN PRN Reason: nausea/vomiting Pantoprazole Sodium (Protonix Ec Tab) 40 mg PO ACD [facility] Last Admin: 07/02/17 17:18 Dose: 40 mg Prednisone (Prednisone Tab) 20 mg PO BID [facility] Last Admin: 07/03/17 10:20 Dose: 20 mg Rivaroxaban (Xarelto) 20 mg PO DAILY [facility] Last Admin: 07/03/17 11:44 Dose: 20 mg Sucralfate (Carafate Tab) 1 gm PO TID [facility] Last Admin: 07/03/17 10:20 Dose: 1 gm Tiotropium [place] (Spiriva) 18 mcg INH RQ24 [facility] Last Admin: 06/28/17 07:30 Dose: Not Given Verapamil HCl (Calan Sr Tab) 180 mg PO DAILY [facility] Last Admin: 07/03/17 10:21 Dose: 180 mg - Labs Labs: 07/02/17 08:42 07/02/17 08:42 PT 13.5 SECONDS (9.7-12.2) H 06/25/17 05:18 INR 1.2 06/25/17 05:18 - Constitutional Appears: Non-toxic, Chronically Ill - Head Exam Head Exam: NORMOCEPHALIC - Eye Exam Eye Exam: PERRL - ENT Exam ENT Exam: Mucous Membranes Dry - Neck Exam Neck Exam: absent: Lymphadenopathy - Respiratory Exam Respiratory Exam: Decreased Breath Sounds - Cardiovascular Exam Cardiovascular Exam: REGULAR RHYTHM Assessment and Plan (1) COPD exacerbation Status: Acute (2) Decubitus ulcer of left buttock, stage 2 Status: Acute (3) Dyspnea Status: Acute (4) Tobacco abuse disorder Status: Acute
[2017-07-03] MEDS ORDERED: Amoxicillin-Clav 875-125 mg Tab PO SCH (13:00)
[2017-07-03] MEDS: Insulin Detemir 100 units/ml Vial (Levemir) SC SCH (13:03)
[2017-07-03 16:51] VITALS: BP 156/75; PULSE 97; O2SAT 95
[2017-07-03] MEDS: Pantoprazole 40 mg EC Tab PO SCH (17:17)
[2017-07-03] MEDS: Digoxin 125 mcg (0.125 mg) Tab PO SCH (17:20)
[2017-07-03 17:26] VITALS: PULSE 96
--- NOTE | 2017-07-03 17:54 | CP.PCM.DIS ---
Provider - Provider Date of Admission: 06/25/17 06:02 Attending physician: Homer Soriano MD Primary care physician: Homer Soriano MD Consults: Psychiatry: Mika Durand MD Pulmonary: Mindi Martino MD (covering MD Dr. 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 (3) Diabetes mellitus type 2, uncontrolled Status: Chronic Priority: Medium (4) Generalized muscle weakness Status: Acute (5) Decubitus ulcer of left buttock, stage 2 Status: Acute Hospital Course - Lab Results Lab Results: Micro Results 07/01/17 14:34 Sputum Gram Stain - Final 07/01/17 14:34 Sputum Sputum Culture - Final Staphylococcus Aureus 06/30/17 15:00 Buttock Gram Stain - Final 06/30/17 15:00 Buttock Wound Culture - Final Staphylococcus Aureus 06/25/17 05:15 Blood Blood Culture - Final NO GROWTH AFTER 5 DAYS 06/25/17 05:15 Blood Gram Stain - Final TEST NOT PERFORMED 06/25/17 04:45 Blood Blood Culture - Final NO GROWTH AFTER 5 DAYS 06/25/17 04:45 Blood Gram Stain - Final TEST NOT PERFORMED Most Recent Lab Values WBC 6.4 K/uL (4.8-10.8) D 07/02/17 08:42 RBC 3.90 Mil/uL (3.80-5.20) 07/02/17 08:42 Hgb 12.4 g/dL (11.0-16.0) 07/02/17 08:42 Hct 36.4 % (34.0-47.0) 07/02/17 08:42 MCV 93.4 fL (81.0-99.0) 07/02/17 08:42 MCH 31.7 pg (27.0-31.0) H 07/02/17 08:42 MCHC 33.9 g/dL (33.0-37.0) 07/02/17 08:42 RDW 13.4 % (11.5-14.5) 07/02/17 08:42 Plt Count 321 K/uL (130-400) 07/02/17 08:42 MPV 8.6 fL (7.2-11.7) 07/02/17 08:42 Neut % (Auto) 74.1 % (50.0-75.0) 07/02/17 08:42 Lymph % (Auto) 17.5 % (20.0-40.0) L 07/02/17 08:42 [place] % (Auto) 7.7 % (0.0-10.0) 07/02/17 08:42 Eos % (Auto) 0.0 % (0.0-4.0) 07/02/17 08:42 Baso % (Auto) 0.7 % (0.0-2.0) 07/02/17 08:42 Neut # (Auto) 4.7 K/uL (1.8-7.0) 07/02/17 08:42 Lymph # (Auto) 1.1 K/uL (1.0-4.3) 07/02/17 08:42 [place] # (Auto) 0.5 K/uL (0.0-0.8) 07/02/17 08:42 Eos # (Auto) 0.0 K/uL (0.0-0.7) 07/02/17 08:42 Baso # (Auto) 0.0 K/uL (0.0-0.2) 07/02/17 08:42 Neutrophils % (Manual) 91 % (50-75) H 06/25/17 05:18 Lymphocytes % (Manual) 5 % (20-40) L 06/25/17 05:18 Monocytes % (Manual) 2 % (0-10) 06/25/17 05:18 Eosinophils % (Manual) 2 % (0-4) 06/25/17 05:18 Platelet Estimate Normal (NORMAL) 06/25/17 05:18 Poikilocytosis (manual Slight 06/25/17 05:18 Anisocytosis (manual) Slight 06/25/17 05:18 Ovalocytes Slight 06/25/17 05:18 ESR 25 mm/hr (0-20) H 07/03/17 07:40 PT 13.5 SECONDS (9.7-12.2) H 06/25/17 05:18 INR 1.2 06/25/17 05:18 Puncture Site Rba 06/30/17 10:04 pCO2 46 mm/Hg (35-45) H 06/30/17 10:04 pO2 45 mm/Hg (80-100) L 06/30/17 10:04 HCO3 28.9 mmol/L (21-28) H 06/30/17 10:04 ABG pH 7.43 (7.35-7.45) 06/30/17 10:04 ABG Total CO2 31.9 mmol/L (22-28) H 06/30/17 10:04 ABG O2 Saturation 87.3 % (95-98) L 06/30/17 10:04 ABG Base Excess 5.4 mmol/L (-2.0-3.0) H 06/30/17 10:04 ABG Hemoglobin 11.7 g/dL (11.7-17.4) 06/30/17 10:04 ABG Carboxyhemoglobin 1.3 % (0.5-1.5) 06/30/17 10:04 POC ABG HHb (Measured) 12.4 % (0.0-5.0) H 06/30/17 10:04 ABG Methemoglobin 1.0 % (0.0-3.0) 06/30/17 10:04 Reyes Test Na 06/30/17 10:04 ABG Potassium 4.3 mmol/L (3.6-5.2) 06/25/17 05:35 A-a O2 Difference 97.0 mm/Hg 06/30/17 10:04 Respiratory Index 2.2 06/30/17 10:04 Hgb O2 Saturation 85.3 % (95.0-98.0) L 06/30/17 10:04 Sodium 127.0 mmol/l (132-148) L 06/25/17 05:35 Chloride 97.0 mmol/L (98-107) L 06/25/17 05:35 Glucose 198 mg/dl (65-105) H 06/25/17 05:35 Lactate 0.6 mmol/L (0.7-2.1) L 06/25/17 05:35 Liter Flow 2.0 06/30/17 10:04 FiO2 28.0 % 06/30/17 10:04 Sodium 135 mmol/L (132-148) 07/02/17 08:42 Potassium 4.8 mmol/L (3.6-5.2) 07/02/17 08:42 Chloride 99 mmol/L (98-107) 07/02/17 08:42 Carbon Dioxide 32 mmol/L (22-30) H 07/02/17 08:42 Anion Gap 9 (10-20) L 07/02/17 08:42 BUN 24 mg/dL (7-17) H 07/02/17 08:42 Creatinine 0.9 mg/dL (0.7-1.2) 07/02/17 08:42 Est GFR ( Amer) > 60 07/02/17 08:42 Est GFR (Non-Af Amer) > 60 07/02/17 08:42 POC Glucose (mg/dL) 234 mg/dL (65-110) H 07/03/17 16:14 Random Glucose 495 mg/dL (65-105) H* 07/02/17 08:42 Hemoglobin A1c 11.1 % (4.2-6.5) H 06/27/17 06:12 Serum Osmolality 318 mosm/kg (272-300) H 07/01/17 07:26 Lactic Acid 0.7 mmol/L (0.7-2.1) 07/01/17 07:26 Calcium 9.1 mg/dl (8.6-10.4) 07/02/17 08:42 Phosphorus 3.8 mg/dL (2.5-4.5) 06/27/17 06:12 Magnesium 1.6 mg/dL (1.6-2.3) 06/27/17 06:12 Total Bilirubin 0.2 mg/dL (0.2-1.3) 07/01/17 07:26 AST 16 U/L (14-36) 07/01/17 07:26 ALT 25 U/L (9-52) 07/01/17 07:26 Alkaline Phosphatase 58 U/L (38-126) 07/01/17 07:26 NT-Pro-B Natriuret Pep 1190 pg/mL (0-900) H 07/01/17 07:26 Total Protein 5.5 g/dL (6.3-8.3) L 07/01/17 07:26 Albumin 2.7 g/dL (3.5-5.0) L 07/01/17 07:26 Globulin 2.9 gm/dL (2.2-3.9) 07/01/17 07:26 Albumin/Globulin Ratio 0.9 (1.0-2.1) L 07/01/17 07:26 25-OH Vitamin D Total < 12.8 NG/ML (30.0-100.0) L 07/03/17 07:40 Procalcitonin 0.06 NG/ML (0.19-0.49) L 07/03/17 07:40 Free T4 0.90 ng/dL (0.78-2.19) 06/29/17 07:19 TSH 3rd Generation 10.00 mIU/L (0.46-4.68) H 06/29/17 07:19 Arterial Blood Potassium 4.3 mmol/L (3.6-5.2) 06/25/17 05:35 Urine Osmolality 650 mosm/kg (300-1000) 07/01/17 21:25 Digoxin 0.5 ng/mL (0.8-2.0) L 07/01/17 13:05 Alcohol, Quantitative < 10 mg/dl (0-10) 06/26/17 07:09 Influenza Typ A,B (EIA) Negative for flu a/b (NEGATIVE) 06/25/17 07:26 - Hospital Course Hospital Course: Pt was admitted 8 days ago with dx of COPD exacerbation and generalized weakness. Pt had labs drawn at the ER, and pt also found to have sodium of 127 and potassium of 5.4. Pt's pCO2 was low at 21. Pt put on ADA diet and no IVF started bec of hyponatremia. Pt was inadvertently put on IVF by allied medical staff, which was discontinued by me on finding out about the issue. Pt's sodium increased to 130 the following day from stopping IVF. Pt continued to feel weak with no significant improvement of patient's COPD up to five days into the admission. Patient also started snacking on foods that patient knew were deleterious for her health. Patient's insulin regimen was adjusted to compensate for the extraneous calories. > I reviewed the patient's medications more days into the admission showed that her IV steroids have dropped off the list and patient had not been on it for several days. Said medication was restarted again and after today's patient started feeling better. Patient improvement continued throughout the weekend and today is being discharged to [facility] rehab for further recuperation. Discharge Exam - Head Exam Head Exam: NORMOCEPHALIC - Eye Exam Eye Exam: Normal appearance Pupil Exam: NORMAL ACCOMODATION, PERRL - ENT Exam ENT Exam: Normal External Ear Exam - Neck Exam Neck exam: Full Rom - Respiratory Exam Respiratory Exam: Clear to PA & Lateral, Prolonged Expiratory Phase - Cardiovascular Exam Cardiovascular Exam: REGULAR RHYTHM - GI/Abdominal Exam GI & Abdominal Exam: Normal Bowel Sounds - Rectal Exam Rectal Exam: Deferred - Back Exam Back exam: NORMAL INSPECTION (+ stage II pressure ulcer on L buttock) Discharge Plan - Follow Up Plan Condition: FAIR Disposition: REHAB FACILITY/REHAB UNIT Patient education suggested?: No Instructions: Pressure Sores, Type 2 Diabetes, Chronic Obstructive Pulmonary Disease (COPD), Including Emphysema, High Blood Pressure in Adults, Smoking: Not Just Harmful to Your Lungs and Heart, Diabetes Exchange Diet, DASH Diet, COPD Including Emphysema (DC), Dyspnea (GEN), Hypertension (DC), Hypertension ( GEN) Clinical Quality Measures - Date & Time of Discharge Summary Date of Discharge Summary: 07/03/17
--- NOTE | 2017-07-03 18:12 | PN ---
DATE: SUBJECTIVE: The patient is seen. The patient's blood sugars are elevated. The patient is ambivalent to go for subacute rehab. She is stating that she is not sure if she has subacute days left, but the patient has been taking prednisone 20 mg p.o. b.i.d. which could be the contributing factor to have uncontrolled blood sugar and the patient will discuss with Dr. Soriano to have her slowly be tapered off her prednisone when she is feeling much better. She decided to be more compliant with her diet; although I have seen she has lot of soda at her bedside. She states that she will drink if she becomes hypoglycemic. LABORATORY DATA: Her blood sugar today is 386. Yesterday, it was 495. The patient also has low vitamin D level. PHYSICAL EXAMINATION: VITAL SIGNS: Temperature 97.9, pulse 88, blood pressure 153/65, respirations 20, oxygen saturations 100%. REVIEW OF SYSTEMS: GENERAL: The patient is alert and verbal, seen in her room. The patient states she will go for subacute rehab if she has the last subacute days. The patient is still concerned about her blood sugar level that has been very elevated about 280. SKIN: No diaphoresis. HEENT: No headache. No dizziness. NECK: Supple. RESPIRATORY: No dyspnea. CARDIOVASCULAR: No chest pain. GASTROINTESTINAL: Appetite is variable. No nausea or vomiting. EXTREMITIES: The patient is status post left BKA. MUSCULOSKELETAL: The patient is complaining of pain in her back, she has got wound in her back. NEURO: Alert and oriented x3, she was conversing in [facility] [employer] and [employer]. MENTAL STATUS EXAMINATION: An elderly female of [place] descent, about 5 feet 4 inches, weighs 125 pounds. The patient is anxious, depressed. Speech is spontaneous. Affect is reactive. Thought process, coherent. Thought content, the patient is concerned about blood sugars as well as going for subacute rehab. No paranoia. No hallucinations. No suicidal or homicidal ideation. Attention and memory seems to be fair. Insight and judgment is limited. Impulse control is fair at this time. IMPRESSION: History of recurrent depression, anxiety, mood disorder secondary to medical problems, history of uncontrolled diabetes, peripheral vascular disease, history of neuropathy, history of delirium, history of urinary tract infection, chronic obstructive pulmonary disease, history of alcohol dependence, history of nicotine dependence, history of decubitus, history of gastroesophageal reflux disease. PLAN AND RECOMMENDATIONS: The patient is seen, meds reviewed. Continue present management. The patient to continue present psych meds as ordered. We will also check the patient is on methimazole, but her last T4 is above 0.90, within normal limits. The patient is awake. Her hemoglobin A1c is elevated, compliance needs to be improved. The patient states she will go for subacute rehab when she has subacute days. Continue present psych meds as ordered. The patient is on the following psych meds: Wellbutrin, also was taking Xanax before. Mika Cobb MD MTDD
--- NOTE | 2017-07-03 19:03 | CP.PCM.PN ---
Subjective - Date & Time of Evaluation Date of Evaluation: 07/03/17 Time of Evaluation: 18:00 - Subjective Subjective: Patient awakened good this morning and was able to eat most of her breakfast discussed with patient plans for transfer that I have discussed with the nurse on duty for her today advised patient that I was trying to expedite physical therapy evaluation to see if she can tolerate going home or she would be to go to a rehab facility for further strengthening. Patient was noncommittal to the idea although she verbalized that she was too weak to fend for herself alone. Informed the patient to that I had spoken to the corrections caseworker and administrator social welfare last Monday and this morning regarding discharge plans. Should patient refuse to go to the rehab that home services will have to be provided. But if patient consents to the rehab then we need to make sure that there is space available and that they take her insurance. Patient verbalized understanding and said that she will do what I recommend to her. Informed patient that I will await physical therapy referral and then will inform her of my recommendation. Objective - Vital Signs/Intake and Output Vital Signs (last 24 hours): Temp Pulse Resp BP Pulse Ox 97.9 F 97 H 20 156/75 H 95 07/03/17 16:00 07/03/17 16:00 07/03/17 16:00 07/03/17 16:00 07/03/17 16:00 Intake and Output: 07/03/17 07/03/17 06:59 18:59 Intake Total 1050 Balance 1050 - Medications Medications: Current Medications Acetaminophen (Tylenol 325mg Tab) 650 mg PO Q6 PRN PRN Reason: Pain, moderate (4-7) Last Admin: 06/27/17 02:05 Dose: 650 mg Acetaminophen/Codeine Phosphate (Tylenol/Codeine 300 Mg/30 Mg) 1 ea PO Q4 PRN PRN Reason: pain Albuterol Sulfate (Albuterol 0.083% Inhal Deirdre (2.5 Mg/3 Ml) Ud) 2.5 mg INH RQ4 [facility] Last Admin: 07/03/17 15:58 Dose: 2.5 mg Alprazolam (Xanax) 0.5 mg PO Q12 [facility] Last Admin: 07/03/17 14:37 Dose: 0.5 mg Amoxicillin/Clavulanate Potassium (Augmentin 875 Mg-125 Mg Tab) 1 tab PO Q12 [facility] PRN Reason: Protocol Last Admin: 07/03/17 14:38 Dose: 1 tab Ascorbic Acid (Vitamin C 500 Mg Tab) 500 mg PO DAILY [facility] Last Admin: 07/03/17 10:39 Dose: 500 mg Budesonide (Pulmicort Respules) 0.5 mg INH RQ12 [facility] Bupropion HCl (Wellbutrin) 200 mg PO Q12 [facility] Last Admin: 07/03/17 10:22 Dose: 200 mg Digoxin (Digoxin) 0.125 mg PO DAILY@1800 [facility] Last Admin: 07/03/17 17:20 Dose: 0.125 mg Ergocalciferol (Drisdol 50,000 Intl Units Cap) 1 cap PO QWK [facility] Last Admin: 07/03/17 11:44 Dose: 1 cap Fenofibrate (Tricor) 145 mg PO HS [facility] Last Admin: 07/02/17 21:53 Dose: 145 mg Gabapentin (Neurontin) 800 mg PO TID [facility] Last Admin: 07/03/17 17:29 Dose: 800 mg Insulin Aspart (Novolog Mix 70/30 (70/30 Units/Ml)) 0 units SC BID [facility] Last Admin: 07/03/17 10:20 Dose: 30 units Insulin Detemir (Levemir) 14 unit SC PCL [facility] Last Admin: 07/03/17 13:03 Dose: 14 unit Methimazole (Tapazole) 5 mg PO DAILY [facility] Last Admin: 07/03/17 10:21 Dose: 5 mg Nicotine (Nicoderm Cq) 1 patch TD DAILY [facility] Last Admin: 07/03/17 10:33 Dose: 1 patch Ondansetron HCl (Zofran Inj) 4 mg IVP Q4 PRN PRN Reason: nausea/vomiting Pantoprazole Sodium (Protonix Ec Tab) 40 mg PO ACD [facility] Last Admin: 07/03/17 17:17 Dose: 40 mg Prednisone (Prednisone Tab) 20 mg PO BID [facility] Last Admin: 07/03/17 17:18 Dose: 20 mg Rivaroxaban (Xarelto) 20 mg PO DAILY [facility] Last Admin: 07/03/17 11:44 Dose: 20 mg Sucralfate (Carafate Tab) 1 gm PO TID [facility] Last Admin: 07/03/17 17:18 Dose: 1 gm Tiotropium [place] (Spiriva) 18 mcg INH RQ24 [facility] Last Admin: 06/28/17 07:30 Dose: Not Given Verapamil HCl (Calan Sr Tab) 180 mg PO DAILY [facility] Last Admin: 07/03/17 10:21 Dose: 180 mg - Labs Labs: 07/02/17 08:42 07/02/17 08:42 PT 13.5 SECONDS (9.7-12.2) H 06/25/17 05:18 INR 1.2 06/25/17 05:18 - Constitutional Appears: No Acute Distress, Older Than Stated Age, Confused, Cachectic, Chronically Ill - Head Exam Head Exam: NORMAL INSPECTION - Eye Exam Eye Exam: Normal appearance Pupil Exam: NORMAL ACCOMODATION - ENT Exam ENT Exam: Mucous Membranes Moist, Normal Exam, Normal Oropharynx - Neck Exam Neck Exam: Meningismus - Respiratory Exam Respiratory Exam: Clear to Ausculation Bilateral, Prolonged Expiratory Phase, NORMAL BREATHING PATTERN - Cardiovascular Exam Cardiovascular Exam: REGULAR RHYTHM - GI/Abdominal Exam GI & Abdominal Exam: Normal Bowel Sounds - Rectal Exam Rectal Exam: Deferred - Exam External exam: NORMAL EXTERNAL EXAM - Extremities Exam Extremities Exam: Full ROM - Back Exam Back Exam: NORMAL INSPECTION - Neurological Exam Neurological Exam: Alert, Awake, Reflexes Normal Neuro motor strength exam: Left Upper Extremity: 4, Right Upper Extremity: 4, Left Lower Extremity: 3, Right Lower Extremity: 3 - Psychiatric Exam Psychiatric exam: Anxious, Manic Assessment and Plan (1) COPD exacerbation Assessment & Plan: continue neb tx and po steroids Status: Acute (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 Assessment & Plan: pt always afraid of new beginnings. Informed her she had nothing to fear. Status: Chronic (3) Diabetes mellitus type 2, uncontrolled Status: Chronic (4) Generalized muscle weakness Status: Acute (5) Decubitus ulcer of left buttock, stage 2 Status: Acute
[2017-07-03] MEDS ORDERED: Budesonide 0.5 mg/2 ml Inhal Susp UD INH SCH (20:00)
--- NOTE | 2017-07-03 20:46 | CP.PCM.PN ---
Subjective - Date & Time of Evaluation Date of Evaluation: 07/03/17 Time of Evaluation: 20:44 - Subjective Subjective: Pulmonary consult; covering Dr Martino The Patient was seen and examined at the bedside, Medical records reviewed, and management issues were discussed and formulated with the house staff. Mrs Radford is 72 years old ( active tobacco smoker, former alcohol use disorder female with PMHx of HTN, Hypercholesterolemia, diabetes, anxiety/depression and s/p left BKA approximately three years The patient initially presented to the ED on 06/25 for evaluation of Shortness of breath, admitted to the medical herrera for further managements of COPD exacerbation. CT chest done revealed evidence of emphysema, incidental finding of 6 mm nodule on the anterior L lung lobe (too small to biopsy at this time) Will recommend repeat chest Ct scan in 3-6 month in high risk patient. Patient feeling better today, reports less shortness of breath and improved productive cough Denies fever/chills, chest pain or palpitations. Patient afebrile and hemodynamically stable (except for mild tachycardia) CHEST W/O CONTRAST Exam Date: 06/30/17 FINDINGS: Lungs: Moderate centrilobular emphysema. Segmental atelectasis and at lung bases. 6 mm nodule anteriorly in the right lung series 4 image #[id number]. No appreciable left basilar nodules. Pleural space: Trace bilateral pleural fluid. No pneumothorax. Heart: Coronary artery calcifications. Mild cardiomegaly. No significant pericardial effusion. Thyroid: Calcified left thyroid lobe nodule. Bones/joints: Diffuse spinal degenerative changes. No acute fracture. No dislocation. Soft tissues: Bilateral breast implants with capsular calcifications. Vasculature: Atherosclerotic vascular disease. No thoracic aortic aneurysm. Lymph nodes: Unremarkable. No enlarged lymph nodes. Gallbladder and bile ducts: Cholecystectomy. IMPRESSION: 1. 6 mm right lung nodule. For low-risk patients recommend follow-up chest CT at 6-12 months. If unchanged consider an additional follow-up CT at 18-24 months. For high-risk patients (smoking history or other known risk factors) initial follow-up chest CT at 6-12 months and if unchanged, 18-24 months. 2. Moderate centrilobular emphysema. Fleischner society pulmonary nodule 2017 recommendations Solitary nodule size: 6-8 mm high risk patients: initial follow-up CT at 6-12 months and then at 18-24 months if no change Objective - Vital Signs/Intake and Output Vital Signs (last 24 hours): Temp Pulse Resp BP Pulse Ox 97.9 F 97 H 20 156/75 H 95 07/03/17 16:00 07/03/17 16:00 07/03/17 16:00 07/03/17 16:00 07/03/17 16:00 Intake and Output: 07/03/17 07/04/17 18:59 06:59 Intake Total 250 Balance 250 - Medications Medications: Current Medications Acetaminophen (Tylenol 325mg Tab) 650 mg PO Q6 PRN PRN Reason: Pain, moderate (4-7) Last Admin: 06/27/17 02:05 Dose: 650 mg Acetaminophen/Codeine Phosphate (Tylenol/Codeine 300 Mg/30 Mg) 1 ea PO Q4 PRN PRN Reason: pain Albuterol Sulfate (Albuterol 0.083% Inhal Deirdre (2.5 Mg/3 Ml) Ud) 2.5 mg INH RQ4 [facility] Last Admin: 07/03/17 19:09 Dose: 2.5 mg Alprazolam (Xanax) 0.5 mg PO Q12 [facility] Last Admin: 07/03/17 14:37 Dose: 0.5 mg Amoxicillin/Clavulanate Potassium (Augmentin 875 Mg-125 Mg Tab) 1 tab PO Q12 NITISH PRN Reason: Protocol Last Admin: 07/03/17 14:38 Dose: 1 tab Ascorbic Acid (Vitamin C 500 Mg Tab) 500 mg PO DAILY [facility] Last Admin: 07/03/17 10:39 Dose: 500 mg Budesonide (Pulmicort Respules) 0.5 mg INH RQ12 [facility] Last Admin: 07/03/17 19:09 Dose: 0.5 mg Bupropion HCl (Wellbutrin) 200 mg PO Q12 [facility] Last Admin: 07/03/17 10:22 Dose: 200 mg Digoxin (Digoxin) 0.125 mg PO DAILY@1800 [facility] Last Admin: 07/03/17 17:20 Dose: 0.125 mg Ergocalciferol (Drisdol 50,000 Intl Units Cap) 1 cap PO QWK [facility] Last Admin: 07/03/17 11:44 Dose: 1 cap Fenofibrate (Tricor) 145 mg PO HS [facility] Last Admin: 07/02/17 21:53 Dose: 145 mg Gabapentin (Neurontin) 800 mg PO TID [facility] Last Admin: 07/03/17 17:29 Dose: 800 mg Insulin Aspart (Novolog Mix 70/30 (70/30 Units/Ml)) 0 units SC BID [facility] Last Admin: 07/03/17 18:55 Dose: 2 units Insulin Detemir (Levemir) 14 unit SC PCL [facility] Last Admin: 07/03/17 13:03 Dose: 14 unit Methimazole (Tapazole) 5 mg PO DAILY [facility] Last Admin: 07/03/17 10:21 Dose: 5 mg Nicotine (Nicoderm Cq) 1 patch TD DAILY [facility] Last Admin: 07/03/17 10:33 Dose: 1 patch Ondansetron HCl (Zofran Inj) 4 mg IVP Q4 PRN PRN Reason: nausea/vomiting Pantoprazole Sodium (Protonix Ec Tab) 40 mg PO ACD [facility] Last Admin: 07/03/17 17:17 Dose: 40 mg Prednisone (Prednisone Tab) 20 mg PO BID [facility] Last Admin: 07/03/17 17:18 Dose: 20 mg Rivaroxaban (Xarelto) 20 mg PO DAILY [facility] Last Admin: 07/03/17 11:44 Dose: 20 mg Sucralfate (Carafate Tab) 1 gm PO TID [facility] Last Admin: 07/03/17 17:18 Dose: 1 gm Tiotropium Br[place] (Spiriva) 18 mcg INH RQ24 [facility] Last Admin: 06/28/17 07:30 Dose: Not Given Verapamil HCl (Calan Sr Tab) 180 mg PO DAILY [facility] Last Admin: 07/03/17 10:21 Dose: 180 mg - Labs Labs: 07/02/17 08:42 07/02/17 08:42 PT 13.5 SECONDS (9.7-12.2) H 06/25/17 05:18 INR 1.2 06/25/17 05:18 Assessment and Plan (1) Pulmonary nodule Assessment & Plan: Fleischner society pulmonary nodule 2017 recommendations Solitary nodule size: 6-8 mm high risk patients: initial follow-up CT at 6-12 months and then at 18-24 months if no change Status: Acute (2) COPD exacerbation Assessment & Plan: Slight Improved respiratory status. - The severity of COPD should eventually be confirmed by PFT's when patient is more stable before discharge or on outpatient basis. - Supplemental Oxygen to keep saturation >92%. - Keep 2L nasal cannula. - Continue PO steroids same dose (20 mg PO BID), will require very slow taper. - Continue Tiotropium [place]hall (Spiriva) 18 mcg INH RQ24 NITISH - Continue Pulmicort Respules 0.5 mg INH RQ12 - BD nebs q 6h prn Status: Acute (3) Tobacco abuse disorder Assessment & Plan: Smoking cessation counselling performed, pt currently interested. On Nicotine (Nicoderm Cq) 1 patch TD DAILY Status: Acute (4) Dyspnea Assessment & Plan: - Other adjunctive therapies to consider in an effort to reduce frequency of COPD Roflumilast and low dose theophyllin. - Pulmonary rehab should also be considered Status: Acute
== END 2017-07-03 21:10 | DRG 190 ==
LOC: C.ER 03:37 → C.9E 06:02 → C.3T 17:13 → C.9E 17:37 → C.5S 17:43 → C.9E 17:57 → C.3T 19:10
PROVIDERS: ADMIT Family Medicine; ATTEND Family Medicine
DX: J44.1 Chronic obstructive pulmonary disease with (acute) exacerbation (principal); G93.41 Metabolic encephalopathy; L89.322 Pressure ulcer of left buttock, stage 2; E87.1 Hypo-osmolality and hyponatremia; F33.9 Major depressive disorder, recurrent, unspecified; J98.11 Atelectasis; E11.65 Type 2 diabetes mellitus with hyperglycemia; I48.91 Unspecified atrial fibrillation; E83.42 Hypomagnesemia; G30.9 Alzheimer's disease, unspecified; F02.80 Dementia in other diseases classified elsewhere, unspecified severity, without behavioral disturbance, psychotic disturbance, mood disturbance, and anxiety; F17.210 Nicotine dependence, cigarettes, uncomplicated; I10 Essential (primary) hypertension; E78.00 Pure hypercholesterolemia, unspecified; E03.9 Hypothyroidism, unspecified; G47.30 Sleep apnea, unspecified; Z90.49 Acquired absence of other specified parts of digestive tract; Z89.512 Acquired absence of left leg below knee; Z79.4 Long term (current) use of insulin; F06.4 Anxiety disorder due to known physiological condition; F41.1 Generalized anxiety disorder; F10.20 Alcohol dependence, uncomplicated; Z91.11 Patient's noncompliance with dietary regimen; R09.02 Hypoxemia; M62.81 Muscle weakness (generalized); R91.1 Solitary pulmonary nodule

== ENCOUNTER 2017-07-15 00:31 | Inpatient (IN) | payer MEDICARE, MEDICAID ==
[2017-07-15 00:54] VITALS: BMI 27.4
[2017-07-15 01:17] LABS: BASO # 0.1 K/uL (0.0-0.2); BASO % 0.6 % (0.0-2.0); EOS % 0.1 % (0.0-4.0); HEMOGLOBIN 11.9 g/dL (11.0-16.0); LYMPH # 0.9 K/uL (1.0-4.3); LYMPH % 9.9 % (20.0-40.0); MEAN CELL VOLUME 91.2 fL (81.0-99.0); MEAN CORPUSCULAR HEMOGLOBIN 30.9 pg (27.0-31.0); MEAN CORPUSCULAR HGB CONC 33.9 g/dL (33.0-37.0); MONO # 0.6 K/uL (0.0-0.8); MONO % 6.2 % (0.0-10.0); NEUT # 7.6 K/uL (1.8-7.0); NEUT % 83.2 % (50.0-75.0); PLATELET COUNT 274 K/uL (130-400); RBC 3.84 Mil/uL (3.80-5.20); RED CELL DISTRIBUTION WIDTH 13.7 % (11.5-14.5); WHITE BLOOD COUNT 9.1 K/uL (4.8-10.8)
[2017-07-15 01:21] LABS: INR 1.1; PROTHROMBIN TIME 12.8 SECONDS (9.7-12.2)
[2017-07-15 01:30] LABS: ALB/GLOB RATIO 1.1 (1.0-2.1); ALBUMIN 3.1 g/dL (3.5-5.0); CALCIUM 8.7 mg/dl (8.6-10.4)
[2017-07-15 01:36] LABS: TROPONIN I 0.033 ng/mL (0.00-0.120)
[2017-07-15 02:03] LABS: SQUAMOUS EPITHIAL < 1 /hpf (0-5); URINE BILIRUBIN NEGATIVE (NEGATIVE); URINE BLOOD NEGATIVE (NEGATIVE); URINE CLARITY Clear (Clear); URINE COLOR Straw (YELLOW); URINE GLUCOSE (UA) 3+ mg/dL (Normal); URINE LEUKOCYTE ESTERASE NEG Leu/uL (Negative); URINE PROTEIN 2+ mg/dL (NEGATIVE); URINE UROBILINOGEN NORMAL mg/dL (0.2-1.0)
[2017-07-15 02:15] LABS: LYMPHOCYTE 5 % (20-40); MONOCYTE 3 % (0-10); NEUTROPHIL 89 % (50-75); PLATELET ESTIMATE NORMAL (NORMAL); REACTIVE LYMPHOCYTES 3 % (0-0); TOTAL CELLS COUNTED 100
[2017-07-15] MEDS ORDERED: Enoxaparin 40 mg Syringe SC STA (02:16)
--- NOTE | 2017-07-15 02:21 | C.PDOC ---
History Of Present Illness 72 year old female referred to the ER from correction by Dr. Homer Soriano for right leg edema. Patient has a Hx of left BKA and CHF but no afib. Patient takes lasix with improvement but has been over drinking her diuritic with a lot of coffee. Patient had a US of the right leg that was negative for DVT earlier this week. Denies chest pain or SOB. Time Seen by Provider: 07/15/17 00:43 Chief Complaint (Nursing): GI Problem History Per: Patient History/Exam Limitations: no limitations Onset/Duration Of Symptoms: Days Current Symptoms Are (Timing): Still Present Associated Symptoms: denies: Fever, Chills, Chest Pain, Other (SOB) Past Medical History Reviewed: Historical Data, Nursing Documentation, Vital Signs Vital Signs: Last Vital Signs Temp 97.9 F 07/15/17 03:04 Pulse 81 07/15/17 02:38 Resp 20 07/15/17 02:38 BP 149/76 07/15/17 02:38 Pulse Ox 97 07/15/17 02:38 - Medical History PMH: Anxiety, Arthritis, Asthma, Atrial Fibrillation (back in NSR), Bronchitis, Cardia Arrhythmia (back in NSR), COPD, Depression, Diabetes, Emphysema, Gastritis, HTN, Hypercholesterolemia, Hyperthyroidism, Hypothyroidism, Peripheral Edema, Sleep Apnea Surgical History: Cholecystectomy - [facility] Procedures APPLIC OF EXTERNAL FIXATOR DEVICE, RADIUS AND ULNA (12/20/12) BELOW KNEE AMPUTAT NEC (06/30/14) CL FX REDUC-RADIUS/ULNA (12/20/12) CONTINUOUS INVASIVE MECHANICAL VENTILATION <96 CONSEC HRS (06/30/14) ENTERAL INFUSION OF CONCENTRATED NUT. SUBSTANCES (06/30/14) OTHER ENDOVASCULAR PROCEDURES ON OTHER VESSELS (06/30/14) OTHER LOCAL DESTRUC SKIN (07/11/13) OTHER MYECTOMY (09/15/14) PHYSICAL THERAPY NEC (02/15/13) Family History: States: Unknown Family Hx - Social History Hx Tobacco Use: Yes Hx Alcohol Use: No Hx Substance Use: No - Immunization History Hx Tetanus Toxoid Vaccination: No Hx Influenza Vaccination: Yes Hx Pneumococcal Vaccination: Yes Review Of Systems Constitutional: Negative for: Fever, Chills Cardiovascular: Negative for: Chest Pain, Palpitations Respiratory: Negative for: Cough, Shortness of Breath Gastrointestinal: Negative for: Nausea, Vomiting Musculoskeletal: Positive for: Other (right leg edema) Physical Exam - Physical Exam Appears: Non-toxic, No Acute Distress Skin: Normal Color, Warm, Dry Head: Atraumatic, Normacephalic Eye(s): bilateral: Normal Inspection Oral Mucosa: Moist Neck: Normal, Supple Chest: Symmetrical, No Tenderness Cardiovascular: Rhythm Regular, JVD (Mild) Respiratory: Rales (Mild), No Rhonchi, No Wheezing Gastrointestinal/Abdominal: Soft, No Tenderness Extremity: Pedal Edema (3/4 up to right knee), Other (Left leg BKA) Neurological/Psych: Oriented x3, Normal Speech ED Course And Treatment - Laboratory Results Result Diagrams: 07/15/17 01:10 07/15/17 01:10 Lab Interpretation: Normal (bnp elevated, trop neg, INR 1.1) ECG: Interpreted By Me ECG Interpretation: Normal Rate From EC O2 Sat by Pulse Oximetry: 100 Pulse Ox Interpretation: Normal - Radiology CXR: Interpreted by Me CXR Interpretation: Yes: Other (+ mild venous congestion) Progress Note: lasix 40 IV. lovenox 40 SQ- AF without adequate anticoagulation and in case of suspected DVT R leg (neg for DVT earlier this week by doppler US Reevaluation Time: 02:18 Reassessment Condition: Improved - Physician Consult Information Outcome Of Conversation: 0220 d/w Dr. Mikal Soriano, pmd, ok to admit. Medical Decision Making Medical Decision Making: ? new onset AF ? DVT R leg, though more probably CHF Disposition Doctor Will See Patient In The: Hospital Counseled Patient/Family Regarding: Studies Performed, Diagnosis - Disposition Disposition: HOSPITALIZED Disposition Time: 02:22 Condition: GOOD - Clinical Impression Clinical Impression: CHF (congestive heart failure), Atrial fibrillation, Leg edema, right - Scribe Statement The provider has reviewed the documentation as recorded by the Scribbrianna Quezada All medical record entries made by the Tomasibe were at my direction and personally dictated by me. I have reviewed the chart and agree that the record accurately reflects my personal performance of the history, physical exam, medical decision making, and the department course for this patient. I have also personally directed, reviewed, and agree with the discharge instructions and disposition.
[2017-07-15] MEDS ORDERED: Enoxaparin 40 mg Syringe ONE (02:30)
[2017-07-15] MEDS: Budesonide 0.5 mg/2 ml Inhal Susp UD INH SCH ×2 (07:50→20:34)
[2017-07-15] MEDS: Albuterol-Ipratrop 3 mg / 0.5 (3 ml) UD INH SCH ×3 (07:50→20:34)
[2017-07-15] MEDS: (Novolog) Insulin Aspart, Recombinant 100 u/ml 10 ml vial SC SCH ×4 (08:32→21:24)
--- NOTE | 2017-07-15 08:57 | RAD ---
PROCEDURE: CHEST RADIOGRAPH, 1 VIEW HISTORY: SOB COMPARISON: 06/30/2017 FINDINGS: LUNGS: Clear. PLEURA: No pneumothorax or pleural fluid seen. CARDIOVASCULAR: Normal. OSSEOUS STRUCTURES: No significant abnormalities. VISUALIZED UPPER ABDOMEN: Normal. OTHER FINDINGS: Bilateral breast augmentation prostheses with capsular calcification. IMPRESSION: No active disease.
[2017-07-15] MEDS: Magnesium Oxide 400 mg Tab UD PO SCH ×2 (09:46→17:34)
[2017-07-15] MEDS ORDERED: Home Med 1 UNIT (Amino Acids/Protein Hydrolys [Prostat 15 G Packet] 30 ML) PO SCH ×2 (10:00)
[2017-07-15] MEDS ORDERED: Albuterol 0.083% Inhal Sol (2.5 mg/3 mL) UD IH PRN (14:56)
--- NOTE | 2017-07-15 15:16 | CP.PCM.HP ---
History of Present Illness - History of Present Illness History of Present Illness: Pt is a 72 year old female national of the [facility], s/p BKA approx 3 years ago 2ndry to thorombosis of the L leg . Pt is a also a very brittle diabetic and as recent as the of 2016, consumed enough alcohol (wine) in the evenings and anaged to throw off her sodium, potassium, and magnesium levels to a low of 105, high of 5.6, and 1.2, respectively for these electrolytes. Extensive discussions and arguments between the undersigned and the patient produced a treatment regimen acceptable to both: she cannot drink, and I will continue to be her doctor. Pt was admitted recently for chest pain and generalized weakness 2ndry to hyponatremia 2ndry to water intoxication. This time, though, fluid restriction brought pt's sodium back to normal without much ado, and pt was discharged to [facility] for further PT. While at [facility], pt had multiple issues regarding the availability of her meds, including taking 3 days before receiving her Novolin. As such, her BS was running in the 500s until nursing admitted to me that pharmacy was holding the medication since they did not think the 2x/day dosing of Novolin was correct. An incidental finding patient was noted to be speaking in phrases and wheezing on the telephone when she placed a call to me and further inquiry with the nursing staff that night revealed that her prednisone was discontinued without my notification or approval. I requested that prednisone be started immediately and the following day patient was breathing better and without much effort. The straw that I finally broke the camels back was that patient's only leg started developing edema to the point where it became very heavy and she was unable to walk. Escalating her furosemide from 20 to 40 mg daily did not appear to make any significant headway into her problem. So on Monday night four days into this episodesof increasing girth of her legs I decided that it would be best if she went back to the hospital for further management. Although outpatient venous Doppler showed no thrombosis, this did not correlate with patient's clinical presentation. BEcause of her history of thrombosis Once patient's medications were started all her medications was started and diuretic given IV patient's leg started decompressing to almost a plus one edema only patient recounts the difficult times she's had and refuses to go back to the rehab again. Since this was the weekend then we had to wait until the following work business day before we could refer patient to another facility for physical therapy and strengthening. Present on Admission - Present on Admission Any Indicators Present on Admission: Yes History of DVT/PE: No History of Uncontrolled Diabetes: Yes Urinary Catheter: No Decubitus Ulcer Present: Yes Decubitus Ulcer Stage: II Review of Systems - Review of Systems All systems: reviewed and no additional remarkable complaints except ( unexplained edema of R leg, intractable COPD exacerbation) Past Patient History - Infectious Disease Hx of Infectious Diseases: None - Past Medical History & Family History Past Medical History?: Yes - Past Social History Smoking Status: Quit 3 wks - CARDIAC Hx Cardiac Disorders: Yes Hx Atrial Fibrillation: Yes (back in NSR) Hx Cardia Arrhythmia: Yes (back in NSR) Hx Hypercholesterolemia: Yes Hx Hypertension: Yes Hx Peripheral Edema: Yes - PULMONARY Hx Respiratory Disorders: Yes Hx Asthma: Yes Hx Bronchitis: Yes Hx Chronic Obstructive Pulmonary Disease (COPD): Yes Hx Emphysema: Yes Hx Sleep Apnea: Yes - NEUROLOGICAL Hx Neurological Disorder: No - HEENT Hx Difficulty Chewing: Yes - RENAL Hx Chronic Kidney Disease: No - ENDOCRINE/METABOLIC Hx Endocrine Disorders: Yes Hx Hyperthyroidism: Yes Hx Hypothyroidism: Yes - HEMATOLOGICAL/ONCOLOGICAL Hx Blood Disorders: No Hx Blood Transfusions: Yes - INTEGUMENTARY Hx Dermatological Problems: Yes Hx Cellulitis: Yes (current) Hx Eczema: Yes - MUSCULOSKELETAL/RHEUMATOLOGICAL Hx Falls: No Other/Comment: Left BKA - GASTROINTESTINAL Hx Gastrointestinal Disorders: Yes Hx Gastritis: Yes - GENITOURINARY/GYNECOLOGICAL Hx Genitourinary Disorders: No - PSYCHIATRIC Hx Psychophysiologic Disorder: Yes Hx Anxiety: Yes Hx Substance Use: No - SURGICAL HISTORY Hx Surgeries: Yes Hx Cholecystectomy: Yes - ANESTHESIA Hx Anesthesia: Yes Hx Anesthesia Reactions: No Hx Malignant Hyperthermia: No Meds Allergies/Adverse Reactions: Allergies Allergy/AdvReac Type Severity Reaction Status Date / Time MIRIAM Inhibitors Allergy Severe COUGH Verified 07/01/17 01:41 Thiazides Allergy RASH Verified 07/01/17 01:44 Physical Exam - Constitutional Appears: No Acute Distress - Head Exam Head Exam: NORMAL INSPECTION - Eye Exam Eye Exam: Normal appearance Pupil Exam: NORMAL ACCOMODATION - ENT Exam ENT Exam: Normal Exam - Neck Exam Neck exam: Positive for: Normal Inspection - Respiratory Exam Respiratory Exam: Clear to Auscultation Bilateral - Cardiovascular Exam Cardiovascular Exam: REGULAR RHYTHM - GI/Abdominal Exam GI & Abdominal Exam: Normal Bowel Sounds - Extremities Exam Additional comments: L BKA - Back Exam Additional comments: stage II pressure ulcer at last admission - Neurological Exam Additional comments: weakness of LE 2ndry disuse - Psychiatric Exam Psychiatric exam: Normal Affect, Normal Mood (baseline anxiety and very stubborn ) - Skin Skin Exam: Diaphoretic, Dry, Intact Results - Vital Signs Recent Vital Signs: Last Vital Signs Temp 97 F L 07/15/17 07:45 Pulse 83 07/15/17 12:00 Resp 20 07/15/17 07:45 BP 154/64 H 07/15/17 09:46 Pulse Ox 100 07/15/17 07:45 - Labs Result Diagrams: 07/15/17 01:10 07/15/17 01:10 Labs: Laboratory Results - last 24 hr 07/15/17 07/15/17 07/15/17 00:46 01:10 01:10 WBC 9.1 RBC 3.84 Hgb 11.9 Hct 35.0 MCV 91.2 D MCH 30.9 MCHC 33.9 RDW 13.7 Plt Count 274 MPV 10.0 Neut % (Auto) 83.2 H Lymph % (Auto) 9.9 L [place] % (Auto) 6.2 Eos % (Auto) 0.1 Baso % (Auto) 0.6 Neut # (Auto) 7.6 H Lymph # (Auto) 0.9 L [place] # (Auto) 0.6 Eos # (Auto) 0.0 Baso # (Auto) 0.1 Neutrophils % (Manual) 89 H Lymphocytes % (Manual) 5 L Reactive Lymphs % 3 H Monocytes % (Manual) 3 Platelet Estimate Normal RBC Morphology Normal PT 12.8 H INR 1.1 APTT 30 Sodium Potassium Chloride Carbon Dioxide Anion Gap BUN Creatinine Est GFR ( Amer) Est GFR (Non-Af Amer) POC Glucose (mg/dL) 293 H Random Glucose Calcium Phosphorus Magnesium Total Bilirubin AST ALT Alkaline Phosphatase Troponin I NT-Pro-B Natriuret Pep Total Protein Albumin Globulin Albumin/Globulin Ratio Urine Color Urine Clarity Urine pH Ur Specific Gulliver Urine Protein Urine Glucose (UA) Urine Ketones Urine Blood Urine Nitrate Urine Bilirubin Urine Urobilinogen Ur Leukocyte Esterase Urine WBC (Auto) Urine RBC (Auto) Ur Squamous Epith Cells Digoxin 07/15/17 07/15/17 07/15/17 01:10 01:30 01:58 WBC RBC Hgb Hct MCV MCH MCHC RDW Plt Count MPV Neut % (Auto) Lymph % (Auto) [place] % (Auto) Eos % (Auto) Baso % (Auto) Neut # (Auto) Lymph # (Auto) [place] # (Auto) Eos # (Auto) Baso # (Auto) Neutrophils % (Manual) Lymphocytes % (Manual) Reactive Lymphs % Monocytes % (Manual) Platelet Estimate RBC Morphology PT INR APTT Sodium 139 Potassium 4.3 Chloride 99 Carbon Dioxide 32 H Anion Gap 12 BUN 40 H Creatinine 1.2 Est GFR ( Amer) 54 Est GFR (Non-Af Amer) 44 POC Glucose (mg/dL) Random Glucose 282 H Calcium 8.7 Phosphorus Magnesium Total Bilirubin 0.6 AST 23 ALT 35 Alkaline Phosphatase 57 Troponin I 0.0330 NT-Pro-B Natriuret Pep 1150 H Total Protein 6.1 L Albumin 3.1 L Globulin 3.0 Albumin/Globulin Ratio 1.1 Urine Color Straw Urine Clarity Clear Urine pH 6.0 Ur Specific Gulliver 1.011 Urine Protein 2+ H Urine Glucose (UA) 3+ H Urine Ketones Negative Urine Blood Negative Urine Nitrate Negative Urine Bilirubin Negative Urine Urobilinogen Normal Ur Leukocyte Esterase Neg Urine WBC (Auto) < 1 Urine RBC (Auto) 2 Ur Squamous Epith Cells < 1 Digoxin 1.0 07/15/17 07/15/17 07/15/17 02:37 11:36 11:47 WBC RBC Hgb Hct MCV MCH MCHC RDW Plt Count MPV Neut % (Auto) Lymph % (Auto) [place] % (Auto) Eos % (Auto) Baso % (Auto) Neut # (Auto) Lymph # (Auto) [place] # (Auto) Eos # (Auto) Baso # (Auto) Neutrophils % (Manual) Lymphocytes % (Manual) Reactive Lymphs % Monocytes % (Manual) Platelet Estimate RBC Morphology PT INR APTT Sodium Potassium Chloride Carbon Dioxide Anion Gap BUN Creatinine Est GFR ( Amer) Est GFR (Non-Af Amer) POC Glucose (mg/dL) 404 H* 144 H Random Glucose Calcium Phosphorus 4.0 Magnesium 1.5 L Total Bilirubin AST ALT Alkaline Phosphatase Troponin I NT-Pro-B Natriuret Pep Total Protein Albumin Globulin Albumin/Globulin Ratio Urine Color Urine Clarity Urine pH Ur Specific G[place]iver Urine Protein Urine Glucose (UA) Urine Ketones Urine Blood Urine Nitrate Urine Bilirubin Urine Urobilinogen Ur Leukocyte Esterase Urine WBC (Auto) Urine RBC (Auto) Ur Squamous Epith Cells Digoxin Assessment & Plan (1) COPD (chronic obstructive pulmonary disease) Assessment and Plan: appears stabilizing, will taper off systemic steroids and keep on inhaled steroids./ needs pulmonary teaching for treatment of copd Status: Acute (2) Uncontrolled diabetes mellitus Assessment and Plan: pt uncoopeative with diet planned for her, hence the sugar spikes, which will always occur since she cannot control her urges in the food direction Status: Chronic Priority: Medium (3) CHF (congestive heart failure) Assessment and Plan: mild, just had stress test and pt passed Status: Acute (4) Atrial fibrillation Assessment and Plan: pt already on anticoagullant. will await official EKG reading Status: Acute (5) Leg edema, right Assessment and Plan: improving, continue gentle diuresis Status: Acute Decision To Admit - Pt Status Changed To: Hospital Disposition Of: Inpatient - Admit Certification Admit to Inpatient:: After my assessment, the patient will require hospitalization for at least two midnights. This is because of the severity of symptoms shown, intensity of services needed, and/or the medical risk in this patient being treated as an outpatient. - InPatient: Physician Admission Certification:: After my assessment, the patient will require hospitalization for at least two midnights. This is because of the severity of symptoms shown, intensity of services needed, and/or the medical risk in this patient being treated as an outpatient. - . Bed Request Type: Telemetry
[2017-07-15] MEDS: Digoxin 125 mcg (0.125 mg) Tab PO SCH (17:33)
[2017-07-15] MEDS ORDERED: [UNRECOGNIZED DRUG - OTHER] PO SCH (18:00)
[2017-07-15] MEDS: Ammonium Lactate 12% Lotion (225 g) EXT SCH (21:24)
[2017-07-15] MEDS: Insulin Detemir 100 units/ml Vial (Levemir) SC SCH (21:24)
[2017-07-16] MEDS: Albuterol-Ipratrop 3 mg / 0.5 (3 ml) UD INH SCH ×4 (01:18→19:33)
--- NOTE | 2017-07-16 03:17 | CON ---
DATE: CHIEF COMPLAINT AND REASON FOR CONSULTATION: The patient was referred by Dr. Homer Soriano, comaleonardogement of depression and anxiety. The patient is well known to me. I have seen her in the hospital and also at the intermediate. HISTORY OF PRESENT ILLNESS: This is case of a 72-year-old female, [place] descent. The patient was transferred from [facility] also known as [facility] to the emergency room as the patient is complaining of 3-day history of right leg edema. The patient states she started taking Lasix when it improved, but the patient also has been drinking a lot of coffee and soda in the intermediate. The patient has an ultrasound of her right leg that was negative for DVT. The patient is concerned about her right leg swollen, because she is afraid it might get infected, and she will undergo another amputation. The patient has a history of left BKA and also history of CHF in the past. Today, the patient states that she is feeling much better and the swelling of her right lower extremity has improved, but still very anxious. The patient's blood sugar today is 198, which is improved. This patient's sugar seems to be running in the high 300s and 500s. She states she has been watching her diet. The patient also takes Xanax 0.5 mg q.12 as well as Wellbutrin 200 mg q.12 hours in the intermediate. PAST PSYCHIATRIC HISTORY: History of depression and anxiety secondary to medical problems. MEDICAL HISTORY: History of diabetes and hypertension, DVT, status post left BKA. The patient has a history of GERD, COPD, UTI, history of diabetic neuropathy, uncontrolled diabetes, CHF. DRUG AND ALCOHOL HISTORY: The patient use to drink, but now she has not been drinking. She is also a smoker and stopped smoking. No illicit drug use. REVIEW OF SYSTEMS: GENERAL: The patient is alert and oriented x3, seen in her room. Still anxious, conversing in [place] and in [place]. EXTREMITIES: The patient states that she is concerned about the swelling of her right lower extremity, but seems to be improving. The patient is status post left BKA but her swelling on her right lower extremity is improving. The patient is complaining of pain. The patient has pitting edema. SKIN: No diaphoresis. HEENT: No headache. No dizziness. NECK: Supple. RESPIRATORY: No dyspnea. CARDIOVASCULAR: No chest pain. GASTROINTESTINAL: Appetite is fair. MUSCULOSKELETAL: Feels week. NEUROLOGIC: Alert and oriented x3. GENITOURINARY: No dysuria. PHYSICAL EXAMINATION: VITAL SIGNS: Temperature is 97, pulse rate 83, blood pressure 154/64, respirations 20, oxygen saturation is 100%. MENTAL STATUS EXAMINATION: An elderly female who looks stated age. Alert and oriented x3. Mood is anxious. Affect is reactive. Speech is spontaneous. Thought process, coherent. Thought content, no psychosis. No suicidal or homicidal ideation. The patient reports no cravings from alcohol as well as cigarette. Attention and memory seems to be fair. Insight and judgment are limited. Impulse control is fair at this time. CURRENT MEDICATIONS: The patient is on Ativan 1 mg q.6 p.r.n. The patient has albuterol, digoxin, Glucerna, Lasix, Lovenox, Neurontin, Pulmicort, Pepcid, methimazole, Spiriva. The patient is on Xanax 1 mg q.12 hours and Wellbutrin 200 mg q.12. LABORATORY DATA: Review of her labs: The patient's blood sugar is 144, random blood sugar is 282. Liver function tests are within normal limits. UA is +2 for protein, +3 for glucose, ASSESSMENT: History of recurrent depression, anxiety as well as history of nicotine and alcohol dependence. PLAN: The patient is seen, meds reviewed. We will discontinue the Ativan p.r.n. We will lower the dose of Xanax 0.5 to q.12 hours standing for anxiety and continue Wellbutrin 200 mg q.12. Continue treatment and plan as outlined. Thank you very much for the consult. Mika Cobb MD MTDAme
[2017-07-16] MEDS: (Novolog) Insulin Aspart, Recombinant 100 u/ml 10 ml vial SC SCH ×4 (07:07→21:28)
[2017-07-16] MEDS: Budesonide 0.5 mg/2 ml Inhal Susp UD INH SCH ×2 (07:50→19:33)
[2017-07-16] MEDS: Tiotropium 18 mcg Cap For Inhalation INH SCH (07:50)
[2017-07-16] MEDS: Enoxaparin 40 mg Syringe SC SCH (09:04)
[2017-07-16] MEDS: Magnesium Oxide 400 mg Tab UD PO SCH ×2 (09:04→17:38)
[2017-07-16] MEDS: Ammonium Lactate 12% Lotion (225 g) EXT SCH ×2 (09:06→17:37)
[2017-07-16] MEDS: Digoxin 125 mcg (0.125 mg) Tab PO SCH (17:38)
[2017-07-16] MEDS: Insulin Detemir 100 units/ml Vial (Levemir) SC SCH (21:29)
--- NOTE | 2017-07-16 21:31 | PN ---
DATE: SUBJECTIVE: The patient is seen. The patient is complaining of anxiety today stating that she cannot stand on her right lower extremity. She is complaining she as no strength. The patient is status post left BKA . She said that she was also complaining of increased neuropathic pain in her right lower extremity. The patient is having bouts of hypoglycemia twice. Her blood sugar was dipping down on to 60s but her last blood sugar was 245. She was eating oranges when seen. VITAL SIGNS: Temperature is 98, pulse of 85, blood pressure 118/79, respirations 20, and oxygen saturation is 98% on room air. Psychwise, she uses Xanax 0.5 q.12 and Wellbutrin 200 mg q.12. REVIEW OF SYSTEMS: GENERAL: The patient is alert and oriented x3, conversing in [place], a local dialect in the [facility]. She said that she has no strength in her right lower extremity. SKIN: No diaphoresis. HEENT: No headache, no dizziness. NECK: Supple. RESPIRATORY: No dyspnea. CARDIOVASCULAR: No chest pain. GASTROINTESTINAL: Appetite is fairly good. No nausea, no vomiting. EXTREMITIES: The patient is status post left BKA. MUSCULOSKELETAL: Feels weak. NEUROLOGIC: Alert and oriented x3. GENITOURINARY: No dysuria. MENTAL STATUS EXAMINATION: Elderly female of [place] descent, oriented x3. Speech is spontaneous. Affect is reactive. Mood is anxious, conversing, again, in [employer] and [place]. Thought process, coherent. Thought content, the patient is complaining of weakness in her right lower extremity and neuropathic pain. She states she has been taking Neurontin 800 mg three times a day for years. As stated, no psychosis. No suicidal or homicidal ideation. Attention and memory seem to be fair. Insight and judgment fair. Impulse control is fair. IMPRESSION: History of recurrent depression, anxiety, mood disorder secondary to medical problems, history of diabetes, urinary tract infection, chronic obstructive pulmonary disease, history of alcohol and nicotine dependence, hypertension, congestive heart failure, atrial fibrillation, and status post left below-knee amputation. PLAN AND RECOMMENDATIONS: The patient is seen, medications reviewed. Continue present psych medications. Continue treatment plan. We will monitor blood sugar. Continue present management as ordered. Mika Cobb MD [facility] # [id number] RAMAN
--- NOTE | 2017-07-16 23:50 | CP.PCM.PN ---
Subjective - Date & Time of Evaluation Date of Evaluation: 07/16/17 Time of Evaluation: 19:30 - Subjective Subjective: Called by pharmacy re: pt's medicatoins that were OTC but were on her meds list. Also received collaborative call from previous day's pharmacist about the potentially large dose of fenofibrate when one cross checks it with pt's creatinine clearance. Otherwise, pt was complaining of her legs shaking when she attempted to walk. Otherwise will await re-evaluation and possbile placement at another rehab facility. Objective - Vital Signs/Intake and Output Vital Signs (last 24 hours): Temp Pulse Resp BP Pulse Ox 97.6 F 81 20 148/68 98 07/16/17 15:00 07/16/17 16:00 07/16/17 15:00 07/16/17 15:00 07/16/17 15:00 Intake and Output: 07/16/17 07/17/17 18:59 06:59 Intake Total 500 420 Output Total 600 Balance -100 420 - Medications Medications: Current Medications Acetaminophen (Tylenol 325mg Tab) 650 mg PO Q6 PRN PRN Reason: Pain, moderate (4-7) Albuterol Sulfate (Albuterol 0.083% Inhal Deirdre (2.5 Mg/3 Ml) Ud) 2.5 mg IH RQ4 PRN PRN Reason: Shortness of Breath Albuterol/Ipratropium (Duoneb 3 Mg/0.5 Mg (3 Ml) Ud) 3 ml INH RQ6 [facility] Last Admin: 07/16/17 19:33 Dose: 3 ml Alprazolam (Xanax) 0.5 mg PO Q12H [facility] Last Admin: 07/16/17 17:00 Dose: 0.5 mg Ascorbic Acid (Vitamin C 500 Mg Tab) 500 mg PO DAILY [facility] Last Admin: 07/16/17 09:04 Dose: 500 mg Budesonide (Pulmicort Respules) 0.5 mg INH RQ12 [facility] Last Admin: 07/16/17 19:33 Dose: 0.5 mg Bupropion HCl (Wellbutrin) 200 mg PO Q12 [facility] Last Admin: 07/16/17 21:31 Dose: 200 mg Digoxin (Digoxin) 0.125 mg PO DAILY@1800 [facility] Last Admin: 07/16/17 17:38 Dose: 0.125 mg Enoxaparin Sodium (Lovenox) 40 mg SC DAILY [facility] Last Admin: 07/16/17 09:04 Dose: 40 mg Ergocalciferol (Drisdol 50,000 Intl Units Cap) 1 cap PO QWK [facility] Famotidine (Pepcid) 20 mg PO DAILY [facility] Last Admin: 07/16/17 09:04 Dose: 20 mg Furosemide (Lasix) 40 mg PO DAILY [facility] Last Admin: 07/16/17 09:04 Dose: 40 mg Gabapentin (Neurontin) 800 mg PO TID [facility] Last Admin: 07/16/17 17:38 Dose: 800 mg Insulin Aspart (Novolog) 0 unit SC [facility] PRN Reason: Protocol Last Admin: 07/16/17 21:28 Dose: Not Given Insulin Detemir (Levemir) 20 unit SC HS [facility] Last Admin: 07/16/17 21:29 Dose: Not Given Lactic Acid (Lac-Hydrin 12% Lotion (225 G)) 1 gm EXT BID [facility] Last Admin: 07/16/17 17:37 Dose: 1 applic Magnesium Oxide (Mag-Ox) 400 mg PO BID [facility] Last Admin: 07/16/17 17:38 Dose: 400 mg Methimazole (Tapazole) 10 mg PO DAILY [facility] Last Admin: 07/16/17 09:08 Dose: 10 mg Rivaroxaban (Xarelto) 20 mg PO DAILY [facility] Last Admin: 07/16/17 09:07 Dose: 20 mg Tiotropium [place] (Spiriva) 18 mcg INH RQ24 [facility] Last Admin: 07/16/17 07:50 Dose: 18 mcg - Labs Labs: 07/15/17 01:10 07/15/17 01:10 PT 12.8 SECONDS (9.7-12.2) H 07/15/17 01:10 INR 1.1 07/15/17 01:10 APTT 30 SECONDS (21-34) 07/15/17 01:10 - Constitutional Appears: No Acute Distress - Head Exam Head Exam: NORMAL INSPECTION - Eye Exam Eye Exam: Normal appearance Pupil Exam: NORMAL ACCOMODATION - ENT Exam ENT Exam: Normal Exam - Respiratory Exam Respiratory Exam: Clear to Ausculation Bilateral, NORMAL BREATHING PATTERN - Cardiovascular Exam Cardiovascular Exam: REGULAR RHYTHM - GI/Abdominal Exam GI & Abdominal Exam: Normal Bowel Sounds - Back Exam Back Exam: NORMAL INSPECTION - Neurological Exam Neuro motor strength exam: Left Upper Extremity: 4, Right Upper Extremity: 4, Left Lower Extremity: 0 (bka), Right Lower Extremity: 3 - Psychiatric Exam Psychiatric exam: Normal Affect, Normal Mood - Skin Skin Exam: Normal Color Assessment and Plan (1) CHF (congestive heart failure) Assessment & Plan: re evaluate today, leg edema may be a sign of improving chf Status: Acute (2) Leg edema, right Assessment & Plan: improved, with grade 1 edema noted Status: Acute (3) COPD (chronic obstructive pulmonary disease) Assessment & Plan: improving, will taper steroids Status: Acute
[2017-07-17] MEDS: Albuterol-Ipratrop 3 mg / 0.5 (3 ml) UD INH SCH ×4 (01:07→19:56)
[2017-07-17 08:18] LABS: ALBUMIN 2.4 g/dL (3.5-5.0); ALT/SGPT 29 U/L (9-52); AST/SGOT 32 U/L (14-36); BLOOD UREA NITROGEN 33 mg/dL (7-17); CALCIUM 7.9 mg/dl (8.6-10.4); GFR AFRICAN-AMERICAN > 60; GFR NON-AFRICAN AMERICAN > 60
[2017-07-17] MEDS: (Novolog) Insulin Aspart, Recombinant 100 u/ml 10 ml vial SC SCH ×4 (08:42→21:47)
[2017-07-17 09:01] LABS: FREE T4 1.04 ng/dL (0.78-2.19)
[2017-07-17] MEDS: Budesonide 0.5 mg/2 ml Inhal Susp UD INH SCH ×2 (10:13→19:56)
[2017-07-17] MEDS: Tiotropium 18 mcg Cap For Inhalation INH SCH (10:16)
[2017-07-17] MEDS: Magnesium Oxide 400 mg Tab UD PO SCH ×2 (10:47→17:44)
[2017-07-17] MEDS: Enoxaparin 40 mg Syringe SC SCH (10:48)
[2017-07-17] MEDS: Ammonium Lactate 12% Lotion (225 g) EXT SCH ×2 (11:00→17:45)
[2017-07-17 16:24] VITALS: RESP 20
[2017-07-17] MEDS: Digoxin 125 mcg (0.125 mg) Tab PO SCH (17:44)
--- NOTE | 2017-07-17 18:31 | PN ---
DATE: SUBJECTIVE: The patient is seen. The patient is still complaining of pain in her right lower extremities and bruising, but the edema has improved. The patient is still compliant with her psych meds. The patient is taking Xanax and Wellbutrin. Her blood sugar level is still fluctuating. Her random blood sugar today is 435, but again, the patient has history of noncompliance with her diet and noticed multiple cookies on her table, Hemoglobin A1c is still markedly elevated at 11.4. VITAL SIGNS: Temperature is 97.7, pulse 96, blood pressure 139/75, respirations are 18, oxygen saturation 98%. REVIEW OF SYSTEMS: GENERAL: The patient is alert, oriented x3, conversing with his doctor in [facility] and [facility]. The patient states that she is worried about her lower extremities. The patient Is very noncompliant with her diet. Her hemoglobin A1c continues to be in the double digit, but the patient states that she has been watching her diet. SKIN: No pruritus. HEENT: No headache, no dizziness. NECK: Supple. RESPIRATORY: No dyspnea. CARDIOVASCULAR: No chest pain. GASTROINTESTINAL: The patient has good appetite. EXTREMITIES: The patient is status post left BKA. The patient is complaining of neuropathic pain as well as bruising on her right lower extremity. The edema subsided in the right lower extremity. NEUROLOGIC: Alert and oriented x3. GENITOURINARY: Not complaining of urinary problems. MUSCULOSKELETAL: Feels weak. MENTAL STATUS EXAMINATION: A 72-year-old female of [place] descent, oriented x3. Mood is anxious. Affect is reactive. Speech is spontaneous. Thought process, coherent. Thought content, the patient is worried about the bruising in her right lower extremity. Attention and memory seem to be fair. Insight and judgment limited. Impulse control is fair at this time. IMPRESSION: History of recurrent depression, anxiety, status post left [id number] amputation, uncontrolled diabetes, history of urinary tract infection, chronic obstructive pulmonary disease, history of nicotine dependence and alcohol dependence, partial remission, congestive heart failure, atrial fibrillation. PLAN AND RECOMMENDATIONS: The patient is seen, medications reviewed. Continue present management. Continue present psych medications. The patient is advised to be more compliant with her diet restriction and also continue present medications as ordered. Mika Cobb MD [facility] # [id number] RAMAN
[2017-07-17] MEDS: Insulin Detemir 100 units/ml Vial (Levemir) SC SCH (21:48)
[2017-07-18] MEDS: Albuterol-Ipratrop 3 mg / 0.5 (3 ml) UD INH SCH ×3 (01:33→13:17)
--- NOTE | 2017-07-18 03:03 | CP.PCM.PN ---
Subjective - Date & Time of Evaluation Date of Evaluation: 07/17/17 Time of Evaluation: 19:30 - Subjective Subjective: Pt seen and evaluated at bedside. Had a long discussion with pt re: what she does in the hospital and rehab, how she does not follow instructions as delivered by nursing, how she will insist on eating her own food that she ordered from outside because she did not like the food provided by the hospital , and then she would refuse to take medications (especially the insulin ordered for her per protocol based on what she is SUPPOSED to eat.) She would then have reason to blame everyone else for her BS and her physical condition going awry. Discussed her fitness to go home and be able to fend for herself with assistance. I know her homemaker spends most of the day with her and she has a niece that stays with her at night until 5 am or so. At least at home, she has things she can do that she will help her pass the time and not be bored just concentrating on her next mean. Objective - Vital Signs/Intake and Output Vital Signs (last 24 hours): Temp Pulse Resp BP Pulse Ox 98.3 F 87 20 155/68 H 99 07/17/17 23:20 07/17/17 23:40 07/17/17 23:20 07/17/17 23:20 07/17/17 23:20 Intake and Output: 07/17/17 07/18/17 18:59 06:59 Intake Total 200 Output Total 300 Balance -100 - Medications Medications: Current Medications Acetaminophen (Tylenol 325mg Tab) 650 mg PO Q6 PRN PRN Reason: Pain, moderate (4-7) Albuterol Sulfate (Albuterol 0.083% Inhal Deirdre (2.5 Mg/3 Ml) Ud) 2.5 mg IH RQ4 PRN PRN Reason: Shortness of Breath Albuterol/Ipratropium (Duoneb 3 Mg/0.5 Mg (3 Ml) Ud) 3 ml INH RQ6 [facility] Last Admin: 07/18/17 01:33 Dose: 3 ml Alprazolam (Xanax) 0.5 mg PO Q12H [facility] Last Admin: 07/17/17 17:00 Dose: 0.5 mg Ascorbic Acid (Vitamin C 500 Mg Tab) 500 mg PO DAILY [facility] Last Admin: 07/17/17 10:47 Dose: 500 mg Budesonide (Pulmicort Respules) 0.5 mg INH RQ12 [facility] Last Admin: 07/17/17 19:56 Dose: Not Given Bupropion HCl (Wellbutrin) 200 mg PO Q12 [facility] Last Admin: 07/17/17 21:43 Dose: 200 mg Digoxin (Digoxin) 0.125 mg PO DAILY@1800 [facility] Last Admin: 07/17/17 17:44 Dose: 0.125 mg Enoxaparin Sodium (Lovenox) 40 mg SC DAILY [facility] Last Admin: 07/17/17 10:48 Dose: 40 mg Ergocalciferol (Drisdol 50,000 Intl Units Cap) 1 cap PO QWK [facility] Famotidine (Pepcid) 20 mg PO DAILY [facility] Last Admin: 07/17/17 10:48 Dose: 20 mg Furosemide (Lasix) 20 mg PO DAILY [facility] Gabapentin (Neurontin) 800 mg PO TID [facility] Last Admin: 07/17/17 17:44 Dose: 800 mg Insulin Aspart (Novolog) 0 unit SC [facility] PRN Reason: Protocol Last Admin: 07/17/17 21:47 Dose: Not Given Insulin Detemir (Levemir) 20 unit SC HS [facility] Last Admin: 07/17/17 21:48 Dose: 10 unit Lactic Acid (Lac-Hydrin 12% Lotion (225 G)) 1 gm EXT BID [facility] Last Admin: 07/17/17 17:45 Dose: 1 applic Magnesium Oxide (Mag-Ox) 400 mg PO BID [facility] Last Admin: 07/17/17 17:44 Dose: 400 mg Methimazole (Tapazole) 10 mg PO DAILY [facility] Last Admin: 07/17/17 10:49 Dose: 10 mg Rivaroxaban (Xarelto) 20 mg PO DAILY [facility] Last Admin: 07/17/17 10:49 Dose: 20 mg Tiotropium [place] (Spiriva) 18 mcg INH RQ24 [facility] Last Admin: 07/17/17 10:16 Dose: 18 mcg - Labs Labs: 07/15/17 01:10 07/17/17 07:47 PT 12.8 SECONDS (9.7-12.2) H 07/15/17 01:10 INR 1.1 07/15/17 01:10 APTT 30 SECONDS (21-34) 07/15/17 01:10 - Constitutional Appears: No Acute Distress ( ) - Head Exam Head Exam: NORMAL INSPECTION - Eye Exam Eye Exam: Normal appearance - ENT Exam ENT Exam: Normal Exam - Neck Exam Neck Exam: Normal Inspection - Respiratory Exam Respiratory Exam: NORMAL BREATHING PATTERN - Cardiovascular Exam Cardiovascular Exam: Tachycardia - GI/Abdominal Exam GI & Abdominal Exam: Soft, Normal Bowel Sounds - Rectal Exam Rectal Exam: Deferred - Back Exam Additional comments: healed stage II pressure ulcer at last admission - Neurological Exam Neuro motor strength exam: Left Upper Extremity: 4, Right Upper Extremity: 4, Right Lower Extremity: 3 - Skin Skin Exam: Dry, Intact, Warm Assessment and Plan (1) CHF (congestive heart failure) Assessment & Plan: no shortness of breath despite prolonged conversation; lower extremity edema resolved Status: Acute (2) Leg edema, right Assessment & Plan: prob 2ndry to exacerbation of copd with renal axis involvement Status: Acute (3) COPD (chronic obstructive pulmonary disease) Assessment & Plan: improved from previous admission, stable, deferred breathing tx tonight while discussing things with pt Status: Acute - Assessment and Plan (Free Text) Assessment: for possible d/c home with VNS and home PT 3x/week x 2 months; adult diaper rx left with night nurse, sa well as services, pt has old machine and needs changing.
[2017-07-18] MEDS: Budesonide 0.5 mg/2 ml Inhal Susp UD INH SCH (07:46)
[2017-07-18] MEDS: Tiotropium 18 mcg Cap For Inhalation INH SCH (07:47)
[2017-07-18] MEDS: (Novolog) Insulin Aspart, Recombinant 100 u/ml 10 ml vial SC SCH ×4 (08:27→18:33)
[2017-07-18 08:43] LABS: ALB/GLOB RATIO 0.9 (1.0-2.1); ALBUMIN 2.4 g/dL (3.5-5.0); ALT/SGPT 28 U/L (9-52); AST/SGOT 27 U/L (14-36); BLOOD UREA NITROGEN 25 mg/dL (7-17); CALCIUM 8.3 mg/dl (8.6-10.4); GFR AFRICAN-AMERICAN > 60; GFR NON-AFRICAN AMERICAN > 60
[2017-07-18 08:55] LABS: B-TYPE NATRIURETIC PEPTIDE 637 pg/mL (0-900)
[2017-07-18] MEDS: Magnesium Oxide 400 mg Tab UD PO SCH ×2 (09:41→17:14)
[2017-07-18] MEDS: Ammonium Lactate 12% Lotion (225 g) EXT SCH ×2 (09:42→17:16)
[2017-07-18] MEDS: Enoxaparin 40 mg Syringe SC SCH (10:48)
--- NOTE | 2017-07-18 13:24 | PN ---
DATE: 07/18/2017. SUBJECTIVE: The patient is seen. The patient is still anxious, worried about the bruising on her right lower extremity but patient states it could be related to her medicine that she is taking. The patient is on Xarelto, which is a blood thinner. Other than that the patient is doing well. She wants to go home. Her blood sugar today seems to be better, it is 174. PHYSICAL EXAMINATION: VITAL SIGNS: Temperature is 97.4, pulse 78, blood pressure 153/65, respirations 20, oxygen sats 100%. REVIEW OF SYSTEMS: GENERAL: The patient is alert, oriented x3, conversing in [employer], seen in her room. She is cooperative to care from staff. SKIN: No diaphoresis. HEENT: No headache or dizziness. No blurry vision. NECK: Supple. RESPIRATORY: No dyspnea. CARDIOVASCULAR: No chest pain. GASTROINTESTINAL: The patient is eating well. No nausea or vomiting.. EXTREMITIES: The patient is status post left BKA. In the right lower extremity, she has some bruising noted in her leg, but resolving, still has neuropathic pain at times. MUSCULOSKELETAL: Feels weak. NEUROLOGIC: Alert and oriented x3. GENITOURINARY: No urinary problems. MENTAL STATUS EXAMINATION: An elderly female of [place] descent, oriented x3. Speech spontaneous. Affect is reactive. Mood is anxious. The patient was asking if her Xanax can be increased, I told her because of her blood sugar that is still very erratic, the patient's hemoglobin A1c is 11.4, showing poor control of her blood sugar in the last 3 months, I told her we will keep her at the current dose as increase of Xanax may increase lethargy and patient will not be able to notice if her sugar would dip down as the patient has episodes of hypoglycemia. Thought process, coherent. Thought content, no overt psychosis. The patient wants to go home. No suicidal or homicidal ideation. Attention and memory seem to be fair. Insight and judgment fair. Impulse control is fair. The patient is not craving for alcohol or cigarettes when seen. IMPRESSION: History of recurrent depression, anxiety, history of nicotine and alcohol dependence in remission, as well as history of diabetes, urinary tract infection, chronic obstructive pulmonary disease, gastroesophageal reflux disease, congestive heart failure, atrial fibrillation. PLAN AND RECOMMENDATIONS: The patient is seen, meds reviewed. Continue present management. Continue present psych medications. Psych fong, the patient is stable to be discharged to home once medically cleared. Continue treatment plan at this time. Mika Cobb MD RAMAN
[2017-07-18 16:12] VITALS: BP 145/68; PULSE 97; TEMP 97.8; O2SAT 95
--- NOTE | 2017-07-18 16:58 | PCM.HF ---
Heart Failure Core Measure - Heart Failure Ejection Fraction: 40 % or Greater MIRIAM Inhibitor Prescribed: No Contraindication/Reason for not providing: ON ARB Beta-Olesya Prescribed: None Contraindication/Reason for not providing: EF > 40 Angiotensin II Receptor Olesya Prescribed: Yes AnticoagulationTherapy for Atrial Fibrillation/Atrialflutter: Yes Aldosterone Antagonist Prescribed: No Contraindication/Reason for not providing: EF > 40 Hydralazine Nitrate Prescribed: No Contraindication/Reason for not providing: EF > 40 Implantable Cardioverter Defibrillator Therapy: No Contraindication/Reason for not providing: NO H/O Cardiac Resynchronization Therapy Prescribed: No Contraindication/Reason for not providing: NO H/O - Follow up Will be discharged to: Home Follow Up Date (must be within 7 days from discharge): 07/20/17 Follow Up Time: 09:00
--- NOTE | 2017-07-18 17:00 | CP.PCM.PN ---
Subjective - Date & Time of Evaluation Date of Evaluation: 07/18/17 Time of Evaluation: 16:58 - Subjective Subjective: PT CLEARED FOR D/C HOME TODAY PER DR. PARSON. PT TO F/U WITH HIM ON MONDAY IN HIS OFFICE; IF SHE CANNOT MAKE THIS APPT DUE TO THE WEATHER, DR. PARSON WILL CALL HER TO RESCHEDULE. TO CONTINUE HOME MEDS; LASIX 20 MG PO QD; SPIRIVA. HYDRAULIC LIFT DRIVER DISCUSSED D/C PLAN WITH THE PT HOWVER SHE SEEMS VERY UPSET THAT SHE IS BEING D/ C AT THIS TIME. I REASSURED HER AND WE ARE PROVIDING TRANSPORTATION FOR HER TO GO HOME. VERBALIZES UNDERSTANDING. NO FURTHER ORDERS AND SEE BELOW FOR D/C PLAN: -FOLLOW UP WITH DR. PARSON ON MONDAY IN THE OFFICE PER HIS REQUEST--IF YOU CANNOT MAKE IT BECAUSE OF THE WEATHER, HE WILL CONTACT YOU TO RESCHEDULE. -CONTINUE YOUR HOME MEDICATIONS AND INSULIN COVERAGE USUAL. PLEASE NOTE THE CHANGE IN DOSE OF YOUR LASIX (WATER PILL) AND IT HAS BEEN SENT TO YOUR PHARMACY (MACHINE FEATHEREDGER AND REDUCER IN THE MORNING IF POSSIBLE). YOU HAVE ALSO BEEN GIVEN SPIRIVA TO CONTINUE TAKING FOR YOUR BREATHING. -IF YOU HAVE ANY QUESTIONS OR CONCERNS, CONTACT DR. PARSON'S OFFICE. Objective - Vital Signs/Intake and Output Vital Signs (last 24 hours): Temp Pulse Resp BP Pulse Ox 97.8 F 97 H 20 145/68 95 07/18/17 15:08 07/18/17 15:08 07/18/17 15:08 07/18/17 15:08 07/18/17 15:08 - Medications Medications: Current Medications Acetaminophen (Tylenol 325mg Tab) 650 mg PO Q6 PRN PRN Reason: Pain, moderate (4-7) Albuterol Sulfate (Albuterol 0.083% Inhal Deirdre (2.5 Mg/3 Ml) Ud) 2.5 mg IH RQ4 PRN PRN Reason: Shortness of Breath Albuterol/Ipratropium (Duoneb 3 Mg/0.5 Mg (3 Ml) Ud) 3 ml INH RQ6 [facility] Last Admin: 07/18/17 13:17 Dose: 3 ml Alprazolam (Xanax) 0.5 mg PO Q12H [facility] Last Admin: 07/18/17 03:42 Dose: 0.5 mg Ascorbic Acid (Vitamin C 500 Mg Tab) 500 mg PO DAILY [facility] Last Admin: 07/18/17 09:41 Dose: 500 mg Budesonide (Pulmicort Respules) 0.5 mg INH RQ12 [facility] Last Admin: 07/18/17 07:46 Dose: 0.5 mg Bupropion HCl (Wellbutrin) 200 mg PO Q12 [facility] Last Admin: 07/18/17 09:40 Dose: 200 mg Digoxin (Digoxin) 0.125 mg PO DAILY@1800 [facility] Last Admin: 07/17/17 17:44 Dose: 0.125 mg Ergocalciferol (Drisdol 50,000 Intl Units Cap) 1 cap PO QWK [facility] Famotidine (Pepcid) 20 mg PO DAILY [facility] Last Admin: 07/18/17 09:41 Dose: 20 mg Furosemide (Lasix) 20 mg PO DAILY [facility] Last Admin: 07/18/17 09:41 Dose: 20 mg Gabapentin (Neurontin) 800 mg PO TID [facility] Last Admin: 07/18/17 13:07 Dose: 800 mg Insulin Aspart (Novolog) 0 unit SC ACHS [facility] PRN Reason: Protocol Last Admin: 07/18/17 11:59 Dose: Not Given Insulin Detemir (Levemir) 20 unit SC HS [facility] Last Admin: 07/17/17 21:48 Dose: 10 unit Lactic Acid (Lac-Hydrin 12% Lotion (225 G)) 1 gm EXT BID [facility] Last Admin: 07/18/17 09:42 Dose: 1 applic Magnesium Oxide (Mag-Ox) 400 mg PO BID [facility] Last Admin: 07/18/17 09:41 Dose: 400 mg Methimazole (Tapazole) 10 mg PO DAILY [facility] Last Admin: 07/18/17 09:41 Dose: 10 mg Rivaroxaban (Xarelto) 20 mg PO DAILY [facility] Last Admin: 07/18/17 09:41 Dose: 20 mg Tiotropium [place] (Spiriva) 18 mcg INH RQ24 [facility] Last Admin: 07/18/17 07:47 Dose: 18 mcg - Labs Labs: 07/15/17 01:10 07/18/17 08:06 PT 12.8 SECONDS (9.7-12.2) H 07/15/17 01:10 INR 1.1 07/15/17 01:10 APTT 30 SECONDS (21-34) 07/15/17 01:10
[2017-07-18] MEDS: Digoxin 125 mcg (0.125 mg) Tab PO SCH (17:14)
[2017-07-18 17:15] VITALS: PULSE 80
--- NOTE | 2017-07-18 21:19 | CP.PCM.DIS ---
Provider - Provider Date of Admission: 07/15/17 02:16 Attending physician: Homer Soriano MD Primary care physician: Dr. oHmer Soriano Consults: none Diagnosis - Discharge Diagnosis (1) CHF (congestive heart failure) Status: Acute Priority: High Comment: pt had recent stress test with normal results. (2) Leg edema, right Status: Acute (3) COPD (chronic obstructive pulmonary disease) Status: Acute (4) Diabetes Status: Chronic Priority: High Hospital Course - Lab Results Lab Results: Micro Results 07/15/17 01:00 Blood Blood Culture - Preliminary NO GROWTH AFTER 3 DAYS 07/15/17 01:30 Blood Blood Culture - Preliminary NO GROWTH AFTER 3 DAYS Most Recent Lab Values WBC 9.1 K/uL (4.8-10.8) 07/15/17 01:10 RBC 3.84 Mil/uL (3.80-5.20) 07/15/17 01:10 Hgb 11.9 g/dL (11.0-16.0) 07/15/17 01:10 Hct 35.0 % (34.0-47.0) 07/15/17 01:10 MCV 91.2 fL (81.0-99.0) D 07/15/17 01:10 MCH 30.9 pg (27.0-31.0) 07/15/17 01:10 MCHC 33.9 g/dL (33.0-37.0) 07/15/17 01:10 RDW 13.7 % (11.5-14.5) 07/15/17 01:10 Plt Count 274 K/uL (130-400) 07/15/17 01:10 MPV 10.0 fL (7.2-11.7) 07/15/17 01:10 Neut % (Auto) 83.2 % (50.0-75.0) H 07/15/17 01:10 Lymph % (Auto) 9.9 % (20.0-40.0) L 07/15/17 01:10 [facility] % (Auto) 6.2 % (0.0-10.0) 07/15/17 01:10 Eos % (Auto) 0.1 % (0.0-4.0) 07/15/17 01:10 Baso % (Auto) 0.6 % (0.0-2.0) 07/15/17 01:10 Neut # (Auto) 7.6 K/uL (1.8-7.0) H 07/15/17 01:10 Lymph # (Auto) 0.9 K/uL (1.0-4.3) L 07/15/17 01:10 [facility] # (Auto) 0.6 K/uL (0.0-0.8) 07/15/17 01:10 Eos # (Auto) 0.0 K/uL (0.0-0.7) 07/15/17 01:10 Baso # (Auto) 0.1 K/uL (0.0-0.2) 07/15/17 01:10 Neutrophils % (Manual) 89 % (50-75) H 07/15/17 01:10 Lymphocytes % (Manual) 5 % (20-40) L 07/15/17 01:10 Reactive Lymphs % 3 % (0-0) H 07/15/17 01:10 Monocytes % (Manual) 3 % (0-10) 07/15/17 01:10 Platelet Estimate Normal (NORMAL) 07/15/17 01:10 RBC Morphology Normal 07/15/17 01:10 PT 12.8 SECONDS (9.7-12.2) H 07/15/17 01:10 INR 1.1 07/15/17 01:10 APTT 30 SECONDS (21-34) 07/15/17 01:10 Sodium 137 mmol/L (132-148) 07/18/17 08:06 Potassium 4.1 mmol/L (3.6-5.2) 07/18/17 08:06 Chloride 100 mmol/L (98-107) 07/18/17 08:06 Carbon Dioxide 31 mmol/L (22-30) H 07/18/17 08:06 Anion Gap 10 (10-20) 07/18/17 08:06 BUN 25 mg/dL (7-17) H 07/18/17 08:06 Creatinine 0.9 mg/dL (0.7-1.2) 07/18/17 08:06 Est GFR ( Amer) > 60 07/18/17 08:06 Est GFR (Non-Af Amer) > 60 07/18/17 08:06 POC Glucose (mg/dL) 355 mg/dL (65-110) H 07/18/17 16:22 Random Glucose 164 mg/dL (65-105) H 07/18/17 08:06 Hemoglobin A1c 11.4 % (4.2-6.5) H 07/17/17 07:47 Calcium 8.3 mg/dl (8.6-10.4) L 07/18/17 08:06 Phosphorus 2.9 mg/dL (2.5-4.5) 07/17/17 07:47 Magnesium 1.6 mg/dL (1.6-2.3) 07/17/17 07:47 Total Bilirubin 0.2 mg/dL (0.2-1.3) 07/18/17 08:06 AST 27 U/L (14-36) 07/18/17 08:06 ALT 28 U/L (9-52) 07/18/17 08:06 Alkaline Phosphatase 44 U/L (38-126) 07/18/17 08:06 Troponin I 0.0330 ng/mL (0.00-0.120) 07/15/17 01:10 NT-Pro-B Natriuret Pep 637 pg/mL (0-900) 07/18/17 08:06 Total Protein 5.0 g/dL (6.3-8.3) L 07/18/17 08:06 Albumin 2.4 g/dL (3.5-5.0) L 07/18/17 08:06 Globulin 2.6 gm/dL (2.2-3.9) 07/18/17 08:06 Albumin/Globulin Ratio 0.9 (1.0-2.1) L 07/18/17 08:06 Free T4 1.04 ng/dL (0.78-2.19) 07/17/17 07:47 TSH 3rd Generation 5.44 mIU/L (0.46-4.68) H 07/17/17 07:47 Urine Color Straw (YELLOW) 07/15/17 01:58 Urine Clarity Clear (Clear) 07/15/17 01:58 Urine pH 6.0 (5.0-8.0) 07/15/17 01:58 Ur Specific [place] 1.011 (1.003-1.030) 07/15/17 01:58 Urine Protein 2+ mg/dL (NEGATIVE) H 07/15/17 01:58 Urine Glucose (UA) 3+ mg/dL (Normal) H 07/15/17 01:58 Urine Ketones Negative mg/dL (NEGATIVE) 07/15/17 01:58 Urine Blood Negative (NEGATIVE) 07/15/17 01:58 Urine Nitrate Negative (NEGATIVE) 07/15/17 01:58 Urine Bilirubin Negative (NEGATIVE) 07/15/17 01:58 Urine Urobilinogen Normal mg/dL (0.2-1.0) 07/15/17 01:58 Ur Leukocyte Esterase Neg [place]/uL (Negative) 07/15/17 01:58 Urine WBC (Auto) < 1 /hpf (0-5) 07/15/17 01:58 Urine RBC (Auto) 2 /hpf (0-3) 07/15/17 01:58 Ur Squamous Epith Cells < 1 /hpf (0-5) 07/15/17 01:58 Digoxin 1.0 ng/mL (0.8-2.0) 07/15/17 01:30 Discharge Exam - Head Exam Head Exam: NORMAL INSPECTION - Eye Exam Eye Exam: Normal appearance Pupil Exam: NORMAL ACCOMODATION - ENT Exam ENT Exam: Normal Exam - Neck Exam Neck exam: Normal Inspection - Respiratory Exam Respiratory Exam: Clear to PA & Lateral, NORMAL BREATHING PATTERN - Cardiovascular Exam Cardiovascular Exam: REGULAR RHYTHM - GI/Abdominal Exam GI & Abdominal Exam: Normal Bowel Sounds - Rectal Exam Rectal Exam: Deferred - Exam External exam: Ecchymosis (and petechiae on R distal leg just above the ankle) - Extremities Exam Additional comments: seep preceding - Back Exam Back exam: absent: paraspinal tenderness - Psychiatric Exam Psychiatric exam: Homicidal Ideation, Normal Affect, Normal Mood Discharge Plan - Discharge Medications Prescriptions: Furosemide [Lasix] 20 mg PO DAILY #30 tab Tiotropium [Spiriva] 18 mcg INH RQ24 #30 cap - Follow Up Plan Condition: GOOD Disposition: HOME/ ROUTINE Instructions: Heart Healthy Diet, Diabetes Exchange Diet, Heart Failure, Adult (DC), Diabetes Diet , Furosemide, Tiotropium, Atrial Fibrillation (DC) Additional Instructions: -FOLLOW UP WITH DR. SORIANO ON MONDAY IN THE OFFICE PER HIS REQUEST--IF YOU CANNOT MAKE IT BECAUSE OF THE WEATHER, HE WILL CONTACT YOU TO RESCHEDULE. -CONTINUE YOUR HOME MEDICATIONS AND INSULIN COVERAGE USUAL. PLEASE NOTE THE CHANGE IN DOSE OF YOUR LASIX (WATER PILL) AND IT HAS BEEN SENT TO YOUR PHARMACY (RETURNED MATERIALS INSPECTOR IN THE MORNING IF POSSIBLE). YOU HAVE ALSO BEEN GIVEN SPIRIVA TO CONTINUE TAKING FOR YOUR BREATHING. -IF YOU HAVE ANY QUESTIONS OR CONCERNS, CONTACT DR. SORIANO'S OFFICE. Referrals: Homer Soriano MD [Staff Provider] -
--- NOTE | 2017-07-19 18:50 | CARD ---
APPROVED REPORT EKG Measurement Heart [id number] <Conclusion> Atrial fibrillation Anterolateral infarct, age undetermined Abnormal ECG
[2017-07-22] MEDS ORDERED: Ergocalciferol 50,000 Intl Units Cap PO SCH (10:00)
== END 2017-07-18 19:22 | disposition home health service (06) | DRG 292 ==
LOC: C.ER 00:31 → C.9E 02:16 → C.6T 02:16
PROVIDERS: ADMIT Family Medicine; ATTEND Family Medicine
DX: I11.0 Hypertensive heart disease with heart failure (principal); J44.1 Chronic obstructive pulmonary disease with (acute) exacerbation; E11.65 Type 2 diabetes mellitus with hyperglycemia; I48.91 Unspecified atrial fibrillation; F33.9 Major depressive disorder, recurrent, unspecified; E03.9 Hypothyroidism, unspecified; I50.9 Heart failure, unspecified; E78.00 Pure hypercholesterolemia, unspecified; F10.21 Alcohol dependence, in remission; F41.9 Anxiety disorder, unspecified; G47.30 Sleep apnea, unspecified; K21.9 Gastro-esophageal reflux disease without esophagitis; Z79.01 Long term (current) use of anticoagulants; Z91.11 Patient's noncompliance with dietary regimen; L89.92 Pressure ulcer of unspecified site, stage 2; Z79.4 Long term (current) use of insulin

== ENCOUNTER 2017-07-23 03:45 | Observation (INO) | payer MEDICARE, MEDICAID ==
[2017-07-23] MEDS ORDERED: Dextrose 50% SYRINGE Inj (50 ml) IV STA (04:23)
[2017-07-23] MEDS ORDERED: Dextrose 50% VIAL Inj (50 ml) IV ONE (04:25)
[2017-07-23 04:39] LABS: BASO # 0.1 K/uL (0.0-0.2); BASO % 1.4 % (0.0-2.0); EOS # 0.2 K/uL (0.0-0.7); HEMOGLOBIN 11.3 g/dL (11.0-16.0); LYMPH # 2.8 K/uL (1.0-4.3); LYMPH % 27.2 % (20.0-40.0); MEAN CELL VOLUME 92.9 fL (81.0-99.0); MEAN CORPUSCULAR HEMOGLOBIN 31.2 pg (27.0-31.0); MEAN CORPUSCULAR HGB CONC 33.6 g/dL (33.0-37.0); MEAN PLATELET VOLUME 9.9 fL (7.2-11.7); MONO # 1.1 K/uL (0.0-0.8); MONO % 10.3 % (0.0-10.0); NEUT # 6.2 K/uL (1.8-7.0); NEUT % 59.1 % (50.0-75.0); RBC 3.63 Mil/uL (3.80-5.20); RED CELL DISTRIBUTION WIDTH 14.8 % (11.5-14.5); WHITE BLOOD COUNT 10.4 K/uL (4.8-10.8)
[2017-07-23 05:04] LABS: LDL CHOLESTEROL 112 mg/dL (0-129)
[2017-07-23 05:07] LABS: B-TYPE NATRIURETIC PEPTIDE 271 pg/mL (0-900)
[2017-07-23 05:13] LABS: ALT/SGPT 29 U/L (9-52); AST/SGOT 28 U/L (14-36); BLOOD UREA NITROGEN 15 mg/dL (7-17); CALCIUM 8.1 mg/dl (8.6-10.4); GFR AFRICAN-AMERICAN 54; GFR NON-AFRICAN AMERICAN 44; HDL CHOLESTEROL 64 mg/dL (30-70)
[2017-07-23] MEDS ORDERED: Vancomycin 1 gm/NS 200 ml 1 GM/200 ML BAG IVPB STA (05:57)
[2017-07-23] MEDS ORDERED: Piperacill/Tazo 4.5gm in Dex 4.5 GM/100 ML BAG IVPB STA (05:57)
--- NOTE | 2017-07-23 06:01 | C.PDOC ---
History Of Present Illness 72 year old female presents to the Emergency Department complaining of shortness of breath and worsening pain and swelling to the right lower extremity. Told her PMD about a few days ago, recommended she increase her furosemide dose. Otherwise patient denies any chest pain, fevers, or chills. PMD: Homer Soriano Time Seen by Provider: 07/23/17 04:15 Chief Complaint (Nursing): Shortness Of Breath History Per: Patient History/Exam Limitations: no limitations Onset/Duration Of Symptoms: Hrs Current Symptoms Are (Timing): Still Present Past Medical History Reviewed: Historical Data, Nursing Documentation, Vital Signs Vital Signs: Last Vital Signs Temp Pulse 103 H 07/23/17 05:52 Resp 22 07/23/17 05:52 BP 139/62 07/23/17 05:52 Pulse Ox 95 07/23/17 07:24 - Medical History PMH: Anxiety, Arthritis, Asthma, Atrial Fibrillation, Bronchitis, Cardia Arrhythmia (back in NSR), COPD, Depression, Diabetes, Emphysema, Gastritis, HTN , Hypercholesterolemia, Hyperthyroidism, Hypothyroidism, Peripheral Edema, Sleep Apnea Denies: Alzheimer's Disease, CHF, Mitral Valve Prolapse, Chronic Kidney Disease Surgical History: Cholecystectomy Denies: Pacemaker - [facility] Procedures APPLIC OF EXTERNAL FIXATOR DEVICE, RADIUS AND ULNA (12/20/12) BELOW KNEE AMPUTAT NEC (06/30/14) CL FX REDUC-RADIUS/ULNA (12/20/12) CONTINUOUS INVASIVE MECHANICAL VENTILATION <96 CONSEC HRS (06/30/14) ENTERAL INFUSION OF CONCENTRATED NUT. SUBSTANCES (06/30/14) OTHER ENDOVASCULAR PROCEDURES ON OTHER VESSELS (06/30/14) OTHER LOCAL DESTRUC SKIN (07/11/13) OTHER MYECTOMY (09/15/14) PHYSICAL THERAPY NEC (02/15/13) Family History: States: Unknown Family Hx - Social History Hx Tobacco Use: Yes Hx Alcohol Use: No Hx Substance Use: No - Immunization History Hx Tetanus Toxoid Vaccination: No Hx Influenza Vaccination: Yes Hx Pneumococcal Vaccination: Yes Review Of Systems Except As Marked, All Systems Reviewed And Found Negative. Constitutional: Positive for: Fever, Chills Eyes: Negative for: Pain, Vision Change ENT: Negative for: Ear Pain, Ear Discharge, Nose Pain, Nose Congestion, Mouth Pain Cardiovascular: Negative for: Chest Pain, Palpitations, Orthopnea, Edema, Light Headedness Respiratory: Positive for: Shortness of Breath. Negative for: Cough, Hemoptysis Gastrointestinal: Negative for: Nausea, Vomiting, Abdominal Pain, Diarrhea, Constipation, Melena, Hematochezia Genitourinary: Negative for: Dysuria, Frequency, Hematuria, Vaginal Discharge Musculoskeletal: Positive for: Other (pain/swelling to right lower extremity). Negative for: Neck Pain, Shoulder Pain, Back Pain, Hand Pain Skin: Negative for: Rash, Lesions Neurological: Negative for: Weakness, Numbness, Confusion, Seizures Psych: Negative for: Anxiety, Depression Physical Exam - Physical Exam Appears: Toxic, In Acute Distress Skin: Normal Color, Warm, Dry Head: Atraumatic, Normacephalic Eye(s): bilateral: Normal Inspection, PERRL, EOMI Ear(s): Left: Normal, Bilateral: Normal Nose: Normal Lips: Normal Appearing Teeth: Normal Dentition Gingiva: Normal Appearing Throat: Normal Neck: Normal ROM, Supple Chest: Symmetrical Cardiovascular: Rhythm Regular (but slightly tachy), No Murmur Respiratory: Decreased Breath Sounds (bilaterally) Gastrointestinal/Abdominal: Soft, No Tenderness, No Distention Extremity: Other (Redness, warmth, swelling, and skin changes consistent with cellulitis to the right lower extremity) Neurological/Psych: Oriented x3, Normal Speech ED Course And Treatment - Laboratory Results Result Diagrams: 07/23/17 04:32 07/23/17 04:32 O2 Sat by Pulse Oximetry: 95 (RA) Pulse Ox Interpretation: Normal - Radiology CXR: Interpreted by Me, Viewed By Me CXR Interpretation: Yes: Infiltrates (right lower lobe) Critical Care Time - Critical Care Note Total Time (in mins): 45 Documented critical care: time excludes all time spent performing seperately billable procedures. Medical Decision Making Medical Decision Making: Time: 4:19 Initial Plan: * Accucheck * EKG * Pro-BNP * CRP * Lipid panel * Troponin I * CMP * CBC * Sed rate * Chest x-ray * Blood culture * D 50% IV * Reevaluation Labs reviewed: WBC 10.4, sodium is 141. Glucose 56. SED rate elevated to 76. cxr -RLL 5:57 Patient started on IV Zosyn and Vancomycin. Case discussed with Dr. Soriano, patient will be admitted inpatient for RLL pneumonia. pt with severe copd at baseline. pt with pulse ox 95% on room air. Pt also has RLE cellulitis. Disposition Discussed With .: Homer Soriano Doctor Will See Patient In The: Hospital Counseled Patient/Family Regarding: Studies Performed, Diagnosis - Disposition Disposition: HOSPITALIZED Disposition Time: 07:25 Condition: GUARDED - Clinical Impression Clinical Impression: Pneumonia, Cellulitis of right lower extremity, Chr obstructive pulmonary disease w/ acute lower respiratory infxn, COPD (chronic obstructive pulmonary disease), Respiratory distress, Cellulitis - Scribe Statement The provider has reviewed the documentation as recorded by the Megha Bryant Provider Attestation: All medical record entries made by the Megha were at my direction and personally dictated by me. I have reviewed the chart and agree that the record accurately reflects my personal performance of the history, physical exam, medical decision making, and the department course for this patient. I have also personally directed, reviewed, and agree with the discharge instructions and disposition.
--- NOTE | 2017-07-23 08:30 | RAD ---
PROCEDURE: CHEST RADIOGRAPH, 1 VIEW HISTORY: chest pain COMPARISON: 07/15/2017. FINDINGS: LUNGS: The lungs are well inflated and clear. PLEURA: No pneumothorax or pleural fluid seen. CARDIOVASCULAR: The heart is normal in size. OSSEOUS STRUCTURES: No significant abnormalities. VISUALIZED UPPER ABDOMEN: Normal. OTHER FINDINGS: Again seen is capsular calcifications status post breast augmentation. IMPRESSION: No active pulmonary disease.
[2017-07-23] MEDS ORDERED: Albuterol 0.083% Inhal Sol (2.5 mg/3 mL) UD IH PRN (08:57)
[2017-07-23 09:56] VITALS: RESP 20
[2017-07-23] MEDS ORDERED: Ergocalciferol 50,000 Intl Units Cap PO SCH (10:00)
[2017-07-23] MEDS ORDERED: [UNRECOGNIZED DRUG - OTHER] PO SCH (10:00)
[2017-07-23 10:20] LABS: T4 9.56 ug/dL (5.5-11.0)
[2017-07-23] MEDS: Magnesium Oxide 400 mg Tab UD PO SCH ×2 (10:38→18:33)
[2017-07-23] MEDS: Albuterol 0.083% Inhal Sol (2.5 mg/3 mL) UD IH SCH ×2 (14:30→20:16)
--- NOTE | 2017-07-23 15:04 | CP.PCM.HP ---
History of Present Illness - History of Present Illness History of Present Illness: cc: SOB and pain on R leg Mrs. Radford is a 72-year-old female who was admitted today for suspicion of pneumonia. Patient was complaining of shortness of breath, as well as pain on the right leg. Patient had developed a redness on the distal one third of the like secondary to an episode of congestive heart failure while [facility] Patient had called last after she was unable to make her appointment because of the snow which had just fallen the day before. She reported that her right leg was swollen again and starting to give her pain. As in the hospital I increased her furosemide 40 mg per day and patient did not call again regarding the problem. Monday and into Monday morning patient went to the ER again via 911 and complained of shortness of breath as well as pain of the right leg patient did not have any fevers or chills had no white count and other was breathing when evaluated at the ER. chest x-ray showed some infiltrates for ER doctor and patient was admitted for pneumonia. Patient's portable chest x-ray reading was noted as being clear and the right leg though with pain, was not as swollen as it had been in the past. Knowing this patient she usually gets her anxiety attacks at night and this may have triggered her call to 911. The first dose of vancomycin was given to patient and a repeat 2view chest x-ray was ordered for patient . An incidental finding of digoxin less than 0.4, plus an elevated TSH level secondary to a decrease in methimazole dosage provided the perfect combination to produce palpitations thus leading to her call for 911. Since this patient is high strung and is on current uncomfortable regarding her condition I would recommend subacute rehab placement with possible long-term placement although the latter would not be probable at the current time. Present on Admission - Present on Admission Any Indicators Present on Admission: Yes History of DVT/PE: No History of Uncontrolled Diabetes: Yes Urinary Catheter: No Decubitus Ulcer Present: Yes Decubitus Ulcer Location: sacrum Decubitus Ulcer Stage: II Past Patient History - Infectious Disease Hx of Infectious Diseases: None - Past Medical History & Family History Past Medical History?: Yes - Past Social History Smoking Status: Former Smoker Chewing Tobacco Use: No Cigar Use: No Alcohol: > 2 Drinks/Day Drugs: Denies Home Situation {Lives}: Alone Domestic Violence: Negative - CARDIAC Hx Cardiac Disorders: Yes (hypertension) Hx Angina: No Hx Atrial Fibrillation: Yes Hx Cardia Arrhythmia: Yes (back in NSR) Hx Congestive Heart Failure: Yes Hx Hypercholesterolemia: Yes Hx Hypertension: Yes Hx Mitral Valve Prolapse: No Hx Pacemaker: No Hx Peripheral Edema: Yes Hx Peripheral Vascular Disease: Yes - PULMONARY Hx Asthma: Yes Hx Bronchitis: Yes Hx Chronic Obstructive Pulmonary Disease (COPD): Yes Hx Emphysema: Yes Hx Sleep Apnea: Yes - NEUROLOGICAL Hx Alzheimer's Disease: No - HEENT Hx Difficulty Chewing: Yes - RENAL Hx Chronic Kidney Disease: No - ENDOCRINE/METABOLIC Hx Endocrine Disorders: Yes Hx Diabetes Mellitus Type 2: Yes Hx Hyperthyroidism: Yes - HEMATOLOGICAL/ONCOLOGICAL Hx Blood Disorders: No Hx Blood Transfusions: Yes - INTEGUMENTARY Hx Dermatological Problems: Yes Hx Cellulitis: Yes (current) Hx Eczema: Yes - MUSCULOSKELETAL/RHEUMATOLOGICAL Hx Arthritis: Yes Hx Falls: No Hx Osteoarthritis: Yes - GASTROINTESTINAL Hx Diverticulitis: Yes Hx Gastritis: Yes Hx Hemorrhoids: Yes - GENITOURINARY/GYNECOLOGICAL Hx Genitourinary Disorders: No - PSYCHIATRIC Hx Anxiety: Yes Hx Depression: Yes Hx Panic Symptoms: Yes Hx Paranoia: Yes Hx Post Traumatic Stress Disorder: Yes Hx Substance Use: No - SURGICAL HISTORY Hx Surgeries: Yes Hx Amputation: Yes Hx Cholecystectomy: Yes - ANESTHESIA Hx Anesthesia: Yes Hx Anesthesia Reactions: No Hx Malignant Hyperthermia: No Meds Allergies/Adverse Reactions: Allergies Allergy/AdvReac Type Severity Reaction Status Date / Time MIRIAM Inhibitors Allergy Severe COUGH Verified 07/23/17 04:05 Thiazides Allergy RASH Verified 07/23/17 04:05 Physical Exam - Constitutional Appears: No Acute Distress - Head Exam Head Exam: NORMAL INSPECTION - Eye Exam Eye Exam: Normal appearance Pupil Exam: NORMAL ACCOMODATION - ENT Exam ENT Exam: Normal Exam - Neck Exam Neck exam: Positive for: Normal Inspection - Respiratory Exam Respiratory Exam: Clear to Auscultation Bilateral, NORMAL BREATHING PATTERN - Cardiovascular Exam Cardiovascular Exam: REGULAR RHYTHM - GI/Abdominal Exam GI & Abdominal Exam: Normal Bowel Sounds - Rectal Exam Rectal Exam: Deferred - Extremities Exam Extremities exam: Positive for: normal inspection Additional comments: + redness over distal 1/3 of R leg, petichial formation, not warmer than surrounding area - Neurological Exam Neurological exam: Alert, CN II-XII Intact, Normal Gait, Oriented x3 - Psychiatric Exam Psychiatric exam: Anxious, Normal Affect - Skin Skin Exam: Dry, Intact, Normal Color, Warm Results - Vital Signs Recent Vital Signs: Last Vital Signs Temp 98.1 F 07/23/17 09:52 Pulse 95 H 07/23/17 09:52 Resp 20 07/23/17 09:52 BP 146/75 07/23/17 10:38 Pulse Ox 100 07/23/17 09:52 - Labs Result Diagrams: 07/23/17 04:32 07/23/17 04:32 Labs: Laboratory Results - last 24 hr 07/23/17 07/23/17 07/23/17 03:59 04:12 04:32 WBC 10.4 RBC 3.63 L Hgb 11.3 Hct 33.7 L MCV 92.9 MCH 31.2 H MCHC 33.6 RDW 14.8 H Plt Count 247 MPV 9.9 Neut % (Auto) 59.1 Lymph % (Auto) 27.2 Gem % (Auto) 10.3 H Eos % (Auto) 2.0 Baso % (Auto) 1.4 Neut # (Auto) 6.2 Lymph # (Auto) 2.8 Gem # (Auto) 1.1 H Eos # (Auto) 0.2 Baso # (Auto) 0.1 ESR 76 H Sodium Potassium Chloride Carbon Dioxide Anion Gap BUN Creatinine Est GFR ( Amer) Est GFR (Non-Af Amer) POC Glucose (mg/dL) 54 L 56 L Random Glucose Calcium Total Bilirubin AST ALT Alkaline Phosphatase Troponin I C-Reactive Protein NT-Pro-B Natriuret Pep Total Protein Albumin Globulin Albumin/Globulin Ratio Triglycerides Cholesterol LDL Cholesterol Direct HDL Cholesterol Thyroxine (T4) TSH 3rd Generation Digoxin 07/23/17 07/23/17 07/23/17 04:32 06:33 07:46 WBC RBC Hgb Hct MCV MCH MCHC RDW Plt Count MPV Neut % (Auto) Lymph % (Auto) Gem % (Auto) Eos % (Auto) Baso % (Auto) Neut # (Auto) Lymph # (Auto) Gem # (Auto) Eos # (Auto) Baso # (Auto) ESR Sodium 141 Potassium 3.9 Chloride 105 Carbon Dioxide 25 Anion Gap 14 BUN 15 Creatinine 1.2 Est GFR ( Amer) 54 Est GFR (Non-Af Amer) 44 POC Glucose (mg/dL) 199 H 223 H Random Glucose 48 L Calcium 8.1 L Total Bilirubin 0.4 AST 28 ALT 29 Alkaline Phosphatase 51 Troponin I < 0.0120 C-Reactive Protein 17.90 H NT-Pro-B Natriuret Pep 271 Total Protein 6.2 L Albumin 3.0 L D Globulin 3.2 Albumin/Globulin Ratio 1.0 Triglycerides 112 Cholesterol 203 H LDL Cholesterol Direct 112 HDL Cholesterol 64 Thyroxine (T4) 9.56 TSH 3rd Generation 7.08 H Digoxin 07/23/17 10:49 WBC RBC Hgb Hct MCV MCH MCHC RDW Plt Count MPV Neut % (Auto) Lymph % (Auto) Gem % (Auto) Eos % (Auto) Baso % (Auto) Neut # (Auto) Lymph # (Auto) Gem # (Auto) Eos # (Auto) Baso # (Auto) ESR Sodium Potassium Chloride Carbon Dioxide Anion Gap BUN Creatinine Est GFR ( Amer) Est GFR (Non-Af Amer) POC Glucose (mg/dL) Random Glucose Calcium Total Bilirubin AST ALT Alkaline Phosphatase Troponin I C-Reactive Protein NT-Pro-B Natriuret Pep Total Protein Albumin Globulin Albumin/Globulin Ratio Triglycerides Cholesterol LDL Cholesterol Direct HDL Cholesterol Thyroxine (T4) TSH 3rd Generation Digoxin < 0.4 L Assessment & Plan (1) COPD exacerbation Assessment and Plan: on neb treatments; if still suspicious for pneumonia will obtain CXR and sputu GS and cusvus Status: Acute Priority: High (2) Atrial fibrillation Assessment and Plan: history of. Not in active afib, but pt on Xarelto for prophylaxis Status: Acute (3) CHF (congestive heart failure) Assessment and Plan: had been frequently going into CHF lately. This is the 3rd episode in many weeks. Will obtain 2D echo to start. Status: Acute Priority: High (4) Diabetes mellitus type 2, uncontrolled Assessment and Plan: DM type 2. since pt admitted with hypoglycemia, care to exercise restraint in pt 's insulin. Status: Chronic Priority: Medium - Assessment and Plan (Free Text) Assessment: resume pt's levemir at home levels + 70/30 SSI
[2017-07-23] MEDS ORDERED: Midazolam 2 MG/2 ML VIAL ONE (15:05)
[2017-07-23] MEDS ORDERED: Propofol 10 mg/ml Inj (20 ML) ONE (15:05)
--- NOTE | 2017-07-23 17:24 | RAD ---
HISTORY: COMPARISON: 07/23/2017. TECHNIQUE: Chest PA and lateral FINDINGS: LINES AND TUBES: None. LUNG AND PLEURA: The lungs are hyperinflated and there is peribronchial thickening with chronic changes in both lungs. No focal consolidation. HEART AND MEDIASTINUM: The heart is not enlarged. The hilar and mediastinal contours are within normal limits. SKELETAL STRUCTURES: The bony structures are within normal limits for the patient's age. VISUALIZED UPPER ABDOMEN: Normal. OTHER FINDINGS: There is capsular calcification in bilateral breast implants. IMPRESSION: No active pulmonary disease. COPD.
[2017-07-23] MEDS: Digoxin 125 mcg (0.125 mg) Tab PO SCH (18:33)
[2017-07-23] MEDS ORDERED: Piperacill/Tazo 3.375gm in Dex 3.375 GM/50 ML BAG IVPB SCH (19:15)
[2017-07-23] MEDS ORDERED: Piperacillin/Tazobact 3.375 GM in Sodium Chloride 0.9% 100 ML IVPB SCH (19:30)
[2017-07-23] MEDS: (Novolin 70/30) NPH/Regular 70/30 Units/ml 10 ml vial SC SCH (20:00)
[2017-07-23] MEDS: Budesonide 0.5 mg/2 ml Inhal Susp UD INH SCH (20:16)
[2017-07-23] MEDS ORDERED: Insulin Detemir 100 units/ml Vial (Levemir) SC SCH (22:00)
[2017-07-23] MEDS: Piperacillin/Tazobact 3.375 GM in Sodium Chloride 0.9% 100 ML IVPB SCH (23:06)
[2017-07-24] MEDS: Albuterol 0.083% Inhal Sol (2.5 mg/3 mL) UD IH SCH ×4 (01:58→19:32)
[2017-07-24] MEDS ORDERED: Dextrose 50% SYRINGE Inj (50 ml) ONE ×2 (06:59→07:02)
--- NOTE | 2017-07-24 07:13 | PCM.RRT ---
Addendum entered and electronically signed by Violet Brown DO, DO 09:05: paged to re-assess patient. fingerstick 234. Patient awake and alert, eating. Original Note: <Violet Brown DO - Last Filed: 07/24/17 07:09> SOLID WASTE MANAGEMENT ENGINEER Nurses Assessment - Situation Date: 07/24/17 SOL[employer] WASTE MANAGEMENT ENGINEER Location:: Med/Oncology Room Number: 353B [employer] WASTE MANAGEMENT ENGINEER Reason for Call: Change in Mental Status (with hypoglycemia, glucose <20 fingerstick) - IV IV Inserted during SOLID WASTE MANAGEMENT ENGINEER?: No - Respiratory SOLID WASTE MANAGEMENT ENGINEER Delivery Method: Nasal Cannula @L/min Received Nebulizer Treatments: No Was the Patient Ventilated with Bag/Mask 100% O2?: No Secretions Suctioned?: No Was the Patient Intubated?: No Was the Patient Placed on a Ventilator?: No - Ventilator Settings Ventilator Respiratory Rate Settin Ventilator Tidal Volume Settin - Diagnostic Test Ordered EKG: No Chest X-Ray: No CT Scan: No Other Diagnostic Test Ordered: fingerstick glucose CPR started during SOLID WASTE MANAGEMENT ENGINEER?: No - Neurological Status (Select all that apply): absent: Responsive - Respiratory Oxygen Delivery Method: Nasal Cannula @L/min - Constitutional Appears: No Acute Distress, Other (not initially responsive) - Head Head Exam: ATRAUMATIC, NORMOCEPHALIC - Eyes Eye Exam: EOMI - Respiratory Exam Respiratory Exam: NORMAL BREATHING PATTERN - Cardiovascular Exam Cardiovascular Exam: Tachycardia, +S1, +S2 - GI/Abdominal Exam GI & Abdominal Exam: Soft - Neurological Exam Neurological Exam: absent: Alert, Awake - Extremities Exam Additional comments: left BKA Plan - Assessment of Findings&Treatment Plan Rapid response called for hypoglycemia and non-responsiveness. Patient had palpable radial pulse upon discovery but was not responding to verbal stimuli or sternal rub. Fingerstick glucose <20. Vitals: HR 101, BP 98/59, O2 saturation 100% on nasal canula. Patient received 10u levemir and 3 units 70/ 30 last night. Patient received 1 doses of D50 IVP during SOLID WASTE MANAGEMENT ENGINEER with no change in mental status. Patient became alert and responsive during IVP of second dose D50. Patient began talking and requested bedpan. Repeat fingerstick glucose 416. Hold order placed for levemir, to be changed at discretion of primary team. Q2h fingersticks ordered for now to monitor glucose more closely. <John Romero P - Last Filed: 07/25/17 07:01> Attending/Attestation - Attestation I have personally seen and examined this patient.: Yes I have fully participated in the care of the patient.: Yes I have reviewed all pertinent clinical information, including history, physical exam and plan: Yes Notes (Text): Prolonged hypoglycemia with resultant neural symptoms of passing out vs seizure with return to base line post d50 x2 in about 10 mins, clinically maintained airway, stopped levimir, till cause of hypoglycemia sought out by primary team, accuchecks q2hr x3, primary team notified.
[2017-07-24] MEDS: Piperacillin/Tazobact 3.375 GM in Sodium Chloride 0.9% 100 ML IVPB SCH ×3 (07:22→22:23)
[2017-07-24] MEDS ORDERED: Glucagon Recombinant 1 mg Inj IM PRN ×2 (07:37→09:03)
[2017-07-24] MEDS ORDERED: Dextrose 50% SYRINGE Inj (50 ml) IV PRN (07:37)
[2017-07-24] MEDS: Budesonide 0.5 mg/2 ml Inhal Susp UD INH SCH ×2 (07:38→19:32)
[2017-07-24] MEDS: (Novolin 70/30) NPH/Regular 70/30 Units/ml 10 ml vial SC SCH ×2 (07:50→20:00)
[2017-07-24 08:07] LABS: BASO # 0.1 K/uL (0.0-0.2); BASO % 0.8 % (0.0-2.0); EOS # 0.1 K/uL (0.0-0.7); EOS % 1.2 % (0.0-4.0); HEMOGLOBIN 11.1 g/dL (11.0-16.0); LYMPH # 0.9 K/uL (1.0-4.3); LYMPH % 11.2 % (20.0-40.0); MEAN CELL VOLUME 93.8 fL (81.0-99.0); MEAN CORPUSCULAR HEMOGLOBIN 31.3 pg (27.0-31.0); MEAN CORPUSCULAR HGB CONC 33.4 g/dL (33.0-37.0); MEAN PLATELET VOLUME 9.5 fL (7.2-11.7); MONO # 0.6 K/uL (0.0-0.8); MONO % 7.4 % (0.0-10.0); NEUT % 79.4 % (50.0-75.0); NRBC % 0.1 % (0.0-2.0); RBC 3.55 Mil/uL (3.80-5.20); WHITE BLOOD COUNT 7.6 K/uL (4.8-10.8)
[2017-07-24 08:17] LABS: BLOOD UREA NITROGEN 13 mg/dL (7-17); CALCIUM 8.1 mg/dl (8.6-10.4); GFR AFRICAN-AMERICAN > 60; GFR NON-AFRICAN AMERICAN 55
[2017-07-24] MEDS ORDERED: Dextrose 50% SYRINGE Inj (50 ml) IVP PRN (09:03)
[2017-07-24] MEDS: Magnesium Oxide 400 mg Tab UD PO SCH ×2 (11:40→17:49)
[2017-07-24] MEDS: Digoxin 125 mcg (0.125 mg) Tab PO SCH (17:48)
[2017-07-24 17:49] VITALS: PULSE 95
--- NOTE | 2017-07-24 19:01 | CP.PCM.PN ---
Subjective - Date & Time of Evaluation Date of Evaluation: 07/24/17 Time of Evaluation: 18:59 - Subjective Subjective: Pt seen and examined at bedside. Pt trembling and feels very anxious at the start of the interview. Patient recounted the events of Monday night when she called 911 and as I had previously documented was able to discern the sequence of events leading to that event (see H&P notes from July 24). Patient had missed her appointment last which would have clarified the medications she was supposed to take after she had been discharged home from the hospital. Patient has increasingly been getting confused because of conflicting instructions regarding her medications. Patient had been taking the wrong medications that she was stabilized on while she was inpatient, thus leading to tachycardia, feeling shortness of breath and the spiraling down to a full-blown panic attack. I was called this morning regarding patient's severe hypoglycemic episode with her blood sugar reading of 20 when patient was found unresponsive on her bed. I was informed of the events that transpired and when I called back attempted to determine exactly what happened: and patient was found with her blood sugar at 20 she was given 2 amps of D50. As far as I could determine subsequent Accu check on the right arm is the reading of 400 which after a few minutes was found to be in the low 200s. Patient has anright side internal jugular central line installed at the ER after multiple attempts at inserting a peripheral line failed. The D50 was infused through the central line but the first I could check was also obtained from the right upper extremity possibly causing a falsely elevated random fingerstick blood sugar test. I was also informed that the patient was given double the dose of Novolin 70/30; 10 units instead of 5 units was given patient prior to the hypoglycemic episode.Hence on my arrival patient was very anxious about what can possibly happen if she is not vigilant regarding her medications. Tried to reassure patient that the facility will provide the appropriate trained staff to attend to her needs. Objective - Vital Signs/Intake and Output Vital Signs (last 24 hours): Temp Pulse Resp BP Pulse Ox 98.3 F 99 H 20 160/63 H 98 07/24/17 15:10 07/24/17 15:10 07/24/17 15:10 07/24/17 15:10 07/24/17 15:10 Intake and Output: 07/24/17 07/24/17 06:59 18:59 Intake Total 700 580 Balance 700 580 - Medications Medications: Current Medications Acetaminophen (Tylenol 325mg Tab) 650 mg PO Q6 PRN PRN Reason: Pain, moderate (4-7) Last Admin: 07/24/17 13:58 Dose: 650 mg Albuterol Sulfate (Albuterol 0.083% Inhal Deirdre (2.5 Mg/3 Ml) Ud) 2.5 mg IH RQ6 [facility] Last Admin: 07/24/17 13:14 Dose: 2.5 mg Ascorbic Acid (Vitamin C 500 Mg Tab) 500 mg PO DAILY [facility] Last Admin: 07/24/17 11:39 Dose: 500 mg Budesonide (Pulmicort Respules) 0.5 mg INH RQ12 [facility] Last Admin: 07/24/17 07:38 Dose: 0.5 mg Bupropion HCl (Wellbutrin) 200 mg PO Q12 [facility] Last Admin: 07/24/17 11:39 Dose: 200 mg Dextrose (Dextrose 50% Inj) 0 ml IVP .STAT PRN; Protocol PRN Reason: Hypoglycemia Protocol Dextrose (Glutose 15) 0 gm PO .ONCE PRN; Protocol PRN Reason: Hypoglycemia Protocol Digoxin (Digoxin) 0.125 mg PO DAILY@1800 [facility] Last Admin: 07/24/17 17:48 Dose: 0.125 mg Ergocalciferol (Drisdol 50,000 Intl Units Cap) 1 cap PO QWK [facility] Last Admin: 07/23/17 10:38 Dose: 1 cap Famotidine (Pepcid) 20 mg PO DAILY [facility] Last Admin: 07/24/17 11:39 Dose: 20 mg Furosemide (Lasix) 40 mg PO DAILY [facility] Last Admin: 07/24/17 11:40 Dose: 40 mg Gabapentin (Neurontin) 800 mg PO TID [facility] Last Admin: 07/24/17 17:48 Dose: 800 mg Glucagon (Glucagen Diagnostic Kit) 0 mg IM .STAT PRN; Protocol PRN Reason: Hypoglycemia Protocol Piperacillin Sod/Tazobactam (Sod 3.375 gm/ Sodium Chloride) 100 mls @ 100 mls/ hr IVPB Q8H NITISH PRN Reason: Protocol Last Admin: 07/24/17 14:01 Dose: 100 mls/hr Dextrose (Dextrose 5% In Water 1000 Ml) 1,000 mls @ 0 mls/hr IV .Q0M PRN; Protocol; Per Protocol PRN Reason: Hypoglycemia Protocol Insulin Detemir (Levemir) 10 unit SC HS [facility] Last Admin: 07/23/17 23:11 Dose: 10 unit Insulin Human Isoph/Insulin Regular (Novolin 70/30 (70/30 Units/Ml) 10 Ml) 0 units SC Q12H [facility] Last Admin: 07/24/17 07:50 Dose: 10 units Lorazepam (Ativan) 1 mg PO Q6H PRN PRN Reason: Anxiety Last Admin: 07/24/17 18:21 Dose: 1 mg Losartan Potassium (Cozaar) 50 mg PO DAILY [facility] Last Admin: 07/24/17 11:40 Dose: 50 mg Magnesium Oxide (Mag-Ox) 400 mg PO BID [facility] Last Admin: 07/24/17 17:49 Dose: 400 mg Methimazole (Tapazole) 10 mg PO Q12 [facility] Last Admin: 07/24/17 11:41 Dose: 10 mg Rivaroxaban (Xarelto) 20 mg PO DAILY [facility] Last Admin: 07/24/17 11:38 Dose: 20 mg - Labs Labs: 07/24/17 07:57 07/24/17 07:57 - Constitutional Appears: No Acute Distress, Other (Trembling and very anxious) - Head Exam Head Exam: ATRAUMATIC, NORMAL INSPECTION - Eye Exam Eye Exam: Normal appearance Pupil Exam: NORMAL ACCOMODATION - ENT Exam ENT Exam: Mucous Membranes Dry - Neck Exam Neck Exam: Normal Inspection - Respiratory Exam Respiratory Exam: Clear to Ausculation Bilateral, NORMAL BREATHING PATTERN - Cardiovascular Exam Cardiovascular Exam: REGULAR RHYTHM - GI/Abdominal Exam GI & Abdominal Exam: Normal Bowel Sounds - Rectal Exam Rectal Exam: Deferred - Extremities Exam Extremities Exam: Pedal Edema, Tenderness Additional comments: + pain over ankle and distal 1/3 of leg; pitting edema - Back Exam Back Exam: NORMAL INSPECTION Additional comments: very small sacral decubitus ulcer st II - Neurological Exam Neurological Exam: Alert, Awake, CN II-XII Intact, Oriented x3 Neuro motor strength exam: Left Upper Extremity: 5, Right Upper Extremity: 5, Right Lower Extremity: 4 - Skin Skin Exam: Dry, Normal Color Additional comments: multiple hematomas and ecchymoses from attempts to install perihperal IV line Assessment and Plan (1) COPD exacerbation Assessment & Plan: stabilizing, no O2 deficigt noted Status: Acute (2) Atrial fibrillation Assessment & Plan: resolved, on Xarelto Status: Resolved (3) CHF (congestive heart failure) Assessment & Plan: for 2D echo in AM Status: Chronic (4) Diabetes mellitus type 2, uncontrolled Assessment & Plan: stabilizing blood sugars Status: Chronic (5) Cellulitis Status: Acute (6) Cellulitis of right lower extremity Assessment & Plan: diff dx vs petechiae from previous CHF episode with bursting of superficial capillaries . Status: Acute
--- NOTE | 2017-07-24 23:21 | CARD ---
APPROVED REPORT EKG Measurement Heart [id number] <Conclusion> Sinus tachycardia Septal infarct, age undetermined Abnormal ECG
[2017-07-25] MEDS: Albuterol 0.083% Inhal Sol (2.5 mg/3 mL) UD IH SCH ×4 (01:10→19:26)
[2017-07-25] MEDS ORDERED: (Novolin 70/30) NPH/Regular 70/30 Units/ml 10 ml vial SC SCH ×2 (03:03→07:30)
[2017-07-25] MEDS: Insulin Detemir 100 units/ml Vial (Levemir) SC ONE (03:36)
[2017-07-25] MEDS: Piperacillin/Tazobact 3.375 GM in Sodium Chloride 0.9% 100 ML IVPB SCH ×2 (06:40→14:27)
[2017-07-25] MEDS: Budesonide 0.5 mg/2 ml Inhal Susp UD INH SCH ×2 (08:37→19:26)
[2017-07-25] MEDS ORDERED: Naproxen 275 mg Tab PO SCH (10:00)
[2017-07-25] MEDS: Magnesium Oxide 400 mg Tab UD PO SCH ×2 (11:15→17:51)
[2017-07-25] MEDS: (Novolin 70/30) NPH/Regular 70/30 Units/ml 10 ml vial SC SCH ×2 (11:19→19:47)
[2017-07-25 17:47] VITALS: BP 164/69; PULSE 98; TEMP 98.2; O2SAT 100
[2017-07-25] MEDS: Digoxin 125 mcg (0.125 mg) Tab PO SCH (17:51)
--- NOTE | 2017-07-25 22:45 | CON ---
DATE: CHIEF COMPLAINT AND REASON FOR CONSULTATION: The patient was referred by Dr. Homer Soriano for co-management and evaluation of depression and anxiety, possible medication changes. HISTORY OF PRESENT ILLNESS: This is case of a 72-year-old female [place] descent, well known to me. The patient is admitted for shortness of breath and worsening pain of lower extremities. The patient was taking Lasix before. The patient was admitted, had bouts of hypoglycemia. Her blood sugar was in the 20, had rapid response. The patient was referred for co-management for her medications. She was taking Wellbutrin 200 mg every 12 hours and Xanax 0.5 mg every 12 hours. The patient states she feels very nervous at home because the patient has bouts of hypoglycemia. The patient's blood sugar went down into the 20s, and the patient had rapid response in the hospital. When she was last admitted here, the patient's sugar was in the 40s and low 60s. She is a brittle diabetic. The patient had history of noncompliance with her diet. Her last hemoglobin A1c was 11.4. She was just recently discharged. Today, she stated her sugar was in the 100s. PAST PSYCH HISTORY: History of depression, anxiety. She was taking Xanax and Wellbutrin before. The patient used to smoke. PAST MEDICAL HISTORY: History of atrial fibrillation, history of COPD, gastritis, hypertension, thyroid problems. The patient is status post left BKA. The patient was diagnosed at this admission with pneumonia as well as possible cellulitis of her right lower extremity. DRUG AND ALCOHOL HISTORY: Patient used to drink and also used to smoke. ALLERGIES: THE PATIENT IS ALLERGIC TO MIRIAM INHIBITORS AND THIAZIDE. PSYCHOSOCIAL HISTORY: The patient lives alone. She has a homemaker 6 hours a day. Her blood sugar level is now 123. PHYSICAL EXAMINATION: VITAL SIGNS: Temperature 98.6, pulse 91, blood pressure 139/66, respirations 20, oxygen sats 96%. REVIEW OF SYSTEMS: GENERAL: The patient is alert, verbal, she was cooperating with the therapist. She says she is worried about being at home because of her fluctuation in blood sugar. The patient, however, is refusing to go for care home for long-term care. SKIN: No diaphoresis. HEENT: No headache or dizziness. NECK: Supple. RESPIRATORY: No dyspnea. CARDIOVASCULAR: No chest pain. GASTROINTESTINAL: No nausea or vomiting.. EXTREMITIES: The patient is status post left BKA. She has also some redness in her right lower extremity. NEUROLOGIC: Alert and oriented x3. GENITOURINARY: No dysuria. MENTAL STATUS EXAMINATION: An elderly female, alert and oriented x3. The patient was conversing in [employer] and [employer]. Mood is anxious. Affect is reactive. Speech is spontaneous. Thought process, coherent. Thought content, the patient preoccupied by her bouts of hypoglycemia. She states she has homecare sevices at home. No psychosis. No suicidal or homicidal ideation. Attention and memory seem to be fair. Insight and judgment fair. Impulse control is fair. IMPRESSION: History of recurrent depression and anxiety, history of diabetes uncontrolled as well as history of urinary tract infection, chronic obstructive pulmonary disease, gastroesophageal reflux disease, hiatal hernia, congestive heart failure, atrial fibrillation. PLAN AND RECOMMENDATIONS: The patient is seen, medications reviewed. We will keep her off the Wellbutrin and just put her on Lexapro 10 mg daily for depression and then change the Xanax dose to 0.5 mg every 8 hours which she was taking before every 12 hours for anxiety. Continue treatment plan as outlined. We will also monitor her blood sugar as the patient has bouts of hypoglycemia. Continue treatment plan as outlined. Thank you for the consult. Mika Cobb MD RAMAN
== END 2017-07-25 20:11 ==
LOC: C.ER 03:45 → C.9E 06:00 → INTOOBSV 06:00 → C.3T 06:35
PROVIDERS: ADMIT Family Medicine; ATTEND Family Medicine
DX: J44.1 Chronic obstructive pulmonary disease with (acute) exacerbation (principal); L03.115 Cellulitis of right lower limb; R06.03 Acute respiratory distress; I48.91 Unspecified atrial fibrillation; I50.9 Heart failure, unspecified; I11.0 Hypertensive heart disease with heart failure; G47.30 Sleep apnea, unspecified; F41.1 Generalized anxiety disorder; F33.9 Major depressive disorder, recurrent, unspecified; E78.00 Pure hypercholesterolemia, unspecified; E03.9 Hypothyroidism, unspecified; M19.90 Unspecified osteoarthritis, unspecified site; E05.90 Thyrotoxicosis, unspecified without thyrotoxic crisis or storm; L89.152 Pressure ulcer of sacral region, stage 2; Z87.891 Personal history of nicotine dependence; E11.51 Type 2 diabetes mellitus with diabetic peripheral angiopathy without gangrene; Z88.8 Allergy status to other drugs, medicaments and biological substances; E11.65 Type 2 diabetes mellitus with hyperglycemia; E11.649 Type 2 diabetes mellitus with hypoglycemia without coma; Z89.512 Acquired absence of left leg below knee; Z87.440 Personal history of urinary (tract) infections; K21.9 Gastro-esophageal reflux disease without esophagitis; K44.9 Diaphragmatic hernia without obstruction or gangrene; T38.3X1A Poisoning by insulin and oral hypoglycemic [antidiabetic] drugs, accidental (unintentional), initial encounter; Y92.230 Patient room in hospital as the place of occurrence of the external cause
CPT/HCPCS: 36415; 36556; 71045; 71046; 80048; 80053; 80061; 80162; 82948; 83036; 83880; 84436; 84443; 84484; 85025; 85651; 86140; 87040; 93005; 93306; 94640; 94760; 96365; 96366; 97110; 97116; 97162; 99285; G0378; G8978; G8979; J2250; J2543; J2704; J2765; J3010; J3370

== ENCOUNTER 2017-11-23 15:21 | Inpatient (IN) | payer MEDICARE, MEDICAID ==
--- NOTE | 2017-11-23 15:47 | C.PDOC ---
History Of Present Illness <Edison Mike - Last Filed: 11/23/17 20:12> <Homer Soriano - Last Filed: 11/27/17 20:42> 72 y/o female with history of COPD, CHF, A-fib and Left knee BKA presents to ED with complaints of generalized weakness for 1-2 weeks. As per patient weakness is greater on left side and reports shortness of breath. Patient speaking in full sentences and denies fever, chills, numbness,headache, nausea, vomiting or any other complaints at this time. (Edison Mike) History Per: Patient History/Exam Limitations: no limitations Onset/Duration Of Symptoms: Days Current Symptoms Are (Timing): Still Present <Edison Mike - Last Filed: 11/23/17 20:12> <Homer Soriano - Last Filed: 11/27/17 20:42> Time Seen by Provider: 11/23/17 15:33 Chief Complaint (Nursing): Upper Extremity Problem/Injury Past Medical History Reviewed: Historical Data, Nursing Documentation, Vital Signs - Medical History PMH: Anxiety, Arthritis, Asthma, Atrial Fibrillation, Bronchitis, Cardia Arrhythmia (back in NSR), CHF, COPD, Depression, Diabetes, Diverticulitis, Emphysema, Gastritis, HTN, Hypercholesterolemia, Hyperthyroidism, Hypothyroidism , Paranoia, Peripheral Edema, Post Traumatic Stress Disorder, Sleep Apnea Surgical History: Cholecystectomy Family History: States: No Known Family Hx - Social History Hx Tobacco Use: Yes Hx Alcohol Use: No Hx Substance Use: No - Immunization History Hx Tetanus Toxoid Vaccination: No Hx Influenza Vaccination: Yes Hx Pneumococcal Vaccination: Yes <Edison Mike - Last Filed: 11/23/17 20:12> Vital Signs: Last Vital Signs Temp 98.1 F 11/27/17 16:00 Pulse 88 11/27/17 16:00 Resp 18 11/27/17 16:00 BP 130/62 11/27/17 16:00 Pulse Ox 98 11/27/17 16:00 - [facility] Procedures APPLIC OF EXTERNAL FIXATOR DEVICE, RADIUS AND ULNA (12/20/12) BELOW KNEE AMPUTAT NEC (06/30/14) CL FX REDUC-RADIUS/ULNA (12/20/12) CONTINUOUS INVASIVE MECHANICAL VENTILATION <96 CONSEC HRS (06/30/14) ENTERAL INFUSION OF CONCENTRATED NUT. SUBSTANCES (06/30/14) OTHER ENDOVASCULAR PROCEDURES ON OTHER VESSELS (06/30/14) OTHER LOCAL DESTRUC SKIN (07/11/13) OTHER MYECTOMY (09/15/14) PHYSICAL THERAPY NEC (02/15/13) Review Of Systems Constitutional: Negative for: Fever, Chills Cardiovascular: Negative for: Chest Pain Respiratory: Positive for: Shortness of Breath Gastrointestinal: Negative for: Nausea, Vomiting Neurological: Positive for: Weakness. Negative for: Numbness, Headache <Edison Mike - Last Filed: 11/23/17 20:12> Physical Exam - Physical Exam Appears: Non-toxic, No Acute Distress Skin: Warm, Dry, No Rash Head: Atraumatic, Normacephalic Eye(s): bilateral: Normal Inspection Oral Mucosa: Moist Neck: Supple Cardiovascular: Rhythm Regular Respiratory: Decreased Breath Sounds, Rales (at bases), No Rhonchi, No Wheezing Gastrointestinal/Abdominal: Soft, No Tenderness, No Guarding, No Rebound Neurological/Psych: Oriented x3, Normal Speech, Normal Cognition <Edison Mike - Last Filed: 11/23/17 20:12> ED Course And Treatment - Laboratory Results Result Diagrams: 11/23/17 16:04 11/23/17 17:26 ECG: Interpreted By Me, Viewed By Me ECG Rhythm: Sinus Rhythm ECG Interpretation: Normal Interpretation Of ECG: No ST/T wave changes Rate From EC O2 Sat by Pulse Oximetry: 100 (RA) Pulse Ox Interpretation: Normal <Edison Mike - Last Filed: 11/23/17 20:12> - Laboratory Results Result Diagrams: 11/25/17 06:14 11/27/17 08:05 <Homer Soriano - Last Filed: 11/27/17 20:42> Medical Decision Making <Edison Mike - Last Filed: 11/23/17 20:12> <Homer Soriano - Last Filed: 11/27/17 20:42> Medical Decision Making: ro intracranial, metabolic infectious etiology left sided weakness/generalized weakness- pt poor histoarin, states "left arm weak", although no weakness on exam. case discussed with dr black, not tpa candidate. noted blood sugar and osm. insulin drip and push given, ivf initated. accpeted icu. (Edison Mike) Disposition - Disposition Disposition Time: 07:00 <Edison Mike - Last Filed: 11/23/17 20:12> <Homer Soriano - Last Filed: 11/27/17 20:42> - Disposition Disposition: HOSPITALIZED Condition: CRITICAL - Clinical Impression Clinical Impression: Non-ketotic hyperosmolar coma, Weakness - Scribe Statement The provider has reviewed the documentation as recorded by the Scribe <Edison Mike - Last Filed: 11/23/17 20:12> <Homer Soriano - Last Filed: 11/27/17 20:42> - Scribe Statement Janiya Glaser All medical record entries made by the Scribe were at my direction and personally dictated by me. I have reviewed the chart and agree that the record accurately reflects my personal performance of the history, physical exam, medical decision making, and the department course for this patient. I have also personally directed, reviewed, and agree with the discharge instructions and disposition. (Edison Mike)
[2017-11-23 16:08] LABS: BASO # 0.1 K/uL (0.0-0.2); BASO % 0.7 % (0.0-2.0); EOS # 0.1 K/uL (0.0-0.7); EOS % 0.6 % (0.0-4.0); LYMPH # 0.9 K/uL (1.0-4.3); LYMPH % 10.3 % (20.0-40.0); MEAN CELL VOLUME 94.1 fL (81.0-99.0); MEAN CORPUSCULAR HEMOGLOBIN 31.2 pg (27.0-31.0); MEAN CORPUSCULAR HGB CONC 33.2 g/dL (33.0-37.0); MEAN PLATELET VOLUME 12.1 fL (7.2-11.7); MONO # 0.5 K/uL (0.0-0.8); MONO % 5.9 % (0.0-10.0); NEUT # 7.5 K/uL (1.8-7.0); NEUT % 82.5 % (50.0-75.0); RBC 4.49 Mil/uL (3.80-5.20); RED CELL DISTRIBUTION WIDTH 13.9 % (11.5-14.5); WHITE BLOOD COUNT 9.1 K/uL (4.8-10.8)
[2017-11-23 16:31] LABS: B-TYPE NATRIURETIC PEPTIDE 202 pg/mL (0-900)
--- NOTE | 2017-11-23 16:33 | RAD ---
Date of service: 11/23/2017 PROCEDURE: CHEST RADIOGRAPH, 1 VIEW HISTORY: chest pain COMPARISON: Chest radiograph dated 07/23/2017. FINDINGS: LUNGS: Clear. PLEURA: No pneumothorax or pleural fluid seen. CARDIOVASCULAR: Atherosclerotic aortic calcifications. Cardiomediastinal silhouette stably prominent. OSSEOUS STRUCTURES: Unchanged. VISUALIZED UPPER ABDOMEN: Normal. OTHER FINDINGS: Bilateral breast prostheses redemonstrated. IMPRESSION: No active disease.
[2017-11-23 16:41] LABS: ALT/SGPT 16 U/L (9-52); AST/SGOT 38 U/L (14-36); BLOOD UREA NITROGEN 19 mg/dL (7-17); CALCIUM 8.5 mg/dl (8.6-10.4); GFR AFRICAN-AMERICAN > 60; GFR NON-AFRICAN AMERICAN 55
[2017-11-23] MEDS ORDERED: (Novolin R) Insulin Human Regular 100 units/ml vial IV STA (16:43)
--- NOTE | 2017-11-23 16:49 | CT ---
Date of service: 11/23/2017 PROCEDURE: CT HEAD WITHOUT CONTRAST. HISTORY: left sided weakness COMPARISON: CT head dated 07/23/2016. TECHNIQUE: Axial computed tomography images were obtained through the head/brain without intravenous contrast. Radiation dose: Total exam DLP = 729.8 mGy-cm. This CT exam was performed using one or more of the following dose reduction techniques: Automated exposure control, adjustment of the mA and/or kV according to patient size, and/or use of iterative reconstruction technique. FINDINGS: HEMORRHAGE: No intracranial hemorrhage. BRAIN: No mass effect or edema. Atrophy. Chronic microvascular ischemic changes. Bilateral basal ganglia lacunar infarctions. VENTRICLES: Unremarkable. No hydrocephalus. CALVARIUM: Unremarkable. PARANASAL SINUSES: Trace left sphenoid sinus secretions. MASTOID AIR CELLS: Unremarkable as visualized. No inflammatory changes. OTHER FINDINGS: None. IMPRESSION: Normal CT of the Head.
[2017-11-23] MEDS ORDERED: Sodium Chloride 0.9% 1,000 ML IV ONE ×3 (16:57→18:01)
[2017-11-23] MEDS ORDERED: (Novolin R) Insulin Human Regular 100 units/ml vial ONE ×2 (16:57→17:32)
[2017-11-23] MEDS ORDERED: (Novolin R) Insulin Human Regular 100 units/ml vial IV ONE (17:07)
[2017-11-23 17:26] LABS: VENOUS BLOOD GAS BASE EXCESS 2.8 mmol/L (0.0-2.0); VENOUS BLOOD GAS PCO2 65 mmHg (40-60); VENOUS BLOOD GAS PO2 23 mm/Hg (30-55); VENOUS BLOOD PH 7.29 (7.32-7.43)
[2017-11-23 17:57] LABS: ALBUMIN 2.6 g/dL (3.5-5.0); CALCIUM 8.6 mg/dl (8.6-10.4)
[2017-11-23] MEDS ORDERED: Insulin Human Regular 100 UNIT in Sodium Chloride 0.9% 99 ML IV SCH (18:00)
[2017-11-23] MEDS ORDERED: Sodium Bicarbonate (8.4%) 50 Meq Syringe IVP ONE (18:01)
[2017-11-23] MEDS ORDERED: Calcium Gluconate 4.65 mEq/10 ml Inj IVP ONE (18:02)
[2017-11-23] MEDS ORDERED: Calcium Gluconate 4.65 mEq/10 ml Inj ONE (19:06)
[2017-11-23] MEDS ORDERED: Sodium Chloride 0.9% 1,000 ML ONE (19:06)
[2017-11-23] MEDS ORDERED: Sodium Bicarbonate (8.4%) 50 Meq Syringe ONE (19:06)
--- NOTE | 2017-11-23 22:11 | CP.CCUPN ---
CCU Subjective - Physician Review Events Since Last Encounter (Free Text): 11/23/17 22:39 72yo F. 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 p/w weakness , found to be hyperglycemic and dehydrated. CCU Objective - Vital Signs / Intake & Output Vital Signs (Last 4 hours): Vital Signs Pulse Resp BP Pulse Ox 11/23/17 20:19 100 11/23/17 19:30 90 18 153/66 H 96 Intake and Output (Last 8hrs): Intake & Output 11/23/17 11/23/17 11/23/17 06:59 14:59 22:59 Weight 95 lb - Physical Exam Head: Positive for: Atraumatic, Normocephalic Pupils: Positive for: PERRL Extroacular Muscles: Positive for: EOMI Conjunctiva: Positive for: Normal Mouth: Positive for: Dry Nose (External): Positive for: Atraumatic Neck: Positive for: Normal Range of Motion Respiratory/Chest: Positive for: Clear to Auscultation, Good Air Exchange Cardiovascular: Positive for: Regular Rate and Rhythm Abdomen: Positive for: Normal Bowel Sounds. Negative for: Tenderness, Distention Upper Extremity: Positive for: Normal Inspection Lower Extremity: Positive for: Normal Inspection (left BKA) Neurological: Positive for: GCS=15 Skin: Positive for: Dry Psychiatric: Positive for: Alert, Oriented x 3, Normal Insight - Medications Active Medications: Active Medications Generic Name Dose Route Start Last Admin Trade Name Freq PRN Reason Stop Dose Admin Insulin Human Regular 100 unit 100 mls @ 2 mls/hr 11/23/17 18:00 11/23/17 19: 23 / Sodium Chloride IV 2 mls/hr .Q24H NITISH Administration Protocol - Patient Studies Lab Studies: Lab Studies 11/23/17 11/23/17 11/23/17 Range/Units 21:05 20:21 19:10 WBC (4.8-10.8) K/uL RBC (3.80-5.20) Mil/uL Hgb (11.0-16.0) g/dL Hct (34.0-47.0) % MCV (81.0-99.0) fL MCH (27.0-31.0) pg MCHC (33.0-37.0) g/dL RDW (11.5-14.5) % Plt Count (130-400) K/uL MPV (7.2-11.7) fL Neut % (Auto) (50.0-75.0) % Lymph % (Auto) (20.0-40.0) % Pickett % (Auto) (0.0-10.0) % Eos % (Auto) (0.0-4.0) % Baso % (Auto) (0.0-2.0) % Neut # (Auto) (1.8-7.0) K/uL Lymph # (Auto) (1.0-4.3) K/uL Pickett # (Auto) (0.0-0.8) K/uL Eos # (Auto) (0.0-0.7) K/uL Baso # (Auto) (0.0-0.2) K/uL PT (9.7-12.2) SECONDS INR APTT (21-34) SECONDS pO2 (30-55) mm/Hg VBG pH (7.32-7.43) VBG pCO2 (40-60) mmHg VBG HCO3 mmol/L VBG Total CO2 (22-28) mmol/L VBG O2 Sat (Calc) (40-65) % VBG Base Excess (0.0-2.0) mmol/L VBG Potassium (3.6-5.2) mmol/L Glucose (65-105) mg/dl Lactate (0.7-2.1) mmol/L Crit Value Called To Crit Value Called By Crit Value Read Back Blood Gas Notified Time Sodium (132-148) mmol/L Potassium (3.6-5.2) mmol/L Chloride (98-107) mmol/L Carbon Dioxide (22-30) mmol/L Anion Gap (10-20) BUN (7-17) mg/dL Creatinine (0.7-1.2) mg/dL Est GFR ( Amer) Est GFR (Non-Af Amer) POC Glucose (mg/dL) 281 H 319 H 426 H* (65-110) mg/dL Random Glucose (65-105) mg/dL Serum Osmolality (272-300) mosm/kg Calcium (8.6-10.4) mg/dl Magnesium (1.6-2.3) mg/dL Total Bilirubin (0.2-1.3) mg/dL AST (14-36) U/L ALT (9-52) U/L Alkaline Phosphatase (38-126) U/L Troponin I (0.00-0.120) ng/mL NT-Pro-B Natriuret Pep (0-900) pg/mL Total Protein (6.3-8.3) g/dL Albumin (3.5-5.0) g/dL Globulin (2.2-3.9) gm/dL Albumin/Globulin Ratio (1.0-2.1) Venous Blood Potassium (3.6-5.2) mmol/L 11/23/17 11/23/17 11/23/17 Range/Units 19:07 17:26 17:26 WBC (4.8-10.8) K/uL RBC (3.80-5.20) Mil/uL Hgb (11.0-16.0) g/dL Hct (34.0-47.0) % MCV (81.0-99.0) fL MCH (27.0-31.0) pg MCHC (33.0-37.0) g/dL RDW (11.5-14.5) % Plt Count (130-400) K/uL MPV (7.2-11.7) fL Neut % (Auto) (50.0-75.0) % Lymph % (Auto) (20.0-40.0) % Pickett % (Auto) (0.0-10.0) % Eos % (Auto) (0.0-4.0) % Baso % (Auto) (0.0-2.0) % Neut # (Auto) (1.8-7.0) K/uL Lymph # (Auto) (1.0-4.3) K/uL Pickett # (Auto) (0.0-0.8) K/uL Eos # (Auto) (0.0-0.7) K/uL Baso # (Auto) (0.0-0.2) K/uL PT (9.7-12.2) SECONDS INR APTT (21-34) SECONDS pO2 (30-55) mm/Hg VBG pH (7.32-7.43) VBG pCO2 (40-60) mmHg VBG HCO3 mmol/L VBG Total CO2 (22-28) mmol/L VBG O2 Sat (Calc) (40-65) % VBG Base Excess (0.0-2.0) mmol/L VBG Potassium (3.6-5.2) mmol/L Glucose (65-105) mg/dl Lactate (0.7-2.1) mmol/L Crit Value Called To Crit Value Called By Crit Value Read Back Blood Gas Notified Time Sodium 129 L (132-148) mmol/L Potassium 5.5 H (3.6-5.2) mmol/L Chloride 95 L (98-107) mmol/L Carbon Dioxide 30 (22-30) mmol/L Anion Gap 9 L (10-20) BUN 19 H (7-17) mg/dL Creatinine 1.1 (0.7-1.2) mg/dL Est GFR ( Amer) 59 Est GFR (Non-Af Amer) 49 POC Glucose (mg/dL) 464 H* (65-110) mg/dL Random Glucose 623 H* (65-105) mg/dL Serum Osmolality 373 H (272-300) mosm/kg Calcium 8.6 (8.6-10.4) mg/dl Magnesium 1.9 (1.6-2.3) mg/dL Total Bilirubin 0.3 (0.2-1.3) mg/dL AST 20 (14-36) U/L ALT 21 (9-52) U/L Alkaline Phosphatase 91 (38-126) U/L Troponin I (0.00-0.120) ng/mL NT-Pro-B Natriuret Pep (0-900) pg/mL Total Protein 5.3 L (6.3-8.3) g/dL Albumin 2.6 L (3.5-5.0) g/dL Globulin 2.6 (2.2-3.9) gm/dL Albumin/Globulin Ratio 1.0 (1.0-2.1) Venous Blood Potassium (3.6-5.2) mmol/L 11/23/17 11/23/17 11/23/17 Range/Units 17:23 16:04 16:04 WBC (4.8-10.8) K/uL RBC (3.80-5.20) Mil/uL Hgb (11.0-16.0) g/dL Hct (34.0-47.0) % MCV (81.0-99.0) fL MCH (27.0-31.0) pg MCHC (33.0-37.0) g/dL RDW (11.5-14.5) % Plt Count (130-400) K/uL MPV (7.2-11.7) fL Neut % (Auto) (50.0-75.0) % Lymph % (Auto) (20.0-40.0) % Pickett % (Auto) (0.0-10.0) % Eos % (Auto) (0.0-4.0) % Baso % (Auto) (0.0-2.0) % Neut # (Auto) (1.8-7.0) K/uL Lymph # (Auto) (1.0-4.3) K/uL Pickett # (Auto) (0.0-0.8) K/uL Eos # (Auto) (0.0-0.7) K/uL Baso # (Auto) (0.0-0.2) K/uL PT 11.0 (9.7-12.2) SECONDS INR 1.0 APTT 37 H (21-34) SECONDS pO2 23 L (30-55) mm/Hg VBG pH 7.29 L (7.32-7.43) VBG pCO2 65 H (40-60) mmHg VBG HCO3 25.3 mmol/L VBG Total CO2 33.3 H (22-28) mmol/L VBG O2 Sat (Calc) 50.7 (40-65) % VBG Base Excess 2.8 H (0.0-2.0) mmol/L VBG Potassium 5.2 (3.6-5.2) mmol/L Glucose 586 H* D (65-105) mg/dl Lactate 1.8 (0.7-2.1) mmol/L Crit Value Called To Dr villanueva Crit Value Called By Logan painting Crit Value Read Back Y Blood Gas Notified Time 1726 Sodium 130.0 L 126 L (132-148) mmol/L Potassium 6.7 H* D (3.6-5.2) mmol/L Chloride 94.0 L 93 L (98-107) mmol/L Carbon Dioxide 30 (22-30) mmol/L Anion Gap 10 (10-20) BUN 19 H (7-17) mg/dL Creatinine 1.0 (0.7-1.2) mg/dL Est GFR ( Amer) > 60 Est GFR (Non-Af Amer) 55 POC Glucose (mg/dL) (65-110) mg/dL Random Glucose 686 H* D (65-105) mg/dL Serum Osmolality (272-300) mosm/kg Calcium 8.5 L (8.6-10.4) mg/dl Magnesium (1.6-2.3) mg/dL Total Bilirubin 1.0 (0.2-1.3) mg/dL AST 38 H D (14-36) U/L ALT 16 (9-52) U/L Alkaline Phosphatase 95 (38-126) U/L Troponin I 0.0160 (0.00-0.120) ng/mL NT-Pro-B Natriuret Pep 202 (0-900) pg/mL Total Protein 5.9 L (6.3-8.3) g/dL Albumin 3.0 L (3.5-5.0) g/dL Globulin 2.9 (2.2-3.9) gm/dL Albumin/Globulin Ratio 1.0 (1.0-2.1) Venous Blood Potassium 5.2 (3.6-5.2) mmol/L 11/23/17 Range/Units 16:04 WBC 9.1 (4.8-10.8) K/uL RBC 4.49 (3.80-5.20) Mil/uL Hgb 14.0 D (11.0-16.0) g/dL Hct 42.3 (34.0-47.0) % MCV 94.1 (81.0-99.0) fL MCH 31.2 H (27.0-31.0) pg MCHC 33.2 (33.0-37.0) g/dL RDW 13.9 (11.5-14.5) % Plt Count 165 (130-400) K/uL MPV 12.1 H (7.2-11.7) fL Neut % (Auto) 82.5 H (50.0-75.0) % Lymph % (Auto) 10.3 L (20.0-40.0) % Pickett % (Auto) 5.9 (0.0-10.0) % Eos % (Auto) 0.6 (0.0-4.0) % Baso % (Auto) 0.7 (0.0-2.0) % Neut # (Auto) 7.5 H (1.8-7.0) K/uL Lymph # (Auto) 0.9 L (1.0-4.3) K/uL Pickett # (Auto) 0.5 (0.0-0.8) K/uL Eos # (Auto) 0.1 (0.0-0.7) K/uL Baso # (Auto) 0.1 (0.0-0.2) K/uL PT (9.7-12.2) SECONDS INR APTT (21-34) SECONDS pO2 (30-55) mm/Hg VBG pH (7.32-7.43) VBG pCO2 (40-60) mmHg VBG HCO3 mmol/L VBG Total CO2 (22-28) mmol/L VBG O2 Sat (Calc) (40-65) % VBG Base Excess (0.0-2.0) mmol/L VBG Potassium (3.6-5.2) mmol/L Glucose (65-105) mg/dl Lactate (0.7-2.1) mmol/L Crit Value Called To Crit Value Called By Crit Value Read Back Blood Gas Notified Time Sodium (132-148) mmol/L Potassium (3.6-5.2) mmol/L Chloride (98-107) mmol/L Carbon Dioxide (22-30) mmol/L Anion Gap (10-20) BUN (7-17) mg/dL Creatinine (0.7-1.2) mg/dL Est GFR ( Amer) Est GFR (Non-Af Amer) POC Glucose (mg/dL) (65-110) mg/dL Random Glucose (65-105) mg/dL Serum Osmolality (272-300) mosm/kg Calcium (8.6-10.4) mg/dl Magnesium (1.6-2.3) mg/dL Total Bilirubin (0.2-1.3) mg/dL AST (14-36) U/L ALT (9-52) U/L Alkaline Phosphatase (38-126) U/L Troponin I (0.00-0.120) ng/mL NT-Pro-B Natriuret Pep (0-900) pg/mL Total Protein (6.3-8.3) g/dL Albumin (3.5-5.0) g/dL Globulin (2.2-3.9) gm/dL Albumin/Globulin Ratio (1.0-2.1) Venous Blood Potassium (3.6-5.2) mmol/L Laboratory Results - last 24 hr 11/23/17 11/23/17 11/23/17 16:04 16:04 16:04 WBC 9.1 RBC 4.49 Hgb 14.0 D Hct 42.3 MCV 94.1 MCH 31.2 H MCHC 33.2 RDW 13.9 Plt Count 165 MPV 12.1 H Neut % (Auto) 82.5 H Lymph % (Auto) 10.3 L Pickett % (Auto) 5.9 Eos % (Auto) 0.6 Baso % (Auto) 0.7 Neut # (Auto) 7.5 H Lymph # (Auto) 0.9 L Pickett # (Auto) 0.5 Eos # (Auto) 0.1 Baso # (Auto) 0.1 PT 11.0 INR 1.0 APTT 37 H pO2 VBG pH VBG pCO2 VBG HCO3 VBG Total CO2 VBG O2 Sat (Calc) VBG Base Excess VBG Potassium Glucose Lactate Crit Value Called To Crit Value Called By Crit Value Read Back Blood Gas Notified Time Sodium 126 L Potassium 6.7 H* D Chloride 93 L Carbon Dioxide 30 Anion Gap 10 BUN 19 H Creatinine 1.0 Est GFR ( Amer) > 60 Est GFR (Non-Af Amer) 55 POC Glucose (mg/dL) Random Glucose 686 H* D Serum Osmolality Calcium 8.5 L Magnesium Total Bilirubin 1.0 AST 38 H D ALT 16 Alkaline Phosphatase 95 Troponin I 0.0160 NT-Pro-B Natriuret Pep 202 Total Protein 5.9 L Albumin 3.0 L Globulin 2.9 Albumin/Globulin Ratio 1.0 Venous Blood Potassium 11/23/17 11/23/17 11/23/17 17:23 17:26 17:26 WBC RBC Hgb Hct MCV MCH MCHC RDW Plt Count MPV Neut % (Auto) Lymph % (Auto) Pickett % (Auto) Eos % (Auto) Baso % (Auto) Neut # (Auto) Lymph # (Auto) Pickett # (Auto) Eos # (Auto) Baso # (Auto) PT INR APTT pO2 23 L VBG pH 7.29 L VBG pCO2 65 H VBG HCO3 25.3 VBG Total CO2 33.3 H VBG O2 Sat (Calc) 50.7 VBG Base Excess 2.8 H VBG Potassium 5.2 Glucose 586 H* D Lactate 1.8 Crit Value Called To Dr villanueva Crit Value Called By Logan painting Crit Value Read Back Y Blood Gas Notified Time 1726 Sodium 130.0 L 129 L Potassium 5.5 H Chloride 94.0 L 95 L Carbon Dioxide 30 Anion Gap 9 L BUN 19 H Creatinine 1.1 Est GFR ( Amer) 59 Est GFR (Non-Af Amer) 49 POC Glucose (mg/dL) Random Glucose 623 H* Serum Osmolality 373 H Calcium 8.6 Magnesium 1.9 Total Bilirubin 0.3 AST 20 ALT 21 Alkaline Phosphatase 91 Troponin I NT-Pro-B Natriuret Pep Total Protein 5.3 L Albumin 2.6 L Globulin 2.6 Albumin/Globulin Ratio 1.0 Venous Blood Potassium 5.2 11/23/17 11/23/17 11/23/17 19:07 19:10 20:21 WBC RBC Hgb Hct MCV MCH MCHC RDW Plt Count MPV Neut % (Auto) Lymph % (Auto) Pickett % (Auto) Eos % (Auto) Baso % (Auto) Neut # (Auto) Lymph # (Auto) Pickett # (Auto) Eos # (Auto) Baso # (Auto) PT INR APTT pO2 VBG pH VBG pCO2 VBG HCO3 VBG Total CO2 VBG O2 Sat (Calc) VBG Base Excess VBG Potassium Glucose Lactate Crit Value Called To Crit Value Called By Crit Value Read Back Blood Gas Notified Time Sodium Potassium Chloride Carbon Dioxide Anion Gap BUN Creatinine Est GFR ( Amer) Est GFR (Non-Af Amer) POC Glucose (mg/dL) 464 H* 426 H* 319 H Random Glucose Serum Osmolality Calcium Magnesium Total Bilirubin AST ALT Alkaline Phosphatase Troponin I NT-Pro-B Natriuret Pep Total Protein Albumin Globulin Albumin/Globulin Ratio Venous Blood Potassium 11/23/17 21:05 WBC RBC Hgb Hct MCV MCH MCHC RDW Plt Count MPV Neut % (Auto) Lymph % (Auto) Pickett % (Auto) Eos % (Auto) Baso % (Auto) Neut # (Auto) Lymph # (Auto) Pickett # (Auto) Eos # (Auto) Baso # (Auto) PT INR APTT pO2 VBG pH VBG pCO2 VBG HCO3 VBG Total CO2 VBG O2 Sat (Calc) VBG Base Excess VBG Potassium Glucose Lactate Crit Value Called To Crit Value Called By Crit Value Read Back Blood Gas Notified Time Sodium Potassium Chloride Carbon Dioxide Anion Gap BUN Creatinine Est GFR ( Amer) Est GFR (Non-Af Amer) POC Glucose (mg/dL) 281 H Random Glucose Serum Osmolality Calcium Magnesium Total Bilirubin AST ALT Alkaline Phosphatase Troponin I NT-Pro-B Natriuret Pep Total Protein Albumin Globulin Albumin/Globulin Ratio Venous Blood Potassium EKG/Cardiology Studies: Cardiology / EKG Studies 11/23/17 15:40 ELECTROCARDIOGRAM Stat Comment: Mode Of Transportation: BED Reason For Exam: chest pain Fingerstick Blood Sugar Results: 464 Review of Systems - Review of Systems All systems: reviewed and no additional remarkable complaints except - Constitutional Constitutional: Weakness Assessment/Plan (1) Diabetes mellitus with hyperosmolarity without hyperglycemic hyperosmolar nonketotic coma Assessment and plan: 72yo F. 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 p/w weakness , found to be hyperglycemic and dehydrated. Neuro: alert and oriented x 3 Pulm: no acute issues, breathing spontaneously on room air CV: hemodynamically stable. Patient appears dehydrated, taking furosemide daily , most likely too much for her, will stop for now and should reconsider her senior living medical need. Hem: no acute issues Renal: will monitor urine output. NS@125 for possible hyperosmolar state. Endo: DM type 2, hyperglycemia requiring insulin drip. Will consulte Endo - Dr. Martinez. Patient's insulin regimen is not consistent. GI: diabetic diet ID: no acute issues DVT proph - lovenox GI proph - not currently indicated Code status - full code Critical Care Time spent 35 minutes The documented time is cumulative and includes review of patient data/exams/labs /chart review and examination of the patient on rounds and throughout the day; time is exclusive of any procedures or teaching time. Current Visit: Yes Status: Acute
[2017-11-24] MEDS ORDERED: Insulin Detemir 100 units/ml Vial (Levemir) SC ONE (00:15)
[2017-11-24] MEDS: (Novolog) Insulin Aspart, Recombinant 100 u/ml 10 ml vial SC SCH ×8 (00:19→22:00)
[2017-11-24] MEDS ORDERED: Dextrose 50% SYRINGE Inj (50 ml) ONE ×2 (02:42→06:02)
[2017-11-24] MEDS ORDERED: Dextrose 50% SYRINGE Inj (50 ml) IV STA ×2 (02:43→06:04)
[2017-11-24] MEDS: Albuterol-Ipratrop 3 mg / 0.5 (3 ml) UD INH PRN ×2 (03:04→08:54)
[2017-11-24 06:28] LABS: BASO # 0.1 K/uL (0.0-0.2); BASO % 0.8 % (0.0-2.0); EOS # 0.3 K/uL (0.0-0.7); HEMOGLOBIN 13.4 g/dL (11.0-16.0); LYMPH # 3.7 K/uL (1.0-4.3); LYMPH % 27.8 % (20.0-40.0); MEAN CELL VOLUME 92.2 fL (81.0-99.0); MEAN CORPUSCULAR HGB CONC 33.6 g/dL (33.0-37.0); MONO # 1.3 K/uL (0.0-0.8); NEUT # 7.8 K/uL (1.8-7.0); NEUT % 59.4 % (50.0-75.0); RBC 4.34 Mil/uL (3.80-5.20); RED CELL DISTRIBUTION WIDTH 13.9 % (11.5-14.5); WHITE BLOOD COUNT 13.2 K/uL (4.8-10.8)
[2017-11-24 06:47] LABS: BLOOD UREA NITROGEN 15 mg/dL (7-17); CALCIUM 8.5 mg/dl (8.6-10.4); GFR AFRICAN-AMERICAN > 60; GFR NON-AFRICAN AMERICAN > 60
[2017-11-24 06:48] LABS: ALB/GLOB RATIO 0.9 (1.0-2.1); ALBUMIN 2.5 g/dL (3.5-5.0); ALT/SGPT 27 U/L (9-52); AST/SGOT 27 U/L (14-36)
--- NOTE | 2017-11-24 06:59 | CP.CCUPN ---
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 No acute events overnight. Pt off insulin drip. CCU Objective - Vital Signs / Intake & Output Vital Signs (Last 4 hours): Vital Signs Temp Pulse Resp BP Pulse Ox 11/24/17 06:00 97.8 F 78 14 100 11/24/17 05:29 85 18 104/56 L 100 11/24/17 05:00 73 18 100 11/24/17 04:29 75 23 96/47 L 100 11/24/17 04:00 102 H 24 100 11/24/17 03:29 89 24 128/59 L 100 11/24/17 03:06 97 H 11/24/17 03:00 102 H 25 H 99 Intake and Output (Last 8hrs): Intake & Output 11/23/17 11/23/17 11/24/17 14:59 22:59 06:59 Intake Total 375 1300 Balance 375 1300 Weight 95 lb 110 lb Intake: Intake, IV Amount 125 1000 Right Forearm 125 1000 Oral 250 300 Other: Voiding Method Bedpan # Voids Urine, Voided 2 1 # Bowel Movements 1 - Physical Exam Head: Positive for: Atraumatic, Normocephalic Pupils: Positive for: PERRL Extroacular Muscles: Positive for: EOMI Conjunctiva: Positive for: Normal Mouth: Positive for: Dry Nose (External): Positive for: Atraumatic Neck: Positive for: Normal Range of Motion Respiratory/Chest: Positive for: Clear to Auscultation, Good Air Exchange Cardiovascular: Positive for: Regular Rate and Rhythm Abdomen: Positive for: Normal Bowel Sounds. Negative for: Tenderness, Distention Upper Extremity: Positive for: Normal Inspection Lower Extremity: Positive for: Normal Inspection (left BKA) Neurological: Positive for: GCS=15 Skin: Positive for: Dry Psychiatric: Positive for: Alert, Oriented x 3, Normal Insight - Medications Active Medications: Active Medications Generic Name Dose Route Start Last Admin Trade Name Freq PRN Reason Stop Dose Admin Albuterol/Ipratropium 3 ml 11/24/17 02:52 11/24/17 03:04 Duoneb 3 Mg/0.5 Mg (3 Ml) Ud INH 11/27/17 02:53 3 ml RQ6 PRN Administration Shortness of Breath Enoxaparin Sodium 40 mg 11/24/17 10:00 Lovenox SC DAILY [facility] Insulin Human Regular 100 unit 100 mls @ 2 mls/hr 11/23/17 18:00 11/23/17 19: 23 / Sodium Chloride IV 2 mls/hr .Q24H [facility] Administration Protocol Insulin Aspart 0 unit 11/24/17 00:15 11/24/17 04:30 Novolog SC Not Given Q4H [facility] Protocol Insulin Detemir 10 unit 11/24/17 21:00 Levemir SC Q24H [facility] - Patient Studies Lab Studies: Lab Studies 11/24/17 11/24/17 11/24/17 Range/Units 06:37 06:18 05:58 WBC 13.2 H (4.8-10.8) K/uL RBC 4.34 (3.80-5.20) Mil/uL Hgb 13.4 (11.0-16.0) g/dL Hct 40.0 (34.0-47.0) % MCV 92.2 (81.0-99.0) fL MCH 31.0 (27.0-31.0) pg MCHC 33.6 (33.0-37.0) g/dL RDW 13.9 (11.5-14.5) % Plt Count 205 (130-400) K/uL MPV 12.0 H (7.2-11.7) fL Neut % (Auto) 59.4 (50.0-75.0) % Lymph % (Auto) 27.8 (20.0-40.0) % [place] % (Auto) 10.0 (0.0-10.0) % Eos % (Auto) 2.0 (0.0-4.0) % Baso % (Auto) 0.8 (0.0-2.0) % Neut # (Auto) 7.8 H (1.8-7.0) K/uL Lymph # (Auto) 3.7 (1.0-4.3) K/uL [place] # (Auto) 1.3 H (0.0-0.8) K/uL Eos # (Auto) 0.3 (0.0-0.7) K/uL Baso # (Auto) 0.1 (0.0-0.2) K/uL PT (9.7-12.2) SECONDS INR APTT (21-34) SECONDS pO2 (30-55) mm/Hg VBG pH (7.32-7.43) VBG pCO2 (40-60) mmHg VBG HCO3 mmol/L VBG Total CO2 (22-28) mmol/L VBG O2 Sat (Calc) (40-65) % VBG Base Excess (0.0-2.0) mmol/L VBG Potassium (3.6-5.2) mmol/L Glucose (65-105) mg/dl Lactate (0.7-2.1) mmol/L Crit Value Called To Crit Value Called By Crit Value Read Back Blood Gas Notified Time Sodium (132-148) mmol/L Potassium (3.6-5.2) mmol/L Chloride (98-107) mmol/L Carbon Dioxide (22-30) mmol/L Anion Gap (10-20) BUN (7-17) mg/dL Creatinine (0.7-1.2) mg/dL Est GFR ( Amer) Est GFR (Non-Af Amer) POC Glucose (mg/dL) 190 H 35 L* (65-110) mg/dL Random Glucose (65-105) mg/dL Serum Osmolality (272-300) mosm/kg Calcium (8.6-10.4) mg/dl Magnesium (1.6-2.3) mg/dL Total Bilirubin (0.2-1.3) mg/dL AST (14-36) U/L ALT (9-52) U/L Alkaline Phosphatase (38-126) U/L Troponin I (0.00-0.120) ng/mL NT-Pro-B Natriuret Pep (0-900) pg/mL Total Protein (6.3-8.3) g/dL Albumin (3.5-5.0) g/dL Globulin (2.2-3.9) gm/dL Albumin/Globulin Ratio (1.0-2.1) Venous Blood Potassium (3.6-5.2) mmol/L 11/24/17 11/24/17 11/24/17 Range/Units 04:27 03:05 02:36 WBC (4.8-10.8) K/uL RBC (3.80-5.20) Mil/uL Hgb (11.0-16.0) g/dL Hct (34.0-47.0) % MCV (81.0-99.0) fL MCH (27.0-31.0) pg MCHC (33.0-37.0) g/dL RDW (11.5-14.5) % Plt Count (130-400) K/uL MPV (7.2-11.7) fL Neut % (Auto) (50.0-75.0) % Lymph % (Auto) (20.0-40.0) % [place] % (Auto) (0.0-10.0) % Eos % (Auto) (0.0-4.0) % Baso % (Auto) (0.0-2.0) % Neut # (Auto) (1.8-7.0) K/uL Lymph # (Auto) (1.0-4.3) K/uL [place] # (Auto) (0.0-0.8) K/uL Eos # (Auto) (0.0-0.7) K/uL Baso # (Auto) (0.0-0.2) K/uL PT (9.7-12.2) SECONDS INR APTT (21-34) SECONDS pO2 (30-55) mm/Hg VBG pH (7.32-7.43) VBG pCO2 (40-60) mmHg VBG HCO3 mmol/L VBG Total CO2 (22-28) mmol/L VBG O2 Sat (Calc) (40-65) % VBG Base Excess (0.0-2.0) mmol/L VBG Potassium (3.6-5.2) mmol/L Glucose (65-105) mg/dl Lactate (0.7-2.1) mmol/L Crit Value Called To Crit Value Called By Crit Value Read Back Blood Gas Notified Time Sodium (132-148) mmol/L Potassium (3.6-5.2) mmol/L Chloride (98-107) mmol/L Carbon Dioxide (22-30) mmol/L Anion Gap (10-20) BUN (7-17) mg/dL Creatinine (0.7-1.2) mg/dL Est GFR ( Amer) Est GFR (Non-Af Amer) POC Glucose (mg/dL) 119 H 183 H 33 L* (65-110) mg/dL Random Glucose (65-105) mg/dL Serum Osmolality (272-300) mosm/kg Calcium (8.6-10.4) mg/dl Magnesium (1.6-2.3) mg/dL Total Bilirubin (0.2-1.3) mg/dL AST (14-36) U/L ALT (9-52) U/L Alkaline Phosphatase (38-126) U/L Troponin I (0.00-0.120) ng/mL NT-Pro-B Natriuret Pep (0-900) pg/mL Total Protein (6.3-8.3) g/dL Albumin (3.5-5.0) g/dL Globulin (2.2-3.9) gm/dL Albumin/Globulin Ratio (1.0-2.1) Venous Blood Potassium (3.6-5.2) mmol/L 11/24/17 11/24/17 11/23/17 Range/Units 01:00 00:06 23:04 WBC (4.8-10.8) K/uL RBC (3.80-5.20) Mil/uL Hgb (11.0-16.0) g/dL Hct (34.0-47.0) % MCV (81.0-99.0) fL MCH (27.0-31.0) pg MCHC (33.0-37.0) g/dL RDW (11.5-14.5) % Plt Count (130-400) K/uL MPV (7.2-11.7) fL Neut % (Auto) (50.0-75.0) % Lymph % (Auto) (20.0-40.0) % [place] % (Auto) (0.0-10.0) % Eos % (Auto) (0.0-4.0) % Baso % (Auto) (0.0-2.0) % Neut # (Auto) (1.8-7.0) K/uL Lymph # (Auto) (1.0-4.3) K/uL [place] # (Auto) (0.0-0.8) K/uL Eos # (Auto) (0.0-0.7) K/uL Baso # (Auto) (0.0-0.2) K/uL PT (9.7-12.2) SECONDS INR APTT (21-34) SECONDS pO2 (30-55) mm/Hg VBG pH (7.32-7.43) VBG pCO2 (40-60) mmHg VBG HCO3 mmol/L VBG Total CO2 (22-28) mmol/L VBG O2 Sat (Calc) (40-65) % VBG Base Excess (0.0-2.0) mmol/L VBG Potassium (3.6-5.2) mmol/L Glucose (65-105) mg/dl Lactate (0.7-2.1) mmol/L Crit Value Called To Crit Value Called By Crit Value Read Back Blood Gas Notified Time Sodium (132-148) mmol/L Potassium (3.6-5.2) mmol/L Chloride (98-107) mmol/L Carbon Dioxide (22-30) mmol/L Anion Gap (10-20) BUN (7-17) mg/dL Creatinine (0.7-1.2) mg/dL Est GFR ( Amer) Est GFR (Non-Af Amer) POC Glucose (mg/dL) 113 H 174 H 194 H (65-110) mg/dL Random Glucose (65-105) mg/dL Serum Osmolality (272-300) mosm/kg Calcium (8.6-10.4) mg/dl Magnesium (1.6-2.3) mg/dL Total Bilirubin (0.2-1.3) mg/dL AST (14-36) U/L ALT (9-52) U/L Alkaline Phosphatase (38-126) U/L Troponin I (0.00-0.120) ng/mL NT-Pro-B Natriuret Pep (0-900) pg/mL Total Protein (6.3-8.3) g/dL Albumin (3.5-5.0) g/dL Globulin (2.2-3.9) gm/dL Albumin/Globulin Ratio (1.0-2.1) Venous Blood Potassium (3.6-5.2) mmol/L 11/23/17 11/23/17 11/23/17 Range/Units 22:07 21:05 20:21 WBC (4.8-10.8) K/uL RBC (3.80-5.20) Mil/uL Hgb (11.0-16.0) g/dL Hct (34.0-47.0) % MCV (81.0-99.0) fL MCH (27.0-31.0) pg MCHC (33.0-37.0) g/dL RDW (11.5-14.5) % Plt Count (130-400) K/uL MPV (7.2-11.7) fL Neut % (Auto) (50.0-75.0) % Lymph % (Auto) (20.0-40.0) % [place] % (Auto) (0.0-10.0) % Eos % (Auto) (0.0-4.0) % Baso % (Auto) (0.0-2.0) % Neut # (Auto) (1.8-7.0) K/uL Lymph # (Auto) (1.0-4.3) K/uL [place] # (Auto) (0.0-0.8) K/uL Eos # (Auto) (0.0-0.7) K/uL Baso # (Auto) (0.0-0.2) K/uL PT (9.7-12.2) SECONDS INR APTT (21-34) SECONDS pO2 (30-55) mm/Hg VBG pH (7.32-7.43) VBG pCO2 (40-60) mmHg VBG HCO3 mmol/L VBG Total CO2 (22-28) mmol/L VBG O2 Sat (Calc) (40-65) % VBG Base Excess (0.0-2.0) mmol/L VBG Potassium (3.6-5.2) mmol/L Glucose (65-105) mg/dl Lactate (0.7-2.1) mmol/L Crit Value Called To Crit Value Called By Crit Value Read Back Blood Gas Notified Time Sodium (132-148) mmol/L Potassium (3.6-5.2) mmol/L Chloride (98-107) mmol/L Carbon Dioxide (22-30) mmol/L Anion Gap (10-20) BUN (7-17) mg/dL Creatinine (0.7-1.2) mg/dL Est GFR ( Amer) Est GFR (Non-Af Amer) POC Glucose (mg/dL) 243 H 281 H 319 H (65-110) mg/dL Random Glucose (65-105) mg/dL Serum Osmolality (272-300) mosm/kg Calcium (8.6-10.4) mg/dl Magnesium (1.6-2.3) mg/dL Total Bilirubin (0.2-1.3) mg/dL AST (14-36) U/L ALT (9-52) U/L Alkaline Phosphatase (38-126) U/L Troponin I (0.00-0.120) ng/mL NT-Pro-B Natriuret Pep (0-900) pg/mL Total Protein (6.3-8.3) g/dL Albumin (3.5-5.0) g/dL Globulin (2.2-3.9) gm/dL Albumin/Globulin Ratio (1.0-2.1) Venous Blood Potassium (3.6-5.2) mmol/L 11/23/17 11/23/17 11/23/17 Range/Units 19:10 19:07 17:26 WBC (4.8-10.8) K/uL RBC (3.80-5.20) Mil/uL Hgb (11.0-16.0) g/dL Hct (34.0-47.0) % MCV (81.0-99.0) fL MCH (27.0-31.0) pg MCHC (33.0-37.0) g/dL RDW (11.5-14.5) % Plt Count (130-400) K/uL MPV (7.2-11.7) fL Neut % (Auto) (50.0-75.0) % Lymph % (Auto) (20.0-40.0) % [place] % (Auto) (0.0-10.0) % Eos % (Auto) (0.0-4.0) % Baso % (Auto) (0.0-2.0) % Neut # (Auto) (1.8-7.0) K/uL Lymph # (Auto) (1.0-4.3) K/uL [place] # (Auto) (0.0-0.8) K/uL Eos # (Auto) (0.0-0.7) K/uL Baso # (Auto) (0.0-0.2) K/uL PT (9.7-12.2) SECONDS INR APTT (21-34) SECONDS pO2 (30-55) mm/Hg VBG pH (7.32-7.43) VBG pCO2 (40-60) mmHg VBG HCO3 mmol/L VBG Total CO2 (22-28) mmol/L VBG O2 Sat (Calc) (40-65) % VBG Base Excess (0.0-2.0) mmol/L VBG Potassium (3.6-5.2) mmol/L Glucose (65-105) mg/dl Lactate (0.7-2.1) mmol/L Crit Value Called To Crit Value Called By Crit Value Read Back Blood Gas Notified Time Sodium (132-148) mmol/L Potassium (3.6-5.2) mmol/L Chloride (98-107) mmol/L Carbon Dioxide (22-30) mmol/L Anion Gap (10-20) BUN (7-17) mg/dL Creatinine (0.7-1.2) mg/dL Est GFR ( Amer) Est GFR (Non-Af Amer) POC Glucose (mg/dL) 426 H* 464 H* (65-110) mg/dL Random Glucose (65-105) mg/dL Serum Osmolality 373 H (272-300) mosm/kg Calcium (8.6-10.4) mg/dl Magnesium (1.6-2.3) mg/dL Total Bilirubin (0.2-1.3) mg/dL AST (14-36) U/L ALT (9-52) U/L Alkaline Phosphatase (38-126) U/L Troponin I (0.00-0.120) ng/mL NT-Pro-B Natriuret Pep (0-900) pg/mL Total Protein (6.3-8.3) g/dL Albumin (3.5-5.0) g/dL Globulin (2.2-3.9) gm/dL Albumin/Globulin Ratio (1.0-2.1) Venous Blood Potassium (3.6-5.2) mmol/L 11/23/17 11/23/17 11/23/17 Range/Units 17:26 17:23 16:04 WBC (4.8-10.8) K/uL RBC (3.80-5.20) Mil/uL Hgb (11.0-16.0) g/dL Hct (34.0-47.0) % MCV (81.0-99.0) fL MCH (27.0-31.0) pg MCHC (33.0-37.0) g/dL RDW (11.5-14.5) % Plt Count (130-400) K/uL MPV (7.2-11.7) fL Neut % (Auto) (50.0-75.0) % Lymph % (Auto) (20.0-40.0) % [place] % (Auto) (0.0-10.0) % Eos % (Auto) (0.0-4.0) % Baso % (Auto) (0.0-2.0) % Neut # (Auto) (1.8-7.0) K/uL Lymph # (Auto) (1.0-4.3) K/uL [place] # (Auto) (0.0-0.8) K/uL Eos # (Auto) (0.0-0.7) K/uL Baso # (Auto) (0.0-0.2) K/uL PT (9.7-12.2) SECONDS INR APTT (21-34) SECONDS pO2 23 L (30-55) mm/Hg VBG pH 7.29 L (7.32-7.43) VBG pCO2 65 H (40-60) mmHg VBG HCO3 25.3 mmol/L VBG Total CO2 33.3 H (22-28) mmol/L VBG O2 Sat (Calc) 50.7 (40-65) % VBG Base Excess 2.8 H (0.0-2.0) mmol/L VBG Potassium 5.2 (3.6-5.2) mmol/L Glucose 586 H* D (65-105) mg/dl Lactate 1.8 (0.7-2.1) mmol/L Crit Value Called To Dr villanueva Crit Value Called By Logan painting Crit Value Read Back Y Blood Gas Notified Time 1726 Sodium 129 L 130.0 L 126 L (132-148) mmol/L Potassium 5.5 H 6.7 H* D (3.6-5.2) mmol/L Chloride 95 L 94.0 L 93 L (98-107) mmol/L Carbon Dioxide 30 30 (22-30) mmol/L Anion Gap 9 L 10 (10-20) BUN 19 H 19 H (7-17) mg/dL Creatinine 1.1 1.0 (0.7-1.2) mg/dL Est GFR ( Amer) 59 > 60 Est GFR (Non-Af Amer) 49 55 POC Glucose (mg/dL) (65-110) mg/dL Random Glucose 623 H* 686 H* D (65-105) mg/dL Serum Osmolality (272-300) mosm/kg Calcium 8.6 8.5 L (8.6-10.4) mg/dl Magnesium 1.9 (1.6-2.3) mg/dL Total Bilirubin 0.3 1.0 (0.2-1.3) mg/dL AST 20 38 H D (14-36) U/L ALT 21 16 (9-52) U/L Alkaline Phosphatase 91 95 (38-126) U/L Troponin I 0.0160 (0.00-0.120) ng/mL NT-Pro-B Natriuret Pep 202 (0-900) pg/mL Total Protein 5.3 L 5.9 L (6.3-8.3) g/dL Albumin 2.6 L 3.0 L (3.5-5.0) g/dL Globulin 2.6 2.9 (2.2-3.9) gm/dL Albumin/Globulin Ratio 1.0 1.0 (1.0-2.1) Venous Blood Potassium 5.2 (3.6-5.2) mmol/L 11/23/17 11/23/17 Range/Units 16:04 16:04 WBC 9.1 (4.8-10.8) K/uL RBC 4.49 (3.80-5.20) Mil/uL Hgb 14.0 D (11.0-16.0) g/dL Hct 42.3 (34.0-47.0) % MCV 94.1 (81.0-99.0) fL MCH 31.2 H (27.0-31.0) pg MCHC 33.2 (33.0-37.0) g/dL RDW 13.9 (11.5-14.5) % Plt Count 165 (130-400) K/uL MPV 12.1 H (7.2-11.7) fL Neut % (Auto) 82.5 H (50.0-75.0) % Lymph % (Auto) 10.3 L (20.0-40.0) % [place] % (Auto) 5.9 (0.0-10.0) % Eos % (Auto) 0.6 (0.0-4.0) % Baso % (Auto) 0.7 (0.0-2.0) % Neut # (Auto) 7.5 H (1.8-7.0) K/uL Lymph # (Auto) 0.9 L (1.0-4.3) K/uL [place] # (Auto) 0.5 (0.0-0.8) K/uL Eos # (Auto) 0.1 (0.0-0.7) K/uL Baso # (Auto) 0.1 (0.0-0.2) K/uL PT 11.0 (9.7-12.2) SECONDS INR 1.0 APTT 37 H (21-34) SECONDS pO2 (30-55) mm/Hg VBG pH (7.32-7.43) VBG pCO2 (40-60) mmHg VBG HCO3 mmol/L VBG Total CO2 (22-28) mmol/L VBG O2 Sat (Calc) (40-65) % VBG Base Excess (0.0-2.0) mmol/L VBG Potassium (3.6-5.2) mmol/L Glucose (65-105) mg/dl Lactate (0.7-2.1) mmol/L Crit Value Called To Crit Value Called By Crit Value Read Back Blood Gas Notified Time Sodium (132-148) mmol/L Potassium (3.6-5.2) mmol/L Chloride (98-107) mmol/L Carbon Dioxide (22-30) mmol/L Anion Gap (10-20) BUN (7-17) mg/dL Creatinine (0.7-1.2) mg/dL Est GFR ( Amer) Est GFR (Non-Af Amer) POC Glucose (mg/dL) (65-110) mg/dL Random Glucose (65-105) mg/dL Serum Osmolality (272-300) mosm/kg Calcium (8.6-10.4) mg/dl Magnesium (1.6-2.3) mg/dL Total Bilirubin (0.2-1.3) mg/dL AST (14-36) U/L ALT (9-52) U/L Alkaline Phosphatase (38-126) U/L Troponin I (0.00-0.120) ng/mL NT-Pro-B Natriuret Pep (0-900) pg/mL Total Protein (6.3-8.3) g/dL Albumin (3.5-5.0) g/dL Globulin (2.2-3.9) gm/dL Albumin/Globulin Ratio (1.0-2.1) Venous Blood Potassium (3.6-5.2) mmol/L Laboratory Results - last 24 hr 11/23/17 11/23/17 11/23/17 16:04 16:04 16:04 WBC 9.1 RBC 4.49 Hgb 14.0 D Hct 42.3 MCV 94.1 MCH 31.2 H MCHC 33.2 RDW 13.9 Plt Count 165 MPV 12.1 H Neut % (Auto) 82.5 H Lymph % (Auto) 10.3 L [place] % (Auto) 5.9 Eos % (Auto) 0.6 Baso % (Auto) 0.7 Neut # (Auto) 7.5 H Lymph # (Auto) 0.9 L [place] # (Auto) 0.5 Eos # (Auto) 0.1 Baso # (Auto) 0.1 PT 11.0 INR 1.0 APTT 37 H pO2 VBG pH VBG pCO2 VBG HCO3 VBG Total CO2 VBG O2 Sat (Calc) VBG Base Excess VBG Potassium Glucose Lactate Crit Value Called To Crit Value Called By Crit Value Read Back Blood Gas Notified Time Sodium 126 L Potassium 6.7 H* D Chloride 93 L Carbon Dioxide 30 Anion Gap 10 BUN 19 H Creatinine 1.0 Est GFR ( Amer) > 60 Est GFR (Non-Af Amer) 55 POC Glucose (mg/dL) Random Glucose 686 H* D Serum Osmolality Calcium 8.5 L Magnesium Total Bilirubin 1.0 AST 38 H D ALT 16 Alkaline Phosphatase 95 Troponin I 0.0160 NT-Pro-B Natriuret Pep 202 Total Protein 5.9 L Albumin 3.0 L Globulin 2.9 Albumin/Globulin Ratio 1.0 Venous Blood Potassium 11/23/17 11/23/17 11/23/17 17:23 17:26 17:26 WBC RBC Hgb Hct MCV MCH MCHC RDW Plt Count MPV Neut % (Auto) Lymph % (Auto) [place] % (Auto) Eos % (Auto) Baso % (Auto) Neut # (Auto) Lymph # (Auto) [place] # (Auto) Eos # (Auto) Baso # (Auto) PT INR APTT pO2 23 L VBG pH 7.29 L VBG pCO2 65 H VBG HCO3 25.3 VBG Total CO2 33.3 H VBG O2 Sat (Calc) 50.7 VBG Base Excess 2.8 H VBG Potassium 5.2 Glucose 586 H* D Lactate 1.8 Crit Value Called To Dr villanueva Crit Value Called By Logan painting Crit Value Read Back Y Blood Gas Notified Time 1726 Sodium 130.0 L 129 L Potassium 5.5 H Chloride 94.0 L 95 L Carbon Dioxide 30 Anion Gap 9 L BUN 19 H Creatinine 1.1 Est GFR ( Amer) 59 Est GFR (Non-Af Amer) 49 POC Glucose (mg/dL) Random Glucose 623 H* Serum Osmolality 373 H Calcium 8.6 Magnesium 1.9 Total Bilirubin 0.3 AST 20 ALT 21 Alkaline Phosphatase 91 Troponin I NT-Pro-B Natriuret Pep Total Protein 5.3 L Albumin 2.6 L Globulin 2.6 Albumin/Globulin Ratio 1.0 Venous Blood Potassium 5.2 11/23/17 11/23/17 11/23/17 19:07 19:10 20:21 WBC RBC Hgb Hct MCV MCH MCHC RDW Plt Count MPV Neut % (Auto) Lymph % (Auto) [place] % (Auto) Eos % (Auto) Baso % (Auto) Neut # (Auto) Lymph # (Auto) [place] # (Auto) Eos # (Auto) Baso # (Auto) PT INR APTT pO2 VBG pH VBG pCO2 VBG HCO3 VBG Total CO2 VBG O2 Sat (Calc) VBG Base Excess VBG Potassium Glucose Lactate Crit Value Called To Crit Value Called By Crit Value Read Back Blood Gas Notified Time Sodium Potassium Chloride Carbon Dioxide Anion Gap BUN Creatinine Est GFR ( Amer) Est GFR (Non-Af Amer) POC Glucose (mg/dL) 464 H* 426 H* 319 H Random Glucose Serum Osmolality Calcium Magnesium Total Bilirubin AST ALT Alkaline Phosphatase Troponin I NT-Pro-B Natriuret Pep Total Protein Albumin Globulin Albumin/Globulin Ratio Venous Blood Potassium 11/23/17 11/23/17 11/23/17 21:05 22:07 23:04 WBC RBC Hgb Hct MCV MCH MCHC RDW Plt Count MPV Neut % (Auto) Lymph % (Auto) [place] % (Auto) Eos % (Auto) Baso % (Auto) Neut # (Auto) Lymph # (Auto) [place] # (Auto) Eos # (Auto) Baso # (Auto) PT INR APTT pO2 VBG pH VBG pCO2 VBG HCO3 VBG Total CO2 VBG O2 Sat (Calc) VBG Base Excess VBG Potassium Glucose Lactate Crit Value Called To Crit Value Called By Crit Value Read Back Blood Gas Notified Time Sodium Potassium Chloride Carbon Dioxide Anion Gap BUN Creatinine Est GFR ( Amer) Est GFR (Non-Af Amer) POC Glucose (mg/dL) 281 H 243 H 194 H Random Glucose Serum Osmolality Calcium Magnesium Total Bilirubin AST ALT Alkaline Phosphatase Troponin I NT-Pro-B Natriuret Pep Total Protein Albumin Globulin Albumin/Globulin Ratio Venous Blood Potassium 11/24/17 11/24/17 11/24/17 00:06 01:00 02:36 WBC RBC Hgb Hct MCV MCH MCHC RDW Plt Count MPV Neut % (Auto) Lymph % (Auto) Vermillion % (Auto) Eos % (Auto) Baso % (Auto) Neut # (Auto) Lymph # (Auto) Vermillion # (Auto) Eos # (Auto) Baso # (Auto) PT INR APTT pO2 VBG pH VBG pCO2 VBG HCO3 VBG Total CO2 VBG O2 Sat (Calc) VBG Base Excess VBG Potassium Glucose Lactate Crit Value Called To Crit Value Called By Crit Value Read Back Blood Gas Notified Time Sodium Potassium Chloride Carbon Dioxide Anion Gap BUN Creatinine Est GFR ( Amer) Est GFR (Non-Af Amer) POC Glucose (mg/dL) 174 H 113 H 33 L* Random Glucose Serum Osmolality Calcium Magnesium Total Bilirubin AST ALT Alkaline Phosphatase Troponin I NT-Pro-B Natriuret Pep Total Protein Albumin Globulin Albumin/Globulin Ratio Venous Blood Potassium 11/24/17 11/24/17 11/24/17 03:05 04:27 05:58 WBC RBC Hgb Hct MCV MCH MCHC RDW Plt Count MPV Neut % (Auto) Lymph % (Auto) Vermillion % (Auto) Eos % (Auto) Baso % (Auto) Neut # (Auto) Lymph # (Auto) Vermillion # (Auto) Eos # (Auto) Baso # (Auto) PT INR APTT pO2 VBG pH VBG pCO2 VBG HCO3 VBG Total CO2 VBG O2 Sat (Calc) VBG Base Excess VBG Potassium Glucose Lactate Crit Value Called To Crit Value Called By Crit Value Read Back Blood Gas Notified Time Sodium Potassium Chloride Carbon Dioxide Anion Gap BUN Creatinine Est GFR ( Amer) Est GFR (Non-Af Amer) POC Glucose (mg/dL) 183 H 119 H 35 L* Random Glucose Serum Osmolality Calcium Magnesium Total Bilirubin AST ALT Alkaline Phosphatase Troponin I NT-Pro-B Natriuret Pep Total Protein Albumin Globulin Albumin/Globulin Ratio Venous Blood Potassium 11/24/17 11/24/17 06:18 06:37 WBC 13.2 H RBC 4.34 Hgb 13.4 Hct 40.0 MCV 92.2 MCH 31.0 MCHC 33.6 RDW 13.9 Plt Count 205 MPV 12.0 H Neut % (Auto) 59.4 Lymph % (Auto) 27.8 Vermillion % (Auto) 10.0 Eos % (Auto) 2.0 Baso % (Auto) 0.8 Neut # (Auto) 7.8 H Lymph # (Auto) 3.7 Vermillion # (Auto) 1.3 H Eos # (Auto) 0.3 Baso # (Auto) 0.1 PT INR APTT pO2 VBG pH VBG pCO2 VBG HCO3 VBG Total CO2 VBG O2 Sat (Calc) VBG Base Excess VBG Potassium Glucose Lactate Crit Value Called To Crit Value Called By Crit Value Read Back Blood Gas Notified Time Sodium Potassium Chloride Carbon Dioxide Anion Gap BUN Creatinine Est GFR ( Amer) Est GFR (Non-Af Amer) POC Glucose (mg/dL) 190 H Random Glucose Serum Osmolality Calcium Magnesium Total Bilirubin AST ALT Alkaline Phosphatase Troponin I NT-Pro-B Natriuret Pep Total Protein Albumin Globulin Albumin/Globulin Ratio Venous Blood Potassium EKG/Cardiology Studies: Cardiology / EKG Studies 11/23/17 15:40 ELECTROCARDIOGRAM Stat Comment: Mode Of Transportation: BED Reason For Exam: chest pain Fingerstick Blood Sugar Results: 119 Assessment/Plan - Assessment and Plan (Free Text) Assessment: 72 yo F w/ HHS BG 686, HCO3 30, serum osm 373, vpH 7.29 Neuro: AAOx3 CV: HTN-controlled, not on MIRIAM 2/2 allergy HLD-lipid panel CHF-chronic diastolic HF, MIRIAM contraindicated allergy. D/C IVF CAD-aspirin, statin A.fib-rate controlled, pt no on AC(ChadsVasc 5, would benefit from AC) PULM: COPD-duonebs q6, O2 PRN GI: -diabetic/HH diet -pepcid Endo: HHS -BG normalized on drip -currently levemir 10u, novolog 3U ACTID -diet Ppx -lovenox -pepcid Monik Corrigan PGY1 <Gabriele Lopez - Last Filed: 11/24/17 17:10> CCU Objective - Vital Signs / Intake & Output Vital Signs (Last 4 hours): Vital Signs Pulse Resp BP Pulse Ox 11/24/17 17:00 107 H 25 H 100 11/24/17 16:00 118 H 19 100 11/24/17 15:00 104 H 20 100 11/24/17 14:37 109 H 17 137/51 L 96 11/24/17 14:36 103 H 28 H 147/59 L 100 11/24/17 14:00 108 H 27 H 93 L 11/24/17 13:29 93 H 15 148/61 100 11/24/17 13:10 109 H 19 142/74 99 Intake and Output (Last 8hrs): Intake & Output 11/24/17 11/24/17 11/24/17 06:59 14:59 22:59 Intake Total 1300 1200 615 Balance 1300 1200 615 Weight 110 lb Intake: Intake, IV Amount 1000 1000 375 Right Forearm 1000 1000 375 Oral 300 200 240 Other: # Voids Urine, Voided 1 # Bowel Movements 1 - Medications Active Medications: Active Medications Generic Name Dose Route Start Last Admin Trade Name Clayton PRN Reason Stop Dose Admin Albuterol/Ipratropium 3 ml 11/24/17 14:00 11/24/17 13:23 Duoneb 3 Mg/0.5 Mg (3 Ml) Ud INH 11/27/17 02:53 3 ml RQ6 NITISH Administration Aspirin 81 mg 11/24/17 10:00 11/24/17 12:43 Ecotrin PO 81 mg DAILY NITISH Administration Enoxaparin Sodium 40 mg 11/24/17 10:00 11/24/17 12:43 Lovenox SC Not Given DAILY NITISH Famotidine 20 mg 11/25/17 10:00 Pepcid PO DAILY NITISH Gabapentin 800 mg 11/24/17 15:45 11/24/17 15:51 Neurontin PO 800 mg BID NITISH Administration Dextrose/Sodium Chloride 1,000 mls @ 125 mls/hr 11/24/17 11:00 11/24/17 12:43 Dextrose 5%/0.9% Ns 1000 Ml IV 125 mls/hr .Q8H NITISH Administration Insulin Aspart 3 unit 11/24/17 11:30 11/24/17 14:16 Novolog SC Not Given ACTID [facility] Protocol Insulin Detemir 10 unit 11/24/17 21:00 Levemir SC Q24H NITISH Nicotine 1 patch 11/24/17 13:00 11/24/17 14:16 Nicoderm Cq TD 1 patch DAILY NITISH Administration - Patient Studies Lab Studies: Lab Studies 11/24/17 11/24/17 11/24/17 Range/Units 09:48 08:10 06:37 WBC (4.8-10.8) K/uL RBC (3.80-5.20) Mil/uL Hgb (11.0-16.0) g/dL Hct (34.0-47.0) % MCV (81.0-99.0) fL MCH (27.0-31.0) pg MCHC (33.0-37.0) g/dL RDW (11.5-14.5) % Plt Count (130-400) K/uL MPV (7.2-11.7) fL Neut % (Auto) (50.0-75.0) % Lymph % (Auto) (20.0-40.0) % Vermillion % (Auto) (0.0-10.0) % Eos % (Auto) (0.0-4.0) % Baso % (Auto) (0.0-2.0) % Neut # (Auto) (1.8-7.0) K/uL Lymph # (Auto) (1.0-4.3) K/uL Vermillion # (Auto) (0.0-0.8) K/uL Eos # (Auto) (0.0-0.7) K/uL Baso # (Auto) (0.0-0.2) K/uL pO2 (30-55) mm/Hg VBG pH (7.32-7.43) VBG pCO2 (40-60) mmHg VBG HCO3 mmol/L VBG Total CO2 (22-28) mmol/L VBG O2 Sat (Calc) (40-65) % VBG Base Excess (0.0-2.0) mmol/L VBG Potassium (3.6-5.2) mmol/L Sodium (132-148) mmol/l Chloride (98-107) mmol/L Glucose (65-105) mg/dl Lactate (0.7-2.1) mmol/L Crit Value Called To Crit Value Called By Crit Value Read Back Blood Gas Notified Time Potassium (3.6-5.2) mmol/L Carbon Dioxide (22-30) mmol/L Anion Gap (10-20) BUN (7-17) mg/dL Creatinine (0.7-1.2) mg/dL Est GFR ( Amer) Est GFR (Non-Af Amer) POC Glucose (mg/dL) 78 126 H 190 H (65-110) mg/dL Random Glucose (65-105) mg/dL Serum Osmolality (272-300) mosm/kg Calcium (8.6-10.4) mg/dl Phosphorus (2.5-4.5) mg/dL Magnesium (1.6-2.3) mg/dL Total Bilirubin (0.2-1.3) mg/dL AST (14-36) U/L ALT (9-52) U/L Alkaline Phosphatase (38-126) U/L Total Protein (6.3-8.3) g/dL Albumin (3.5-5.0) g/dL Globulin (2.2-3.9) gm/dL Albumin/Globulin Ratio (1.0-2.1) Venous Blood Potassium (3.6-5.2) mmol/L 11/24/17 11/24/17 11/24/17 Range/Units 06:18 06:18 05:58 WBC 13.2 H (4.8-10.8) K/uL RBC 4.34 (3.80-5.20) Mil/uL Hgb 13.4 (11.0-16.0) g/dL Hct 40.0 (34.0-47.0) % MCV 92.2 (81.0-99.0) fL MCH 31.0 (27.0-31.0) pg MCHC 33.6 (33.0-37.0) g/dL RDW 13.9 (11.5-14.5) % Plt Count 205 (130-400) K/uL MPV 12.0 H (7.2-11.7) fL Neut % (Auto) 59.4 (50.0-75.0) % Lymph % (Auto) 27.8 (20.0-40.0) % [place] % (Auto) 10.0 (0.0-10.0) % Eos % (Auto) 2.0 (0.0-4.0) % Baso % (Auto) 0.8 (0.0-2.0) % Neut # (Auto) 7.8 H (1.8-7.0) K/uL Lymph # (Auto) 3.7 (1.0-4.3) K/uL [place] # (Auto) 1.3 H (0.0-0.8) K/uL Eos # (Auto) 0.3 (0.0-0.7) K/uL Baso # (Auto) 0.1 (0.0-0.2) K/uL pO2 (30-55) mm/Hg VBG pH (7.32-7.43) VBG pCO2 (40-60) mmHg VBG HCO3 mmol/L VBG Total CO2 (22-28) mmol/L VBG O2 Sat (Calc) (40-65) % VBG Base Excess (0.0-2.0) mmol/L VBG Potassium (3.6-5.2) mmol/L Sodium 140 (132-148) mmol/l Chloride 106 (98-107) mmol/L Glucose (65-105) mg/dl Lactate (0.7-2.1) mmol/L Crit Value Called To Crit Value Called By Crit Value Read Back Blood Gas Notified Time Potassium 4.7 (3.6-5.2) mmol/L Carbon Dioxide 30 (22-30) mmol/L Anion Gap 8 L (10-20) BUN 15 (7-17) mg/dL Creatinine 0.8 (0.7-1.2) mg/dL Est GFR ( Amer) > 60 Est GFR (Non-Af Amer) > 60 POC Glucose (mg/dL) 35 L* (65-110) mg/dL Random Glucose 35 L* D (65-105) mg/dL Serum Osmolality (272-300) mosm/kg Calcium 8.5 L (8.6-10.4) mg/dl Phosphorus 3.6 (2.5-4.5) mg/dL Magnesium 1.7 (1.6-2.3) mg/dL Total Bilirubin 0.3 (0.2-1.3) mg/dL AST 27 (14-36) U/L ALT 27 (9-52) U/L Alkaline Phosphatase 75 (38-126) U/L Total Protein 5.3 L (6.3-8.3) g/dL Albumin 2.5 L (3.5-5.0) g/dL Globulin 2.8 (2.2-3.9) gm/dL Albumin/Globulin Ratio 0.9 L (1.0-2.1) Venous Blood Potassium (3.6-5.2) mmol/L 11/24/17 11/24/17 11/24/17 Range/Units 04:27 03:05 02:36 WBC (4.8-10.8) K/uL RBC (3.80-5.20) Mil/uL Hgb (11.0-16.0) g/dL Hct (34.0-47.0) % MCV (81.0-99.0) fL MCH (27.0-31.0) pg MCHC (33.0-37.0) g/dL RDW (11.5-14.5) % Plt Count (130-400) K/uL MPV (7.2-11.7) fL Neut % (Auto) (50.0-75.0) % Lymph % (Auto) (20.0-40.0) % [place] % (Auto) (0.0-10.0) % Eos % (Auto) (0.0-4.0) % Baso % (Auto) (0.0-2.0) % Neut # (Auto) (1.8-7.0) K/uL Lymph # (Auto) (1.0-4.3) K/uL [place] # (Auto) (0.0-0.8) K/uL Eos # (Auto) (0.0-0.7) K/uL Baso # (Auto) (0.0-0.2) K/uL pO2 (30-55) mm/Hg VBG pH (7.32-7.43) VBG pCO2 (40-60) mmHg VBG HCO3 mmol/L VBG Total CO2 (22-28) mmol/L VBG O2 Sat (Calc) (40-65) % VBG Base Excess (0.0-2.0) mmol/L VBG Potassium (3.6-5.2) mmol/L Sodium (132-148) mmol/l Chloride (98-107) mmol/L Glucose (65-105) mg/dl Lactate (0.7-2.1) mmol/L Crit Value Called To Crit Value Called By Crit Value Read Back Blood Gas Notified Time Potassium (3.6-5.2) mmol/L Carbon Dioxide (22-30) mmol/L Anion Gap (10-20) BUN (7-17) mg/dL Creatinine (0.7-1.2) mg/dL Est GFR ( Amer) Est GFR (Non-Af Amer) POC Glucose (mg/dL) 119 H 183 H 33 L* (65-110) mg/dL Random Glucose (65-105) mg/dL Serum Osmolality (272-300) mosm/kg Calcium (8.6-10.4) mg/dl Phosphorus (2.5-4.5) mg/dL Magnesium (1.6-2.3) mg/dL Total Bilirubin (0.2-1.3) mg/dL AST (14-36) U/L ALT (9-52) U/L Alkaline Phosphatase (38-126) U/L Total Protein (6.3-8.3) g/dL Albumin (3.5-5.0) g/dL Globulin (2.2-3.9) gm/dL Albumin/Globulin Ratio (1.0-2.1) Venous Blood Potassium (3.6-5.2) mmol/L 11/24/17 11/24/17 11/23/17 Range/Units 01:00 00:06 23:04 WBC (4.8-10.8) K/uL RBC (3.80-5.20) Mil/uL Hgb (11.0-16.0) g/dL Hct (34.0-47.0) % MCV (81.0-99.0) fL MCH (27.0-31.0) pg MCHC (33.0-37.0) g/dL RDW (11.5-14.5) % Plt Count (130-400) K/uL MPV (7.2-11.7) fL Neut % (Auto) (50.0-75.0) % Lymph % (Auto) (20.0-40.0) % [place] % (Auto) (0.0-10.0) % Eos % (Auto) (0.0-4.0) % Baso % (Auto) (0.0-2.0) % Neut # (Auto) (1.8-7.0) K/uL Lymph # (Auto) (1.0-4.3) K/uL [place] # (Auto) (0.0-0.8) K/uL Eos # (Auto) (0.0-0.7) K/uL Baso # (Auto) (0.0-0.2) K/uL pO2 (30-55) mm/Hg VBG pH (7.32-7.43) VBG pCO2 (40-60) mmHg VBG HCO3 mmol/L VBG Total CO2 (22-28) mmol/L VBG O2 Sat (Calc) (40-65) % VBG Base Excess (0.0-2.0) mmol/L VBG Potassium (3.6-5.2) mmol/L Sodium (132-148) mmol/l Chloride (98-107) mmol/L Glucose (65-105) mg/dl Lactate (0.7-2.1) mmol/L Crit Value Called To Crit Value Called By Crit Value Read Back Blood Gas Notified Time Potassium (3.6-5.2) mmol/L Carbon Dioxide (22-30) mmol/L Anion Gap (10-20) BUN (7-17) mg/dL Creatinine (0.7-1.2) mg/dL Est GFR ( Amer) Est GFR (Non-Af Amer) POC Glucose (mg/dL) 113 H 174 H 194 H (65-110) mg/dL Random Glucose (65-105) mg/dL Serum Osmolality (272-300) mosm/kg Calcium (8.6-10.4) mg/dl Phosphorus (2.5-4.5) mg/dL Magnesium (1.6-2.3) mg/dL Total Bilirubin (0.2-1.3) mg/dL AST (14-36) U/L ALT (9-52) U/L Alkaline Phosphatase (38-126) U/L Total Protein (6.3-8.3) g/dL Albumin (3.5-5.0) g/dL Globulin (2.2-3.9) gm/dL Albumin/Globulin Ratio (1.0-2.1) Venous Blood Potassium (3.6-5.2) mmol/L 11/23/17 11/23/17 11/23/17 Range/Units 22:07 21:05 20:21 WBC (4.8-10.8) K/uL RBC (3.80-5.20) Mil/uL Hgb (11.0-16.0) g/dL Hct (34.0-47.0) % MCV (81.0-99.0) fL MCH (27.0-31.0) pg MCHC (33.0-37.0) g/dL RDW (11.5-14.5) % Plt Count (130-400) K/uL MPV (7.2-11.7) fL Neut % (Auto) (50.0-75.0) % Lymph % (Auto) (20.0-40.0) % [place] % (Auto) (0.0-10.0) % Eos % (Auto) (0.0-4.0) % Baso % (Auto) (0.0-2.0) % Neut # (Auto) (1.8-7.0) K/uL Lymph # (Auto) (1.0-4.3) K/uL [place] # (Auto) (0.0-0.8) K/uL Eos # (Auto) (0.0-0.7) K/uL Baso # (Auto) (0.0-0.2) K/uL pO2 (30-55) mm/Hg VBG pH (7.32-7.43) VBG pCO2 (40-60) mmHg VBG HCO3 mmol/L VBG Total CO2 (22-28) mmol/L VBG O2 Sat (Calc) (40-65) % VBG Base Excess (0.0-2.0) mmol/L VBG Potassium (3.6-5.2) mmol/L Sodium (132-148) mmol/l Chloride (98-107) mmol/L Glucose (65-105) mg/dl Lactate (0.7-2.1) mmol/L Crit Value Called To Crit Value Called By Crit Value Read Back Blood Gas Notified Time Potassium (3.6-5.2) mmol/L Carbon Dioxide (22-30) mmol/L Anion Gap (10-20) BUN (7-17) mg/dL Creatinine (0.7-1.2) mg/dL Est GFR ( Amer) Est GFR (Non-Af Amer) POC Glucose (mg/dL) 243 H 281 H 319 H (65-110) mg/dL Random Glucose (65-105) mg/dL Serum Osmolality (272-300) mosm/kg Calcium (8.6-10.4) mg/dl Phosphorus (2.5-4.5) mg/dL Magnesium (1.6-2.3) mg/dL Total Bilirubin (0.2-1.3) mg/dL AST (14-36) U/L ALT (9-52) U/L Alkaline Phosphatase (38-126) U/L Total Protein (6.3-8.3) g/dL Albumin (3.5-5.0) g/dL Globulin (2.2-3.9) gm/dL Albumin/Globulin Ratio (1.0-2.1) Venous Blood Potassium (3.6-5.2) mmol/L 11/23/17 11/23/17 11/23/17 Range/Units 19:10 19:07 17:26 WBC (4.8-10.8) K/uL RBC (3.80-5.20) Mil/uL Hgb (11.0-16.0) g/dL Hct (34.0-47.0) % MCV (81.0-99.0) fL MCH (27.0-31.0) pg MCHC (33.0-37.0) g/dL RDW (11.5-14.5) % Plt Count (130-400) K/uL MPV (7.2-11.7) fL Neut % (Auto) (50.0-75.0) % Lymph % (Auto) (20.0-40.0) % [place] % (Auto) (0.0-10.0) % Eos % (Auto) (0.0-4.0) % Baso % (Auto) (0.0-2.0) % Neut # (Auto) (1.8-7.0) K/uL Lymph # (Auto) (1.0-4.3) K/uL [place] # (Auto) (0.0-0.8) K/uL Eos # (Auto) (0.0-0.7) K/uL Baso # (Auto) (0.0-0.2) K/uL pO2 (30-55) mm/Hg VBG pH (7.32-7.43) VBG pCO2 (40-60) mmHg VBG HCO3 mmol/L VBG Total CO2 (22-28) mmol/L VBG O2 Sat (Calc) (40-65) % VBG Base Excess (0.0-2.0) mmol/L VBG Potassium (3.6-5.2) mmol/L Sodium (132-148) mmol/l Chloride (98-107) mmol/L Glucose (65-105) mg/dl Lactate (0.7-2.1) mmol/L Crit Value Called To Crit Value Called By Crit Value Read Back Blood Gas Notified Time Potassium (3.6-5.2) mmol/L Carbon Dioxide (22-30) mmol/L Anion Gap (10-20) BUN (7-17) mg/dL Creatinine (0.7-1.2) mg/dL Est GFR ( Amer) Est GFR (Non-Af Amer) POC Glucose (mg/dL) 426 H* 464 H* (65-110) mg/dL Random Glucose (65-105) mg/dL Serum Osmolality 373 H (272-300) mosm/kg Calcium (8.6-10.4) mg/dl Phosphorus (2.5-4.5) mg/dL Magnesium (1.6-2.3) mg/dL Total Bilirubin (0.2-1.3) mg/dL AST (14-36) U/L ALT (9-52) U/L Alkaline Phosphatase (38-126) U/L Total Protein (6.3-8.3) g/dL Albumin (3.5-5.0) g/dL Globulin (2.2-3.9) gm/dL Albumin/Globulin Ratio (1.0-2.1) Venous Blood Potassium (3.6-5.2) mmol/L 11/23/17 11/23/17 Range/Units 17:26 17:23 WBC (4.8-10.8) K/uL RBC (3.80-5.20) Mil/uL Hgb (11.0-16.0) g/dL Hct (34.0-47.0) % MCV (81.0-99.0) fL MCH (27.0-31.0) pg MCHC (33.0-37.0) g/dL RDW (11.5-14.5) % Plt Count (130-400) K/uL MPV (7.2-11.7) fL Neut % (Auto) (50.0-75.0) % Lymph % (Auto) (20.0-40.0) % [place] % (Auto) (0.0-10.0) % Eos % (Auto) (0.0-4.0) % Baso % (Auto) (0.0-2.0) % Neut # (Auto) (1.8-7.0) K/uL Lymph # (Auto) (1.0-4.3) K/uL [place] # (Auto) (0.0-0.8) K/uL Eos # (Auto) (0.0-0.7) K/uL Baso # (Auto) (0.0-0.2) K/uL pO2 23 L (30-55) mm/Hg VBG pH 7.29 L (7.32-7.43) VBG pCO2 65 H (40-60) mmHg VBG HCO3 25.3 mmol/L VBG Total CO2 33.3 H (22-28) mmol/L VBG O2 Sat (Calc) 50.7 (40-65) % VBG Base Excess 2.8 H (0.0-2.0) mmol/L VBG Potassium 5.2 (3.6-5.2) mmol/L Sodium 129 L 130.0 L (132-148) mmol/l Chloride 95 L 94.0 L (98-107) mmol/L Glucose 586 H* D (65-105) mg/dl Lactate 1.8 (0.7-2.1) mmol/L Crit Value Called To Dr villanueva Crit Value Called By Logan painting Crit Value Read Back Y Blood Gas Notified Time 1726 Potassium 5.5 H (3.6-5.2) mmol/L Carbon Dioxide 30 (22-30) mmol/L Anion Gap 9 L (10-20) BUN 19 H (7-17) mg/dL Creatinine 1.1 (0.7-1.2) mg/dL Est GFR ( Amer) 59 Est GFR (Non-Af Amer) 49 POC Glucose (mg/dL) (65-110) mg/dL Random Glucose 623 H* (65-105) mg/dL Serum Osmolality (272-300) mosm/kg Calcium 8.6 (8.6-10.4) mg/dl Phosphorus (2.5-4.5) mg/dL Magnesium 1.9 (1.6-2.3) mg/dL Total Bilirubin 0.3 (0.2-1.3) mg/dL AST 20 (14-36) U/L ALT 21 (9-52) U/L Alkaline Phosphatase 91 (38-126) U/L Total Protein 5.3 L (6.3-8.3) g/dL Albumin 2.6 L (3.5-5.0) g/dL Globulin 2.6 (2.2-3.9) gm/dL Albumin/Globulin Ratio 1.0 (1.0-2.1) Venous Blood Potassium 5.2 (3.6-5.2) mmol/L Laboratory Results - last 24 hr 11/23/17 11/23/17 11/23/17 17:23 17:26 17:26 WBC RBC Hgb Hct MCV MCH MCHC RDW Plt Count MPV Neut % (Auto) Lymph % (Auto) [place] % (Auto) Eos % (Auto) Baso % (Auto) Neut # (Auto) Lymph # (Auto) [place] # (Auto) Eos # (Auto) Baso # (Auto) pO2 23 L VBG pH 7.29 L VBG pCO2 65 H VBG HCO3 25.3 VBG Total CO2 33.3 H VBG O2 Sat (Calc) 50.7 VBG Base Excess 2.8 H VBG Potassium 5.2 Sodium 130.0 L 129 L Chloride 94.0 L 95 L Glucose 586 H* D Lactate 1.8 Crit Value Called To Dr villanueva Crit Value Called By Logan painting Crit Value Read Back Y Blood Gas Notified Time 1726 Potassium 5.5 H Carbon Dioxide 30 Anion Gap 9 L BUN 19 H Creatinine 1.1 Est GFR ( Amer) 59 Est GFR (Non-Af Amer) 49 POC Glucose (mg/dL) Random Glucose 623 H* Serum Osmolality 373 H Calcium 8.6 Phosphorus Magnesium 1.9 Total Bilirubin 0.3 AST 20 ALT 21 Alkaline Phosphatase 91 Total Protein 5.3 L Albumin 2.6 L Globulin 2.6 Albumin/Globulin Ratio 1.0 Venous Blood Potassium 5.2 11/23/17 11/23/17 11/23/17 19:07 19:10 20:21 WBC RBC Hgb Hct MCV MCH MCHC RDW Plt Count MPV Neut % (Auto) Lymph % (Auto) [place] % (Auto) Eos % (Auto) Baso % (Auto) Neut # (Auto) Lymph # (Auto) [place] # (Auto) Eos # (Auto) Baso # (Auto) pO2 VBG pH VBG pCO2 VBG HCO3 VBG Total CO2 VBG O2 Sat (Calc) VBG Base Excess VBG Potassium Sodium Chloride Glucose Lactate Crit Value Called To Crit Value Called By Crit Value Read Back Blood Gas Notified Time Potassium Carbon Dioxide Anion Gap BUN Creatinine Est GFR ( Amer) Est GFR (Non-Af Amer) POC Glucose (mg/dL) 464 H* 426 H* 319 H Random Glucose Serum Osmolality Calcium Phosphorus Magnesium Total Bilirubin AST ALT Alkaline Phosphatase Total Protein Albumin Globulin Albumin/Globulin Ratio Venous Blood Potassium 11/23/17 11/23/17 11/23/17 21:05 22:07 23:04 WBC RBC Hgb Hct MCV MCH MCHC RDW Plt Count MPV Neut % (Auto) Lymph % (Auto) [place] % (Auto) Eos % (Auto) Baso % (Auto) Neut # (Auto) Lymph # (Auto) [place] # (Auto) Eos # (Auto) Baso # (Auto) pO2 VBG pH VBG pCO2 VBG HCO3 VBG Total CO2 VBG O2 Sat (Calc) VBG Base Excess VBG Potassium Sodium Chloride Glucose Lactate Crit Value Called To Crit Value Called By Crit Value Read Back Blood Gas Notified Time Potassium Carbon Dioxide Anion Gap BUN Creatinine Est GFR ( Amer) Est GFR (Non-Af Amer) POC Glucose (mg/dL) 281 H 243 H 194 H Random Glucose Serum Osmolality Calcium Phosphorus Magnesium Total Bilirubin AST ALT Alkaline Phosphatase Total Protein Albumin Globulin Albumin/Globulin Ratio Venous Blood Potassium 11/24/17 11/24/17 11/24/17 00:06 01:00 02:36 WBC RBC Hgb Hct MCV MCH MCHC RDW Plt Count MPV Neut % (Auto) Lymph % (Auto) [place] % (Auto) Eos % (Auto) Baso % (Auto) Neut # (Auto) Lymph # (Auto) [place] # (Auto) Eos # (Auto) Baso # (Auto) pO2 VBG pH VBG pCO2 VBG HCO3 VBG Total CO2 VBG O2 Sat (Calc) VBG Base Excess VBG Potassium Sodium Chloride Glucose Lactate Crit Value Called To Crit Value Called By Crit Value Read Back Blood Gas Notified Time Potassium Carbon Dioxide Anion Gap BUN Creatinine Est GFR ( Amer) Est GFR (Non-Af Amer) POC Glucose (mg/dL) 174 H 113 H 33 L* Random Glucose Serum Osmolality Calcium Phosphorus Magnesium Total Bilirubin AST ALT Alkaline Phosphatase Total Protein Albumin Globulin Albumin/Globulin Ratio Venous Blood Potassium 11/24/17 11/24/17 11/24/17 03:05 04:27 05:58 WBC RBC Hgb Hct MCV MCH MCHC RDW Plt Count MPV Neut % (Auto) Lymph % (Auto) [place] % (Auto) Eos % (Auto) Baso % (Auto) Neut # (Auto) Lymph # (Auto) [place] # (Auto) Eos # (Auto) Baso # (Auto) pO2 VBG pH VBG pCO2 VBG HCO3 VBG Total CO2 VBG O2 Sat (Calc) VBG Base Excess VBG Potassium Sodium Chloride Glucose Lactate Crit Value Called To Crit Value Called By Crit Value Read Back Blood Gas Notified Time Potassium Carbon Dioxide Anion Gap BUN Creatinine Est GFR ( Amer) Est GFR (Non-Af Amer) POC Glucose (mg/dL) 183 H 119 H 35 L* Random Glucose Serum Osmolality Calcium Phosphorus Magnesium Total Bilirubin AST ALT Alkaline Phosphatase Total Protein Albumin Globulin Albumin/Globulin Ratio Venous Blood Potassium 11/24/17 11/24/17 11/24/17 06:18 06:18 06:37 WBC 13.2 H RBC 4.34 Hgb 13.4 Hct 40.0 MCV 92.2 MCH 31.0 MCHC 33.6 RDW 13.9 Plt Count 205 MPV 12.0 H Neut % (Auto) 59.4 Lymph % (Auto) 27.8 [place] % (Auto) 10.0 Eos % (Auto) 2.0 Baso % (Auto) 0.8 Neut # (Auto) 7.8 H Lymph # (Auto) 3.7 [place] # (Auto) 1.3 H Eos # (Auto) 0.3 Baso # (Auto) 0.1 pO2 VBG pH VBG pCO2 VBG HCO3 VBG Total CO2 VBG O2 Sat (Calc) VBG Base Excess VBG Potassium Sodium 140 Chloride 106 Glucose Lactate Crit Value Called To Crit Value Called By Crit Value Read Back Blood Gas Notified Time Potassium 4.7 Carbon Dioxide 30 Anion Gap 8 L BUN 15 Creatinine 0.8 Est GFR ( Amer) > 60 Est GFR (Non-Af Amer) > 60 POC Glucose (mg/dL) 190 H Random Glucose 35 L* D Serum Osmolality Calcium 8.5 L Phosphorus 3.6 Magnesium 1.7 Total Bilirubin 0.3 AST 27 ALT 27 Alkaline Phosphatase 75 Total Protein 5.3 L Albumin 2.5 L Globulin 2.8 Albumin/Globulin Ratio 0.9 L Venous Blood Potassium 11/24/17 11/24/17 08:10 09:48 WBC RBC Hgb Hct MCV MCH MCHC RDW Plt Count MPV Neut % (Auto) Lymph % (Auto) [place] % (Auto) Eos % (Auto) Baso % (Auto) Neut # (Auto) Lymph # (Auto) [place] # (Auto) Eos # (Auto) Baso # (Auto) pO2 VBG pH VBG pCO2 VBG HCO3 VBG Total CO2 VBG O2 Sat (Calc) VBG Base Excess VBG Potassium Sodium Chloride Glucose Lactate Crit Value Called To Crit Value Called By Crit Value Read Back Blood Gas Notified Time Potassium Carbon Dioxide Anion Gap BUN Creatinine Est GFR ( Amer) Est GFR (Non-Af Amer) POC Glucose (mg/dL) 126 H 78 Random Glucose Serum Osmolality Calcium Phosphorus Magnesium Total Bilirubin AST ALT Alkaline Phosphatase Total Protein Albumin Globulin Albumin/Globulin Ratio Venous Blood Potassium Critical Care Progress Note - Nutrition Nutrition: Nutrition Category Date Time Status Diabetic [Consistent Carbohydrate] [DIET] Diets 11/24/17 Breakfast Active Assessment/Plan - Assessment and Plan (Free Text) Assessment: Above patient seen and examined at bedside. Patient's HONK resolved. off insulin ggt -will restart sub Q insulin and monitor BGM ac/hs -obtain endocrine consult -above resident documents my clinical exam and medical management -patient remains hemodynamically stable -d/w patient regarding AC, patient undecided. - Date & Time Date: 11/24/17 Time: 17:10
[2017-11-24] MEDS ORDERED: (Novolog) Insulin Aspart, Recombinant 100 u/ml 10 ml vial SC SCH (08:00)
[2017-11-24] MEDS ORDERED: Enoxaparin 40 mg Syringe SC SCH (10:00)
--- NOTE | 2017-11-24 11:54 | CARD ---
APPROVED REPORT Date of service: 11/23/2017 EKG Measurement Heart [id number] <Conclusion> Normal sinus rhythm Anteroseptal infarct, age undetermined Abnormal ECG
[2017-11-24] MEDS: Dextrose 5%/0.9% NS 1,000 ML IV SCH ×2 (12:43→21:13)
[2017-11-24] MEDS: Albuterol-Ipratrop 3 mg / 0.5 (3 ml) UD INH SCH ×2 (13:23→19:30)
--- NOTE | 2017-11-24 20:47 | CP.PCM.HP ---
History of Present Illness - History of Present Illness History of Present Illness: cc: 72 y/o female with history of COPD, CHF, A-fib, very brittle DM, HTN, anxiety disorder and Left knee BKA presents to ED with complaints of generalized weakness for 1-2 weeks. As per patient weakness is greater on left side and reports shortness of breath. Patient speaking in full sentences and denies fever, chills, numbness,headache, nausea, vomiting or any other complaints at this time. > When interviewed at bedside, patient was very restless and said that she did not understand what was happening to her. Patient said that she wasn't being fed , and asked me to bring her something to eat. When interviewed at bedside, patient was very restless and said that she did not understand what was happening to her. Patient said that she wasn't being fed , and asked me to bring her something to eat When queried as to what happened patient says that she didn't know what happened. She was doing so well with her blood sugars and then over the last two weeks she started feeling very weak. Patient was found to have a blood sugar of 700+ on admission at the emergency room. Noted that patients medication list was in complete and restarted most of her home meds. Pt started calming down after being given her anxiolytic, and appeared to be starting to get drowsy. She was not as restless as before, especially after she devoured the sandwich I brought her. Pt had apparently been taking extensive liberties with her diet, and will be admitted for further management of her DM. Ti Present on Admission - Present on Admission Any Indicators Present on Admission: Yes History of DVT/PE: No History of Uncontrolled Diabetes: Yes Urinary Catheter: No Decubitus Ulcer Present: Yes (stage II-3) Decubitus Ulcer Location: at bony prominence where the greater trochanter's lateral border juts out from the femur Decubitus Ulcer Stage: II History Surgical Site Infection Following: None Review of Systems - Review of Systems Systems not reviewed;Unavailable: Respiratory Distress, Altered Mental Status - Constitutional Constitutional: As Per HPI - EENT Eyes: Change in Vision Nose/Mouth/Throat: absent: As Per HPI, Epistaxis, Nasal Congestion, Nasal Discharge, Nasal Obstruction, Nasal Trauma, Nose Pain, Post Nasal Drip, Sinus Pain, Sinus Pressure, Bleeding Gums, Change in Voice, Dental Pain, Dry Mouth, Dysphagia, Halitosis, Hoarsness, Lip Swelling, Mouth Lesions, Mouth Pain, Odynophagia, Sore Throat, Throat Swelling, Tongue Swelling, Facial Pain, Neck Pain, Neck Mass, Other - Cardiovascular Cardiovascular: As Per HPI - Respiratory Respiratory: Cough (productive of clear phlegm) - Gastrointestinal Gastrointestinal: absent: As Per HPI, Abdominal Pain, Belching, Bloating, Change in Bowel Habits, Change in Stool Character, Coffee Ground Emesis, Constipation, Cramping, Diarrhea, Dyspepsia, Dysphagia, Early Satiety, Excessive Flatus, Fecal Incontinence, Heartburn, Hematemesis, Hematochezia, Loose Stools, Melena, Nausea, Odynophagia, Temesmus, Vomiting, Other - Genitourinary Genitourinary: absent: As Per HPI, Change in Urinary Stream, Difficulty Urinating, Dysuria, Flank Pain, Hematuria, Pyuria, Nocturia, Urinary Incontinence, Urinary Frequency, Urinary Hesitance, Urinary Urgency, Voiding Freq/Small Amts, Freq UTI, Hx Renal/Bladder Calculi, Hx /Renal Surgery, Bladder Distension, Other - Musculoskeletal Musculoskeletal: absent: As Per HPI, Abnormal Gait, Arthralgias, Atrophy, Back Pain, Deformity, Joint Swelling (multiple ecchymoses from previous attempts at venipuncture; + stage 2 to 3 decubitus ulcer of L greater trochanter and at ischial prominence ), Limited Range of Motion, Loss of Height, Muscle Cramps, Muscle Weakness, Myalgias, Neck Pain, Numbness, Radiating Pain into Limb, Stiffness, Tingling, Other Past Patient History - Infectious Disease Hx of Infectious Diseases: None - Tetanus Immunizations Tetanus Immunization: Unknown - Past Medical History & Family History Past Medical History?: Yes - Past Social History Smoking Status: Former Smoker Chewing Tobacco Use: Yes Cigar Use: Yes Occupation: retired, disabled Alcohol: Other (used to drink to insensibility or fell asleep, claims to not drink anymore) Drugs: Denies Home Situation {Lives}: Alone (in her own apartment with other Seniors, unaccompanied at night, refuses to live iwth family) - CARDIAC Hx Cardiac Disorders: Yes Hx Atrial Fibrillation: Yes Hx Cardia Arrhythmia: Yes (back in NSR) Hx Congestive Heart Failure: Yes Hx Hypercholesterolemia: Yes Hx Hypertension: Yes Hx Peripheral Edema: Yes - PULMONARY Hx Asthma: Yes Hx Bronchitis: Yes Hx Chronic Obstructive Pulmonary Disease (COPD): Yes Hx Emphysema: Yes Hx Sleep Apnea: Yes - HEENT Hx Difficulty Chewing: Yes - RENAL Hx Chronic Kidney Disease: No - ENDOCRINE/METABOLIC Hx Hyperthyroidism: Yes Hx Hypothyroidism: Yes - HEMATOLOGICAL/ONCOLOGICAL Hx Blood Disorders: No Hx Blood Transfusions: Yes - INTEGUMENTARY Hx Dermatological Problems: Yes Hx Cellulitis: Yes (current) Hx Eczema: Yes - MUSCULOSKELETAL/RHEUMATOLOGICAL Hx Arthritis: Yes Hx Falls: No - GASTROINTESTINAL Hx Diverticulitis: Yes Hx Gastritis: Yes - GENITOURINARY/GYNECOLOGICAL Hx Genitourinary Disorders: No - PSYCHIATRIC Hx Anxiety: Yes Hx Depression: Yes Hx Paranoia: Yes Hx Post Traumatic Stress Disorder: Yes Hx Substance Use: No - SURGICAL HISTORY Hx Cholecystectomy: Yes - ANESTHESIA Hx Anesthesia: Yes Hx Anesthesia Reactions: No Hx Malignant Hyperthermia: No Has any member of the family had a problem w/ anesthesia?: No Meds Allergies/Adverse Reactions: Allergies Allergy/AdvReac Type Severity Reaction Status Date / Time MIRIAM Inhibitors Allergy Severe COUGH Verified 07/23/17 04:05 Thiazides Allergy RASH Verified 07/23/17 04:05 Physical Exam - Constitutional Appears: In Acute Distress, Other (agitated and spinning around in her bed.) - Head Exam Head Exam: NORMAL INSPECTION - Eye Exam Eye Exam: Normal appearance Pupil Exam: NORMAL ACCOMODATION - ENT Exam ENT Exam: Normal Exam - Neck Exam Neck exam: Positive for: Normal Inspection - Respiratory Exam Respiratory Exam: NORMAL BREATHING PATTERN - Cardiovascular Exam Cardiovascular Exam: REGULAR RHYTHM - GI/Abdominal Exam GI & Abdominal Exam: Normal Bowel Sounds - Rectal Exam Rectal Exam: Deferred - Extremities Exam Extremities exam: Positive for: normal inspection (s/p L BKA) - Back Exam Back exam: NORMAL INSPECTION - Neurological Exam Neurological exam: Alert, CN II-XII Intact, Oriented x3, Reflexes Normal - Psychiatric Exam Psychiatric exam: Normal Affect, Normal Mood - Skin Skin Exam: Dry, Intact, Normal Color, Warm Results - Vital Signs Recent Vital Signs: Last Vital Signs Temp 98.2 F 11/24/17 12:00 Pulse 102 H 11/24/17 20:00 Resp 30 H 11/24/17 20:00 BP 146/125 H 11/24/17 18:29 Pulse Ox 90 L 11/24/17 20:00 - Labs Result Diagrams: 11/25/17 06:14 11/25/17 06:14 Labs: Laboratory Results - last 24 hr 11/23/17 11/23/17 11/23/17 21:05 22:07 23:04 WBC RBC Hgb Hct MCV MCH MCHC RDW Plt Count MPV Neut % (Auto) Lymph % (Auto) Sumner % (Auto) Eos % (Auto) Baso % (Auto) Neut # (Auto) Lymph # (Auto) Sumner # (Auto) Eos # (Auto) Baso # (Auto) Sodium Potassium Chloride Carbon Dioxide Anion Gap BUN Creatinine Est GFR ( Amer) Est GFR (Non-Af Amer) POC Glucose (mg/dL) 281 H 243 H 194 H Random Glucose Calcium Phosphorus Magnesium Total Bilirubin AST ALT Alkaline Phosphatase Total Protein Albumin Globulin Albumin/Globulin Ratio [facility] 3rd Generation 11/24/17 11/24/17 11/24/17 00:06 01:00 02:36 WBC RBC Hgb Hct MCV MCH MCHC RDW Plt Count MPV Neut % (Auto) Lymph % (Auto) Sumner % (Auto) Eos % (Auto) Baso % (Auto) Neut # (Auto) Lymph # (Auto) Sumner # (Auto) Eos # (Auto) Baso # (Auto) Sodium Potassium Chloride Carbon Dioxide Anion Gap BUN Creatinine Est GFR ( Amer) Est GFR (Non-Af Amer) POC Glucose (mg/dL) 174 H 113 H 33 L* Random Glucose Calcium Phosphorus Magnesium Total Bilirubin AST ALT Alkaline Phosphatase Total Protein Albumin Globulin Albumin/Globulin Ratio [facility] 3rd Generation 11/24/17 11/24/17 11/24/17 03:05 04:27 05:58 WBC RBC Hgb Hct MCV MCH MCHC RDW Plt Count MPV Neut % (Auto) Lymph % (Auto) Sumner % (Auto) Eos % (Auto) Baso % (Auto) Neut # (Auto) Lymph # (Auto) Sumner # (Auto) Eos # (Auto) Baso # (Auto) Sodium Potassium Chloride Carbon Dioxide Anion Gap BUN Creatinine Est GFR ( Amer) Est GFR (Non-Af Amer) POC Glucose (mg/dL) 183 H 119 H 35 L* Random Glucose Calcium Phosphorus Magnesium Total Bilirubin AST ALT Alkaline Phosphatase Total Protein Albumin Globulin Albumin/Globulin Ratio [facility] 3rd Generation 11/24/17 11/24/17 11/24/17 06:18 06:18 06:37 WBC 13.2 H RBC 4.34 Hgb 13.4 Hct 40.0 MCV 92.2 MCH 31.0 MCHC 33.6 RDW 13.9 Plt Count 205 MPV 12.0 H Neut % (Auto) 59.4 Lymph % (Auto) 27.8 Sumner % (Auto) 10.0 Eos % (Auto) 2.0 Baso % (Auto) 0.8 Neut # (Auto) 7.8 H Lymph # (Auto) 3.7 Sumner # (Auto) 1.3 H Eos # (Auto) 0.3 Baso # (Auto) 0.1 Sodium 140 Potassium 4.7 Chloride 106 Carbon Dioxide 30 Anion Gap 8 L BUN 15 Creatinine 0.8 Est GFR ( Amer) > 60 Est GFR (Non-Af Amer) > 60 POC Glucose (mg/dL) 190 H Random Glucose 35 L* D Calcium 8.5 L Phosphorus 3.6 Magnesium 1.7 Total Bilirubin 0.3 AST 27 ALT 27 Alkaline Phosphatase 75 Total Protein 5.3 L Albumin 2.5 L Globulin 2.8 Albumin/Globulin Ratio 0.9 L TSH 3rd Generation 11/24/17 11/24/17 11/24/17 08:10 09:48 12:00 WBC RBC Hgb Hct MCV MCH MCHC RDW Plt Count MPV Neut % (Auto) Lymph % (Auto) Sumner % (Auto) Eos % (Auto) Baso % (Auto) Neut # (Auto) Lymph # (Auto) Sumner # (Auto) Eos # (Auto) Baso # (Auto) Sodium Potassium Chloride Carbon Dioxide Anion Gap BUN Creatinine Est GFR ( Amer) Est GFR (Non-Af Amer) POC Glucose (mg/dL) 126 H 78 139 H Random Glucose Calcium Phosphorus Magnesium Total Bilirubin AST ALT Alkaline Phosphatase Total Protein Albumin Globulin Albumin/Globulin Ratio TSH 3rd Generation 11/24/17 11/24/17 11/24/17 14:06 15:48 16:28 WBC RBC Hgb Hct MCV MCH MCHC RDW Plt Count MPV Neut % (Auto) Lymph % (Auto) Sumner % (Auto) Eos % (Auto) Baso % (Auto) Neut # (Auto) Lymph # (Auto) Sumner # (Auto) Eos # (Auto) Baso # (Auto) Sodium Potassium Chloride Carbon Dioxide Anion Gap BUN Creatinine Est GFR ( Amer) Est GFR (Non-Af Amer) POC Glucose (mg/dL) 227 H 220 H Random Glucose Calcium Phosphorus Magnesium Total Bilirubin AST ALT Alkaline Phosphatase Total Protein Albumin Globulin Albumin/Globulin Ratio TSH 3rd Generation 0.66 11/24/17 11/24/17 17:45 20:05 WBC RBC Hgb Hct MCV MCH MCHC RDW Plt Count MPV Neut % (Auto) Lymph % (Auto) Sumner % (Auto) Eos % (Auto) Baso % (Auto) Neut # (Auto) Lymph # (Auto) Sumner # (Auto) Eos # (Auto) Baso # (Auto) Sodium Potassium Chloride Carbon Dioxide Anion Gap BUN Creatinine Est GFR ( Amer) Est GFR (Non-Af Amer) POC Glucose (mg/dL) 336 H 199 H Random Glucose Calcium Phosphorus Magnesium Total Bilirubin AST ALT Alkaline Phosphatase Total Protein Albumin Globulin Albumin/Globulin Ratio TSH 3rd Generation Assessment & Plan (1) Diabetes mellitus with hyperosmolarity without hyperglycemic hyperosmolar nonketotic coma Assessment and Plan: started on insulin gtt at ER and will have to go to ICU. Resume all meds as appropriate Status: Acute (2) Altered mental status Assessment and Plan: appears very agitated and not herself, confused as to why events led her back to the hospital. Will get an MRI to check for any subacute CVA Status: Acute (3) Generalized muscle weakness Status: Acute (4) Weakness Assessment and Plan: probably multifactorial, starting with pt's BS leading to metabolic acidoses. Doing ok now, though still with some highs Status: Acute (5) Decubitus ulcer of left buttock, stage 2 Assessment and Plan: needs offloading by getting OOB Status: Acute
[2017-11-24] MEDS ORDERED: Insulin Detemir 100 units/ml Vial (Levemir) SC SCH ×2 (21:00→22:01)
[2017-11-24] MEDS: Rosuvastatin Calcium 2.5 mg Tab PO SCH (21:17)
[2017-11-24] MEDS ORDERED: Digoxin 125 mcg (0.125 mg) Tab PO STA (21:57)
[2017-11-24 22:05] LABS: SQUAMOUS EPITHIAL 1 /hpf (0-5); URINE AMORPHOUS SEDIMENT MODERATE /ul (<OCC); URINE BACTERIA OCC (<OCC); URINE BILIRUBIN NEGATIVE (NEGATIVE); URINE BLOOD NEGATIVE (NEGATIVE); URINE CLARITY Hazy (Clear); URINE COLOR Yellow (YELLOW); URINE GLUCOSE (UA) 2+ mg/dL (Normal); URINE LEUKOCYTE ESTERASE NEG Leu/uL (Negative); URINE PROTEIN 2+ mg/dL (NEGATIVE); URINE UROBILINOGEN NORMAL mg/dL (0.2-1.0)
[2017-11-24 22:18] LABS: BARBITURATES, UR NEGATIVE (NEGATIVE); BENZODIAZEPINES, UR NEGATIVE (NEGATIVE); OPIATES, UR NEGATIVE (NEGATIVE); PHENCYCLIDINE, UR NEGATIVE (NEGATIVE)
[2017-11-24] MEDS: Sodium Chloride 0.45% 1,000 ML IV SCH (22:29)
--- NOTE | 2017-11-24 22:47 | CON ---
DATE: 11/24/2017 LOCATIONS: In ICU room 2 HISTORY OF PRESENT ILLNESS: This is a 72-year-old female with known history of type 2 insulin-requiring diabetes, presenting here with generalized body weakness and marked hyperglycemic accelerations and was evaluated to be in hyperosmolar state and started on an insulin drip infusion yesterday as noted and given. She is being referred now for diabetic evaluation today because of supervening symptomatic hypoglycemic episode and glucose levels ranging from 33 mg/dL early this morning with repeat values today of 78 mg/dL. PAST MEDICAL HISTORY: As mentioned above, history of type 2 insulin-requiring diabetes and a combination of a premixed insulin regimen with Novolin 70/30 given at 12 units before breakfast and 8 units before dinner with Levemir given at 10 units subcu at bedtime daily, history of hyperthyroidism, currently on Tapazole given at 10 mg one daily. She has significant history of chronic atrial fibrillation and has remained hemodynamically stable at this time. History of chronic obstructive lung disease from underlying nicotine dependence. History of coronary artery disease and previous admissions for congestive heart failure. History of generalized anxiety and paranoia. History of obstructive sleep apnea. Also, history of diverticulitis and chronic gastritis. Also, history of hypertension and dyslipidemia. History of peripheral arterial disease and vasculopathy with a left below-knee amputation several years ago. FAMILY HISTORY: Positive for hypertension and diabetes. SOCIAL HISTORY: The patient lives alone but has a very supportive homemaker who is very attentive to her needs. She also is still actively smoking with nicotine dependence and uses 1 to 2 packs a day for over 40 years now. REVIEW OF SYSTEMS: As mentioned above, has generalized body weakness with progressive dizziness and lightheadedness, worse on the day of admission. Also admits to hypersomnolence and lethargy with bifrontal headaches and visual blurring. No chest pain but admits progressive shortness of breath, especially on exertion. Her oral intake is invariable with nausea, dyspepsia, and vague upper abdominal pain. She admits to episodic bouts of vomiting as noted. Also admits to marked polyuria, nocturia, and polydipsia, worse in the last week also prior to admission. PHYSICAL EXAMINATION: GENERAL: This is an asthenic female in no apparent distress. VITAL SIGNS: Blood pressure is 150/90, pulse of 106 per minute and regular, temperature 98, respirations 20, height is 5 feet 4 inches, weight is 110 pounds. HEENT: Head normocephalic. Eyes are anicteric, pink conjunctivae, funduscopy not possible at this time. Ears, nose, and throat are otherwise normal. NECK: Supple. Thyroid gland is normal in size. No carotid bruits or any cervical adenopathy. CARDIOPULMONARY: Adynamic precordium. S1 and S2 are rapid and regular. LUNGS: Clear to auscultation. ABDOMEN: Flat, soft with positive bowel sounds. EXTREMITIES: No peripheral edema. Pulses are +2 bilaterally. The left below-knee stump is healed with no active dermatosis. LABORATORY DATA: Chemistries today showed a BUN of 15, sodium 140, potassium 4.7, chloride 106, CO2 30, glucose 35, and creatinine 0.8. ASSESSMENT: This is a 72-year-old female with uncontrolled and decompensated type 2 insulin-requiring diabetes presenting here with hyperosmolar hyperglycemic state and dehydration and is now being referred for diabetic evaluation because of supervening symptomatic hypoglycemia with associated neuroglycopenic and hyperadrenergic manifestations of the same. She also has diabetic microvascular complications of retinopathy and polyneuropathy with diabetic macrovascular complications of coronary artery disease with peripheral arterial disease and vasculopathy and a previous left below-knee amputation. PLAN OF MANAGEMENT: As discussed with the patient likely at the bedside we will modify her current insulin regimen and reinforce the need to improve her oral intake at this time. We will continue the NovoLog given at 3 units subcu t.i.d. before meals as ordered. We will modify the coverage scale to obviate hypoglycemia, and detailed orders have been given. We will also lower the Levemir to 4 units subcu at bedtime daily to start tonight. We will titrate incrementally as indicated to optimize metabolic control. We will obtain serial chemistries and supplement accordingly as needed. We will also obtain a hemoglobin A1c to confirm her prior glycemic control, and baseline thyroid function studies will be ordered. We will follow. Nohelia Martinez MD
[2017-11-25] MEDS: Albuterol 0.083% Inhal Sol (2.5 mg/3 mL) UD INH SCH ×4 (01:05→19:30)
[2017-11-25 06:26] LABS: BASO # 0.2 K/uL (0.0-0.2); BASO % 1.5 % (0.0-2.0); EOS # 0.2 K/uL (0.0-0.7); EOS % 2.1 % (0.0-4.0); HEMOGLOBIN 14.1 g/dL (11.0-16.0); LYMPH # 3.2 K/uL (1.0-4.3); MEAN CELL VOLUME 92.6 fL (81.0-99.0); MEAN CORPUSCULAR HEMOGLOBIN 30.8 pg (27.0-31.0); MEAN CORPUSCULAR HGB CONC 33.3 g/dL (33.0-37.0); MEAN PLATELET VOLUME 11.7 fL (7.2-11.7); MONO # 0.7 K/uL (0.0-0.8); NEUT # 6.8 K/uL (1.8-7.0); NEUT % 61.4 % (50.0-75.0); NRBC % 0.1 % (0.0-2.0); RBC 4.58 Mil/uL (3.80-5.20); WHITE BLOOD COUNT 11.1 K/uL (4.8-10.8)
[2017-11-25 06:43] LABS: B-TYPE NATRIURETIC PEPTIDE 841 pg/mL (0-900)
[2017-11-25 06:58] LABS: ALB/GLOB RATIO 0.9 (1.0-2.1); ALBUMIN 2.7 g/dL (3.5-5.0); ALT/SGPT 31 U/L (9-52); AST/SGOT 46 U/L (14-36); BLOOD UREA NITROGEN 11 mg/dL (7-17); CALCIUM 8.4 mg/dl (8.6-10.4); GFR AFRICAN-AMERICAN > 60; GFR NON-AFRICAN AMERICAN > 60
[2017-11-25] MEDS ORDERED: Dextrose 50% SYRINGE Inj (50 ml) ONE ×2 (07:03→07:05)
[2017-11-25] MEDS ORDERED: Dextrose 50% SYRINGE Inj (50 ml) IV STA (07:05)
[2017-11-25] MEDS: (Novolog) Insulin Aspart, Recombinant 100 u/ml 10 ml vial SC SCH ×7 (07:10→21:08)
[2017-11-25] MEDS ORDERED: Dextrose 50% SYRINGE Inj (50 ml) IV ONE (07:15)
[2017-11-25] MEDS: Ipratropium 0.02% Inhal Soln (0.5 mg/2.5 ml) UD IH SCH ×2 (07:27→19:29)
[2017-11-25] MEDS: Budesonide 0.5 mg/2 ml Inhal Susp UD INH SCH ×2 (07:28→19:30)
[2017-11-25] MEDS: Sodium Chloride 0.45% 1,000 ML IV SCH ×2 (10:00→20:08)
--- NOTE | 2017-11-25 10:19 | CP.PCM.PN ---
Subjective - Date & Time of Evaluation Date of Evaluation: 11/25/17 Time of Evaluation: 10:15 - Subjective Subjective: Patient seen and examined at bedside. Patient had hypoglycemic episode overnight. NO other acute events Objective - Vital Signs/Intake and Output Vital Signs (last 24 hours): Temp Pulse Resp BP Pulse Ox 94.4 F L 82 24 170/71 H 100 11/25/17 08:00 11/25/17 07:00 11/25/17 07:00 11/25/17 06:54 11/25/17 08:00 Intake and Output: 11/25/17 11/25/17 06:59 18:59 Intake Total 1175 100 Output Total 1 Balance 1174 100 - Medications Medications: Current Medications Albuterol Sulfate (Albuterol 0.083% Inhal Deirdre (2.5 Mg/3 Ml) Ud) 2.5 mg INH RQ6 [facility] Last Admin: 11/25/17 07:27 Dose: 2.5 mg Alprazolam (Xanax) 0.5 mg PO Q12 [facility] Last Admin: 11/24/17 21:18 Dose: 0.5 mg Aspirin (Ecotrin) 81 mg PO DAILY [facility] Last Admin: 11/24/17 12:43 Dose: 81 mg Budesonide (Pulmicort Respules) 0.5 mg INH RQ12 [facility] Last Admin: 11/25/17 07:28 Dose: 0.5 mg Digoxin (Digoxin) 0.125 mg PO DAILY@1800 [facility] Escitalopram Oxalate (Lexapro) 20 mg PO DAILY [facility] Famotidine (Pepcid) 20 mg PO DAILY [facility] Gabapentin (Neurontin) 800 mg PO BID [facility] Last Admin: 11/24/17 15:51 Dose: 800 mg Sodium Chloride (Sodium Chloride 0.45%) 1,000 mls @ 100 mls/hr IV .Q10H [facility] Last Admin: 11/24/17 22:29 Dose: 100 mls/hr Insulin Aspart (Novolog) 5 unit SC AC [facility] Last Admin: 11/25/17 07:10 Dose: Not Given Insulin Aspart (Novolog) 0 unit SC ACHS [facility] Last Admin: 11/25/17 07:10 Dose: Not Given Ipratropium Paxton (Atrovent) 0.5 mg IH RQ12 [facility] Last Admin: 11/25/17 07:27 Dose: 0.5 mg Losartan Potassium (Cozaar) 50 mg PO DAILY [facility] Nicotine (Nicoderm Cq) 1 patch TD DAILY [facility] Last Admin: 11/24/17 14:16 Dose: 1 patch Rivaroxaban (Xarelto) 20 mg PO DAILY [facility] Rosuvastatin Calcium (Crestor) 2.5 mg PO HS [facility] Last Admin: 11/24/17 21:17 Dose: 2.5 mg - Labs Labs: 11/25/17 06:14 11/25/17 06:14 PT 11.0 SECONDS (9.7-12.2) 11/23/17 16:04 INR 1.0 11/23/17 16:04 APTT 37 SECONDS (21-34) H 11/23/17 16:04 - Constitutional Appears: Non-toxic - Head Exam Head Exam: ATRAUMATIC, NORMAL INSPECTION - ENT Exam ENT Exam: Mucous Membranes Moist - Respiratory Exam Respiratory Exam: NORMAL BREATHING PATTERN - Cardiovascular Exam Cardiovascular Exam: REGULAR RHYTHM, +S1, +S2, +S4 - GI/Abdominal Exam GI & Abdominal Exam: Normal Bowel Sounds - Neurological Exam Neurological Exam: Alert, Awake Assessment and Plan - Assessment and Plan (Free Text) Assessment: 72 yo F w/ PMHx of HTN, HLD, DM2, A.fib, COPD, CHF, diverticulitis, left BKA(2/ 2 to thrombosis) admitted to ICU w/ hyperglycemic hyperosmolar state, dx with HONK/HHS HONK/HHS/DM: continue as per endocrinology -HTN/Chronic diastolic heart failure/A-fib:HR controlled, continue home NOAC -COPD-in no acut distress, contineu LABA/spiriva -contine diabetic diet -pt/ot -continue dvt/pud ppx
[2017-11-25] MEDS: Digoxin 125 mcg (0.125 mg) Tab PO SCH (17:19)
[2017-11-25] MEDS: Rosuvastatin Calcium 2.5 mg Tab PO SCH (21:08)
[2017-11-26] MEDS: Albuterol 0.083% Inhal Sol (2.5 mg/3 mL) UD INH SCH ×5 (00:55→19:19)
[2017-11-26] MEDS: (Novolog) Insulin Aspart, Recombinant 100 u/ml 10 ml vial SC SCH ×7 (07:18→21:29)
[2017-11-26] MEDS: Budesonide 0.5 mg/2 ml Inhal Susp UD INH SCH ×2 (07:41→19:19)
[2017-11-26] MEDS: Ipratropium 0.02% Inhal Soln (0.5 mg/2.5 ml) UD IH SCH ×2 (07:41→19:19)
[2017-11-26] MEDS: Sodium Chloride 0.45% 1,000 ML IV SCH ×2 (09:52→17:29)
--- NOTE | 2017-11-26 16:23 | CP.PCM.PN ---
Subjective - Date & Time of Evaluation Date of Evaluation: 11/25/17 Time of Evaluation: 16:30 - Subjective Subjective: Pt doing well, much improved from last night where pt very restless. No s/sx of sepsis, and still no cause for why BS were so high. Can only surmiset that pt had not been using her insulin at home. Pt had refused to see her unofficial daughter in law when she came to visit, and only son in the area has not visited. This is a very close family, and can only surmise at the reasons for the rift but will not discuss that here. Pt eating, taking her meds. BS slowly coming down on the average. No new issues. Objective - Vital Signs/Intake and Output Vital Signs (last 24 hours): Temp Pulse Resp BP Pulse Ox 98.7 F 100 H 26 H 115/52 L 99 11/26/17 12:00 11/26/17 14:00 11/26/17 14:00 11/26/17 12:00 11/26/17 14:00 Intake and Output: 11/26/17 11/26/17 06:59 18:59 Intake Total 1540 300 Output Total 1 Balance 1539 300 - Medications Medications: Current Medications Albuterol Sulfate (Albuterol 0.083% Inhal Deirdre (2.5 Mg/3 Ml) Ud) 2.5 mg INH RQ6 [facility] Last Admin: 11/26/17 14:13 Dose: 2.5 mg Alprazolam (Xanax) 0.25 mg PO Q6 PRN PRN Reason: decreasing dose if able to ying Stop: 12/03/17 12:01 Aspirin (Ecotrin) 81 mg PO DAILY [facility] Last Admin: 11/26/17 09:50 Dose: 81 mg Budesonide (Pulmicort Respules) 0.5 mg INH RQ12 [facility] Last Admin: 11/26/17 07:41 Dose: 0.5 mg Digoxin (Digoxin) 0.125 mg PO DAILY@1800 [facility] Last Admin: 11/25/17 17:19 Dose: 0.125 mg Escitalopram Oxalate (Lexapro) 20 mg PO DAILY [facility] Last Admin: 11/26/17 09:49 Dose: 20 mg Famotidine (Pepcid) 20 mg PO DAILY [facility] Last Admin: 11/26/17 09:50 Dose: 20 mg Gabapentin (Neurontin) 800 mg PO BID [facility] Last Admin: 11/26/17 09:50 Dose: 800 mg Sodium Chloride (Sodium Chloride 0.45%) 1,000 mls @ 100 mls/hr IV .Q10H [facility] Last Admin: 11/26/17 09:52 Dose: 100 mls/hr Insulin Aspart (Novolog) 0 unit SC ACHS [facility] Last Admin: 11/26/17 11:30 Dose: Not Given Insulin Aspart (Novolog) 8 unit SC AC [facility] Last Admin: 11/26/17 12:45 Dose: 8 u Insulin Detemir (Levemir) 6 unit SC HS [facility] Ipratropium [place] (Atrovent) 0.5 mg IH RQ12 [facility] Last Admin: 11/26/17 07:41 Dose: 0.5 mg Losartan Potassium (Cozaar) 50 mg PO DAILY [facility] Last Admin: 11/26/17 09:49 Dose: 50 mg Rivaroxaban (Xarelto) 20 mg PO DAILY [facility] Last Admin: 11/26/17 09:49 Dose: 20 mg Rosuvastatin Calcium (Crestor) 2.5 mg PO HS [facility] Last Admin: 11/25/17 21:08 Dose: 2.5 mg - Labs Labs: 11/25/17 06:14 11/25/17 06:14 PT 11.0 SECONDS (9.7-12.2) 11/23/17 16:04 INR 1.0 11/23/17 16:04 APTT 37 SECONDS (21-34) H 11/23/17 16:04 - Constitutional Appears: No Acute Distress - Head Exam Head Exam: NORMAL INSPECTION - Eye Exam Eye Exam: Normal appearance Pupil Exam: NORMAL ACCOMODATION - ENT Exam ENT Exam: Normal Exam - Neck Exam Neck Exam: Normal Inspection - Respiratory Exam Respiratory Exam: Decreased Breath Sounds, Clear to Ausculation Bilateral, NORMAL BREATHING PATTERN (occasionally tachypneic in the low 20s) - Cardiovascular Exam Cardiovascular Exam: REGULAR RHYTHM - GI/Abdominal Exam GI & Abdominal Exam: Normal Bowel Sounds - Rectal Exam Rectal Exam: Deferred - Neurological Exam Neuro motor strength exam: Left Upper Extremity: 4, Right Upper Extremity: 4, Left Lower Extremity: 4, Right Lower Extremity: 4 - Psychiatric Exam Psychiatric exam: Anxious, Normal Affect, Normal Mood - Skin Skin Exam: Dry (+ stage 2 pressure ulcer on iliac spine, L, and on L ear lobe), Normal Color, Warm Assessment and Plan (1) Diabetes mellitus with hyperosmolarity without hyperglycemic hyperosmolar nonketotic coma Assessment & Plan: BS very erratic, partly due to pt's diet and eatin gmainly carbs when she does not like food Status: Acute (2) Altered mental status Assessment & Plan: appears to be less restless Status: Acute (3) Generalized muscle weakness Assessment & Plan: imporving Status: Acute (4) Weakness Status: Deleted (5) Decubitus ulcer of left buttock, stage 2 Assessment & Plan: wound care on consult, suggest foad paddding to ease pressure Status: Acute
[2017-11-26] MEDS: Digoxin 125 mcg (0.125 mg) Tab PO SCH (17:22)
[2017-11-26] MEDS: Rosuvastatin Calcium 2.5 mg Tab PO SCH (21:28)
--- NOTE | 2017-11-26 21:29 | CP.PCM.PN ---
Subjective - Date & Time of Evaluation Date of Evaluation: 11/26/17 Time of Evaluation: 21:28 - Subjective Subjective: Pt seen and examined at bedside. Has good appetite now, and finished food I had brought from home. Was reported that pt had another episode of hypoglycemia this AM but no accu-checks to support this. Pt's bp for the most part controlled , although pt's respiration appears to have plateaud. Objective - Vital Signs/Intake and Output Vital Signs (last 24 hours): Temp Pulse Resp BP Pulse Ox 98.5 F 111 H 16 148/80 99 11/26/17 20:00 11/26/17 20:00 11/26/17 20:00 11/26/17 20:00 11/26/17 20:00 Intake and Output: 11/26/17 11/27/17 18:59 06:59 Intake Total 1820 Output Total 0 Balance 1820 - Medications Medications: Current Medications Albuterol Sulfate (Albuterol 0.083% Inhal Deirdre (2.5 Mg/3 Ml) Ud) 2.5 mg INH RQ6 [facility] Last Admin: 11/26/17 19:19 Dose: 2.5 mg Alprazolam (Xanax) 0.25 mg PO Q6 PRN PRN Reason: decreasing dose if able to ying Stop: 12/03/17 12:01 Aspirin (Ecotrin) 81 mg PO DAILY [facility] Last Admin: 11/26/17 09:50 Dose: 81 mg Budesonide (Pulmicort Respules) 0.5 mg INH RQ12 [facility] Last Admin: 11/26/17 19:19 Dose: 0.5 mg Digoxin (Digoxin) 0.125 mg PO DAILY@1800 [facility] Last Admin: 11/26/17 17:22 Dose: 0.125 mg Escitalopram Oxalate (Lexapro) 5 mg PO DAILY [facility] Famotidine (Pepcid) 20 mg PO DAILY [facility] Last Admin: 11/26/17 09:50 Dose: 20 mg Gabapentin (Neurontin) 800 mg PO Q8H [facility] Sodium Chloride (Sodium Chloride 0.45%) 1,000 mls @ 100 mls/hr IV .Q10H [facility] Last Admin: 11/26/17 17:29 Dose: 100 mls/hr Insulin Aspart (Novolog) 0 unit SC ACHS [facility] Last Admin: 11/26/17 17:16 Dose: Not Given Insulin Aspart (Novolog) 8 unit SC AC [facility] Last Admin: 11/26/17 17:00 Dose: Not Given Insulin Detemir (Levemir) 6 unit SC HS [facility] Ipratropium [place] (Atrovent) 0.5 mg IH RQ12 [facility] Last Admin: 11/26/17 19:19 Dose: 0.5 mg Losartan Potassium (Cozaar) 50 mg PO DAILY [facility] Last Admin: 11/26/17 09:49 Dose: 50 mg Rivaroxaban (Xarelto) 20 mg PO DAILY [facility] Last Admin: 11/26/17 09:49 Dose: 20 mg Rosuvastatin Calcium (Crestor) 2.5 mg PO HS [facility] Last Admin: 11/25/17 21:08 Dose: 2.5 mg - Labs Labs: 11/25/17 06:14 11/25/17 06:14 PT 11.0 SECONDS (9.7-12.2) 11/23/17 16:04 INR 1.0 11/23/17 16:04 APTT 37 SECONDS (21-34) H 11/23/17 16:04 Assessment and Plan (1) Diabetes mellitus with hyperosmolarity without hyperglycemic hyperosmolar nonketotic coma Status: Acute (2) Altered mental status Status: Acute (3) Generalized muscle weakness Status: Acute (4) Weakness Status: Deleted (5) Decubitus ulcer of left buttock, stage 2 Status: Acute
[2017-11-26] MEDS ORDERED: Insulin Detemir 100 units/ml Vial (Levemir) SC SCH (22:00)
[2017-11-26] MEDS: Lactobacillus Acidophilus 500 MU Cap PO SCH (22:40)
[2017-11-27] MEDS: Albuterol 0.083% Inhal Sol (2.5 mg/3 mL) UD INH SCH ×3 (01:16→19:32)
[2017-11-27] MEDS: Sodium Chloride 0.45% 1,000 ML IV SCH ×3 (03:13→22:23)
[2017-11-27] MEDS: Ipratropium 0.02% Inhal Soln (0.5 mg/2.5 ml) UD IH SCH ×2 (07:10→19:32)
[2017-11-27] MEDS: Budesonide 0.5 mg/2 ml Inhal Susp UD INH SCH ×2 (07:10→19:30)
[2017-11-27] MEDS: (Novolog) Insulin Aspart, Recombinant 100 u/ml 10 ml vial SC SCH ×7 (07:51→21:40)
[2017-11-27 08:38] LABS: ALB/GLOB RATIO 0.9 (1.0-2.1); ALBUMIN 2.4 g/dL (3.5-5.0); ALT/SGPT 35 U/L (9-52); AST/SGOT 37 U/L (14-36); BLOOD UREA NITROGEN 15 mg/dL (7-17); CALCIUM 7.6 mg/dl (8.6-10.4); GFR AFRICAN-AMERICAN > 60; GFR NON-AFRICAN AMERICAN > 60
[2017-11-27 08:42] LABS: B-TYPE NATRIURETIC PEPTIDE 468 pg/mL (0-900)
[2017-11-27] MEDS: Lactobacillus Acidophilus 500 MU Cap PO SCH ×2 (10:34→17:17)
--- NOTE | 2017-11-27 10:58 | PN ---
DATE: 11/26/2017 LOCATION: In ICU room 2. SUBJECTIVE: This is a 72-year-old female with recent uncontrolled type 2 insulin requiring diabetes, presenting here with marked hyperglycemic accelerations with supervening episodic bouts of symptomatic hypoglycemia with variability of her oral intake as noted thereof. Her glucose levels, however, are markedly elevated as noted overnight, and the glucose values have ranged from 280 to 397 mg/dL. Her chemistries as noted. Her hemoglobin A1c however is extremely elevated at 16% indicative of extremely poor outpatient metabolic control of a diabetic condition. ASSESSMENT: This is a 72-year-old female of decompensated type 2 insulin requiring diabetes with extremes of glycemic fluctuations related to insulin regimen. She has been quite erratic in her insulin administration with the patient self-managing and self-adjusting her insulin regimen thereof. Also, the timing of her meals and the timing of her insulin administration have been very erratic over the last few months as reviewed in detail with the patient. PLAN OF MANAGEMENT: I have discussed lengthy with the patient at bedside, need for tighter metabolic control cannot just be over emphasized. We will modify once again the insulin regimen and increase the NovoLog to 8 units subcu to start today. We will also add basal insulin with Levemir given as 6 units subcu at bedtime daily. We will titrate very prudently her insulin regimen on a day-to-day basis to prevent extremes of glycemic fluctuation thereof. We will follow. Nohelia Martinez MD
[2017-11-27] MEDS ORDERED: Gadodiamide 287 MG/ML VIAL (15ML) IV ONE (12:00)
--- NOTE | 2017-11-27 13:32 | PN ---
DATE: 11/25/2017 ENDO FOLLOWUP NOTE LOCATION: ICU, room 2. SUBJECTIVE: This is a 72-year-old female with recent uncontrolled type 2 insulin-requiring diabetes with extremes of glycemic fluctuations, presenting here with marked hyperglycemic accelerations and received intensive insulin therapy and vigorous IV hydration as noted. 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 Her glucose levels are dropped to less than 20 mg/dL early this morning. LABORATORY DATA: The chemistry showed a BUN of 11, sodium 137, potassium 4.6, chloride 106, CO2 of 29, glucose 30, and creatinine 0.6. With the dextrose bolus injections, we expected hyperglycemic accelerations and the last glucose value is 349 mg/dL. ASSESSMENT: This is a 72-year-old female with uncontrolled type 2 insulin-requiring diabetes with extremes of glycemic fluctuations from hyperglycemic accelerations down to symptomatic hypoglycemia with associated neuroglycopenic and hyperadrenergic manifestations of the same related to the variability of her oral intake with suboptimal meal portions. 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 PLAN OF MANAGEMENT: We will once again discontinue her basal insulin given a very small dose of Levemir at 8 units subcu at bedtime daily as given. We will lower and modify her NovoLog down to 5 units t.i.d. before meals as ordered. She is on a very minimal coverage scale of NovoLog to be given only for glucose levels above 300 mg/dL. We will continue the IV hydration as given and obtain serial chemistries and supplement accordingly as needed. We will follow. Nohelia Martinez MD
--- NOTE | 2017-11-27 14:18 | MRI ---
Date of service: 11/27/2017 PROCEDURE: MRI BRAIN WITH AND WITHOUT CONTRAST HISTORY: Changes in mentation and habits COMPARISON: Noncontrast head CT from 11/23/2017. TECHNIQUE: Multiplanar, multisequence MR images of the brain were obtained with and without intravenous contrast enhancement. FINDINGS: HEMORRHAGE: None DWI: No evidence of an acute or early subacute infarction. BRAIN PARENCHYMA: There is subtle asymmetric T1 hyperintensity in the right basal ganglia with faint increased magnetic susceptibility likely related to mineralization. There are old lacunar infarctions in the centrum semiovale. There are moderate chronic microangiopathic changes. There is no mass, mass effect or abnormal extra-axial fluid collection. The midline sagittal structures are normal. ENHANCEMENT: No abnormal intracranial enhancement. VENTRICLES: There is moderate age-related global parenchymal volume loss and proportionate enlargement of the ventricles and cortical sulci. CRANIUM: There is normal bone marrow signal pattern. ORBITS: Grossly unremarkable. PARANASAL SINUSES/MASTOIDS: Clear VASCULAR SYSTEM: Skull base flow voids intact. OTHER FINDINGS: None . IMPRESSION: 1. No acute intracranial abnormality. 2. Moderate chronic microangiopathic changes and moderate age-related global parenchymal volume loss. Old lacunar infarctions in the centrum semiovale.
[2017-11-27] MEDS: Digoxin 125 mcg (0.125 mg) Tab PO SCH (17:18)
--- NOTE | 2017-11-27 20:48 | CP.PCM.PN ---
Subjective - Date & Time of Evaluation Date of Evaluation: 11/27/17 Time of Evaluation: 20:47 - Subjective Subjective: Pt seen and evaluated at bedside. Feels that her sugar is dropping bec she did not eat dinner much and she got 10 units of rapid acting insulin. Objective - Vital Signs/Intake and Output Vital Signs (last 24 hours): Temp Pulse Resp BP Pulse Ox 98.1 F 88 18 130/62 98 11/27/17 16:00 11/27/17 16:00 11/27/17 16:00 11/27/17 16:00 11/27/17 16:00 - Medications Medications: Current Medications Albuterol Sulfate (Albuterol 0.083% Inhal Deirdre (2.5 Mg/3 Ml) Ud) 2.5 mg INH RQ6 [facility] Last Admin: 11/27/17 19:32 Dose: 2.5 mg Alprazolam (Xanax) 0.25 mg PO Q6 PRN PRN Reason: decreasing dose if able to ying Stop: 12/03/17 12:01 Last Admin: 11/27/17 03:17 Dose: 0.25 mg Aspirin (Ecotrin) 81 mg PO DAILY [facility] Last Admin: 11/27/17 10:18 Dose: 81 mg Budesonide (Pulmicort Respules) 0.5 mg INH RQ12 [facility] Last Admin: 11/27/17 19:30 Dose: Not Given Digoxin (Digoxin) 0.125 mg PO DAILY@1800 [facility] Last Admin: 11/27/17 17:18 Dose: 0.125 mg Escitalopram Oxalate (Lexapro) 5 mg PO DAILY [facility] Last Admin: 11/27/17 10:34 Dose: 5 mg Famotidine (Pepcid) 20 mg PO DAILY [facility] Last Admin: 11/27/17 10:18 Dose: 20 mg Gabapentin (Neurontin) 800 mg PO Q8H [facility] Last Admin: 11/27/17 12:46 Dose: 800 mg Sodium Chloride (Sodium Chloride 0.45%) 1,000 mls @ 100 mls/hr IV .Q10H [facility] Last Admin: 11/27/17 10:34 Dose: Not Given Insulin Aspart (Novolog) 0 unit SC ACHS [facility] Last Admin: 11/27/17 17:17 Dose: 2 u Insulin Aspart (Novolog) 8 unit SC AC [facility] Last Admin: 11/27/17 17:18 Dose: 8 u Insulin Detemir (Levemir) 10 unit SC HS [facility] Ipratropium [place] (Atrovent) 0.5 mg IH RQ12 [facility] Last Admin: 11/27/17 19:32 Dose: 0.5 mg Lactobacillus Acidophilus (Bacid Acidophilus) 1 cap PO BID [facility] Last Admin: 11/27/17 17:17 Dose: 1 cap Losartan Potassium (Cozaar) 50 mg PO DAILY [facility] Last Admin: 11/27/17 10:18 Dose: 50 mg Rivaroxaban (Xarelto) 20 mg PO DAILY [facility] Last Admin: 11/27/17 10:18 Dose: 20 mg Rosuvastatin Calcium (Crestor) 2.5 mg PO HS [facility] Last Admin: 11/26/17 21:28 Dose: 2.5 mg - Labs Labs: 11/25/17 06:14 11/27/17 08:05 PT 11.0 SECONDS (9.7-12.2) 11/23/17 16:04 INR 1.0 11/23/17 16:04 APTT 37 SECONDS (21-34) H 11/23/17 16:04 Assessment and Plan (1) Diabetes mellitus with hyperosmolarity without hyperglycemic hyperosmolar nonketotic coma Status: Acute (2) Altered mental status Status: Acute (3) Generalized muscle weakness Status: Acute (4) Weakness Status: Acute (5) Decubitus ulcer of left buttock, stage 2 Status: Acute
[2017-11-27] MEDS: Rosuvastatin Calcium 2.5 mg Tab PO SCH (21:39)
[2017-11-27] MEDS ORDERED: Insulin Detemir 100 units/ml Vial (Levemir) SC SCH (22:00)
--- NOTE | 2017-11-27 23:17 | PN ---
DATE: 11/27/2017 ENDO FOLLOWUP NOTE Location: Room 668. SUBJECTIVE: This is a 72-year-old female with recent uncontrolled type 2 insulin-requiring diabetes with extremes of glycemic fluctuations related to the variability of her oral intake and is now being followed closely for metabolic management. LABORATORY DATA: Her glucose values overnight were extremely elevated, ranging from 223 to 307 and 373 mg/dL. Today's glucose levels have ranged from 129 to 144 mg/dL. Her latest chemistry showed a BUN of 15, sodium 133, potassium 4.9, chloride of 100, CO2 of 29, glucose 234, and creatinine 0.6. ASSESSMENT AND PLAN: So at this time, we will modify once again her basal and bolus insulin regimen and increase the Humalog to 8 units subcu t.i.d. before meals to start today. We will also titrate and increase her basal insulin overnight with Levemir to be given as 10 units subcu at bedtime daily to start today. We will obtain serial chemistries and supplement accordingly as needed. We will follow. Nohelia Martinez MD
[2017-11-28] MEDS: Albuterol 0.083% Inhal Sol (2.5 mg/3 mL) UD INH SCH ×3 (02:01→13:39)
[2017-11-28] MEDS: Sodium Chloride 0.45% 1,000 ML IV SCH ×2 (05:37→16:53)
[2017-11-28] MEDS: Ipratropium 0.02% Inhal Soln (0.5 mg/2.5 ml) UD IH SCH (07:29)
[2017-11-28] MEDS: Budesonide 0.5 mg/2 ml Inhal Susp UD INH SCH ×2 (07:29→19:16)
[2017-11-28] MEDS: (Novolog) Insulin Aspart, Recombinant 100 u/ml 10 ml vial SC SCH ×8 (07:43→21:52)
[2017-11-28] MEDS: Lactobacillus Acidophilus 500 MU Cap PO SCH ×2 (10:35→17:53)
[2017-11-28] MEDS: Lidocaine 5% Patch TD SCH (12:25)
[2017-11-28] MEDS: Digoxin 125 mcg (0.125 mg) Tab PO SCH (17:53)
[2017-11-28] MEDS: Albuterol-Ipratrop 3 mg / 0.5 (3 ml) UD INH SCH (19:15)
--- NOTE | 2017-11-28 20:25 | PN ---
Copied To: Nohelia Martinez MD Attending MD: Nohelia Martinez MD DATE: 11/28/2017 ENDO FOLLOWUP NOTE LOCATION: Room 668. SUBJECTIVE: This is a 72-year-old female with recent uncontrolled type 2 insulin-requiring diabetes with extremes of glycemic fluctuations, depending on the variability of her oral intake as noted thereof. Today, hyperglycemic levels supervene and glucose values have ranged from 217 to 354 and 451 mg/dL. LABORATORY DATA: Her latest chemistry showed a BUN of 15, sodium 133, potassium 4.9, chloride 100, CO2 of 29, glucose 234, and creatinine 0.6. ASSESSMENT AND PLAN: So at this time, we will modify once again her basal and bolus insulin regimen and increase the NovoLog to 10 units subcutaneously t.i.d. before meals as ordered. We will also titrate her Levemir to 12 units subcutaneously at bedtime daily to start tonight. We will obtain serial chemistries and supplement accordingly as needed. We will continue also the very low dose correction scale using NovoLog insulin as given. We will obtain serial chemistries and supplement accordingly as needed. We will follow. Nohelia Martinez MD
[2017-11-28] MEDS: Rosuvastatin Calcium 2.5 mg Tab PO SCH (21:49)
[2017-11-28] MEDS: Insulin Detemir 100 units/ml Vial (Levemir) SC SCH (21:50)
--- NOTE | 2017-11-29 00:51 | CP.PCM.PN ---
Subjective - Date & Time of Evaluation Date of Evaluation: 11/28/17 Time of Evaluation: 20:15 - Subjective Subjective: Pt seen and evaluated at bedside. Complaining of 10/10 pain on upper shoulder, L , and at areas medial to scapula on both sides of the body. Makes it difficult for pt to turn and to breathe. Pt has good appetite though. Pt seems a little obtunded when initally seen, but woke up the longer we talked. Objective - Vital Signs/Intake and Output Vital Signs (last 24 hours): Temp Pulse Resp BP Pulse Ox 98.4 F 105 H 20 123/59 L 99 11/28/17 16:00 11/28/17 16:00 11/28/17 16:00 11/28/17 16:00 11/28/17 16:00 Intake and Output: 11/28/17 11/29/17 18:59 06:59 Intake Total 1040 Balance 1040 - Medications Medications: Current Medications Albuterol/Ipratropium (Duoneb 3 Mg/0.5 Mg (3 Ml) Ud) 3 ml INH RQ6 [facility] Last Admin: 11/28/17 19:15 Dose: 3 ml Alprazolam (Xanax) 0.25 mg PO Q6 PRN PRN Reason: decreasing dose if able to ying Stop: 12/03/17 12:01 Last Admin: 11/28/17 10:34 Dose: 0.25 mg Aspirin (Ecotrin) 81 mg PO DAILY [facility] Last Admin: 11/28/17 10:34 Dose: 81 mg Budesonide (Pulmicort Respules) 0.5 mg INH RQ12 [facility] Last Admin: 11/28/17 19:16 Dose: 0.5 mg Digoxin (Digoxin) 0.125 mg PO DAILY@1800 [facility] Last Admin: 11/28/17 17:53 Dose: 0.125 mg Escitalopram Oxalate (Lexapro) 5 mg PO DAILY [facility] Last Admin: 11/28/17 10:35 Dose: 5 mg Famotidine (Pepcid) 20 mg PO DAILY [facility] Last Admin: 11/28/17 10:34 Dose: 20 mg Gabapentin (Neurontin) 800 mg PO Q8H [facility] Last Admin: 11/28/17 21:49 Dose: 800 mg Sodium Chloride (Sodium Chloride 0.45%) 1,000 mls @ 100 mls/hr IV .Q10H [facility] Last Admin: 11/28/17 16:53 Dose: 100 mls/hr Insulin Aspart (Novolog) 0 unit SC ACHS [facility] Last Admin: 11/28/17 21:52 Dose: Not Given Insulin Aspart (Novolog) 10 unit SC AC [facility] Last Admin: 11/28/17 16:52 Dose: Not Given Insulin Detemir (Levemir) 12 unit SC HS [facility] Last Admin: 11/28/17 21:50 Dose: 12 units Lactobacillus Acidophilus (Bacid Acidophilus) 1 cap PO BID [facility] Last Admin: 11/28/17 17:53 Dose: 1 cap Lidocaine (Lidoderm) 1 ea TD DAILY [facility] Last Admin: 11/28/17 12:25 Dose: 1 ea Losartan Potassium (Cozaar) 50 mg PO DAILY [facility] Last Admin: 11/28/17 10:34 Dose: 50 mg Rivaroxaban (Xarelto) 20 mg PO DAILY [facility] Last Admin: 11/28/17 10:35 Dose: 20 mg Rosuvastatin Calcium (Crestor) 2.5 mg PO HS [facility] Last Admin: 11/28/17 21:49 Dose: 2.5 mg - Labs Labs: 11/25/17 06:14 11/27/17 08:05 PT 11.0 SECONDS (9.7-12.2) 11/23/17 16:04 INR 1.0 11/23/17 16:04 APTT 37 SECONDS (21-34) H 11/23/17 16:04 Assessment and Plan (1) Diabetes mellitus with hyperosmolarity without hyperglycemic hyperosmolar nonketotic coma Assessment & Plan: diabetes present, but extremely elevated blood sugars have been moderately controlled since admission. Status: Acute (2) Altered mental status Assessment & Plan: may be 2ndry to neuropathic pain meds and benzo pt is on. Had decreased benzo to prn and lowest # mg, with addition of an anticholinergic to help Status: Acute (3) Generalized muscle weakness Assessment & Plan: 2ndry to being bed bound, needs more extensive PT with every day in hospital Status: Acute (4) Decubitus ulcer of left buttock, stage 2 Assessment & Plan: not improving. consulting wound care for suggestions Status: Acute
[2017-11-29] MEDS: Albuterol-Ipratrop 3 mg / 0.5 (3 ml) UD INH SCH ×4 (01:21→19:20)
[2017-11-29] MEDS: Sodium Chloride 0.45% 1,000 ML IV SCH ×2 (02:38→07:03)
[2017-11-29 07:32] LABS: ALB/GLOB RATIO 0.9 (1.0-2.1); ALBUMIN 2.4 g/dL (3.5-5.0); ALT/SGPT 27 U/L (9-52); AST/SGOT 23 U/L (14-36); BLOOD UREA NITROGEN 13 mg/dL (7-17); CALCIUM 8.4 mg/dl (8.6-10.4); GFR AFRICAN-AMERICAN > 60; GFR NON-AFRICAN AMERICAN > 60
[2017-11-29] MEDS: Budesonide 0.5 mg/2 ml Inhal Susp UD INH SCH ×2 (07:40→19:20)
[2017-11-29] MEDS: (Novolog) Insulin Aspart, Recombinant 100 u/ml 10 ml vial SC SCH ×7 (08:25→21:31)
--- NOTE | 2017-11-29 08:28 | RAD ---
Date of service: 11/28/2017 PROCEDURE: CHEST RADIOGRAPH, 1 VIEW HISTORY: sob COMPARISON: Portable chest 11/23/2017. FINDINGS: LUNGS: Interval left perihilar/basilar infiltrate or atelectasis is not excluded. None is seen at the right. PLEURA: Mild left pleural effusion opacifies the left base with none identified at the right. No pneumothorax bilaterally. CARDIOVASCULAR: Normal. OSSEOUS STRUCTURES: No significant abnormalities. VISUALIZED UPPER ABDOMEN: Normal. OTHER FINDINGS: Bilateral breast implants reiterated. IMPRESSION: Interval mild left pleural effusion opacifies left base with patchy left perihilar density present. Left basilar infiltrate or atelectasis not excluded.
[2017-11-29] MEDS: Lidocaine 5% Patch TD SCH (09:48)
[2017-11-29] MEDS: Lactobacillus Acidophilus 500 MU Cap PO SCH ×2 (09:49→17:21)
[2017-11-29] MEDS ORDERED: Albuterol-Ipratrop 3 mg / 0.5 (3 ml) UD INH STA (15:06)
[2017-11-29] MEDS: Azithromycin 500 MG in Sodium Chloride 0.9% 250 ML IVPB SCH (17:00)
[2017-11-29] MEDS: Digoxin 125 mcg (0.125 mg) Tab PO SCH (17:21)
--- NOTE | 2017-11-29 18:03 | CP.PCM.CON ---
History of Present Illness - History of Present Illness History of Present Illness: Reason for consultation: shortness of breath and cough 72-year-old female with COPD, atrial fibrillation CHF, hypertension anxiety disorder who was admittedwith generalized weakness shortness of breath and cough. Denies fever or chills, denies chest pain. Patient states that her breathing is not getting better. CAT scan of the chest done in June consistent with lung nodules and moderate emphysema. Review of Systems - Review of Systems All systems: reviewed and no additional remarkable complaints except (hortness of breath and cough) Past Patient History - Infectious Disease Hx of Infectious Diseases: None - Tetanus Immunizations Tetanus Immunization: Unknown - Past Medical History & Family History Past Medical History?: Yes - Past Social History Smoking Status: Former Smoker Chewing Tobacco Use: Yes Cigar Use: Yes Occupation: retired, disabled Alcohol: Other (used to drink to insensibility or fell asleep, claims to not drink anymore) Drugs: Denies Home Situation {Lives}: Alone (in her own apartment with other Seniors, unaccompanied at night, refuses to live iwth family) - CARDIAC Hx Cardiac Disorders: Yes (A.Fib) Hx Congestive Heart Failure: Yes Hx Hypercholesterolemia: Yes Hx Hypertension: Yes - PULMONARY Hx Chronic Obstructive Pulmonary Disease (COPD): Yes - HEENT Hx Difficulty Chewing: Yes - RENAL Hx Chronic Kidney Disease: No - ENDOCRINE/METABOLIC Hx Hypothyroidism: Yes - HEMATOLOGICAL/ONCOLOGICAL Hx Blood Disorders: No Hx Blood Transfusions: Yes - INTEGUMENTARY Hx Dermatological Problems: Yes Hx Cellulitis: Yes (current) Hx Eczema: Yes - MUSCULOSKELETAL/RHEUMATOLOGICAL Hx Arthritis: Yes - GASTROINTESTINAL Hx Diverticulitis: Yes Hx Gastritis: Yes - GENITOURINARY/GYNECOLOGICAL Hx Genitourinary Disorders: No - PSYCHIATRIC Hx Anxiety: Yes Hx Depression: Yes Hx Paranoia: Yes Hx Post Traumatic Stress Disorder: Yes Hx Substance Use: No - SURGICAL HISTORY Hx Cholecystectomy: Yes - ANESTHESIA Hx Anesthesia: Yes Hx Anesthesia Reactions: No Hx Malignant Hyperthermia: No Has any member of the family had a problem w/ anesthesia?: No Meds Allergies/Adverse Reactions: Allergies Allergy/AdvReac Type Severity Reaction Status Date / Time MIRIAM Inhibitors Allergy Severe COUGH Verified 07/23/17 04:05 Thiazides Allergy RASH Verified 07/23/17 04:05 - Medications Medications: Current Medications Albuterol/Ipratropium (Duoneb 3 Mg/0.5 Mg (3 Ml) Ud) 3 ml INH RQ6 [facility] Last Admin: 11/29/17 07:40 Dose: 3 ml Alprazolam (Xanax) 0.25 mg PO Q6 PRN PRN Reason: decreasing dose if able to ying Stop: 12/03/17 12:01 Last Admin: 11/28/17 10:34 Dose: 0.25 mg Aspirin (Ecotrin) 81 mg PO DAILY [facility] Last Admin: 11/29/17 09:49 Dose: 81 mg Budesonide (Pulmicort Respules) 0.5 mg INH RQ12 [facility] Last Admin: 11/29/17 07:40 Dose: 0.5 mg Digoxin (Digoxin) 0.125 mg PO DAILY@1800 [facility] Last Admin: 11/29/17 17:21 Dose: 0.125 mg Escitalopram Oxalate (Lexapro) 5 mg PO DAILY [facility] Last Admin: 11/29/17 09:49 Dose: 5 mg Famotidine (Pepcid) 20 mg PO DAILY [facility] Last Admin: 11/29/17 09:49 Dose: 20 mg Furosemide (Lasix) 20 mg PO DAILY [facility] Gabapentin (Neurontin) 800 mg PO Q8H [facility] Last Admin: 11/29/17 14:14 Dose: 800 mg Azithromycin 500 mg/ Sodium (Chloride) 250 mls @ 250 mls/hr IVPB Q24H [facility] PRN Reason: Protocol Last Admin: 11/29/17 17:00 Dose: 250 mls/hr Ceftriaxone Sodium 1 gm/ (Sodium Chloride) 100 mls @ 100 mls/hr IVPB Q12H [facility] PRN Reason: Protocol Last Admin: 11/29/17 18:01 Dose: 100 mls/hr Insulin Aspart (Novolog) 0 unit SC ACHS [facility] Last Admin: 11/29/17 18:00 Dose: 3 u Insulin Aspart (Novolog) 10 unit SC AC [facility] Last Admin: 11/29/17 18:01 Dose: Not Given Insulin Detemir (Levemir) 12 unit SC HS [facility] Last Admin: 11/28/17 21:50 Dose: 12 units Lactobacillus Acidophilus (Bacid Acidophilus) 1 cap PO BID [facility] Last Admin: 11/29/17 17:21 Dose: 1 cap Lidocaine (Lidoderm) 1 ea TD DAILY [facility] Last Admin: 11/29/17 09:48 Dose: 1 ea Losartan Potassium (Cozaar) 50 mg PO DAILY [facility] Last Admin: 11/29/17 09:49 Dose: 50 mg Rivaroxaban (Xarelto) 20 mg PO DAILY [facility] Last Admin: 11/29/17 09:49 Dose: 20 mg Rosuvastatin Calcium (Crestor) 2.5 mg PO HS [facility] Last Admin: 11/28/17 21:49 Dose: 2.5 mg Physical Exam - Head Exam Head Exam: ATRAUMATIC, NORMOCEPHALIC - ENT Exam ENT Exam: Mucous Membranes Moist - Neck Exam Neck exam: Positive for: Normal Inspection - Respiratory Exam Respiratory Exam: Decreased Breath Sounds - Cardiovascular Exam Cardiovascular Exam: REGULAR RHYTHM Results - Vital Signs Recent Vital Signs: Last Vital Signs Temp 98.1 F 11/29/17 15:43 Pulse 90 11/29/17 16:47 Resp 20 11/29/17 15:43 BP 159/67 H 11/29/17 15:43 Pulse Ox 96 11/29/17 15:43 - Labs Result Diagrams: 11/25/17 06:14 11/29/17 06:46 Labs: Laboratory Results - last 24 hr 11/28/17 11/29/17 11/29/17 21:17 06:46 06:48 Sodium 134 Potassium 5.3 H Chloride 102 Carbon Dioxide 31 H Anion Gap 6 L BUN 13 Creatinine 0.8 Est GFR ( Amer) > 60 Est GFR (Non-Af Amer) > 60 POC Glucose (mg/dL) 431 H* 156 H Random Glucose 165 H Calcium 8.4 L Phosphorus 3.2 Magnesium 1.6 Total Bilirubin 0.2 AST 23 ALT 27 Alkaline Phosphatase 71 Total Protein 5.1 L Albumin 2.4 L Globulin 2.7 Albumin/Globulin Ratio 0.9 L 11/29/17 11/29/17 11/29/17 11:58 17:08 17:55 Sodium Potassium Chloride Carbon Dioxide Anion Gap BUN Creatinine Est GFR ( Amer) Est GFR (Non-Af Amer) POC Glucose (mg/dL) 218 H 381 H 416 H* Random Glucose Calcium Phosphorus Magnesium Total Bilirubin AST ALT Alkaline Phosphatase Total Protein Albumin Globulin Albumin/Globulin Ratio Assessment & Plan (1) COPD exacerbation Status: Acute Priority: High Comment: continue nebulizer treatment and budesonide. 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
--- NOTE | 2017-11-29 20:03 | CP.PCM.PN ---
Subjective - Date & Time of Evaluation Date of Evaluation: 11/29/17 Time of Evaluation: 20:02 - Subjective Subjective: Called by nursing today to report that pt was short of breath. Appears to have started since yesterday, but pt also had a lot of phlegm yesterday and when seen , was slightly sleepy and could not think of the right words to say. Had opted to observe. Today pt was obviously working harder to breathe, and nursing informed me that 1/2NSS was still running. Objective - Vital Signs/Intake and Output Vital Signs (last 24 hours): Temp Pulse Resp BP Pulse Ox 98.1 F 90 20 159/67 H 96 11/29/17 15:43 11/29/17 16:47 11/29/17 15:43 11/29/17 15:43 11/29/17 15:43 Intake and Output: 11/29/17 11/30/17 18:59 06:59 Intake Total 1000 Output Total 300 Balance 700 - Medications Medications: Current Medications Albuterol Sulfate (Albuterol 0.083% Inhal Deirdre (2.5 Mg/3 Ml) Ud) 2.5 mg INH RQ3 PRN PRN Reason: copd exac or chf brkthru Albuterol/Ipratropium (Duoneb 3 Mg/0.5 Mg (3 Ml) Ud) 3 ml INH RQ6 [facility] Last Admin: 11/29/17 19:20 Dose: 3 ml Alprazolam (Xanax) 0.25 mg PO Q6 PRN PRN Reason: decreasing dose if able to ying Stop: 12/03/17 12:01 Last Admin: 11/28/17 10:34 Dose: 0.25 mg Aspirin (Ecotrin) 81 mg PO DAILY [facility] Last Admin: 11/29/17 09:49 Dose: 81 mg Budesonide (Pulmicort Respules) 0.5 mg INH RQ12 [facility] Last Admin: 11/29/17 19:20 Dose: 0.5 mg Digoxin (Digoxin) 0.125 mg PO DAILY@1800 [facility] Last Admin: 11/29/17 17:21 Dose: 0.125 mg Escitalopram Oxalate (Lexapro) 5 mg PO DAILY [facility] Last Admin: 11/29/17 09:49 Dose: 5 mg Famotidine (Pepcid) 20 mg PO DAILY [facility] Last Admin: 11/29/17 09:49 Dose: 20 mg Furosemide (Lasix) 20 mg PO DAILY [facility] Gabapentin (Neurontin) 800 mg PO Q8H [facility] Last Admin: 11/29/17 14:14 Dose: 800 mg Azithromycin 500 mg/ Sodium (Chloride) 250 mls @ 250 mls/hr IVPB Q24H [facility] PRN Reason: Protocol Last Admin: 11/29/17 17:00 Dose: 250 mls/hr Ceftriaxone Sodium 1 gm/ (Sodium Chloride) 100 mls @ 100 mls/hr IVPB Q12H [facility] PRN Reason: Protocol Last Admin: 11/29/17 18:01 Dose: 100 mls/hr Insulin Aspart (Novolog) 0 unit SC ACHS [facility] Last Admin: 11/29/17 18:00 Dose: 3 u Insulin Aspart (Novolog) 10 unit SC AC [facility] Last Admin: 11/29/17 18:01 Dose: Not Given Insulin Detemir (Levemir) 12 unit SC HS [facility] Last Admin: 11/28/17 21:50 Dose: 12 units Lactobacillus Acidophilus (Bacid Acidophilus) 1 cap PO BID [facility] Last Admin: 11/29/17 17:21 Dose: 1 cap Lidocaine (Lidoderm) 1 ea TD DAILY [facility] Last Admin: 11/29/17 09:48 Dose: 1 ea Losartan Potassium (Cozaar) 50 mg PO DAILY [facility] Last Admin: 11/29/17 09:49 Dose: 50 mg Nicotine (Nicoderm Cq) 1 patch TD DAILY [facility] Rivaroxaban (Xarelto) 20 mg PO DAILY [facility] Last Admin: 11/29/17 09:49 Dose: 20 mg Rosuvastatin Calcium (Crestor) 2.5 mg PO HS [facility] Last Admin: 11/28/17 21:49 Dose: 2.5 mg - Labs Labs: 11/25/17 06:14 11/29/17 06:46 PT 11.0 SECONDS (9.7-12.2) 11/23/17 16:04 INR 1.0 11/23/17 16:04 APTT 37 SECONDS (21-34) H 11/23/17 16:04 Assessment and Plan (1) Diabetes mellitus with hyperosmolarity without hyperglycemic hyperosmolar nonketotic coma Status: Acute (2) Altered mental status Status: Acute (3) Generalized muscle weakness Status: Acute (4) Decubitus ulcer of left buttock, stage 2 Status: Acute
[2017-11-29] MEDS: Rosuvastatin Calcium 2.5 mg Tab PO SCH (21:30)
[2017-11-29] MEDS: Insulin Detemir 100 units/ml Vial (Levemir) SC SCH (21:30)
--- NOTE | 2017-11-29 22:08 | PN ---
Copied To: Nohelia Martinez MD Attending MD: Nohelia Martinez MD DATE: 11/29/2017 ENDO FOLLOWUP NOTE LOCATION: In room 668. SUBJECTIVE: This is a 72-year-old female with recent uncontrolled type 2 insulin-requiring diabetes with improving metabolic profile as noted today and glucose values have ranged from 156 to 218 mg/dL. However, it was still 431 at bedtime last night. LABORATORY DATA: Her latest chemistries showed a BUN of 13, sodium 134, potassium 5.3, chloride 102, CO2 of 31, glucose 165, and creatinine 0.8. ASSESSMENT AND PLAN: So at this time, we will continue the same basal and bolus insulin regimen, which was modified actually this morning to optimize metabolic control. We will increase her NovoLog to 10 units subcutaneously t.i.d. before meals to start at the lunchtime today as ordered. We will also continue the basal insulin, which was modified last night to 12 units subcutaneously at bedtime daily to allow for dose equilibration. We will continue also the low dose correction scale using NovoLog insulin as given. We will titrate incrementally as indicated to optimize metabolic control. We will follow and advise accordingly. Nohelia Martinez MD
[2017-11-30] MEDS: Albuterol-Ipratrop 3 mg / 0.5 (3 ml) UD INH SCH ×4 (01:25→19:42)
[2017-11-30] MEDS ORDERED: Alum-Mag Hydrox-Simethicone Susp (30 mL) PO ONE (02:30)
[2017-11-30] MEDS: (Novolog) Insulin Aspart, Recombinant 100 u/ml 10 ml vial SC SCH ×7 (07:26→21:59)
[2017-11-30] MEDS: Budesonide 0.5 mg/2 ml Inhal Susp UD INH SCH ×2 (07:50→19:42)
--- NOTE | 2017-11-30 08:33 | RAD ---
Date of service: 11/30/2017 PROCEDURE: CHEST RADIOGRAPH, 1 VIEW HISTORY: follow up pleural effusion COMPARISON: 11/28/2017. FINDINGS: LUNGS: The lungs are hyperinflated and there is peribronchial thickening with chronic changes in both lungs. No focal consolidation. PLEURA: No pneumothorax or pleural fluid seen. CARDIOVASCULAR: Normal. OSSEOUS STRUCTURES: No significant abnormalities. VISUALIZED UPPER ABDOMEN: Normal. OTHER FINDINGS: None. IMPRESSION: No active pulmonary disease. COPD.
[2017-11-30] MEDS: Lactobacillus Acidophilus 500 MU Cap PO SCH ×2 (10:27→17:26)
[2017-11-30] MEDS: Lidocaine 5% Patch TD SCH (10:27)
--- NOTE | 2017-11-30 11:37 | CT ---
Date of service: 11/30/2017 PROCEDURE: CT Chest without contrast HISTORY: f/u lung nodules COMPARISON: 06/30/2017. TECHNIQUE: Contiguous axial images were obtained through the chest without intravenous contrast enhancement. Sagittal and coronal reconstructions were performed. Radiation dose (DLP): 166.15 MGy-cm. This CT exam was performed using one or more of the following dose reduction techniques: Automated exposure control, adjustment of the mA and/or kV according to patient size, and/or use of iterative reconstruction technique. FINDINGS: LUNGS: Again seen is centrilobular emphysema in the lungs with upper lobe predominance. There are persistent fibrotic changes in the right middle lobe. There is stable 6 mm subpleural nodule in the right middle lobe (series 3, image 60). There is a 6 mm subpleural nodule in the superior segment of the right lower lobe (series 3, image 47). There are also linear fibrotic changes in both upper lobes. There is subsegmental atelectasis in both lower lobes. MEDIASTINUM: The heart is normal in size. There is a small pericardial effusion. There are advanced atherosclerotic coronary artery calcifications. No bulky mediastinal adenopathy. PLEURA: Smaller 4 mm small right and large left pleural effusion with compressive atelectasis of the left lower lobe with no pneumothorax. BONES: No fracture. No destructive lesion. Within normal limits for the patient's age. UPPER ABDOMEN: Grossly unremarkable. OTHER FINDINGS: Bilateral peripherally calcified breast implants with multiple small calcified nodules in the breasts which likely represent silicon granulomas. IMPRESSION: 1. Little interval change in 6 mm right middle lobe subpleural nodule. Additionally, 6 mm subpleural nodule in the right lower lobe. Follow-up CT in six-month interval is recommended to assess stability of these nodules. 2. Small right and large left pleural effusion with compressive atelectasis of the left lower lobe . 3. Centrilobular emphysema in the lungs with upper lobe predominance.
--- NOTE | 2017-11-30 16:55 | CP.PCM.PN ---
Subjective - Date & Time of Evaluation Date of Evaluation: 11/30/17 Time of Evaluation: 11:00 - Subjective Subjective: patient seen and examined Still complaining of shortness of breath CAT scan of the chest consistent with large effusion Objective - Vital Signs/Intake and Output Vital Signs (last 24 hours): Temp Pulse Resp BP Pulse Ox 97.9 F 105 H 20 154/73 H 99 11/30/17 15:00 11/30/17 16:00 11/30/17 15:00 11/30/17 15:00 11/30/17 15:00 Intake and Output: 11/30/17 11/30/17 06:59 18:59 Intake Total 790 Output Total 3200 Balance -2410 - Medications Medications: Current Medications Albuterol Sulfate (Albuterol 0.083% Inhal Deirdre (2.5 Mg/3 Ml) Ud) 2.5 mg INH RQ3 PRN PRN Reason: copd exac or chf brkthru Albuterol/Ipratropium (Duoneb 3 Mg/0.5 Mg (3 Ml) Ud) 3 ml INH RQ6 [facility] Last Admin: 11/30/17 13:00 Dose: 3 ml Alprazolam (Xanax) 0.25 mg PO Q6 PRN PRN Reason: decreasing dose if able to ying Stop: 12/03/17 12:01 Last Admin: 11/29/17 21:30 Dose: 0.25 mg Aspirin (Ecotrin) 81 mg PO DAILY [facility] Last Admin: 11/30/17 10:27 Dose: 81 mg Budesonide (Pulmicort Respules) 0.5 mg INH RQ12 [facility] Last Admin: 11/30/17 07:50 Dose: 0.5 mg Digoxin (Digoxin) 0.125 mg PO DAILY@1800 [facility] Last Admin: 11/29/17 17:21 Dose: 0.125 mg Escitalopram Oxalate (Lexapro) 5 mg PO DAILY [facility] Last Admin: 11/30/17 10:27 Dose: 5 mg Famotidine (Pepcid) 20 mg PO DAILY [facility] Last Admin: 11/30/17 10:27 Dose: 20 mg Furosemide (Lasix) 40 mg PO DAILY [facility] Gabapentin (Neurontin) 800 mg PO Q8H [facility] Last Admin: 11/30/17 13:11 Dose: 800 mg Glimepiride (Amaryl) 4 mg PO ACBD [facility] Azithromycin 500 mg/ Sodium (Chloride) 250 mls @ 250 mls/hr IVPB Q24H [facility] PRN Reason: Protocol Last Admin: 11/29/17 17:00 Dose: 250 mls/hr Ceftriaxone Sodium 1 gm/ (Sodium Chloride) 100 mls @ 100 mls/hr IVPB Q12H [facility] PRN Reason: Protocol Last Admin: 11/30/17 06:30 Dose: 100 mls/hr Insulin Aspart (Novolog) 0 unit SC ACHS [facility] Last Admin: 11/30/17 12:48 Dose: Not Given Insulin Aspart (Novolog) 10 unit SC AC [facility] Last Admin: 11/30/17 12:48 Dose: Not Given Insulin Detemir (Levemir) 16 unit SC HS [facility] Lactobacillus Acidophilus (Bacid Acidophilus) 1 cap PO BID [facility] Last Admin: 11/30/17 10:27 Dose: 1 cap Lidocaine (Lidoderm) 1 ea TD DAILY [facility] Last Admin: 11/30/17 10:27 Dose: 1 ea Losartan Potassium (Cozaar) 50 mg PO DAILY [facility] Last Admin: 11/30/17 10:27 Dose: 50 mg Nicotine (Nicoderm Cq) 1 patch TD DAILY [facility] Last Admin: 11/30/17 10:27 Dose: 1 patch Rivaroxaban (Xarelto) 20 mg PO DAILY [facility] Last Admin: 11/30/17 10:27 Dose: 20 mg Rosuvastatin Calcium (Crestor) 2.5 mg PO HS [facility] Last Admin: 11/29/17 21:30 Dose: 2.5 mg - Labs Labs: 11/25/17 06:14 11/29/17 06:46 PT 11.0 SECONDS (9.7-12.2) 11/23/17 16:04 INR 1.0 11/23/17 16:04 APTT 37 SECONDS (21-34) H 11/23/17 16:04 - Head Exam Head Exam: ATRAUMATIC, NORMOCEPHALIC - ENT Exam ENT Exam: Mucous Membranes Moist - Respiratory Exam Respiratory Exam: Decreased Breath Sounds - Cardiovascular Exam Cardiovascular Exam: REGULAR RHYTHM - GI/Abdominal Exam GI & Abdominal Exam: Soft, Normal Bowel Sounds - Neurological Exam Neurological Exam: Alert Assessment and Plan (1) Pleural effusion Assessment & Plan: thoracentesis and fluid analysis Status: Acute (2) COPD exacerbation Assessment & Plan: continue nebulizer treatment Status: Acute (3) Pulmonary nodule Assessment & Plan: no change in size of nodules Status: Acute (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
[2017-11-30] MEDS: Azithromycin 500 MG in Sodium Chloride 0.9% 250 ML IVPB SCH (17:25)
[2017-11-30] MEDS: Digoxin 125 mcg (0.125 mg) Tab PO SCH (17:27)
[2017-11-30] MEDS: Albuterol 0.083% Inhal Sol (2.5 mg/3 mL) UD INH PRN (18:32)
--- NOTE | 2017-11-30 21:25 | CARD ---
APPROVED REPORT Date of service: 11/28/2017 EKG Measurement Heart [id number] <Conclusion> Sinus tachycardia Septal infarct, age undetermined Abnormal ECG
[2017-11-30] MEDS: Rosuvastatin Calcium 2.5 mg Tab PO SCH (21:58)
[2017-11-30] MEDS ORDERED: Insulin Detemir 100 units/ml Vial (Levemir) SC SCH (22:00)
--- NOTE | 2017-11-30 22:48 | PN ---
Copied To: Nohelia Martinez MD Attending MD: Nohelia Martinez MD DATE: 11/30/2017 ENDO FOLLOWUP NOTE LOCATION: Room 668. SUBJECTIVE: This is a 72-year-old female with recent uncontrolled type 2 insulin-requiring diabetes, presenting here with hyperosmolar hyperglycemic state and dehydration and since then improved clinically, but metabolically has had extremes of glycemic fluctuations as noted thereof. LABORATORY DATA: Today's glucose levels once again shows a fasting glucose of 72 mg/dL with a repeat glucose level at midday of 253 to 394 mg/dL. Her bedtime glucose levels were extremely elevated ranging from 310 to 416 mg/dL. Her latest chemistry showed a BUN of 15, sodium 134, potassium 5.3, chloride 102, CO2 of 31, glucose 165, and creatinine 0.8. ASSESSMENT: So, at this time we will modify once again her basal and bolus insulin regimen and increase the NovoLog to 10 units subcu t.i.d. before meals to start today. We will continue the modified basal insulin given as Levemir at 16 units subcu at bedtime daily as given. We will titrate incrementally as indicated to optimize metabolic control. We will obtain serial chemistries and supplement accordingly as needed. We will follow. Nohelia Martinez MD
[2017-12-01] MEDS: Albuterol-Ipratrop 3 mg / 0.5 (3 ml) UD INH SCH ×4 (01:19→19:42)
[2017-12-01] MEDS ORDERED: Alum-Mag Hydrox-Simethicone Susp (30 mL) PO ONE (01:25)
[2017-12-01] MEDS: Budesonide 0.5 mg/2 ml Inhal Susp UD INH SCH ×2 (07:09→19:42)
[2017-12-01] MEDS: (Novolog) Insulin Aspart, Recombinant 100 u/ml 10 ml vial SC SCH ×7 (07:23→21:22)
--- NOTE | 2017-12-01 10:08 | CP.PCM.PN ---
Subjective - Date & Time of Evaluation Date of Evaluation: 12/01/17 Time of Evaluation: 08:00 - Subjective Subjective: the patient seen and examined dyspnea on minimal exertion afebrile Slight cough Objective - Vital Signs/Intake and Output Vital Signs (last 24 hours): Temp Pulse Resp BP Pulse Ox 98.0 F 96 H 20 155/65 H 97 12/01/17 07:00 12/01/17 07:41 12/01/17 07:00 12/01/17 07:00 12/01/17 07:00 Intake and Output: 12/01/17 12/01/17 06:59 18:59 Output Total 1650 Balance -1650 - Medications Medications: Current Medications Albuterol Sulfate (Albuterol 0.083% Inhal Deirdre (2.5 Mg/3 Ml) Ud) 2.5 mg INH RQ3 PRN PRN Reason: copd exac or chf brkthru Last Admin: 11/30/17 18:32 Dose: 2.5 mg Albuterol/Ipratropium (Duoneb 3 Mg/0.5 Mg (3 Ml) Ud) 3 ml INH RQ6 [facility] Last Admin: 12/01/17 07:09 Dose: 3 ml Alprazolam (Xanax) 0.25 mg PO Q6 PRN PRN Reason: decreasing dose if able to ying Stop: 12/03/17 12:01 Last Admin: 11/29/17 21:30 Dose: 0.25 mg Aspirin (Ecotrin) 81 mg PO DAILY [facility] Last Admin: 11/30/17 10:27 Dose: 81 mg Budesonide (Pulmicort Respules) 0.5 mg INH RQ12 [facility] Last Admin: 12/01/17 07:09 Dose: 0.5 mg Digoxin (Digoxin) 0.125 mg PO DAILY@1800 [facility] Last Admin: 11/30/17 17:27 Dose: 0.125 mg Escitalopram Oxalate (Lexapro) 5 mg PO DAILY [facility] Last Admin: 11/30/17 10:27 Dose: 5 mg Famotidine (Pepcid) 20 mg PO DAILY [facility] Last Admin: 11/30/17 10:27 Dose: 20 mg Furosemide (Lasix) 40 mg PO DAILY [facility] Gabapentin (Neurontin) 800 mg PO Q8H [facility] Last Admin: 12/01/17 05:49 Dose: 800 mg Glimepiride (Amaryl) 4 mg PO ACBD [facility] Last Admin: 12/01/17 08:17 Dose: 4 mg Azithromycin 500 mg/ Sodium (Chloride) 250 mls @ 250 mls/hr IVPB Q24H [facility] PRN Reason: Protocol Last Admin: 11/30/17 17:25 Dose: 250 mls/hr Ceftriaxone Sodium 1 gm/ (Sodium Chloride) 100 mls @ 100 mls/hr IVPB Q12H [facility] PRN Reason: Protocol Last Admin: 12/01/17 05:49 Dose: 100 mls/hr Insulin Aspart (Novolog) 0 unit SC ACHS [facility] Last Admin: 12/01/17 07:23 Dose: Not Given Insulin Aspart (Novolog) 10 unit SC AC [facility] Last Admin: 12/01/17 08:15 Dose: Not Given Insulin Aspart (Novolog) 8 unit SC ONCE ONE Stop: 12/01/17 10:16 Insulin Detemir (Levemir) 16 unit SC HS [facility] Last Admin: 11/30/17 21:59 Dose: 16 units Lactobacillus Acidophilus (Bacid Acidophilus) 1 cap PO BID [facility] Last Admin: 11/30/17 17:26 Dose: 1 cap Lidocaine (Lidoderm) 1 ea TD DAILY [facility] Last Admin: 11/30/17 10:27 Dose: 1 ea Losartan Potassium (Cozaar) 50 mg PO DAILY [facility] Last Admin: 11/30/17 10:27 Dose: 50 mg Nicotine (Nicoderm Cq) 1 patch TD DAILY [facility] Last Admin: 11/30/17 10:27 Dose: 1 patch Rivaroxaban (Xarelto) 20 mg PO DAILY [facility] Last Admin: 11/30/17 10:27 Dose: 20 mg Rosuvastatin Calcium (Crestor) 2.5 mg PO [facility] Last Admin: 11/30/17 21:58 Dose: 2.5 mg - Labs Labs: 11/25/17 06:14 11/29/17 06:46 PT 11.0 SECONDS (9.7-12.2) 11/23/17 16:04 INR 1.0 11/23/17 16:04 APTT 37 SECONDS (21-34) H 11/23/17 16:04 - Head Exam Head Exam: ATRAUMATIC, NORMOCEPHALIC - ENT Exam ENT Exam: Mucous Membranes Moist - Neck Exam Neck Exam: Normal Inspection - Respiratory Exam Respiratory Exam: Decreased Breath Sounds - Cardiovascular Exam Cardiovascular Exam: REGULAR RHYTHM - GI/Abdominal Exam GI & Abdominal Exam: Soft, Normal Bowel Sounds Assessment and Plan (1) Pleural effusion Assessment & Plan: For thoracentesis Fluid analysis Continue present treatment Status: Acute (2) COPD exacerbation Status: Acute (3) Pulmonary nodule Status: Acute (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
[2017-12-01] MEDS ORDERED: (Novolog) Insulin Aspart, Recombinant 100 u/ml 10 ml vial SC ONE (10:15)
[2017-12-01] MEDS: Lidocaine 5% Patch TD SCH (10:34)
[2017-12-01] MEDS: Lactobacillus Acidophilus 500 MU Cap PO SCH ×2 (10:34→17:29)
--- NOTE | 2017-12-01 14:20 | PCM.SURG1 ---
Surgeon's Initial Post Op Note - Surgeon's Notes Surgeon: Jannie Cell Attendant: None Type of Anesthesia: Local Pre-Operative Diagnosis: Left pleural effusion Operative Findings: Left pleural effusion, complex Post-Operative Diagnosis: Complex left pleural effusion Operation Performed: Left thoracentesis Specimen/Specimens Removed: Apprx 600cc of pale yellow fluid aspirated Estimated Blood Loss: EBL {In ML}: 1 Date of Surgery/Procedure: 12/01/17 Time of Surgery/Procedure: 14:00
--- NOTE | 2017-12-01 14:50 | RAD ---
Date of service: 12/01/2017 PROCEDURE: CHEST RADIOGRAPH, 1 VIEW HISTORY: Left thoracentesis COMPARISON: 11/30/2017. FINDINGS: LUNGS: The lungs are hyperinflated and there is peribronchial thickening with chronic changes in both lungs. PLEURA: Interval significant decrease in size of left pleural effusion. No pneumothorax. CARDIOVASCULAR: Normal. OSSEOUS STRUCTURES: Within normal limits for the patient's age. VISUALIZED UPPER ABDOMEN: Normal. OTHER FINDINGS: There is a peripherally calcified left breast implant. IMPRESSION: Status post left thoracentesis, near complete resolution of left pleural effusion. No pneumothorax.
[2017-12-01 15:04] LABS: BODY FLUID TYPE PLEURAL
[2017-12-01] MEDS: Albuterol 0.083% Inhal Sol (2.5 mg/3 mL) UD INH PRN (16:04)
[2017-12-01 16:05] LABS: BF GROSS APPEARANCE SL CLOUDY (CLEAR)
[2017-12-01 16:06] LABS: BODY FLUID MONO/MACROPHAGE 1 % (0-0); BODY FLUID TOTAL COUNT 100 (0-0)
[2017-12-01] MEDS: Azithromycin 500 MG in Sodium Chloride 0.9% 250 ML IVPB SCH (16:18)
[2017-12-01] MEDS: Digoxin 125 mcg (0.125 mg) Tab PO SCH (17:29)
--- NOTE | 2017-12-01 20:23 | PN ---
Copied To: Nohelia Martinez MD Attending MD: Nohelia Martinez MD DATE: 12/01/2017 ENDO FOLLOWUP NOTE LOCATION: In room 668. SUBJECTIVE: This is a 72-year-old female with recent uncontrolled type 2 insulin-requiring diabetes with extremes of glycemic fluctuation and persistent marked hyperglycemic accelerations because of the variability of her oral intake and also because of the refusal for insulin therapy thereof. Her glucose values today are ranging from 147 to 295 and 435 mg/dL. It was 394 to over 500 at bedtime last night. ASSESSMENT AND PLAN: So at this time, we will modify once again her basal and bolus insulin because of the suboptimal meal portions as noted by the nursing staff. We will lower her Novolog to 8 units subcutaneously t.i.d. before meals to start today. We will titrate incrementally as indicated to optimize metabolic control. We will also modify her coverage scale to obviate hypoglycemia and detailed orders have been given. We will also modify her basal insulin and lower the Levemir down to 12 units subcutaneously at bedtime daily to start tonight. We will obtain serial chemistries and supplement accordingly as needed. We will follow. Nohelia Martinez MD
[2017-12-01] MEDS: Rosuvastatin Calcium 2.5 mg Tab PO SCH (21:21)
[2017-12-01] MEDS ORDERED: Insulin Detemir 100 units/ml Vial (Levemir) SC SCH (22:00)
[2017-12-02] MEDS: Albuterol-Ipratrop 3 mg / 0.5 (3 ml) UD INH SCH ×4 (01:17→19:36)
[2017-12-02] MEDS: Budesonide 0.5 mg/2 ml Inhal Susp UD INH SCH ×2 (08:04→19:37)
[2017-12-02] MEDS: (Novolog) Insulin Aspart, Recombinant 100 u/ml 10 ml vial SC SCH ×7 (08:42→22:58)
[2017-12-02] MEDS: Lidocaine 5% Patch TD SCH (09:35)
[2017-12-02] MEDS: Lactobacillus Acidophilus 500 MU Cap PO SCH ×2 (09:35→17:09)
--- NOTE | 2017-12-02 14:48 | CP.PCM.PN ---
Subjective - Date & Time of Evaluation Date of Evaluation: 12/02/17 Time of Evaluation: 13:40 - Subjective Subjective: patient seen and examined Status post thoracentesis Breathing much better Afebrile No chest pain Alert and oriented Objective - Vital Signs/Intake and Output Vital Signs (last 24 hours): Temp Pulse Resp BP Pulse Ox 98.4 F 101 H 18 141/67 97 12/02/17 07:00 12/02/17 07:00 12/02/17 07:00 12/02/17 09:35 12/02/17 07:00 Intake and Output: 12/02/17 12/02/17 06:59 18:59 Intake Total 590 Output Total 4000 Balance -3410 - Medications Medications: Current Medications Albuterol Sulfate (Albuterol 0.083% Inhal Deirdre (2.5 Mg/3 Ml) Ud) 2.5 mg INH RQ3 PRN PRN Reason: copd exac or chf brkthru Last Admin: 12/01/17 16:04 Dose: 2.5 mg Albuterol/Ipratropium (Duoneb 3 Mg/0.5 Mg (3 Ml) Ud) 3 ml INH RQ6 [facility] Last Admin: 12/02/17 13:28 Dose: 3 ml Alprazolam (Xanax) 0.25 mg PO Q6 PRN PRN Reason: decreasing dose if able to ying Stop: 12/03/17 12:01 Last Admin: 12/02/17 02:20 Dose: 0.25 mg Aspirin (Ecotrin) 81 mg PO DAILY [facility] Last Admin: 12/02/17 09:35 Dose: 81 mg Budesonide (Pulmicort Respules) 0.5 mg INH RQ12 [facility] Last Admin: 12/02/17 08:04 Dose: 0.5 mg Digoxin (Digoxin) 0.125 mg PO DAILY@1800 [facility] Last Admin: 12/01/17 17:29 Dose: 0.125 mg Escitalopram Oxalate (Lexapro) 5 mg PO DAILY [facility] Last Admin: 12/02/17 09:35 Dose: 5 mg Famotidine (Pepcid) 20 mg PO DAILY [facility] Last Admin: 12/02/17 09:35 Dose: 20 mg Furosemide (Lasix) 40 mg PO DAILY [facility] Last Admin: 12/02/17 09:35 Dose: 40 mg Gabapentin (Neurontin) 800 mg PO Q8H [facility] Last Admin: 12/02/17 13:43 Dose: 800 mg Glimepiride (Amaryl) 4 mg PO ACBD [facility] Last Admin: 12/02/17 09:35 Dose: 4 mg Azithromycin 500 mg/ Sodium (Chloride) 250 mls @ 250 mls/hr IVPB Q24H [facility] PRN Reason: Protocol Last Admin: 12/01/17 16:18 Dose: 250 mls/hr Ceftriaxone Sodium 1 gm/ (Sodium Chloride) 100 mls @ 100 mls/hr IVPB Q12H [facility] PRN Reason: Protocol Last Admin: 12/02/17 05:32 Dose: 100 mls/hr Insulin Aspart (Novolog) 0 unit SC ACHS [facility] Last Admin: 12/02/17 13:43 Dose: 3 u Insulin Aspart (Novolog) 10 unit SC AC [facility] Last Admin: 12/02/17 12:36 Dose: Not Given Insulin Detemir (Levemir) 14 unit SC [facility] Lactobacillus Acidophilus (Bacid Acidophilus) 1 cap PO BID [facility] Last Admin: 12/02/17 09:35 Dose: 1 cap Lidocaine (Lidoderm) 1 ea TD DAILY [facility] Last Admin: 12/02/17 09:35 Dose: 1 ea Losartan Potassium (Cozaar) 50 mg PO DAILY [facility] Last Admin: 12/02/17 09:35 Dose: 50 mg Nicotine (Nicoderm Cq) 1 patch TD DAILY [facility] Last Admin: 12/02/17 09:35 Dose: 1 patch Rivaroxaban (Xarelto) 20 mg PO DAILY [facility] Last Admin: 12/02/17 09:35 Dose: 20 mg Rosuvastatin Calcium (Crestor) 2.5 mg PO [facility] Last Admin: 12/01/17 21:21 Dose: 2.5 mg - Labs Labs: 11/25/17 06:14 11/29/17 06:46 PT 11.0 SECONDS (9.7-12.2) 11/23/17 16:04 INR 1.0 11/23/17 16:04 APTT 37 SECONDS (21-34) H 11/23/17 16:04 - Head Exam Head Exam: ATRAUMATIC, NORMOCEPHALIC - ENT Exam ENT Exam: Mucous Membranes Moist - Neck Exam Neck Exam: Normal Inspection - Respiratory Exam Respiratory Exam: Decreased Breath Sounds - GI/Abdominal Exam GI & Abdominal Exam: Soft, Normal Bowel Sounds - Neurological Exam Neurological Exam: Alert Assessment and Plan (1) Pleural effusion Assessment & Plan: status post thoracentesis 600 cc of fluid removed fluid analysis Status: Acute (2) COPD exacerbation Assessment & Plan: Nebulizer treatment Status: Acute (3) Pulmonary nodule Status: Acute (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
--- NOTE | 2017-12-02 15:47 | PN ---
Copied To: Nohelia Martinez MD Attending MD: Nohelia Martinez MD ENDO FOLLOWUP NOTE DATE: 12/02/2017 LOCATION: Room 668. SUBJECTIVE: This is a 72-year-old female with recent uncontrolled type 2 insulin-requiring diabetes with extremes of glycemic fluctuations related to the variability of her oral intake and also her intermittent refusal of the insulin regimen as per the nursing staff. Her glucose levels overnight ranged from 233 to 333 mg/dL. It was 461 at bedtime last night. The latest chemistry showed a BUN of 15, sodium 133, potassium 4.9, chloride 100, CO2 of 29, glucose 234, and creatinine 0.6. So at this time, we will repeat the chemistries and supplement accordingly as needed. We will also modify once again her basal and bolus insulin regimen and increase the Levemir to 14 units subcu at bedtime daily prescribed tonight. We will continue the low-dose correction scale using NovoLog insulin to obviate hypoglycemia and detailed orders have been given. We will also titrate her mealtime insulin with NovoLog to be given at 10 units subcu t.i.d. before meals to start this morning at lunchtime as ordered. We will obtain serial chemistries and supplement accordingly as needed. We will follow. Nohelia Martinez MD
[2017-12-02 15:50] LABS: ALB/GLOB RATIO 0.9 (1.0-2.1); ALBUMIN 2.5 g/dL (3.5-5.0); ALT/SGPT 25 U/L (9-52); AST/SGOT 23 U/L (14-36); BLOOD UREA NITROGEN 13 mg/dL (7-17); CALCIUM 8.4 mg/dl (8.6-10.4); GFR AFRICAN-AMERICAN > 60; GFR NON-AFRICAN AMERICAN > 60
[2017-12-02] MEDS: Azithromycin 500 MG in Sodium Chloride 0.9% 250 ML IVPB SCH (17:00)
[2017-12-02] MEDS: Magnesium Oxide 400 mg Tab UD PO SCH (17:10)
[2017-12-02] MEDS: Digoxin 125 mcg (0.125 mg) Tab PO SCH (17:11)
[2017-12-02 17:37] VITALS: RESP 20
[2017-12-02] MEDS ORDERED: Digoxin 125 mcg (0.125 mg) Tab PO STA ×2 (18:25→18:28)
--- NOTE | 2017-12-02 18:30 | CP.PCM.PN ---
Subjective - Date & Time of Evaluation Date of Evaluation: 12/02/17 Time of Evaluation: 18:30 - Subjective Subjective: Pt seen and examined at bedside. Breathing much better. Still with phlegm but not as much as before. Breathing easy after thoracentesis and pt very animated in recounting her passing acquaintance with a large bore needle that drained her lungs and came up with 1500 ml of fluid. > Pt says she feels much better than before, except for her up and down blood sugar readings. But she knows that she can stabilize it once she gets home. Objective - Vital Signs/Intake and Output Vital Signs (last 24 hours): Temp Pulse Resp BP Pulse Ox 98.7 F 99 H 20 153/75 H 100 12/02/17 15:45 12/02/17 15:45 12/02/17 15:45 12/02/17 15:45 12/02/17 15:45 Intake and Output: 12/02/17 12/02/17 06:59 18:59 Intake Total 590 Output Total 4000 1200 Balance -3410 -1200 - Medications Medications: Current Medications Albuterol Sulfate (Albuterol 0.083% Inhal Deirdre (2.5 Mg/3 Ml) Ud) 2.5 mg INH RQ3 PRN PRN Reason: copd exac or chf brkthru Last Admin: 12/01/17 16:04 Dose: 2.5 mg Albuterol/Ipratropium (Duoneb 3 Mg/0.5 Mg (3 Ml) Ud) 3 ml INH RQ6 [facility] Last Admin: 12/02/17 13:28 Dose: 3 ml Alprazolam (Xanax) 0.25 mg PO Q6 PRN PRN Reason: decreasing dose if able to ying Stop: 12/03/17 12:01 Last Admin: 12/02/17 02:20 Dose: 0.25 mg Aspirin (Ecotrin) 81 mg PO DAILY [facility] Last Admin: 12/02/17 09:35 Dose: 81 mg Budesonide (Pulmicort Respules) 0.5 mg INH RQ12 [facility] Last Admin: 12/02/17 08:04 Dose: 0.5 mg Digoxin (Digoxin) 0.25 mg PO DAILY@1800 [facility] Digoxin (Digoxin) 0.125 mg PO STAT [facility] Stop: 12/02/17 18:29 Escitalopram Oxalate (Lexapro) 5 mg PO DAILY [facility] Last Admin: 12/02/17 09:35 Dose: 5 mg Famotidine (Pepcid) 20 mg PO DAILY [facility] Last Admin: 12/02/17 09:35 Dose: 20 mg Furosemide (Lasix) 20 mg PO DAILY [facility] Gabapentin (Neurontin) 800 mg PO Q8H [facility] Last Admin: 12/02/17 13:43 Dose: 800 mg Glimepiride (Amaryl) 4 mg PO ACBD [facility] Last Admin: 12/02/17 17:09 Dose: 4 mg Azithromycin 500 mg/ Sodium (Chloride) 250 mls @ 250 mls/hr IVPB Q24H [facility] PRN Reason: Protocol Last Admin: 12/02/17 17:00 Dose: 250 mls/hr Ceftriaxone Sodium 1 gm/ (Sodium Chloride) 100 mls @ 100 mls/hr IVPB Q12H [facility] PRN Reason: Protocol Last Admin: 12/02/17 18:26 Dose: 100 mls/hr Insulin Aspart (Novolog) 0 unit SC ACHS [facility] Last Admin: 12/02/17 16:52 Dose: Not Given Insulin Aspart (Novolog) 10 unit SC AC [facility] Last Admin: 12/02/17 17:09 Dose: 10 units Insulin Detemir (Levemir) 14 unit SC HS [facility] Lactobacillus Acidophilus (Bacid Acidophilus) 1 cap PO BID [facility] Last Admin: 12/02/17 17:09 Dose: 1 cap Lidocaine (Lidoderm) 1 ea TD DAILY [facility] Last Admin: 12/02/17 09:35 Dose: 1 ea Losartan Potassium (Cozaar) 50 mg PO DAILY [facility] Last Admin: 12/02/17 09:35 Dose: 50 mg Magnesium Oxide (Mag-Ox) 400 mg PO BID [facility] Last Admin: 12/02/17 17:10 Dose: 400 mg Nicotine (Nicoderm Cq) 1 patch TD DAILY [facility] Last Admin: 12/02/17 09:35 Dose: 1 patch Rivaroxaban (Xarelto) 20 mg PO DAILY [facility] Last Admin: 12/02/17 09:35 Dose: 20 mg Rosuvastatin Calcium (Crestor) 2.5 mg PO HS [facility] Last Admin: 12/01/17 21:21 Dose: 2.5 mg - Labs Labs: 11/25/17 06:14 12/02/17 15:22 PT 11.0 SECONDS (9.7-12.2) 07/26/18 16:04 INR 1.0 11/23/17 16:04 APTT 37 SECONDS (21-34) H 11/23/17 16:04 - Constitutional Appears: No Acute Distress - Head Exam Head Exam: NORMAL INSPECTION - ENT Exam ENT Exam: Mucous Membranes Moist, Normal Exam - Neck Exam Neck Exam: Full ROM, Normal Inspection - Respiratory Exam Respiratory Exam: Clear to Ausculation Bilateral, NORMAL BREATHING PATTERN - Cardiovascular Exam Cardiovascular Exam: REGULAR RHYTHM - GI/Abdominal Exam GI & Abdominal Exam: Normal Bowel Sounds - Rectal Exam Rectal Exam: Deferred - Extremities Exam Additional comments: multiple and numerous venipuncture ecchymoses - Back Exam Back Exam: NORMAL INSPECTION (gait not observed as pt is an amputee) - Neurological Exam Neurological Exam: Alert, Awake, CN II-XII Intact, Oriented x3, Reflexes Normal Neuro motor strength exam: Left Upper Extremity: 4, Right Upper Extremity: 4, Left Lower Extremity: 4, Right Lower Extremity: 4 - Psychiatric Exam Psychiatric exam: Normal Affect, Normal Mood - Skin Skin Exam: Dry, Intact (+ stage 2 decubitus ulcer on L ASIS and on L ear pinna) , Normal Color, Warm Assessment and Plan (1) Diabetes mellitus with hyperosmolarity without hyperglycemic hyperosmolar nonketotic coma Assessment & Plan: improved. no weakness Status: Acute (2) Altered mental status Assessment & Plan: improving Status: Acute (3) Generalized muscle weakness Assessment & Plan: more 2ndry to being homebound Status: Acute (4) Decubitus ulcer of left buttock, stage 2 Assessment & Plan: dry and improving Status: Acute
[2017-12-02] MEDS: Rosuvastatin Calcium 2.5 mg Tab PO SCH (21:49)
[2017-12-02] MEDS ORDERED: Insulin Detemir 100 units/ml Vial (Levemir) SC SCH (22:00)
[2017-12-03] MEDS: Albuterol-Ipratrop 3 mg / 0.5 (3 ml) UD INH SCH ×4 (02:27→20:04)
[2017-12-03] MEDS: Budesonide 0.5 mg/2 ml Inhal Susp UD INH SCH ×2 (07:50→20:03)
[2017-12-03] MEDS: (Novolog) Insulin Aspart, Recombinant 100 u/ml 10 ml vial SC SCH ×7 (08:09→22:48)
[2017-12-03 08:59] LABS: BASO % 0.7 % (0.0-2.0); EOS # 0.2 K/uL (0.0-0.7); EOS % 2.6 % (0.0-4.0); LYMPH # 2.4 K/uL (1.0-4.3); LYMPH % 35.2 % (20.0-40.0); MEAN CELL VOLUME 92.3 fL (81.0-99.0); MEAN CORPUSCULAR HEMOGLOBIN 31.3 pg (27.0-31.0); MEAN CORPUSCULAR HGB CONC 33.9 g/dL (33.0-37.0); MEAN PLATELET VOLUME 8.9 fL (7.2-11.7); MONO # 0.6 K/uL (0.0-0.8); MONO % 8.9 % (0.0-10.0); NEUT # 3.6 K/uL (1.8-7.0); NEUT % 52.6 % (50.0-75.0); RBC 3.81 Mil/uL (3.80-5.20); RED CELL DISTRIBUTION WIDTH 13.6 % (11.5-14.5); WHITE BLOOD COUNT 6.8 K/uL (4.8-10.8)
[2017-12-03 09:03] LABS: HEMOGLOBIN 11.9 g/dL (11.0-16.0)
[2017-12-03 09:17] LABS: ALB/GLOB RATIO 0.9 (1.0-2.1); ALBUMIN 2.6 g/dL (3.5-5.0); ALT/SGPT 24 U/L (9-52); AST/SGOT 25 U/L (14-36); BLOOD UREA NITROGEN 13 mg/dL (7-17); CALCIUM 8.5 mg/dl (8.6-10.4); GFR AFRICAN-AMERICAN > 60; GFR NON-AFRICAN AMERICAN > 60
[2017-12-03] MEDS: Magnesium Oxide 400 mg Tab UD PO SCH ×2 (10:19→22:45)
[2017-12-03] MEDS: Lactobacillus Acidophilus 500 MU Cap PO SCH ×2 (10:19→18:09)
[2017-12-03] MEDS: Lidocaine 5% Patch TD SCH (10:20)
--- NOTE | 2017-12-03 15:44 | PN ---
Copied To: Nohelia Martinez MD Attending MD: Nohelia Martinez MD DATE: 12/03/2017 ENDO FOLLOW-UP NOTE. LOCATION: In room 668. SUBJECTIVE: This is a 72-year-old female with recent uncontrolled type 2 insulin-requiring diabetes, now being followed closely for metabolic management. The patient has been extremely difficult to manage diabetic condition because of refusal to take her insulin regimen as scheduled and prescribed and also to take her insulin regimen after meals, which is not as prescribed since we have to check the insulin prior to the meals for the basic physiologic effect as required. Her glucose values overnight were extremely elevated at she refused the mid-day insulin as noted by the nursing staff. Her chemistry showed a BUN of 13, sodium 137, potassium 4.7, chloride 99, CO2 of 36, glucose 203, and creatinine 0.8. ASSESSMENT AND PLAN: So, at this time, we will continue the modified basal and bolus insulin regimen as given with Levemir given as 14 units subcutaneously at bedtime daily as ordered. We will continue the NovoLog given as 10 units subcutaneously t.i.d. before meals as given. We will titrate incrementally as indicated to optimize metabolic control. We will follow and advise accordingly. Nohelia Martinez MD
[2017-12-03] MEDS: Azithromycin 500 MG in Sodium Chloride 0.9% 250 ML IVPB SCH (16:12)
[2017-12-03] MEDS ORDERED: INSULIN ASPAR SQ SCH (18:00)
[2017-12-03] MEDS ORDERED: INSULIN N SQ SCH (18:00)
[2017-12-03] MEDS ORDERED: Digoxin 125 mcg (0.125 mg) Tab PO SCH (18:00)
[2017-12-03 18:10] VITALS: PULSE 109
[2017-12-03 19:04] LABS: LDH PLEURAL FLUID 44 U/L; TOTAL PROTEIN PLEURAL FLUID <3.0 g/dL
[2017-12-03] MEDS ORDERED: Insulin Detemir 100 units/ml Vial (Levemir) SC SCH ×2 (22:00)
[2017-12-03] MEDS: Rosuvastatin Calcium 2.5 mg Tab PO SCH (22:36)
[2017-12-04] MEDS: Albuterol-Ipratrop 3 mg / 0.5 (3 ml) UD INH SCH ×3 (02:28→13:46)
--- NOTE | 2017-12-04 05:00 | PN ---
Copied To: Nohelia Martinez MD Attending MD: Nohelia Martinez MD DATE: 12/03/2017 LOCATION: Room 668 This is a 72-year-old female with recent uncontrolled type 2 insulin requiring diabetes with extremes of glycemic fluctuations related to the patient's refusal of her insulin regimen as noted with supervening hyperglycemic accelerations as expected. Her glucose levels today have ranged from 380 to 386 mg/dL. Her latest chemistries showed a BUN of 13, sodium 137, potassium 4.7, chloride 99, CO2 of 36, glucose 203, creatinine 0.8. At this time, we will modify once again her basal insulin and also change and discontinue her NovoLog insulin given t.i.d. before meals as ordered. We will switch her back to her home insulin premix insulin regimen and we will start out with a lower dose of Novolin 70/30 given the 16 units before breakfast and 10 units before dinner as ordered. We will also lower the basal insulin with Levemir given as 8 units subcu at bedtime daily is given. The patient has been refusing higher doses of insulin despite the higher glucose values as noted. We will obtain serial chemistry and supplement accordingly as needed. We will follow. Nohelia Martinez MD
[2017-12-04] MEDS ORDERED: (Novolin 70/30) NPH/Regular 70/30 Units/ml 10 ml vial SC SCH ×2 (07:30→16:30)
[2017-12-04] MEDS: Budesonide 0.5 mg/2 ml Inhal Susp UD INH SCH (07:40)
[2017-12-04] MEDS: (Novolog) Insulin Aspart, Recombinant 100 u/ml 10 ml vial SC SCH ×2 (08:02→12:00)
[2017-12-04] MEDS ORDERED: CASEI PO SCH (10:00)
[2017-12-04] MEDS ORDERED: FOS PO SCH (10:00)
[2017-12-04] MEDS ORDERED: Calcium-Vit D 500 mg-200 Units Tab UD PO SCH (10:00)
[2017-12-04] MEDS ORDERED: B BIF PO SCH (10:00)
[2017-12-04] MEDS ORDERED: B LON PO SCH (10:00)
[2017-12-04] MEDS ORDERED: ACID PO SCH (10:00)
[2017-12-04] MEDS: Magnesium Oxide 400 mg Tab UD PO SCH (10:00)
[2017-12-04] MEDS: Lidocaine 5% Patch TD SCH (10:01)
[2017-12-04] MEDS: Lactobacillus Acidophilus 500 MU Cap PO SCH (10:01)
--- NOTE | 2017-12-04 15:35 | CP.PCM.PN ---
Subjective - Date & Time of Evaluation Date of Evaluation: 12/04/17 Time of Evaluation: 15:33 - Subjective Subjective: PT CLEARED FOR D/C HOME TODAY PER DR. PARSON. SHE OFFERS NO COMPLAINTS AND IS RESTING COMFORTABLE IN BED. NO SOB. ORIGINAL PLAN TO D/C TO [facility] CHANGED TO A D/C HOME; PT PREFERS TO GO HOME TODAY AND IS COMFORTABLE LEAVING TODAY. PT STATES HER SON WILL PICK HER UP. MED REC AND RX DONE BY DR. PARSON LAST NIGHT. NO FURTHER ORDERS. Objective - Vital Signs/Intake and Output Vital Signs (last 24 hours): Temp Pulse Resp BP Pulse Ox 97.6 F 109 H 20 125/69 98 12/04/17 07:40 12/04/17 12:04 12/04/17 07:40 12/04/17 10:00 12/04/17 07:40 Intake and Output: 12/04/17 12/04/17 06:59 18:59 Intake Total 350 Output Total 850 Balance -500 - Medications Medications: Current Medications Albuterol Sulfate (Albuterol 0.083% Inhal Deirdre (2.5 Mg/3 Ml) Ud) 2.5 mg INH RQ3 PRN PRN Reason: copd exac or chf brkthru Last Admin: 12/01/17 16:04 Dose: 2.5 mg Albuterol/Ipratropium (Duoneb 3 Mg/0.5 Mg (3 Ml) Ud) 3 ml INH RQ6 [facility] Last Admin: 12/04/17 13:46 Dose: 3 ml Aspirin (Ecotrin) 81 mg PO DAILY [facility] Last Admin: 12/04/17 10:00 Dose: 81 mg Budesonide (Pulmicort Respules) 0.5 mg INH RQ12 [facility] Last Admin: 12/04/17 07:40 Dose: 0.5 mg Calcium/Vitamin D (Oyster Shell Calcium/Vitamin D 500 Mg-200 Iu) 1 tab PO DAILY [facility] Last Admin: 12/04/17 10:01 Dose: 1 tab Digoxin (Digoxin) 0.25 mg PO DAILY@1800 [facility] Last Admin: 12/03/17 18:09 Dose: 0.25 mg Escitalopram Oxalate (Lexapro) 5 mg PO DAILY [facility] Last Admin: 12/04/17 10:00 Dose: 5 mg Famotidine (Pepcid) 20 mg PO DAILY [facility] Last Admin: 12/04/17 10:00 Dose: 20 mg Furosemide (Lasix) 20 mg PO DAILY [facility] Last Admin: 12/04/17 10:00 Dose: 20 mg Gabapentin (Neurontin) 800 mg PO Q8H [facility] Last Admin: 12/04/17 14:32 Dose: 800 mg Glimepiride (Amaryl) 4 mg PO ACBD [facility] Last Admin: 12/04/17 08:32 Dose: 4 mg Azithromycin 500 mg/ Sodium (Chloride) 250 mls @ 250 mls/hr IVPB Q24H [facility] PRN Reason: Protocol Last Admin: 12/03/17 16:12 Dose: 250 mls/hr Ceftriaxone Sodium 1 gm/ (Sodium Chloride) 100 mls @ 100 mls/hr IVPB Q12H [facility] PRN Reason: Protocol Last Admin: 12/04/17 06:23 Dose: 100 mls/hr Insulin Aspart (Novolog) 0 unit SC ACHS [facility] Last Admin: 12/04/17 12:00 Dose: Not Given Insulin Detemir (Levemir) 8 unit SC HS [facility] Last Admin: 12/03/17 22:36 Dose: 8 units Insulin Human Isoph/Insulin Regular (Novolin 70/30 (70/30 Units/Ml) 10 Ml) 16 units SC ACB [facility] Last Admin: 12/04/17 08:31 Dose: 16 units Insulin Human Isoph/Insulin Regular (Novolin 70/30 (70/30 Units/Ml) 10 Ml) 10 units SC ACD [facility] Lactobacillus Acidophilus (Bacid Acidophilus) 1 cap PO BID [facility] Last Admin: 12/04/17 10:01 Dose: 1 cap Lidocaine (Lidoderm) 1 ea TD DAILY [facility] Last Admin: 12/04/17 10:01 Dose: 1 ea Losartan Potassium (Cozaar) 50 mg PO DAILY [facility] Last Admin: 12/04/17 09:59 Dose: 50 mg Magnesium Oxide (Mag-Ox) 400 mg PO BID [facility] Last Admin: 12/04/17 10:00 Dose: 400 mg Mirtazapine (Remeron) 15 mg PO HS [facility] Last Admin: 12/03/17 22:46 Dose: 15 mg Nicotine (Nicoderm Cq) 1 patch TD DAILY [facility] Last Admin: 12/04/17 10:01 Dose: 1 patch Rivaroxaban (Xarelto) 20 mg PO DAILY [facility] Last Admin: 12/04/17 10:00 Dose: 20 mg Rosuvastatin Calcium (Crestor) 2.5 mg PO HS [facility] Last Admin: 12/03/17 22:36 Dose: 2.5 mg - Labs Labs: 12/03/17 08:41 12/03/17 08:41 PT 11.0 SECONDS (9.7-12.2) 11/23/17 16:04 INR 1.0 11/23/17 16:04 APTT 37 SECONDS (21-34) H 11/23/17 16:04
--- NOTE | 2017-12-04 15:58 | CP.PCM.PN ---
Subjective - Date & Time of Evaluation Date of Evaluation: 12/04/17 Time of Evaluation: 10:00 - Subjective Subjective: patient seen and examined Breathing much improved Afebrile Status post thoracentesis Pleural fluid consistent with transudate Stable from pulmonary standpoint Continue nebulizer treatment Objective - Vital Signs/Intake and Output Vital Signs (last 24 hours): Temp Pulse Resp BP Pulse Ox 97.6 F 109 H 20 125/69 98 12/04/17 07:40 12/04/17 12:04 12/04/17 07:40 12/04/17 10:00 12/04/17 07:40 Intake and Output: 12/04/17 12/04/17 06:59 18:59 Intake Total 350 Output Total 850 Balance -500 - Medications Medications: Current Medications Albuterol Sulfate (Albuterol 0.083% Inhal Deirdre (2.5 Mg/3 Ml) Ud) 2.5 mg INH RQ3 PRN PRN Reason: copd exac or chf brkthru Last Admin: 12/01/17 16:04 Dose: 2.5 mg Albuterol/Ipratropium (Duoneb 3 Mg/0.5 Mg (3 Ml) Ud) 3 ml INH RQ6 [facility] Last Admin: 12/04/17 13:46 Dose: 3 ml Aspirin (Ecotrin) 81 mg PO DAILY [facility] Last Admin: 12/04/17 10:00 Dose: 81 mg Budesonide (Pulmicort Respules) 0.5 mg INH RQ12 [facility] Last Admin: 12/04/17 07:40 Dose: 0.5 mg Calcium/Vitamin D (Oyster Shell Calcium/Vitamin D 500 Mg-200 Iu) 1 tab PO DAILY [facility] Last Admin: 12/04/17 10:01 Dose: 1 tab Digoxin (Digoxin) 0.25 mg PO DAILY@1800 [facility] Last Admin: 12/03/17 18:09 Dose: 0.25 mg Escitalopram Oxalate (Lexapro) 5 mg PO DAILY [facility] Last Admin: 12/04/17 10:00 Dose: 5 mg Famotidine (Pepcid) 20 mg PO DAILY [facility] Last Admin: 12/04/17 10:00 Dose: 20 mg Furosemide (Lasix) 20 mg PO DAILY [facility] Last Admin: 12/04/17 10:00 Dose: 20 mg Gabapentin (Neurontin) 800 mg PO Q8H [facility] Last Admin: 12/04/17 14:32 Dose: 800 mg Glimepiride (Amaryl) 4 mg PO ACBD [facility] Last Admin: 12/04/17 08:32 Dose: 4 mg Azithromycin 500 mg/ Sodium (Chloride) 250 mls @ 250 mls/hr IVPB Q24H [facility] PRN Reason: Protocol Last Admin: 12/03/17 16:12 Dose: 250 mls/hr Ceftriaxone Sodium 1 gm/ (Sodium Chloride) 100 mls @ 100 mls/hr IVPB Q12H [facility] PRN Reason: Protocol Last Admin: 12/04/17 06:23 Dose: 100 mls/hr Insulin Aspart (Novolog) 0 unit SC ACHS [facility] Last Admin: 12/04/17 12:00 Dose: Not Given Insulin Detemir (Levemir) 8 unit SC HS [facility] Last Admin: 12/03/17 22:36 Dose: 8 units Insulin Human Isoph/Insulin Regular (Novolin 70/30 (70/30 Units/Ml) 10 Ml) 16 units SC ACB [facility] Last Admin: 12/04/17 08:31 Dose: 16 units Insulin Human Isoph/Insulin Regular (Novolin 70/30 (70/30 Units/Ml) 10 Ml) 10 units SC ACD [facility] Lactobacillus Acidophilus (Bacid Acidophilus) 1 cap PO BID [facility] Last Admin: 12/04/17 10:01 Dose: 1 cap Lidocaine (Lidoderm) 1 ea TD DAILY [facility] Last Admin: 12/04/17 10:01 Dose: 1 ea Losartan Potassium (Cozaar) 50 mg PO DAILY [facility] Last Admin: 12/04/17 09:59 Dose: 50 mg Magnesium Oxide (Mag-Ox) 400 mg PO BID [facility] Last Admin: 12/04/17 10:00 Dose: 400 mg Mirtazapine (Remeron) 15 mg PO [facility] Last Admin: 12/03/17 22:46 Dose: 15 mg Nicotine (Nicoderm Cq) 1 patch TD DAILY [facility] Last Admin: 12/04/17 10:01 Dose: 1 patch Rivaroxaban (Xarelto) 20 mg PO DAILY [facility] Last Admin: 12/04/17 10:00 Dose: 20 mg Rosuvastatin Calcium (Crestor) 2.5 mg PO HS [facility] Last Admin: 12/03/17 22:36 Dose: 2.5 mg - Labs Labs: 08/05/18 08:41 12/03/17 08:41 PT 11.0 SECONDS (9.7-12.2) 11/23/17 16:04 INR 1.0 11/23/17 16:04 APTT 37 SECONDS (21-34) H 11/23/17 16:04 Assessment and Plan (1) COPD exacerbation Status: Acute (2) Pulmonary nodule Status: Acute (3) Pleural effusion Status: Acute (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
[2017-12-04 16:19] VITALS: BP 154/71; PULSE 97; TEMP 98.2; O2SAT 99
--- NOTE | 2017-12-04 20:02 | PN ---
Copied To: Nohelia Martinez MD Attending MD: Nohelia Martinez MD DATE: 12/04/2017 ENDO FOLLOWUP NOTE LOCATION: Room 668. SUBJECTIVE: This is a 72-year-old female with recent uncontrolled type 2 insulin-requiring diabetes, now being followed closely for metabolic management. Her glycemic levels are fluctuating, but has improved overnight with the change of insulin regimen as given. Her glucose values have ranged from 148 to 286 mg/dL. It was 380 at that time last night. LABORATORY DATA: Her latest chemistry showed a BUN of 13, sodium 137, potassium 4.7, chloride 99, CO2 of 36, glucose 203, and creatinine 0.8. ASSESSMENT AND PLAN: So, at this time we will continue the modified basal and premixed insulin regimen as given to allow for dose equilibration and keep her on the Novolin 70/30 given as 16 units before breakfast and 10 units before dinner to start today. We will also continue the basal insulin given as Levemir at 8 units subcutaneously at bedtime daily as given. We will titrate incrementally as indicated to optimize metabolic control. We will obtain serial chemistries and supplement accordingly as need. We will follow. Nohelia Martinez MD
--- NOTE | 2017-12-12 07:04 | CP.PCM.DIS ---
Provider - Provider Date of Admission: 11/23/17 19:14 Attending physician: Homer Soriano MD Primary care physician: Dr. Homer Soriano Consults: Endocrinology: Dr. Nohelia Hannah Pulmonary: Dr. Óscar Martino Interv Radiology: Dr. Sean Valderrama Diagnosis - Discharge Diagnosis (1) Diabetes mellitus with hyperosmolarity without hyperglycemic hyperosmolar nonketotic coma Status: Acute (2) Altered mental status Status: Acute (3) Generalized muscle weakness Status: Acute (4) Decubitus ulcer of left buttock, stage 2 Status: Acute Hospital Course - Lab Results Lab Results: Micro Results 12/01/17 15:48 Pleural Fluid Gram Stain - Final 12/01/17 15:48 Pleural Fluid Body Fluid Culture - Final No growth. 11/27/17 06:13 Stool Stool Culture - Final NO SALMONELLA, SHIGELLA OR CAMPYLOBACTER ISOLATED. 11/27/17 05:28 Naris MRSA Culture - Final MRSA NOT DETECTED 11/24/17 21:51 Urine,Clean Catch Urine Culture - Final No Growth (<1,000 CFU/ML) 11/23/17 22:24 Naris MRSA Culture (Admit) - Final MRSA NOT DETECTED Most Recent Lab Values WBC 6.8 K/uL (4.8-10.8) 12/03/17 08:41 RBC 3.81 Mil/uL (3.80-5.20) 12/03/17 08:41 Hgb 11.9 g/dL (11.0-16.0) D 12/03/17 08:41 Hct 35.1 % (34.0-47.0) 12/03/17 08:41 MCV 92.3 fL (81.0-99.0) 12/03/17 08:41 MCH 31.3 pg (27.0-31.0) H 12/03/17 08:41 MCHC 33.9 g/dL (33.0-37.0) 12/03/17 08:41 RDW 13.6 % (11.5-14.5) 12/03/17 08:41 Plt Count 322 K/uL (130-400) 12/03/17 08:41 MPV 8.9 fL (7.2-11.7) 12/03/17 08:41 Neut % (Auto) 52.6 % (50.0-75.0) 12/03/17 08:41 Lymph % (Auto) 35.2 % (20.0-40.0) 12/03/17 08:41 Brooke % (Auto) 8.9 % (0.0-10.0) 12/03/17 08:41 Eos % (Auto) 2.6 % (0.0-4.0) 12/03/17 08:41 Baso % (Auto) 0.7 % (0.0-2.0) 12/03/17 08:41 Neut # (Auto) 3.6 K/uL (1.8-7.0) 12/03/17 08:41 Lymph # (Auto) 2.4 K/uL (1.0-4.3) 12/03/17 08:41 Brooke # (Auto) 0.6 K/uL (0.0-0.8) 12/03/17 08:41 Eos # (Auto) 0.2 K/uL (0.0-0.7) 12/03/17 08:41 Baso # (Auto) 0.0 K/uL (0.0-0.2) 12/03/17 08:41 PT 11.0 SECONDS (9.7-12.2) 11/23/17 16:04 INR 1.0 11/23/17 16:04 APTT 37 SECONDS (21-34) H 11/23/17 16:04 pO2 23 mm/Hg (30-55) L 11/23/17 17:23 VBG pH 7.29 (7.32-7.43) L 11/23/17 17:23 VBG pCO2 65 mmHg (40-60) H 11/23/17 17:23 VBG HCO3 25.3 mmol/L 11/23/17 17:23 VBG Total CO2 33.3 mmol/L (22-28) H 11/23/17 17:23 VBG O2 Sat (Calc) 50.7 % (40-65) 11/23/17 17:23 VBG Base Excess 2.8 mmol/L (0.0-2.0) H 11/23/17 17:23 VBG Potassium 5.2 mmol/L (3.6-5.2) 11/23/17 17:23 Sodium 130.0 mmol/l (132-148) L 11/23/17 17:23 Chloride 94.0 mmol/L (98-107) L 11/23/17 17:23 Glucose 586 mg/dl (65-105) H* D 11/23/17 17:23 Lactate 1.8 mmol/L (0.7-2.1) 11/23/17 17:23 Crit Value Called To Dr villanueva 11/23/17 17:23 Crit Value Called By Logan painting 11/23/17 17:23 Crit Value Read Back Y 11/23/17 17:23 Blood Gas Notified Time 1726 11/23/17 17:23 Sodium 137 mmol/L (132-148) 12/03/17 08:41 Potassium 4.7 mmol/L (3.6-5.2) 12/03/17 08:41 Chloride 99 mmol/L (98-107) 12/03/17 08:41 Carbon Dioxide 36 mmol/L (22-30) H 12/03/17 08:41 Anion Gap 7 (10-20) L 12/03/17 08:41 BUN 13 mg/dL (7-17) 12/03/17 08:41 Creatinine 0.8 mg/dL (0.7-1.2) 12/03/17 08:41 Est GFR ( Amer) > 60 12/03/17 08:41 Est GFR (Non-Af Amer) > 60 12/03/17 08:41 POC Glucose (mg/dL) 354 mg/dL (65-110) H 12/04/17 16:35 Random Glucose 203 mg/dL (65-105) H 12/03/17 08:41 Hemoglobin A1c 15.0 % (4.2-6.5) H D 11/25/17 06:14 Serum Osmolality 373 mosm/kg (272-300) H 11/23/17 17:26 Calcium 8.5 mg/dl (8.6-10.4) L 12/03/17 08:41 Phosphorus 4.1 mg/dL (2.5-4.5) 12/02/17 15:22 Magnesium 1.4 mg/dL (1.6-2.3) L 12/02/17 15:22 Total Bilirubin 0.1 mg/dL (0.2-1.3) L 12/03/17 08:41 AST 25 U/L (14-36) 12/03/17 08:41 ALT 24 U/L (9-52) 12/03/17 08:41 Alkaline Phosphatase 72 U/L (38-126) 12/03/17 08:41 Troponin I 0.0160 ng/mL (0.00-0.120) 11/23/17 16:04 NT-Pro-B Natriuret Pep 468 pg/mL (0-900) 11/27/17 08:05 Total Protein 5.5 g/dL (6.3-8.3) L 12/03/17 08:41 Albumin 2.6 g/dL (3.5-5.0) L 12/03/17 08:41 Globulin 2.9 gm/dL (2.2-3.9) 12/03/17 08:41 Albumin/Globulin Ratio 0.9 (1.0-2.1) L 12/03/17 08:41 Prealbumin 11.8 mg/dL (17.6-36.0) L 12/02/17 15:22 TSH 3rd Generation 0.66 mIU/L (0.46-4.68) 11/24/17 16:28 Venous Blood Potassium 5.2 mmol/L (3.6-5.2) 11/23/17 17:23 Urine Color Yellow (YELLOW) 11/24/17 21:51 Urine Clarity Hazy (Clear) 11/24/17 21:51 Urine pH 5.0 (5.0-8.0) 11/24/17 21:51 Ur Specific [place] 1.005 (1.003-1.030) 11/24/17 21:51 Urine Protein 2+ mg/dL (NEGATIVE) H 11/24/17 21:51 Urine Glucose (UA) 2+ mg/dL (Normal) H 11/24/17 21:51 Urine Ketones Negative mg/dL (NEGATIVE) 11/24/17 21:51 Urine Blood Negative (NEGATIVE) 11/24/17 21:51 Urine Nitrate Negative (NEGATIVE) 11/24/17 21:51 Urine Bilirubin Negative (NEGATIVE) 11/24/17 21:51 Urine Urobilinogen Normal mg/dL (0.2-1.0) 11/24/17 21:51 Ur Leukocyte Esterase Neg [place]/uL (Negative) 11/24/17 21:51 Urine WBC (Auto) 1 /hpf (0-5) 11/24/17 21:51 Urine RBC (Auto) < 1 /hpf (0-3) 11/24/17 21:51 Ur Squamous Epith Cells 1 /hpf (0-5) 11/24/17 21:51 Amorphous Sediment Moderate /ul (<OCC) H 11/24/17 21:51 Urine Bacteria Occ (<OCC) H 11/24/17 21:51 Fluid Source Pleural 12/01/17 15:02 Fluid Appearance Sl cloudy (CLEAR) 12/01/17 15:02 Fluid WBC 619.0 /mm3 (0.0-300.0) H 12/01/17 15:02 Fluid RBC 568.0 /mm3 (0.0-0.0) H 12/01/17 15:02 Fluid Tot Cell Count 100 (0-0) H 12/01/17 15:02 Fluid Neutrophils 30.0 % (0-0) H 12/01/17 15:02 Fluid Lymphocytes 69.0 % (0-0) H 12/01/17 15:02 Fld Monocyte/Macrophag 1 % (0-0) H 12/01/17 15:02 Fluid Comment 12/01/17 15:02 Pleural Total Protein <3.0 g/dL 12/01/17 15:02 Pleural LDH 44 U/L 12/01/17 15:02 Stool Leukocytes, Qual Negative (NEGATIVE) 11/27/17 06:13 Stool Globin Immunochem Detected (Not Detected) H 11/27/17 06:13 Digoxin 0.5 ng/mL (0.8-2.0) L 12/02/17 15:22 Urine Opiates Screen Negative (NEGATIVE) 11/24/17 21:51 Urine Methadone Screen Negative (NEGATIVE) 11/24/17 21:51 Ur Barbiturates Screen Negative (NEGATIVE) 11/24/17 21:51 Ur Phencyclidine Scrn Negative (NEGATIVE) 11/24/17 21:51 Ur Amphetamines Screen Negative (NEGATIVE) 11/24/17 21:51 U Benzodiazepines Scrn Negative (NEGATIVE) 11/24/17 21:51 U Oth Cocaine Metabols Negative (NEGATIVE) 11/24/17 21:51 U Cannabinoids Screen Negative (NEGATIVE) 11/24/17 21:51 C. difficile Ag & Toxin Negative (NEGATIVE) 11/27/17 06:13 Discharge Exam - Head Exam Head Exam: NORMAL INSPECTION Discharge Plan - Discharge Medications Prescriptions: Albuterol/Ipratropium [Duoneb 3 mg/0.5 mg (3 ml) UD] 3 ml INH RQ6 30 Days #125 neb Loperamide [Imodium] 2 mg PO ONCE PRN 30 Days #30 cap PRN Reason: Diarrhea Furosemide [Lasix] 20 mg PO DAILY 30 Days #30 tab Escitalopram [Lexapro] 5 mg PO DAILY 90 Days #90 tab Famotidine [Pepcid] 20 mg PO BID 90 Days #180 tab - Follow Up Plan Condition: CRITICAL Disposition: HOME/ ROUTINE Instructions: Heart Healthy Diet, Diabetes Exchange Diet, Heart Failure, Adult (DC), Carbohydrate Counting Diet, Diabetes Diet , Pleural Effusion (DC), Generalized Weakness (DC), Thoracentesis (DC), Altered Mental Status (GEN), Weakness (GEN), Heart Failure (DC), Heart Failure (GEN), Pacemaker (DC), Pacemaker (GEN), Pulmonary Edema (DC), Pulmonary Edema (GEN), Ascites (DC), Ascites (GEN) Additional Instructions: -FOLLOW UP WITH DR. SORIANO IN THE OFFICE WITHIN 5-7 DAYS---CALL THE OFFICE TO MAKE AN APPOINTMENT. -FOLLOW UP WITH DR. HANNAH (CUT ROLL MACHINE OPERATOR FOR YOUR [employer]) IN THE OFFICE WITHIN 1 WEEKS---CALL TO MAKE AN APPOINTMENT. -CONTINUE MEDICATIONS PER DR. SORIANO'S RECOMMENDATIONS. -DR. SORIANO SENT TO YOUR PHARMACY NEW PRESCRIPTIONS. TAKE ALL MEDICATIONS EXACTLY PRESCRIBED. -IF YOU HAVE ANY FURTHER QUESTIONS OR CONCERNS, CONTACT DR. SORIANO'S OFFICE. Referrals: Donell Martino MD [Staff Provider] - Homer Soriano MD [Staff Provider] -
--- NOTE | 2017-12-12 13:44 | US ---
PROCEDURE: Date of procedure: 12/01/2017 Procedure: 1. Ultrasound-guided left thoracentesis, CPT 48668 Medications: 6cc 1% Lidocaine HISTORY: Left pleural effusion, shortness of breath TECHNIQUE: Following informed consent ,the Patients' left chest was marked. Procedure time-out was called, and the patient was placed in the sitting position and limited ultrasound showed a large left effusion. The patient's left back was prepped and draped in the usual sterile fashion. After the skin was anesthetized with lidocaine, a drainage catheter was advanced under ultrasound guidance into the pleural space. Ultrasound-guided thoracentesis was performed. A total of 600 cubic centimeters of straw-colored fluid removed without complication. A Xeroform dressing was applied. IMPRESSION: Ultrasound guided left thoracentesis. There were no immediate complications.
== END 2017-12-04 17:15 | disposition home or self-care (01) | DRG 638 ==
LOC: C.ER 15:21 → C.9I 19:14 → C.6T 11-27 05:01
PROVIDERS: ADMIT Family Medicine; ATTEND Family Medicine
DX: E11.00 Type 2 diabetes mellitus with hyperosmolarity without nonketotic hyperglycemic-hyperosmolar coma (NKHHC) (principal); J44.1 Chronic obstructive pulmonary disease with (acute) exacerbation; I50.32 Chronic diastolic (congestive) heart failure; E87.2 Acidosis; J90 Pleural effusion, not elsewhere classified; E03.9 Hypothyroidism, unspecified; E11.319 Type 2 diabetes mellitus with unspecified diabetic retinopathy without macular edema; E11.65 Type 2 diabetes mellitus with hyperglycemia; E11.42 Type 2 diabetes mellitus with diabetic polyneuropathy; E11.649 Type 2 diabetes mellitus with hypoglycemia without coma; E78.00 Pure hypercholesterolemia, unspecified; E86.0 Dehydration; F06.4 Anxiety disorder due to known physiological condition; F17.210 Nicotine dependence, cigarettes, uncomplicated; F43.10 Post-traumatic stress disorder, unspecified; F41.1 Generalized anxiety disorder; I11.0 Hypertensive heart disease with heart failure; I48.2 Chronic atrial fibrillation; L89.322 Pressure ulcer of left buttock, stage 2; Z79.4 Long term (current) use of insulin; I25.10 Atherosclerotic heart disease of native coronary artery without angina pectoris; G47.33 Obstructive sleep apnea (adult) (pediatric); E11.51 Type 2 diabetes mellitus with diabetic peripheral angiopathy without gangrene; Z89.512 Acquired absence of left leg below knee; R91.1 Solitary pulmonary nodule; M62.81 Muscle weakness (generalized); Z74.01 Bed confinement status

== ENCOUNTER 2017-12-26 10:52 | Emergency (ER) | payer MEDICARE, MEDICAID ==
[2017-12-26 10:52] VITALS: PULSE 109
[2017-12-26 10:56] VITALS: TEMP 98.2
--- NOTE | 2017-12-26 12:01 | C.PDOC ---
History Of Present Illness 72 y/o female with PMHx of diabetes s/p left BKA presents to the ED with complaints of left lower extremity pain and involuntary spasms that began today. She reports pain from the left hip and groin extending down to the BKA site. Otherwise patient denies any chest pain, SOB, dizziness, nausea, vomiting , headaches, new weakness, or redness/swelling to BKA site. At baseline patient states she ambulates using a walker. She also has a prosthesis that she uses during therapy sessions. Of note, patient recently had her medication regimen changed 3 days ago. Time Seen by Provider: 12/26/17 10:57 Chief Complaint (Nursing): Medical Clearance History Per: Patient History/Exam Limitations: no limitations Onset/Duration Of Symptoms: Hrs Current Symptoms Are (Timing): Still Present Past Medical History Reviewed: Historical Data, Nursing Documentation, Vital Signs Vital Signs: Last Vital Signs Temp 98.2 F 12/26/17 17:47 Pulse 83 12/26/17 17:47 Resp 20 12/26/17 17:47 BP 141/68 12/26/17 17:47 Pulse Ox 94 L 12/26/17 17:47 - Medical History PMH: Anxiety, Arthritis, Asthma, Atrial Fibrillation, Bronchitis, Cardia Arrhythmia (back in NSR), CHF, COPD, Depression, Diabetes, Diverticulitis, Emphysema, Gastritis, HTN, Hypercholesterolemia, Hyperthyroidism, Hypothyroidism , Paranoia, Peripheral Edema, Post Traumatic Stress Disorder, Sleep Apnea Denies: Alzheimer's Disease, Mitral Valve Prolapse, Chronic Kidney Disease Surgical History: Cholecystectomy Denies: Pacemaker - [facility] Procedures APPLIC OF EXTERNAL FIXATOR DEVICE, RADIUS AND ULNA (12/20/12) BELOW KNEE AMPUTAT NEC (06/30/14) CL FX REDUC-RADIUS/ULNA (12/20/12) CONTINUOUS INVASIVE MECHANICAL VENTILATION <96 CONSEC HRS (06/30/14) DRAINAGE OF LEFT PLEURAL CAVITY, PERC APPROACH, DIAGN (11/23/17) ENTERAL INFUSION OF CONCENTRATED NUT. SUBSTANCES (06/30/14) OTHER ENDOVASCULAR PROCEDURES ON OTHER VESSELS (06/30/14) OTHER LOCAL DESTRUC SKIN (07/11/13) OTHER MYECTOMY (09/15/14) PHYSICAL THERAPY NEC (02/15/13) Family History: States: Unknown Family Hx - Social History Hx Tobacco Use: Yes Hx Alcohol Use: No Hx Substance Use: No - Immunization History Hx Tetanus Toxoid Vaccination: No Hx Influenza Vaccination: Yes Hx Pneumococcal Vaccination: Yes Review Of Systems Constitutional: Negative for: Fever Eyes: Negative for: Vision Change Cardiovascular: Negative for: Chest Pain Respiratory: Negative for: Shortness of Breath Gastrointestinal: Negative for: Nausea, Vomiting, Diarrhea Musculoskeletal: Positive for: Leg Pain (to left BKA site), Other (Involuntary spasms of left extremity/BKA). Negative for: Arm Pain Skin: Negative for: Rash, Lesions, Bruising Neurological: Negative for: Weakness, Numbness Physical Exam - Physical Exam Appears: Non-toxic, No Acute Distress Skin: Normal Color, Warm, Dry Head: Atraumatic, Normacephalic Eye(s): bilateral: Normal Inspection, PERRL, EOMI Oral Mucosa: Moist Neck: Normal ROM, Supple Chest: Symmetrical Cardiovascular: Rhythm Regular, No Murmur Respiratory: Normal Breath Sounds, No Rales, No Rhonchi, No Wheezing Gastrointestinal/Abdominal: Soft, No Tenderness, No Distention Extremity: Tenderness (mild tenderness to the left inguinal region and diffusely to left lower extremity), Capillary Refill (less than 2sec), Deformity (Left BKA), No Swelling, Other (Spastic, rhythmic jerks to the left lower extremity; Mild tremors to bilateral hands and right lower extremity) Pulses: Left Femoral: Normal, Right Dorsalis Pedis: Normal Neurological/Psych: Oriented x3, Normal Speech, Normal Motor (quality audit representative strength 5/5 bilaterally), Normal Sensation ED Course And Treatment - Laboratory Results Result Diagrams: 12/26/17 12:42 12/26/17 12:42 O2 Sat by Pulse Oximetry: 98 (RA) Pulse Ox Interpretation: Normal Medical Decision Making Medical Decision Making: Impression: Likely dystonic reaction to medication change Initial Plan: --Blood work --Benadryl 25 mg IVP --Xanax 0.25 mg PO --Reassess and dispo Progress/Updates: Labs reviewed with patient. 1430 Case discussed with patients primary doctor, Dr. Homer Soriano, who states patient is stable for discharge home and can follow up in the office. States patient has known history of restless leg syndrome secondary to Mirtazapine. Disposition Discussed With Dr.: Homer Soriano Doctor Will See Patient In The: Office Counseled Patient/Family Regarding: Studies Performed, Diagnosis, Need For Followup - Disposition Referrals: Homer Soriano MD [Staff Provider] - Disposition: HOME/ ROUTINE Disposition Time: 14:35 Condition: STABLE Additional Instructions: Foillow up with Dr. Soriano tomorrow withiout fail. Return if worsened. Instructions: Restless Legs Syndrome (DC) Forms: [facility] ([place]i) - POA Present On Arrival: None - Clinical Impression Clinical Impression: Restless leg syndrome - PA / DRY MAN / Resident Statement MD/DO has reviewed & agrees with the documentation as recorded. - Scribe Statement The provider has reviewed the documentation as recorded by the Scribe (Hanna Bryant) All medical record entries made by the Scribe were at my direction and personally dictated by me. I have reviewed the chart and agree that the record accurately reflects my personal performance of the history, physical exam, medical decision making, and the department course for this patient. I have also personally directed, reviewed, and agree with the discharge instructions and disposition.
[2017-12-26] MEDS ORDERED: DiphenhydrAMINE 50 mg/ml Inj IVP STA (12:04)
[2017-12-26 12:48] LABS: BASO # 0.1 K/uL (0.0-0.2); BASO % 1.4 % (0.0-2.0); EOS # 0.1 K/uL (0.0-0.7); EOS % 1.4 % (0.0-4.0); LYMPH # 2.5 K/uL (1.0-4.3); LYMPH % 31.1 % (20.0-40.0); MEAN CELL VOLUME 90.4 fL (81.0-99.0); MEAN CORPUSCULAR HGB CONC 34.3 g/dL (33.0-37.0); MEAN PLATELET VOLUME 9.1 fL (7.2-11.7); MONO # 0.7 K/uL (0.0-0.8); MONO % 9.1 % (0.0-10.0); NEUT # 4.5 K/uL (1.8-7.0); RBC 3.54 Mil/uL (3.80-5.20); RED CELL DISTRIBUTION WIDTH 15.1 % (11.5-14.5)
[2017-12-26] MEDS ORDERED: DiphenhydrAMINE 50 mg/ml Inj ONE (12:55)
[2017-12-26 13:12] LABS: ALB/GLOB RATIO 0.9 (1.0-2.1); ALT/SGPT 29 U/L (9-52); AST/SGOT 52 U/L (14-36); BLOOD UREA NITROGEN 18 mg/dL (7-17); CALCIUM 8.8 mg/dl (8.6-10.4); GFR NON-AFRICAN AMERICAN > 60
[2017-12-26 13:38] VITALS: RESP 20
[2017-12-26 17:49] VITALS: BP 141/68; PULSE 83
[2017-12-28 17:05] VITALS: O2SAT 98
== END 2017-12-26 18:00 | disposition home or self-care (01) ==
LOC: C.ER 10:52
DX: G25.81 Restless legs syndrome (principal)
CPT/HCPCS: 80053; 82948; 85025; 96374; 96375; 99283; J1200; J1885